=== PATIENT | male | born 1945 | race Caucasian/White ===

== ENCOUNTER → 2018-10-25 12:39 | Outpatient (CLI) | payer MEDICARE, BC, SELFPAY ==
[2018-10-12 11:21] VITALS: BMI 30.1
--- NOTE | 2018-10-25 12:41 | CDU_ITS ---
Reason For Study: TIA Rt. Velocities/BP Lt. Velocities/BP Prox CCA 69.5/9.5 cm/sec. Prox CCA 83.8/10.2 cm/sec. Mid CCA 63/12.1 cm/sec. Mid CCA 93.7/11.3 cm/sec. Dist CCA 51.3/13.4 cm/sec. Dist CCA 50.4/8.8 cm/sec. Prox ICA 104.7/22.5 cm/sec. Prox ICA 46.5/12.4 cm/sec. Mid ICA 78.5/21.2 cm/sec. Mid ICA 75/23.4 cm/sec. Dist ICA 74/21.2 cm/sec. Dist ICA 68.5/16.8 cm/sec. Rt. ICA/CCA = 1.7. Lt. ICA/CCA = 0.9. Prox ECA 116.5/17.3 cm/sec. Prox ECA 112.1/16.3 cm/sec. Rt. Vert. 47.6/15.7 cm/sec. Lt. Vert. 40.4/12.5 cm/sec. Right Extracranial There is homogeneous, smooth atherosclerotic plaque noted in the right common carotid artery. There is heterogeneous, irregular atherosclerotic plaque noted in the right internal carotid artery. There is heterogeneous, irregular atherosclerotic plaque noted in the right external carotid artery. Antegrade flow is noted in the right vertebral artery. Left Extracranial There is homogeneous, smooth atherosclerotic plaque noted in the left common carotid artery. There is heterogeneous, irregular atherosclerotic plaque noted in the left internal carotid artery. There is intimal thickening but no significant atherosclerotic plaque noted in the left external carotid artery. Antegrade flow is noted in the left vertebral artery. Procedure Carotid Duplex 61157. Exam performed in department. Interpretation Summary Mild (<50%) stenosis right extracranial internal carotid. Mild (<50%) stenosis left extracranial internal carotid. Flow within the vertebral arteries is antegrade bilaterally. Ordering Physician: Reza Velez Referring Physician: Srinivas Hopson Performed By: Carissa Staley RVT
== END ==
PROVIDERS: Family Provider Family Medicine; PCP Family Medicine; Referring Provider Internal Medicine Cardiovascular Disease; Visit Provider Internal Medicine Cardiovascular Disease
DX: I65.21 Occlusion and stenosis of right carotid artery (principal); Z95.1 Presence of aortocoronary bypass graft
CPT/HCPCS: 93880

== ENCOUNTER → 2018-11-22 06:06 | Outpatient (CLI) | payer MEDICARE, BC, SELFPAY ==
[2018-10-12 11:21] VITALS: BMI 30.1
--- NOTE | 2018-11-22 17:39 | STRESSREP ---
Stress Test Report Pharmacologic myocardial perfusion stress test. 72-year-old man with a history of chest pain coronary artery bypass surgery. Medications: Aspirin, levothyroxine, rosuvastatin, losartan, amlodipine. Stress protocol: Resting EKG demonstrates sinus bradycardia with a rate of 47 bpm normal intervals are noted resting blood pressures 160/80 mmHg. 0.4 mg of regadenoson was infused per usual protocol followed by rapid intravenous and flush injection continuous EKG monitoring was performed. The maximum heart rate attained was 75 bpm which was 50% of maximum predicted heart rate the maximum workload was 1 metabolic equivalent. At rest there were no ST or T wave changes noted suggest abnormal flow reserve at peak infusion nonspecific ST-T wave changes were noted with no meet the criteria for ischemia. Myocardial perfusion protocol. 11.0 mCi of technetium 99m sestamibi was injected at rest. 0.4 mg of adenosine was infused per usual protocol peak infusion 33.7 mCi of technetium 99m sestamibi was injected stress images were obtained stress and rest images were reconstructed in comparing the short axis vertical long horizontal long axis. Gated images were also obtained Perfusion SPECT analysis: Review of the images demonstrate normal uptake of tracer noted in all areas of the myocardium the resting images similarly demonstrate normal uptake of tracer noted in all areas of myocardium. Gated SPECT analysis: The gated ejection fraction was noted to be 70%. Conclusion: Normal pharmacologic myocardial perfusion stress test. Preserved ejection fraction.
== END ==
PROVIDERS: Family Provider Family Medicine; PCP Family Medicine; Referring Provider Internal Medicine Cardiovascular Disease; Visit Provider Internal Medicine Cardiovascular Disease
DX: I25.10 Atherosclerotic heart disease of native coronary artery without angina pectoris (principal); Z95.1 Presence of aortocoronary bypass graft
CPT/HCPCS: 78452; 93017; A9500; A4216; J2785

== ENCOUNTER → 2019-11-14 09:44 | Outpatient (CLI) | payer MEDICARE, BC, SELFPAY ==
[2019-10-27 11:05] VITALS: BMI 29.6
--- NOTE | 2019-11-14 09:45 | ECHOD_ITS ---
Reason For Study: S/P CABG Procedure This was a 2D Doppler, Color Flow transthoracic echocardiogram. Exam performed in department. Left Ventricle Normal LV size. Apical false tendon noted. Left ventricular systolic function is normal. The estimated ejection fraction is 60 %. No regional wall motion abnormalities noted. Right Ventricle Normal RV size. Normal systolic function. Atria Normal left atrium. Normal right atrium. Mitral Valve Normal mitral valve. Tricuspid Valve Normal tricuspid valve. Mild tricuspid valve insufficiency. Pulmonary artery systolic pressure is 30 mmHg. Aortic Valve Trisinus/trileaflet aortic valve. Mild diffuse aortic valve thickening. Pulmonic Valve Normal pulmonic valve. Great Vessels Normal aortic root. Pericardium/Pleural No pericardial effusion. MMode/2D Measurements & Calculations LVIDd: 4.7 cm IVSd: 0.98 cm Ao root diam: 3.7 cm LVIDs: 3.1 cm LVPWd: 0.98 cm RVDd: 4.3 cm FS: 34.4 % LAV(MOD-sp4): 72.0 ml LVAd ap4: 40.8 cm2 SV(MOD-sp4): 93.6 ml EDV(MOD-sp4): 149.2 ml EDV(sp4-el): 152.7 ml LVAs ap4: 23.4 cm2 ESV(MOD-sp4): 55.6 ml ESV(sp4-el): 54.9 ml EF(MOD-sp4): 62.8 % EF(sp4-el): 64.0 % SV(sp4-el): 97.8 ml LA A4 area: 23.0 cm2 LA dimension(2D): 4.9 cm RA A4 area: 18.8 cm2 Time Measurements MV dec time: 0.18 sec Doppler Measurements & Calculations MV E max robi: 83.5 cm/sec Lat Peak E' Robi: 8.2 cm/sec Med Peak E' Robi: 5.9 cm/sec MV A max robi: 94.1 cm/sec E/E' lat: 10.2 E/E' med: 14.1 MV E/A: 0.89 MV V2 max: 104.5 cm/sec Ao V2 max: 136.5 cm/sec LV V1 max: 122.7 cm/sec MV max P.4 mmHg Ao max P.5 mmHg LV V1 max P.0 mmHg MV V2 mean: 53.1 cm/sec MV mean P.4 mmHg MV V2 VTI: 42.4 cm PA V2 max: 137.8 cm/sec PI end-d robi: 91.2 cm/sec TR max robi: 254.7 cm/sec TR max P.0 mmHg MV P1/2t-pr_phl: 119.7 msec Interpretation Summary Normal LV size. Left ventricular systolic function is normal. Pulmonary artery systolic pressure is 30 mmHg. The estimated ejection fraction is 60 %. Mild tricuspid valve insufficiency. Ordering Physician: Reza Velez Referring Physician: SHIRLEY SANDRA Performed By: Za Crump, ALLISONCS, RVT
== END ==
PROVIDERS: PCP Family Medicine; Referring Provider Internal Medicine Cardiovascular Disease; Visit Provider Internal Medicine Cardiovascular Disease
DX: I25.10 Atherosclerotic heart disease of native coronary artery without angina pectoris (principal); Z95.1 Presence of aortocoronary bypass graft
CPT/HCPCS: 93306

== ENCOUNTER → 2020-06-29 08:51 | Outpatient (CLI) | payer MEDICARE, BC, SELFPAY ==
[2019-10-27 11:05] VITALS: BMI 29.6
== END ==
PROVIDERS: PCP Family Medicine; Referring Provider Nurse Practitioner Family; Visit Provider Nurse Practitioner Family
DX: I25.10 Atherosclerotic heart disease of native coronary artery without angina pectoris (principal); E78.5 Hyperlipidemia, unspecified; R00.2 Palpitations; Z95.1 Presence of aortocoronary bypass graft; I10 Essential (primary) hypertension
CPT/HCPCS: 93225; 93226

== ENCOUNTER → 2021-09-18 | Outpatient (CLI) | payer MEDICARE, BC, SELFPAY | END | disposition home or self-care (01) | LOC: PSN 08:49 | PROVIDERS: PCP Family Medicine; Referring Provider Physician Assistant Medical; Visit Provider Physician Assistant Medical | DX: R00.1 Bradycardia, unspecified (principal); R00.2 Palpitations; I25.10 Atherosclerotic heart disease of native coronary artery without angina pectoris | CPT/HCPCS: 93225; 93226 ==

== ENCOUNTER → 2021-11-28 | Outpatient (CLI) | payer MEDICARE, BC, SELFPAY ==
--- NOTE | 2021-11-28 16:40 | STRESSREP ---
Stress Test Report Exercise myocardial perfusion stress test. 75-year-old male with a history of chest pain and coronary disease. Stress protocol: Resting EKG demonstrates sinus bradycardia with a rate of 46 bpm normal intervals are noted. The patient exercised according to the regular Abel protocol for total duration of 7 minutes. Patient completed 1 minute into stage III of the Abel protocol the maximum heart rate attained was 141 bpm which was 97% of max impacted heart rate the maximum workload was 10.1 metabolic equivalents. At rest there were no ST or T wave changes noted suggest ischemia and at peak exercise upsloping ST changes were noted. That did not meet the criteria for ischemia. T wave inversions were noted in the inferior leads. The peak blood pressure was 200/90 mmHg. The test was terminated because the target heart rate was achieved. Myocardial perfusion protocol. 11.4 mCi of technetium 99m sestamibi was injected at rest. The patient exercised according to regular Abel protocol and at peak exercise 34.7 mCi of technetium 99m sestamibi was injected stress images were obtained stress and rest images were reconstructed and compared in the short axis vertical long and horizontal long axis. Gated images were also obtained. Perfusion SPECT analysis: Review of the stress images demonstrate normal uptake of tracer noted in all areas of the myocardium. The resting images similarly demonstrate normal uptake of tracer noted in all areas of the myocardium. No areas of reversibility are noted to suggest ischemia and no previous infarct is noted. Gated SPECT analysis: The gated ejection fraction is noted to be 64%. Conclusion: Normal exercise myocardial perfusion stress test at a moderate workload. Preserved ejection fraction.
== END | disposition home or self-care (01) ==
LOC: CVS 07:15
PROVIDERS: PCP Family Medicine; Referring Provider Internal Medicine Cardiovascular Disease; Visit Provider Internal Medicine Cardiovascular Disease
DX: I25.10 Atherosclerotic heart disease of native coronary artery without angina pectoris (principal); Z95.1 Presence of aortocoronary bypass graft
CPT/HCPCS: 78452; 93017; A9500; A4216

== ENCOUNTER → 2022-05-14 | Outpatient (CLI) | payer MEDICARE, BC, SELFPAY ==
[2022-05-14 11:25] LABS: Anion Gap 9 (5-15); BUN 21 mg/dL (7-18); BUN/Creat Ratio 18.1 RATIO (10-20); Calcium,Total 9.5 mg/dL (8.5-10.1); Chloride 105 mmol/L (98-107); Creatinine, Serum 1.16 mg/dL (0.70-1.30); EST Glomerular Filtration Rate 65 mL/min (>60); Est Glom Filt Rate - Afr Amer 79 mL/min (>60); Glucose 108 mg/dL (74-106); Potassium 3.5 mmol/L (3.5-5.1); Sodium Level 140 mmol/L (136-145)
== END | disposition home or self-care (01) ==
LOC: LAB 10:09
PROVIDERS: PCP Family Medicine; Visit Provider Nurse Practitioner Gerontology
DX: I10 Essential (primary) hypertension (principal)
CPT/HCPCS: 36415; 80048

== ENCOUNTER → 2022-05-28 | Outpatient (CLI) | payer MEDICARE, BC, SELFPAY ==
--- NOTE | 2022-05-28 10:09 | ECHOD_ITS ---
Reason For Study: Murmur Procedure This was a 2D Doppler, Color Flow transthoracic echocardiogram. Exam performed in department. Left Ventricle Normal LV size. Apical false tendon noted. Mild concentric left ventricular hypertrophy. Left ventricular systolic function is normal. The estimated ejection fraction is 55 %. No regional wall motion abnormalities noted. Right Ventricle Normal RV size. Normal systolic function. Atria The left atrium is mildly enlarged. The right atrium is mildly enlarged. Mitral Valve Bileaflet diffuse mitral valve thickening. Mild (1+) eccentric mitral valve insufficiency. Tricuspid Valve Normal tricuspid valve. Mild (1+) tricuspid valve insufficiency. Pulmonary artery systolic pressure is 32 mmHg. Aortic Valve Trisinus/trileaflet aortic valve. Moderate focal aortic valve calcification. Pulmonic Valve Normal pulmonic valve. Great Vessels Normal aortic root. The pulmonary artery is normal size. Normal inferior vena cava. Pericardium/Pleural No pericardial effusion. MMode/2D Measurements & Calculations LVIDd: 4.6 cm IVSd: 1.4 cm LVOT diam: 2.4 cm LVIDs: 2.7 cm LVPWd: 1.3 cm LVOT area: 4.5 cm2 RVDd: 4.5 cm FS: 41.9 % Ao root diam: 3.3 cm LAV(MOD-bp): 73.4 ml LVAd ap4: 35.1 cm2 LAV(MOD-bp) Indexed: 36.2 ml/m2 LVLd ap4: 9.3 cm LAV(MOD-sp2): 63.5 ml EDV(MOD-sp4): 107.8 ml LAV(MOD-sp4): 76.9 ml EDV(sp4-el): 112.3 ml LVAs ap4: 19.1 cm2 LVLs ap4: 8.0 cm ESV(MOD-sp4): 39.4 ml ESV(sp4-el): 38.7 ml EF(MOD-sp4): 63.4 % EF(sp4-el): 65.5 % LVAd ap2: 34.0 cm2 SV(MOD-sp4): 68.3 ml SV(MOD-sp2): 67.6 ml LVLd ap2: 9.2 cm EDV(MOD-sp2): 104.7 ml EDV(sp2-el): 106.3 ml LVAs ap2: 18.3 cm2 LVLs ap2: 7.9 cm ESV(MOD-sp2): 37.1 ml ESV(sp2-el): 36.0 ml EF(MOD-sp2): 64.5 % SV(sp4-el): 73.6 ml LA dimension(2D): 5.1 cm LA A4 area: 23.7 cm2 RA A4 area: 22.0 cm2 Time Measurements MV dec time: 0.20 sec Doppler Measurements & Calculations MV E max robi: 102.8 cm/sec Lat Peak E' Robi: 9.4 cm/sec Med Peak E' Robi: 7.6 cm/sec MV A max robi: 91.8 cm/sec E/E' lat: 10.9 E/E' med: 13.5 MV E/A: 1.1 Ao V2 max: 182.1 cm/sec LV V1 max: 126.8 cm/sec MV dec slope: 514.7 cm/sec2 Ao max P.3 mmHg LV V1 max P.4 mmHg Ao V2 mean: 117.0 cm/sec LV V1 mean P.3 mmHg Ao mean P.4 mmHg LV V1 mean: 86.1 cm/sec Ao V2 VTI: 41.1 cm LV V1 VTI: 32.3 cm AV (velocity ratio): 0.78 SORAYA(I,D): 3.5 cm2 SORAYA(V,D): 3.1 cm2 SV(LVOT): 143.8 ml PA V2 max: 148.2 cm/sec TR max robi: 269.6 cm/sec TR max P.1 mmHg ECHO/Echo Complete Interpretation Summary Normal LV size. Left ventricular systolic function is normal. The estimated ejection fraction is 55 %. Mild (1+) eccentric mitral valve insufficiency. Mild concentric left ventricular hypertrophy. Pulmonary artery systolic pressure is 32 mmHg. Ordering Physician: Soraya Leger Referring Physician: Srinivas Hopson Performed By: Soha Carrillo RDCS
== END | disposition home or self-care (01) ==
PROVIDERS: PCP Family Medicine; Visit Provider Nurse Practitioner Gerontology
DX: R01.1 Cardiac murmur, unspecified (principal)
CPT/HCPCS: 93306

== ENCOUNTER 2023-02-08 23:49 | Inpatient (IN) | payer MEDICARE, BC, SELFPAY ==
--- NOTE | 2023-02-08 00:15 | RAD_ITS ---
STUDY: X-RAY CHEST REASON FOR EXAM: Male, 77 years old. chest pain TECHNIQUE: Single AP portable view of the chest. COMPARISON: None. FINDINGS: The lungs are clear and expanded. There is no demonstrated pleural abnormality. Borderline cardiomegaly with midline sternotomy wires. Normal mediastinum and jian. Normal visualized pulmonary arteries. There is atherosclerotic calcification of the aortic arch with tortuosity. There are diffuse degenerative changes of the visualized thoracic spine. Normal visualized ribs, clavicles, and shoulders. There is no demonstrated abnormality of the visualized soft tissue structures of the upper abdomen. RAD/Chest 1 View (Portable) IMPRESSION: No acute cardiopulmonary disease. Electronically Signed: Danielle Gonsales MD at 0:26 EST ,
[2023-02-08 23:50] VITALS: BP 177/86; PULSE 86; RESP 15; TEMP 36.7; O2SAT 95; BMI 33.6
--- NOTE | 2023-02-08 23:50 | EKG12_ITS ---
Test Reason : CP Blood Pressure : / mmHG Vent. Rate : 088 BPM Atrial Rate : 088 BPM P-R Int : 248 ms QRS Dur : 112 ms QT Int : 388 ms P-R-T Axes : 075 015 085 degrees QTc Int : 469 ms Sinus rhythm with 1st degree A-V block with occasional Premature ventricular complexes Incomplete left bundle branch block ST & T wave abnormality, consider lateral ischemia Abnormal ECG Confirmed by ALISHA TITUS, CARLEE ([id number]), editor & co founder SIMBA ESTRELLA ([id number]) on 02/10/2023 10:42:23 AM Referred By: BB Confirmed By:CARLEE BRITO MD
--- NOTE | 2023-02-08 23:51 | ED.VIS.CHEST ---
HPI History of Present Illness Chief Complaint: Chest Pain Informant: patient and EMS Onset/Context/Timing Onset: Hours (3-4) Activity at onset: sudden, onset, activity on onset and rest Timing: Intermittent Quality: Positive for Pressure and Sharp Location: Right Parasternal Current Severity: 5/10 Maximum Severity: Severe Worsened By: Nothing; Not Worsened By Breathing Relieved By: Nothing; Not Relieved By NTG Narrative Narrative: 77-year-old male started having chest discomfort tonight while at rest, radiates up to his jaw and neck, states it feels different than prior cardiac pain but called EMS telling dispatch he thought he was having a heart attack. EMS gave him aspirin and nitroglycerin the patient states the nitroglycerin did not seem to help. He still has discomfort. Seems to have been coming and going since it started. [facility] Medical History (Updated 02/09/23 @ 00:[address] 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 Sinoatrial node dysfunction Stenosis of right carotid artery Home Medications aspirin 81 mg tablet,delayed release 81 mg PO QDAY 04/15/17 [History Last Taken Unknown] epinephrine 0.15 mg/0.3 mL injection,auto-injector (EpiPen Jr) See Rx Instructions IM .COMPLEX 04/15/17 [History Last Taken Unknown] levocetirizine 5 mg tablet 5 mg PO QDAY 04/15/17 [History Last Taken Unknown] montelukast 10 mg tablet 10 mg PO QDAY 90 days #90 tabs 04/15/17 [History Last Taken Unknown] tamsulosin 0.4 mg capsule 0.4 mg PO QHS 90 days #90 caps 04/15/17 [History Last Taken Unknown] nitroglycerin 0.4 mg sublingual tablet 0.4 mg sublingual Q5-15M PRN chest pain #25 tabs 03/24/19 [Rx Last Taken Unknown] apremilast 30 mg tablet (Otezla) 30 mg PO BID 06/20/20 [History Last Taken Unknown] ascorbic acid (vitamin C) 1,000 mg tablet 1 gm PO DAILY 06/20/20 [History Last Taken Unknown] bempedoic acid 180 mg-ezetimibe 10 mg tablet (Nexlizet) 1 tablet PO DAILY 06/20/20 [History Last Taken Unknown] cholecalciferol (vitamin D3) 50 mcg (2,000 unit) tablet 2,000 unit PO BID 06/20/20 [History Last Taken Unknown] fluticasone propionate 110 mcg/actuation HFA aerosol inhaler (Flovent HFA) 1 puff inhalation BID 06/20/20 [History Last Taken Unknown] multivitamin 1 tablet PO DAILY 06/20/20 [History Last Taken Unknown] omega 4-lfh-edm-fish oil 1,600 mg-500 mg-800 mg/5 mL oral liquid 5 ml PO DAILY 06/20/20 [History Last Taken Unknown] levothyroxine 112 mcg tablet 112 mcg PO DAILY 10/30/20 [History Last Taken Unknown] escitalopram oxalate 10 mg tablet 10 mg PO DAILY 05/01/22 [History Last Taken Unknown] amlodipine 10 mg tablet 5 mg PO DAILY 02/09/23 [History Last Taken Unknown] losartan 100 mg-hydrochlorothiazide 12.5 mg tablet 1 tab PO DAILY 02/09/23 [History Last Taken Unknown] Allergy/AdvReac Type Severity Reaction Status Date / Time insect venom [yellow jacket] Allergy Severe Anaphylaxis Verified 02/09/23 00:26 atorvastatin [From Lipitor] Allergy intolerance, Verified 02/09/23 00:26 weakness colesevelam [From WelChol] Allergy myalgias Verified 02/09/23 00:26 Penicillins Allergy Unknown Verified 02/09/23 00:26 pravastatin [From Pravachol] Allergy myalgias Verified 02/09/23 00:26 rosuvastatin [From Crestor] Allergy intolerance, Verified 02/09/23 00:26 weakness ibuprofen AdvReac Mild Asthma Verified 02/09/23 00:26 Attack Family History Father , age 87 CAD (coronary artery disease) Mother , age 90 CAD (coronary artery disease) Brother FH: brain aneurysm Sister emphysema Surgical History (Updated 02/08/23 @ 23:53 by Shira Sultana) H/O coronary artery bypass surgery (07/29/05) History of back surgery History of left heart catheterization (LHC) (09/23/10) Social History Smoking Status: Former smoker how long ago did patient quit smokin alcohol intake: never substance use type: does not use what type of physical activity do you participate in: none ROS ROS ED Constitutional Constitutional ED: Denies chills or fever(s) Eyes Eyes: Denies change in vision or diplopia ENT ENT ED: Denies rhinorrhea or sore throat Cardiovascular Cardiovascular: Reports chest pain, leg edema and radiating jaw, neck or arm pain; Denies palpitations Respiratory/Chest Respiratory/Chest: Reports dyspnea; Denies cough Gastrointestinal Gastrointestinal: Reports nausea; Denies abdominal pain, diarrhea or vomiting Genitourinary Genitourinary ED: Denies dysuria or hematuria Musculoskeletal Musculoskeletal: Denies back pain or neck pain Integumentary Denies abscess or rash Neurologic Neurologic: Denies headache(s), paresthesias or weakness Psychiatric Psychiatric: Denies anxiety or suicidal thoughts EXAM Physical Exam Const Vital Signs: 02/08/23 23:50 02/08/23 23:54 02/08/23 23:50 Temperature 98.1 F Temperature Source Temporal Pulse Rate 86 Respiratory Rate 15 Respiratory Effort Non-Labored Blood Pressure 177/86 H Blood Pressure Mean 116 Pulse Ox 95 95 Oxygen Delivery Method Room Air Room Air 02/09/23 00:40 Temperature Temperature Source Pulse Rate 64 Respiratory Rate 15 Respiratory Effort Blood Pressure 124/69 H Blood Pressure Mean 87 Pulse Ox 96 Oxygen Delivery Method Room Air Positive well nourished and well developed General Appearance ED: well developed and NAD HEENT Reports moist mucous membranes normocephalic and atraumatic Eyes PERRL and EOMs intact bilaterally Neck full ROM, supple and no JVD Chest Wall Chest Narrative: Well-healed CABG scar Resp normal respiratory effort and clear to auscultation bilaterally Cardio regular rate, regular rhythm and no murmurs GI non-tender and non-distended Auscultation: normoactive bowel sounds Palpation: soft Back/Spine no CVA tenderness General Back: other FROM Extremity normal to inspection General Extremety ED: Yes edema; Negative for pulses abnormal or tenderness General Extremity: edema bilateral lower extremity Details: mild; Negative for pulses abnormal Neuro oriented x3, CN's II-XII intact bilaterally and no sensory deficits noted Sensorium / Orientation: awake and alert Motor Exam: strength 5/5 throughout Skin no rashes or lesions noted and no wounds Heart Score History: Highly Suspicious ECG: Significant ST-Depression Age: >/= 65 years Risk Factors: >/= 3 Risk Factors or History of CAD Score: 8 MDM MDM MDM Narrative Medical decision making narrative: Patient's initial troponin is elevated at 704, and in context of his EKGs showing ST depressions septal laterally, this is consistent with acute coronary syndrome. Cardiology in agreement with me that this is not consistent with STEMI based on EKGs, both current and EMS compared with old EKG. After morphine patient still having mild chest discomfort but better, clinically hemodynamically stable. Will start him on heparin and nitroglycerin drips, and admit to the ICU Chest x-ray 1 view shows narrow mediastinum no other acute abnormality on my interpretation. History & Record Review Additional record(s) reviewed:: Prior outpatient record (Echo with EF 55% 2021) Lab Data Attestation: I reviewed the patient's lab results. Labs: Laboratory Results - last 24 hr 02/08/23 23:56 WBC 7.8 RBC 4.41 L Hgb 13.7 Hct 41.1 MCV 93.2 MCH 31.1 MCHC 33.3 RDW Std Deviation 44.7 H RDW Coeff of Kadeem 13.2 Plt Count 513 H MPV 9.9 Immature Gran % (Auto) 1.300 H Neut % (Auto) 61.5 Lymph % (Auto) 20.3 [place] % (Auto) 12.3 H Eos % (Auto) 3.7 Baso % (Auto) 0.9 Absolute Neuts (auto) 4.8 Absolute Lymphs (auto) 1.58 Nucleated RBC % 0 Sodium 138 Potassium 3.8 Chloride 105 Carbon Dioxide 24.0 Anion Gap 9 BUN 30 H Creatinine 1.27 Estim Creat Clear Calc 47.13 Est GFR (MDRD) Af Amer 71 Est GFR (MDRD) Non-Af 58 L BUN/Creatinine Ratio 23.6 H Glucose 152 H Calcium 10.0 Troponin I High Sens 704 H* Radiography Diagnostic Testing: Clinical Impression(s) from Imaging Studies Chest X-Ray 02/08/23 00:15 IMPRESSION: No acute cardiopulmonary disease. Electronically Signed: Danielle Gonsales MD at 0:26 EST , Rhythm Strip Rhythm Strip: Sinus Rhythm Rate: 85 Ectopy: None EKG Initial EKG: Attestation: I personally reviewed and interpreted this EKG as follows: Interpretation: Sinus Rhythm, No Acute Injury Pattern and S-T Depression (0.5mm V2-4) Management Discussion w/another healthcare provider: Hospitalist and Rn Occupational (cardiology Mike - agrees no STEMI) Critical Care Time Critical Care Time: Yes Critical care time (excluding procedures): 30-74 minutes (36 min), Including time spent:, Discussing w/Patient &/or Family/Supervisor Evaporator, Discussing w/Consultants, Arranging Admission or Transfer and Performing Direct Patient Care at Bedside Discharge Plan Triage Chief Complaint: Chest Pain ED Provider: Mayank Moore Dx/Rx/DC Orders Clinical Impression: ACS (acute coronary syndrome) Prescriptions: No Action tamsulosin 0.4 mg capsule,extended release 24hr 0.4 mg PO QHS 90 Days Qty: 90 Patient Comments: levocetirizine 5 mg tablet 5 mg PO QDAY montelukast 10 mg tablet 10 mg PO QDAY 90 Days Qty: 90 Patient Comments: epinephrine [EpiPen Jr] 0.15 mg/0.3 mL auto-injector See Rx Instructions IM .COMPLEX Patient Comments: Take as directed, IM Rx Instructions: Take as directed, IM aspirin 81 mg tablet,delayed release (DR/EC) 81 mg PO QDAY nitroglycerin 0.4 mg tablet, sublingual 0.4 mg SUBLINGUAL Q5-15M PRN (Reason: chest pain) Qty: 25 3RF Rx Instructions: until response; do not exceed 3 doses per episode levothyroxine 112 mcg tablet 112 mcg PO DAILY escitalopram oxalate 10 mg tablet 10 mg PO DAILY amlodipine 10 mg tablet 5 mg PO DAILY Rx Instructions: 5 mg po daily losartan-hydrochlorothiazide 100-12.5 mg tablet 1 tab PO DAILY Otezla 30 mg tablet 30 mg PO BID Nexlizet 180-10 mg tablet 1 tablet PO DAILY Flovent HFA 110 mcg/actuation HFA aerosol inhaler 1 puff INHALATION BID Patient Comments: Take as directed; INHALATION multivitamin Tablet 1 tablet PO DAILY cholecalciferol (vitamin D3) 50 mcg (2,000 unit) tablet 2,000 unit PO BID ascorbic acid (vitamin C) 1,000 mg tablet 1 gm PO DAILY omega 4-rsj-ejy-fish oil 1,600-500-800 mg/5 mL liquid 5 ml PO DAILY Primary Care Provider: Srinivas Hopson Referrals: Srinivas Hospon MD [Primary Care Provider] - Disposition Disposition: Acute Care Hospital [facility]
[2023-02-09] VITALS (45 sets, daily range): BP systolic 106–157; BP diastolic 51–102; PULSE 46–77; RESP 12–21; TEMP 36.2–37.1; O2SAT 93–98; BMI 29.7
[2023-02-09] MEDS: Morphine 4 MG/ML Syringe 2 MG IV (00:09)
[2023-02-09] MEDS: Ondansetron 4 MG/2 ML Vial IV (00:10)
[2023-02-09 00:28] LABS: Absolute Lymphocyte Count 1.58 X10^3/uL (0.83-4.51); Absolute Neutrophil Count 4.8 X10^3/uL (2.0-7.7); Basophil# 0.07 X10^3/uL; Basophil% 0.9 % (0-1); Eosinophil# 0.29 X10^3/uL; Eosinophils% 3.7 % (0-5); Hematocrit 41.1 % (40-54); Hemoglobin 13.7 g/dL (13.0-16.5); Lymphocyte # 1.58 X10^3/ul (0.83-4.51); Lymphocyte % 20.3 % (19-41); Mean Corp Hgb Conc 33.3 g/dL (32-36); Mean Corpuscular Hgb 31.1 pg (27.0-32.0); Mean Corpuscular Volume 93.2 fL (80-94); Mean Platelet Vol. 9.9 fl (6.2-12.0); Monocyte# 0.96 X10^3/uL; Monocyte% 12.3 % (0-10); NRBC Flagged by Analyzer 0 % (0-5); Neutrophil # 4.79 X10^3/uL (2.7-7.7); Neutrophil % 61.5 % (47-70); POSITIVE COUNT YES; RBC Distribution Width CV 13.2 % (11.6-14.6); RBC Distribution Width SD 44.7 fl (35.1-43.9); Red Blood Count 4.41 M/mm3 (4.6-6.2); White Blood Count 7.8 K/mm3 (4.4-11.0)
[2023-02-09 00:29] LABS: Differential Indicated SCAN CRITERIA MET
[2023-02-09 00:35] LABS: Anion Gap 9 (5-15); BUN 30 mg/dL (7-18); BUN/Creat Ratio 23.6 RATIO (10-20); Chloride 105 mmol/L (98-107); Creatinine, Serum 1.27 mg/dL (0.70-1.30); EST Glomerular Filtration Rate 58 mL/min (>60); Est Glom Filt Rate - Afr Amer 71 mL/min (>60); Estimated Creatinine Clearance 47.13 ml/min; Glucose 152 mg/dL (74-106); Potassium 3.8 mmol/L (3.5-5.1); Sodium Level 138 mmol/L (136-145); Troponin-I HS (w/2H Reflex) 704 pg/mL (3.0-78.0)
--- NOTE | 2023-02-09 00:42 | HP.PCM.HOS_ITS ---
[facility] - General General Date of Admission: 02/09/23 Date of Service: 02/09/23 Chief Complaint: Chest pain HPI Narrative DAVID MIXON, is a 77 M with a past medical history of essential hypertension, hyperlipidemia, hypothyroidism, obesity; with BMI of 33.6 this admission, former history of tobacco abuse (quit 1989), history of vocal cord cancer; status post polyp removal approximately 6 years ago with subsequent radiation followed by Dr. Ardon of ENT, history of right carotid artery stenosis, history of sinoatrial node dysfunction, history of diverticulitis; with 12 inches of colon resected with subsequent ostomy and reanastomosis, BPH, depression, GERD, osteoarthritis; with recent history of back surgery; with L4-L5 fusion with surgery taking 4 hours with 4 incisions (normal time for the stable surgeries 2 hours) done by Dr. Dickey at [facility] on 01/22/2023 with good wound healing and no known postoperative complications and a known history of coronary artery disease; status post DC with coronary artery bypass graft x 3 (2005) and [facility] (2010) followed by Dr. Velez who presents to [facility] ER complaining of chest pain. Mr. Fernandez reports his symptoms began approximately 3 to 4 hours prior to arrival with the abrupt onset of chest pain that began at rest and was right parasternal, radiating up into his jaw and neck, approximately 5 out of 10, pressure-like and sharp, intermittent and was not made better by sublingual nitroglycerin and was not made worse with activity. He also admits to associated nausea and lower extremity edema but denies vomiting or palpitations. He states this is different than his previous angina and he claims his chest pain has improved after being started on IV nitroglycerin. In the ER his initial troponin was 704 pg/mL followed by a second troponin of 621 pg/mL consistent with a suspected non-ST elevation DC with his EKG revealing sinus bradycardia at 58 bpm with a first-degree AV block and evidence of a previous septal infarct and he was then to the ICU for ongoing care for stated that expected to be greater than 48 hours. [facility] Medical History Atherosclerotic heart disease of [place] coronary artery without angina pectoris Dizziness and giddiness Esophageal disorder Essential (primary) hypertension Fatigue GERD (gastroesophageal reflux disease) HLD (hyperlipidemia) Hypothyroidism, iatrogenic Old myocardial infarction Sinoatrial node dysfunction Stenosis of right carotid artery Home Medications aspirin 81 mg tablet,delayed release 81 mg PO QDAY 04/15/17 [History Last Taken Unknown] epinephrine 0.15 mg/0.3 mL injection,auto-injector (EpiPen Jr) See Rx Instructions IM .COMPLEX 04/15/17 [History Last Taken Unknown] levocetirizine 5 mg tablet 5 mg PO QDAY 04/15/17 [History Last Taken Unknown] montelukast 10 mg tablet 10 mg PO QDAY 90 days #90 tabs 04/15/17 [History Last Taken Unknown] tamsulosin 0.4 mg capsule 0.4 mg PO QHS 90 days #90 caps 04/15/17 [History Last Taken Unknown] nitroglycerin 0.4 mg sublingual tablet 0.4 mg sublingual Q5-15M PRN chest pain #25 tabs 03/24/19 [Rx Last Taken Unknown] apremilast 30 mg tablet (Otezla) 30 mg PO BID 06/20/20 [History Last Taken Un known] ascorbic acid (vitamin C) 1,000 mg tablet 1 gm PO DAILY 06/20/20 [History Last Taken Unknown] bempedoic acid 180 mg-ezetimibe 10 mg tablet (Nexlizet) 1 tablet PO DAILY 06/20/20 [History Last Taken Unknown] cholecalciferol (vitamin D3) 50 mcg (2,000 unit) tablet 2,000 unit PO BID 06/20/20 [History Last Taken Unknown] fluticasone propionate 110 mcg/actuation HFA aerosol inhaler (Flovent HFA) 1 puff inhalation BID 06/20/20 [History Last Taken Unknown] multivitamin 1 tablet PO DAILY 06/20/20 [History Last Taken Unknown] omega 6-vgd-ppi-fish oil 1,600 mg-500 mg-800 mg/5 mL oral liquid 5 ml PO DAILY 06/20/20 [History Last Taken Unknown] levothyroxine 112 mcg tablet 112 mcg PO DAILY 10/30/20 [History Last Taken Unknown] escitalopram oxalate 10 mg tablet 10 mg PO DAILY 05/01/22 [History Last Taken Unknown] amlodipine 10 mg tablet 5 mg PO DAILY 02/09/23 [History Last Taken Unknown] losartan 100 mg-hydrochlorothiazide 12.5 mg tablet 1 tab PO DAILY 02/09/23 [History Last Taken Unknown] Allergy/AdvReac Type Severity Reaction Status Date / Time insect venom [yellow jacket] Allergy Severe Anaphylaxis Verified 02/09/23 00:26 atorvastatin [From Lipitor] Allergy intolerance, Verified 02/09/23 00:26 weakness colesevelam [From WelChol] Allergy myalgias Verified 02/09/23 00:26 Penicillins Allergy Unknown Verified 02/09/23 00:26 pravastatin [From Pravachol] Allergy myalgias Verified 02/09/23 00:26 rosuvastatin [From Crestor] Allergy intolerance, Verified 02/09/23 00:26 weakness ibuprofen AdvReac Mild Asthma Verified 02/09/23 00:26 Attack Family History Father , age 87 CAD (coronary artery disease) Mother , age 90 CAD (coronary artery disease) Brother FH: brain aneurysm Sister emphysema Surgical History H/O coronary artery bypass surgery (07/29/05) History of back surgery History of left heart catheterization (LHC) (09/23/10) Social History Smoking Status: Former smoker how long ago did patient quit smokin alcohol intake: never substance use type: does not use what type of physical activity do you participate in: none ROS ROS Narrative Review of systems: Constitutional: Patient denies fevers or chills. Eyes: Patient denies visual changes. ENT: Patient denies runny nose or sore throat. Cardiovascular: Patient admits to chest pain radiating into his jaw, neck and arm with lower extremity edema. But he denies palpitations. Respiratory: Patient admits to dyspnea but denies cough. Gastrointestinal: Patient admits to nausea but denies vomiting, abdominal pain or diarrhea. Genitourinary: Patient denies dysuria, hematuria or urinary frequency. Musculoskeletal: Patient denies neck pain or back pain. Integumentary: Patient denies abscess or rash at this time. Neurologic: Patient denies headache, paresthesias or focal neurologic deficits. Psychiatric: Patient denies depression, anxiety or suicidal thoughts. Hematologic: Patient denies easy bleeding or easy bruisability. Allergic: Patient denies lip swelling, tongue swelling or urticaria. 14 point review systems otherwise negative except for positives noted above in HPI. Vital Signs Vital Signs Vital Signs: 02/08/23 23:50 02/08/23 23:54 02/08/23 23:50 Temperature 98.1 F Temperature Source Temporal Pulse Rate 86 Respiratory Rate 15 Respiratory Effort Non-Labored Blood Pressure 177/86 H Blood Pressure Mean 116 Pulse Ox 95 95 Oxygen Delivery Method Room Air Room Air 02/09/23 00:40 Temperature Temperature Source Pulse Rate 64 Respiratory Rate 15 Respiratory Effort Blood Pressure 124/69 H Blood Pressure Mean 87 Pulse Ox 96 Oxygen Delivery Method Room Air Weight Weight: 221 lb 1.978 oz Body Mass Index (BMI) 33.6 Physical Exam Const alert, oriented x3 and average body habitus Constitutional Narrative: Mild distress and shortness of breath noted. General Appearance: cooperative HEENT normocephalic, head/scalp atraumatic, hearing grossly normal bilaterally, moist oral mucous membranes and oropharynx normal Eyes PERRL, EOMs intact bilaterally and conjunctivae normal Neck no lymphadenopathy and supple Resp Resp Narrative: Mildly increased work of breathing noted. Cardio regular rate and regular rhythm GI normal to inspection, nondistended, normoactive bowel sounds, soft to palpation, non-tender and non-distended GI Narrative: Obese. Extremity Extremity Narrative: 1-2+ bilateral lower extremity edema. Skin Skin Narrative: Patient has no evidence of rash at this time. His sternum reveals a well-healed previous scar from CABG. Neuro oriented x3, CN's II-XII intact bilaterally, moves all extremities and no focal motor deficits Sensorium / Orientation: awake, alert, oriented to person, oriented to place and oriented to time Speech: speech normal Motor Exam: strength 5/5 throughout Psych affect normal Results Medical Records Data Attestation: I reviewed the patient's medical records Lab / Micro Data Attestation: I reviewed the patient's lab results. 02/08/23 23:56 02/08/23 23:56 Labs: Laboratory Results - last 24 hr 02/08/23 23:56: WBC 7.8, RBC 4.41 L, Hgb 13.7, Hct 41.1, MCV 93.2, MCH 31.1, MCHC 33.3, RDW Std Deviation 44.7 H, RDW Coeff of Kadeem 13.2, Plt Count 513 H, MPV 9.9, Immature Gran % (Auto) 1.300 H, Neut % (Auto) 61.5, Lymph % (Auto) 20.3, [place] % (Auto) 12.3 H, Eos % (Auto) 3.7, Baso % (Auto) 0.9, Absolute Neuts (auto) 4.8, Absolute Lymphs (auto) 1.58, Nucleated RBC % 0, Sodium 138, Potassium 3.8, Chloride 105, Carbon Dioxide 24.0, Anion Gap 9, BUN 30 H, Creatinine 1.27, Estim Creat Clear Calc 47.13, Est GFR (MDRD) Af Amer 71, Est GFR (MDRD) Non-Af 58 L, BUN/Creatinine Ratio 23.6 H, Glucose 152 H, Calcium 10.0, Troponin I High Sens 704 H* Rhythm Strip Rhythm Strip: Sinus Rhythm Rate: 85 Ectopy: None Imagaing Radiology Impression Chest X-Ray 02/08/23 00:15 IMPRESSION: No acute cardiopulmonary disease. Electronically Signed: Danielle Gonsales MD at 0:26 EST Reading Location ID and State: [id number] [facility] , Service support , Assessment & Plan Assessment/Plan (1) ACS (acute coronary syndrome): (2) H/O coronary artery bypass surgery: (3) Bilateral lower extremity edema: (4) Essential (primary) hypertension: (5) HLD (hyperlipidemia): QUALIFIERS: Hyperlipidemia type: pure hypercholesterolemia Qualified Code(s): E78.00 - Pure hypercholesterolemia, unspecified PLAN: Plan 1. Non-ST elevation DC; evidenced by initial troponin of 704 ng/mL with EKG showing ST depressions septally and laterally system with acute coronary syndrome - Admit to ICU. Continue aspirin, statin and as needed IV morphine plus continue IV heparin and IV nitroglycerin. Serialize troponin. Check echocardiogram to evaluate left ventricular ejection fraction. Both the camera repairman and the ER physician agree that this is not a STEMI. Finally, we will consult Dr. Velez of the cardiology service to see this patient on rounds in the a.m. for further recommendations regarding left heart cath in the a.m. with help appreciated in advance. 2. Known history of coronary artery disease; status post CABG x 3 (2005) with [facility] (2010) and previous echocardiogram showing left ventricular ejection fraction of 55% (2021) complicating #1 - Resume supportive care as previous. 3. Recent history of back surgery; with L4-L5 fusion with surgery taking 4 hours with 4 incisions (normal time for this type of surgery is ~2 hours) done by Dr. Dickey at [facility] on 01/22/2023 with good wound healing and no known postoperative complications compounding #1 & #2 - Patient denies back pain or lower extremity paresthesias at this time. He was thoroughly warned to inform us if he has any change in the amount of back pain, any new numbness in his lower extremities or any difficulties urinating or defecating as these may b e signs of potential bleeding affecting his spinal cord. His also helped to reinforce this message as this patient is very stoic, does not like to complain and has a high pain tolerance. Finally, I spoke with EVAPORATOR HELPER and informed her that we need to inform Dr. Dickey that his patient has been admitted here for treatment of acute coronary syndrome and is on full antiplatelet and anticoagulation therapy so he can be aware and also be ready to help us in case complications arise. 4. Essential hypertension - Continue home regimen plus give as needed IV hydralazine for systolic blood pressure greater than 160 mmHg. 4. Hyperlipidemia - Resume statin and check lipid profile this admission. 5. Obesity; with BMI of 33.6 this admission - Weight loss will be recommended. Check TSH. 6. BPH - Continue tamsulosin as previous. 7. Depression - Resume escitalopram as previous plus give as needed Xanax for breakthrough symptoms. 8. History of diverticulitis; with 12 inches of colon resected with subsequent ostomy and reanastomosis - Stable with no active issues at this time. 9. History of vocal cord cancer; status post polyp removal approximately 6 years ago with subsequent radiation followed by Dr. Ardon of ENT - Apparently stable. 10. DVT prophylaxis - Patient already on IV heparin for #1 which be continued. Total time: Approximately 55 minutes. Charges/Coding Visit Charges Inpatient E&M: 61290 Init Hosp L2
[2023-02-09 00:46] LABS: Platelet Estimate ADEQUATE (ADEQ)
[2023-02-09 01:05] LABS: International Normalized Ratio 1.3; Prothrombin Time (Protime)PT. 16.1 SECONDS (11.7-14.9)
[2023-02-09 01:06] LABS: Partial Thromboplast Time 38.1 Seconds (24.1-36.2)
[2023-02-09] MEDS: Heparin Injection (Vial) 5,000 UNIT/ML VIAL 4000 UNIT IV (01:06)
[2023-02-09] MEDS: HEPARIN/D5w 25,000 UNITS 25,000 UNITS/250 ML IV.SOLN. 10 UNITS CONT INF (01:06)
--- NOTE | 2023-02-09 01:11 | EKG12_ITS ---
Test Reason : CP ADMIT Blood Pressure : / mmHG Vent. Rate : 058 BPM Atrial Rate : 058 BPM P-R Int : 272 ms QRS Dur : 118 ms QT Int : 446 ms P-R-T Axes : 055 000 021 degrees QTc Int : 437 ms Sinus bradycardia with 1st degree A-V block Septal infarct , age undetermined Abnormal ECG When compared with ECG of 09-FEB-2023 01:19, MANUAL COMPARISON REQUIRED, DATA IS UNCONFIRMED Confirmed by ALISHA TITUS, CARLEE ([id number]), online editor SIMBA ESTRELLA ([id number]) on 02/10/2023 7:54:55 AM Referred By: LAWTON Confirmed By:CARLEE BRITO MD
--- NOTE | 2023-02-09 01:11 | ECHOD_ITS ---
Reason For Study: CHEST PAIN Procedure This was a 2D Doppler, Color Flow transthoracic echocardiogram. Exam performed portable in ICU/CCU. Left Ventricle Normal LV size. Left ventricular systolic function is normal. The estimated ejection fraction is 65 %. Stage 1 diastolic dysfunction. Mild segmental systolic dysfunction (see wall motion). No regional wall motion abnormalities noted. Right Ventricle Normal RV size. Normal systolic function. Atria Normal left atrium. The right atrium is mildly enlarged. Mitral Valve Normal mitral valve. Tricuspid Valve Normal tricuspid valve. Aortic Valve Trisinus/trileaflet aortic valve. Pulmonic Valve Normal pulmonic valve. Great Vessels Normal aortic root. The pulmonary artery is normal size. Normal inferior vena cava. Pericardium/Pleural No pericardial effusion. MMode/2D Measurements & Calculations LVIDd: 4.7 cm IVSd: 1.3 cm Ao root diam: 3.3 cm LVIDs: 3.4 cm LVPWd: 1.0 cm FS: 27.5 % LAV(MOD-bp): 57.1 ml LVAd ap4: 32.3 cm2 SV(MOD-sp4): 62.0 ml LAV(MOD-bp) Indexed: 28.2 ml/m2 LVLd ap4: 9.0 cm LAV(MOD-sp2): 56.1 ml EDV(MOD-sp4): 95.9 ml LAV(MOD-sp4): 58.4 ml EDV(sp4-el): 98.4 ml LVAs ap4: 16.6 cm2 LVLs ap4: 7.9 cm ESV(MOD-sp4): 33.9 ml ESV(sp4-el): 29.7 ml EF(MOD-sp4): 64.6 % EF(sp4-el): 69.8 % SV(sp4-el): 68.7 ml LA A4 area: 19.2 cm2 LA dimension(2D): 5.0 cm RA A4 area: 22.5 cm2 TAPSE: 1.6 cm Time Measurements MV dec time: 0.26 sec Doppler Measurements & Calculations MV E max robi: 83.3 cm/sec Lat Peak E' Robi: 11.6 cm/sec Med Peak E' Robi: 9.4 cm/sec MV A max robi: 96.4 cm/sec E/E' lat: 7.2 E/E' med: 8.9 MV E/A: 0.86 MV V2 max: 100.9 cm/sec Ao V2 max: 214.7 cm/sec MV max P.1 mmHg MV dec slope: 325.1 cm/sec2 Ao max P.4 mmHg MV V2 mean: 49.5 cm/sec Ao V2 mean: 139.7 cm/sec MV mean P.3 mmHg Ao mean P.2 mmHg MV V2 VTI: 39.9 cm Ao V2 VTI: 50.2 cm AV (velocity ratio): 0.56 LV V1 max: 116.7 cm/sec PA V2 max: 129.3 cm/sec LV V1 max P.5 mmHg PA V2 mean: 89.6 cm/sec LV V1 mean P.1 mmHg LV V1 mean: 83.1 cm/sec LV V1 VTI: 28.1 cm ECHO/Echo Complete Interpretation Summary Normal LV size. Left ventricular systolic function is normal. The estimated ejection fraction is 65 %. Stage 1 diastolic dysfunction. Mild segmental systolic dysfunction (see wall motion). Ordering Physician: Demetrio Newton Referring Physician: SHIRLEY SANDRA Performed By: Rosalinda De Oliveira RCS
[2023-02-09] MEDS: Nitroglycerin Infusion 250 ML 3 MG CONT INF (01:15)
[2023-02-09 02:00] LABS: Troponin-I HS 621 pg/mL (3.0-78.0)
[2023-02-09 02:02] LABS: Reflex Troponin-HS? (from REC) Y
--- NOTE | 2023-02-09 02:05 | EKG12_ITS ---
Test Reason : CP ADMIT Blood Pressure : / mmHG Vent. Rate : 057 BPM Atrial Rate : 000 BPM P-R Int : 000 ms QRS Dur : 114 ms QT Int : 326 ms P-R-T Axes : 000 -01 048 degrees QTc Int : 317 ms Poor data quality, interpretation may be adversely affected Normal sinus rhythm Septal infarct , age undetermined Abnormal ECG When compared with ECG of 09-FEB-2023 01:19, MANUAL COMPARISON REQUIRED, DATA IS UNCONFIRMED Confirmed by ALISHA TITUS, CARLEE ([id number]), editorial director CHRIS BRIDGES ([id number]) on 02/10/2023 1:43:03 PM Referred By: LAWTON Confirmed By:CARLEE BRITO MD
[2023-02-09] MEDS: 0.9% Saline Lock 10 ML Syringe IV ×3 (03:10→20:42)
[2023-02-09] MEDS: Clopidogrel Bisulfate 75 MG Tablet PO (03:11)
[2023-02-09] MEDS: Levothyroxine 112 MCG Tablet PO (05:30)
[2023-02-09 05:42] LABS: Hematocrit 33.5 % (40-54); Hemoglobin 11.4 g/dL (13.0-16.5); Mean Corpuscular Hgb 31.3 pg (27.0-32.0); Mean Platelet Vol. 8.1 fl (6.2-12.0); Platelet Count 533 K/mm3 (150-450); RBC Distribution Width CV 13.2 % (11.6-14.6); RBC Distribution Width SD 44.1 fl (35.1-43.9); Red Blood Count 3.64 M/mm3 (4.6-6.2); White Blood Count 7.5 K/mm3 (4.4-11.0)
[2023-02-09 06:12] LABS: ALB/GLOB Ratio 0.8 RATIO (0.9-2.4); AST(SGOT) 19 U/L (15-37); Alanine Aminotransfer ALT/SGPT 24 U/L (16-61); Albumin, Serum 3.1 g/dL (3.2-5.0); Alkaline Phosphatase 69 U/L (45-117); Anion Gap 9 (5-15); BUN 26 mg/dL (7-18); BUN/Creat Ratio 23.4 RATIO (10-20); Calcium,Total 8.6 mg/dL (8.5-10.1); Chloride 106 mmol/L (98-107); Cholesterol 103 mg/dL (200); Creatinine, Serum 1.11 mg/dL (0.70-1.30); EST Glomerular Filtration Rate 68 mL/min (>60); Est Glom Filt Rate - Afr Amer 83 mL/min (>60); Estimated Creatinine Clearance 53.92 ml/min; Globulin 3.9 g/dL (2.2-4.2); Glucose 111 mg/dL (74-106); High Density Lipoprotein 34 mg/dL; Potassium 2.8 mmol/L (3.5-5.1); Sodium Level 142 mmol/L (136-145); Thyroid Stim Hormone (TSH) 4.18 uIU/mL (0.358-3.74); Triglycerides 124 mg/dL; Very Low Density Lipoprotein 25 mg/dL (5-40)
[2023-02-09] MEDS: Potassium Chloride Oral Tablet 20 MEQ 60 MEQ PO (06:30)
[2023-02-09 06:42] LABS: Magnesium 2.2 mg/dL (1.6-2.6); Phosphorus 3.3 mg/dL (2.5-4.9)
[2023-02-09] MEDS: Losartan Potassium 100 MG Tablet PO (07:14)
[2023-02-09] MEDS: amLODIPine 5 MG Tablet PO (07:14)
[2023-02-09] MEDS: Aspirin E.C. 81 MG Tablet PO (07:15)
--- NOTE | 2023-02-09 07:17 | PCM.CONS.C ---
Assessment & Plan Assessment/Plan (1) ACS (acute coronary syndrome): PLAN: He does present with an acute coronary syndrome. Cardiac enzymes are elevated. My recommendation at this time will be to proceed with a left heart catheterization and depending on the findings further recommendations will be made. Cardiac catheterization today demonstrated a patent VARGAS to the LAD, patent right coronary arteries with a saphenous vein graft, and a saphenous vein graft obtuse marginal branch with a tight 99% stenotic lesion noted. Patient would undergo PCI of the above vessel. In addition patient appeared to have significant peripheral vascular disease and as an outpatient should be referred to see the vascular surgeon. (2) H/O coronary artery bypass surgery: PLAN: He is status post coronary artery bypass surgery. His coronary anatomy is as noted above. The plan will be to continue with aggressive risk factor modification. His coronary arteries will be evaluated and further recommendations made. (3) Essential (primary) hypertension: PLAN: His blood pressure appears to be under good control at this particular time I would not recommend that we make any other major changes. (4) HLD (hyperlipidemia): QUALIFIERS: Hyperlipidemia type: pure hypercholesterolemia Qualified Code(s): E78.00 - Pure hypercholesterolemia, unspecified PLAN: He will continue with aggressive risk factor modification. As you remember he has not been able to tolerate many of the statins. He may be a candidate for bempedoic acid. Thank you for allowing me to participate in the care of your patient. Please don't hesitate to call if any issues arise. HPI Consult Data Date of Consult: 02/09/23 HPI Narrative HPI Narrative: DAVID MIXON, is a 77 M who presents to the hospital for complaints of chest discomfort. He has a history of coronary artery disease with bypass surgery in 2005. He had an VARGAS to the LAD, SVG to the circumflex and RCA. A heart catheterization in 2010 which demonstrated mild disease of the left main, moderate of the LAD and a totally occluded midsegment LAD, circumflex with mild disease, RCA totally occluded. SVG to the RCA patent. SVG to obtuse marginal patent, VARGAS to the LAD patent. He also has a history of MARLIN with CPAP, hypertension, and hyperlipidemia. He did undergo stress testing in November or 2018 with no evidence of ischemia. Carotid ultrasound also performed in October 2018 demonstrated no carotid stenosis greater than 50%. He had an echocardiogram also performed in May of 2022 which demonstrated an ejection fraction of 55% with no wall motion abnormalities noted and mild (1+) eccentric mitral valve insufficiency. 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 He is currently undergoing radiation for this. From a cardiac standpoint, the patient is doing well. He denies any palpitations, He denies SOB, Orthopnea, and PND. He does not have bleeding issues; no blood in urine, stool or nosebleeds. He denies any decrease in energy level, myalgias, or claudication. He does not have edema, or sudden weight gain. He denies dizziness, lightheadedness, syncopal or near syncopal episodes, and headaches. His blood pressures from home are normal. In the emergency room he was evaluated his EKG did not demonstrate any significant abnormalities but his cardiac enzymes were noted to be abnormal he was admitted to the intensive care unit. Cardiology was called for further evaluation and management. [facility] Medical History Atherosclerotic heart disease of 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 Sinoatrial node dysfunction Stenosis of right carotid artery Home Medications aspirin 81 mg tablet,delayed release 81 mg PO QDAY 04/15/17 [History Last Taken Unknown] epinephrine 0.15 mg/0.3 mL injection,auto-injector (EpiPen Jr) See Rx Instructions IM .COMPLEX 04/15/17 [History Last Taken Unknown] levocetirizine 5 mg tablet 5 mg PO QDAY 04/15/17 [History Last Taken Unknown] montelukast 10 mg tablet 10 mg PO QDAY 90 days #90 tabs 04/15/17 [History Last Taken Unknown] tamsulosin 0.4 mg capsule 0.4 mg PO QHS 90 days #90 caps 04/15/17 [History Last Taken Unknown] nitroglycerin 0.4 mg sublingual tablet 0.4 mg sublingual Q5-15M PRN chest pain #25 tabs 03/24/19 [Rx Last Taken Unknown] apremilast 30 mg tablet (Otezla) 30 mg PO BID 06/20/20 [History Last Taken Unknown] ascorbic acid (vitamin C) 1,000 mg tablet 1 gm PO DAILY 06/20/20 [History Last Taken Unknown] bempedoic acid 180 mg-ezetimibe 10 mg tablet (Nexlizet) 1 tablet PO DAILY 06/20/20 [History Last Taken Unknown] cholecalciferol (vitamin D3) 50 mcg (2,000 unit) tablet 2,000 unit PO BID 06/20/20 [History Last Taken Unknown] fluticasone propionate 110 mcg/actuation HFA aerosol inhaler (Flovent HFA) 1 puff inhalation BID 06/20/20 [History Last Taken Unknown] multivitamin 1 tablet PO DAILY 06/20/20 [History Last Taken Unknown] omega 7-dyz-xuv-fish oil 1,600 mg-500 mg-800 mg/5 mL oral liquid 5 ml PO DAILY 06/20/20 [History Last Taken Unknown] levothyroxine 112 mcg tablet 112 mcg PO DAILY 10/30/20 [History Last Taken Unknown] escitalopram oxalate 10 mg tablet 10 mg PO DAILY 05/01/22 [History Last Taken Unknown] amlodipine 10 mg tablet 5 mg PO DAILY 02/09/23 [History Last Taken Unknown] losartan 100 mg-hydrochlorothiazide 12.5 mg tablet 1 tab PO DAILY 02/09/23 [History Last Taken Unknown] Allergy/AdvReac Type Severity Reaction Status Date / Time insect venom [yellow jacket] Allergy Severe Anaphylaxis Verified 02/09/23 00:26 atorvastatin [From Lipitor] Allergy intolerance, Verified 02/09/23 00:26 weakness colesevelam [From WelChol] Allergy myalgias Verified 02/09/23 00:26 Penicillins Allergy Unknown Verified 02/09/23 00:26 pravastatin [From Pravachol] Allergy myalgias Verified 02/09/23 00:26 rosuvastatin [From Crestor] Allergy intolerance, Verified 02/09/23 00:26 weakness ibuprofen AdvReac Mild Asthma Verified 02/09/23 00:26 Attack Family History Father , age 87 CAD (coronary artery disease) Mother , age 90 CAD (coronary artery disease) Brother FH: brain aneurysm Sister emphysema Surgical History H/O coronary artery bypass surgery (07/29/05) History of back surgery History of left heart catheterization (LHC) (09/23/10) Social History Smoking Status: Former smoker how long ago did patient quit smokin alcohol intake: never substance use type: does not use what type of physical activity do you participate in: none ROS Constitutional Constitutional: Denies fever(s) or weight loss Eyes Eyes: Reports systems reviewed and no addt'l complaints, except as documented ENT HEENT: Reports systems reviewed and no addt'l complaints, except as documented Cardiovascular Cardiovascular: Denies chest pain at rest, chest pain with activity, dyspnea at rest, dyspnea on exertion, edema, palpitations or paroxysmal nocturnal dyspnea Respiratory/Chest Respiratory/Chest: Denies dyspnea on exertion, productive cough, shortness of breath at rest or shortness of breath with exertion Gastrointestinal Gastrointestinal: Denies change in bowel habits, nausea, vomiting or weight changes Genitourinary Genitourinary: Denies difficulty urinating Musculoskeletal Musculoskeletal: Denies joint stiffness or muscle weakness Integumentary Integumentary: Denies lesions Neurologic Neurologic: Denies dizziness or syncope Psychiatric Psychiatric: Denies anxiety Endocrine Endocrinology: Denies excessive sweating or fatigue Hematologic/Lymphatic Hematologic/Lymphatic: Denies anemia Allergic/Immunologic Allergic/Immunologic: Denies seasonal rhinorrhea Physical Exam Const alert, oriented x3 and no apparent distress General Appearance: cooperative HEENT hearing grossly normal bilaterally Head and Scalp: atraumatic Eyes EOMs intact bilaterally Neck General: normal visual inspection Chest inspection of chest normal and palpation of chest normal Resp normal respiratory effort Auscultation: clear to auscultation bilaterally Cardio regular rate, regular rhythm, S1 normal heart sound and S2 normal heart sound Jugular Venous Distention: JVD GI normal to inspection, nondistended, normoactive bowel sounds Extremity normal capillary refill and no pedal edema Peripheral Pulses: Yes pulses 2+ throughout and femoral pulses present Skin no rashes or lesions noted Neuro oriented x3 and CN's II-XII intact bilaterally Psych Appearance: grossly normal and appropriate Risk Stratification Risk Stratification Applicable: Yes Age >/= 65: Yes >/= 3 CAD Risk Factors (HTN, HLD, DM, family hx of CAD, or current smoker): Yes Aspirin Use in the Past 7 Days: Yes Severe Angina (>/= episodes in 24 hours): Yes EKG ST Changes >/= 0.5mm: No Positive Cardiac Marker: Yes SANDRA Risk Stratification Score: 5 SANDRA % Risk: 25% Risk Objective Data Vital Signs: Vital Signs Temp Pulse Resp BP Pulse Ox O2 Del Method 97.1 F L 55 L 16 123/62 H 95 Room Air 02/09/23 06:15 02/09/23 07:00 02/09/23 07:00 02/09/23 07:15 02/09/23 07:00 02/09/23 07:00 Oxygen Delivery Method Room Air Weight: 195 lb 8.8 oz Body Mass Index (BMI) 29.7 Intake & Output: Intake and Output for Last 24 Hours 02/07/23 02/08/23 02/09/23 23:59 23:59 23:59 Intake Total 152.25 / 152.25 Output Total 200 / 200 Balance -47.75 / -47.75 Lab / Micro Data 02/09/23 05:30 02/09/23 05:30 Labs: Laboratory Results - last 24 hr 02/08/23 23:56: WBC 7.8, RBC 4.41 L, Hgb 13.7, Hct 41.1, MCV 93.2, MCH 31.1, MCHC 33.3, RDW Std Deviation 44.7 H, RDW Coeff of Kadeem 13.2, Plt Count TNP, MPV 9.9, Immature Gran % (Auto) 1.300 H, Neut % (Auto) 61.5, Lymph % (Auto) 20.3, [place] % (Auto) 12.3 H, Eos % (Auto) 3.7, Baso % (Auto) 0.9, Absolute Neuts (auto) 4.8, Absolute Lymphs (auto) 1.58, Nucleated RBC % 0, Platelet Estimate ADEQUATE, Sodium 138, Potassium 3.8, Chloride 105, Carbon Dioxide 24.0, Anion Gap 9, BUN 30 H, Creatinine 1.27, Estim Creat Clear Calc 47.13, Est GFR (MDRD) Af Amer 71, Est GFR (MDRD) Non-Af 58 L, BUN/Creatinine Ratio 23.6 H, Glucose 152 H, Calcium 10.0, Troponin I High Sens 704 H*, B-Natriuretic Peptide 20.0 02/09/23 00:52: PT 16.1 H, INR 1.3, APTT 38.1 H 02/09/23 01:25: Troponin I High Sens 621 H* 02/09/23 05:30: WBC 7.5, RBC 3.64 L, Hgb 11.4 L, Hct 33.5 L, MCV 92.0, MCH 31.3, MCHC 34.0, RDW Std Deviation 44.1 H, RDW Coeff of Kadeem 13.2, Plt Count 533 H, MPV 8.1, Sodium 142, Potassium 2.8 L, Chloride 106, Carbon Dioxide 27.0, Anion Gap 9, BUN 26 H, Creatinine 1.11, Estim Creat Clear Calc 53.92, Est GFR (MDRD) Af Amer 83, Est GFR (MDRD) Non-Af 68, BUN/Creatinine Ratio 23.4 H, Glucose 111 H, Calcium 8.6, Phosphorus 3.3, Magnesium 2.2, Total Bilirubin 0.30, AST 19, ALT 24, Alkaline Phosphatase 69, Total Protein 7.0, Albumin 3.1 L, Globulin 3.9, Albumin/Globulin Ratio 0.8 L, Triglycerides 124, Cholesterol 103, LDL Cholesterol 44, VLDL Cholesterol 25, HDL Cholesterol 34 L, TSH 4.18 H Rhythm Strip Rhythm Strip: Sinus Rhythm Rate: 85 Ectopy: None Cardiology Labs/Tests 02/08/23 23:56: WBC 7.8, RBC 4.41 L, Hgb 13.7, Hct 41.1, MCV 93.2, MCH 31.1, MCHC 33.3, Plt Count TNP, MPV 9.9, Immature Gran % (Auto) 1.300 H, Neut % (Auto) 61.5, Lymph % (Auto) 20.3, [place] % (Auto) 12.3 H, Eos % (Auto) 3.7, Baso % (Auto) 0.9, Absolute Neuts (auto) 4.8, Nucleated RBC % 0, Sodium 138, Potassium 3.8, Chloride 105, Carbon Dioxide 24.0, Anion Gap 9, BUN 30 H, Creatinine 1.27, Est GFR (MDRD) Af Amer 71, Est GFR (MDRD) Non-Af 58 L, BUN/Creatinine Ratio 23.6 H, Glucose 152 H, Calcium 10.0, B-Natriuretic Peptide 20.0 02/09/23 00:52: PT 16.1 H, INR 1.3, APTT 38.1 H 02/09/23 05:30: WBC 7.5, RBC 3.64 L, Hgb 11.4 L, Hct 33.5 L, MCV 92.0, MCH 31.3, MCHC 34.0, Plt Count 533 H, MPV 8.1, Sodium 142, Potassium 2.8 L, Chloride 106, Carbon Dioxide 27.0, Anion Gap 9, BUN 26 H, Creatinine 1.11, Est GFR (MDRD) Af Amer 83, Est GFR (MDRD) Non-Af 68, BUN/Creatinine Ratio 23.4 H, Glucose 111 H, Calcium 8.6, Phosphorus 3.3, Magnesium 2.2, Total Bilirubin 0.30, Triglycerides 124, Cholesterol 103, LDL Cholesterol 44, VLDL Cholesterol 25, HDL Cholesterol 34 L Rhythm: EKG: ECHO: Stress Test: Cardiac Cath: PCI: CT Surgery: Holter monitor: EPS: PPM: CXR: Chest CT Scan: Radiography Diagnostic Testing: Radiology Impression Chest X-Ray 02/08/23 00:15 IMPRESSION: No acute cardiopulmonary disease. Electronically Signed: Danielle Gonsales MD at 0:26 EST ,
[2023-02-09 07:18] LABS: Troponin-I HS 874 pg/mL (3.0-78.0)
--- NOTE | 2023-02-09 08:00 | NURSING ---
Patient left unit to nursery laborer, report given.
[2023-02-09 08:09] LABS: Partial Thromboplast Time 93.9 Seconds (24.1-36.2)
--- NOTE | 2023-02-09 09:53 | CL.D_ITS ---
Patient Name: DAVID MIXON Study Date: 02/09/2023 Performing: Reza Velez MD Ht: 68 inches 172.72 cm : 1945 Wt: 195.55 lbs 88.7 kg Age: 77 Gender: male BSA: 2.02 PROCEDURE(S) PERFORMED [id number]-([id number])[facility] CLINICAL PROFILE AND INDICATIONS Indications: Worsening Angina Heart Failure: None Stress/Imaging Stress/Image Study Performed: No CAD Presentations: Unstable angina. 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 Patent VARGAS to the LAD and a patent saphenous vein graft to the right coronary artery. RECOMMENDATIONS Referred for immediate PCI DESCRIPTION OF PROCEDURE The patient arrived to the procedure lab. The risks and benefits of the procedure as well as a full description of our services here and current unavailability of surgical backup were fully explained to the patient and/or their significant other prior to the catheterization. The Timeout was completed, verifying the correct patient and procedure. The patient's procedural site was prepped and draped in the usual fashion. Local anesthetic was given subcutaneously to right groin region with Lidocaine 2%. Local anesthetic was given subcutaneously to left radial region with Lidocaine 2%. Using a modified Seldinger technique, arterial access was obtained via the right femoral artery, a 5Fr sheath was inserted., arterial access was obtained via the left radial artery, a 6Fr sheath was inserted. Left internal mammary artery graft to the LAD selective angiography was performed in multiple views using a 5 Fr. IM catheter. Left Coronary Artery selective angiography was performed in multiple views using a 5 Fr. JL4 catheter. Right Coronary Artery selective angiography was then performed in multiple views using a 5 Fr. 3DRC (Remi) catheter. Left Coronary Artery selective angiography was performed in multiple views using a 5 Fr. JL3.5 catheter. Saphenous Vein graft to the OM 1 selective angiography was performed in multiple views using a 5 Fr. AR MOD catheter. Saphenous Vein graft to the RCA selective angiography was performed in multiple views using a 5 Fr. JR 5 catheter. Saphenous Vein graft to the OM 1 selective angiography was performed in multiple views using a 5 Fr. MPA 2 catheter.The arterial sheath was pulled and manual compression applied until hemostasis is achieved. CORONARY ANGIOGRAPHY DOMINANCE: Right Dominant LEFT HEART ASSESSMENT Left Ventricular Ejection Fraction: by Echo 50 % Normal Left Ventricular systolic function LEFT MAIN: Angiographically normal LEFT ANTERIOR DESCENDING ARTERY: MID LAD: is occluded CIRCUMFLEX ARTERY: Moderate luminal irregularities up to 50% RIGHT CORONARY ARTERY: Dominant vessel with a mid segment subtotal occlusion DISTAL RCA: Mild luminal irregularities less than 30% GRAFTS: VARGAS graft to the Mid LAD is patent Saphenous Vein graft to the RCA is patent Saphenous Vein graft to the 1st OM has a proximal lesion of 95 % COMPLICATIONS PROCEDURE MEDICATIONS Versed 1 mg IV Fentanyl 50 mcg IV Oxygen: 2 L/min via nasal cannula Heparin 5000 unit(s) IV 02/09/2023 09:41:46 Nitro glycerin 25mg / 250ml D5W @ 30 mcg/min IV from ICU 02/09/2023 08:16:15 SUMMARY OF HEMODYNAMIC DATA Time AIR REST ECG 08:12:47 AO 128/60 (86) SA 09:09:28 Signed By Reza Velez MD On 02/09/2023 09:53:03 Reza Velez MD
--- NOTE | 2023-02-09 10:06 | NURSING ---
Dr. Dickey office notified of patients admission.
--- NOTE | 2023-02-09 10:37 | CL.I_ITS ---
Patient Name: DAVID MIXON Study Date: 02/09/2023 Performing: Eliecer Wilkins MD Ht: 68 inches 172.72 cm : 1945 Wt: 195.8 lbs 88.7 kg Age: 77 Gender: male BSA: 2.02 PROCEDURE(S) PERFORMED IC14-([id number])GRAFT-JAZMIN AND/OR PTCA, SINGLE GRAFT CLINICAL PROFILE AND CO-MORBIDITIES Indications: Worsening Angina Heart Failure: None Stress/Imaging Stress/Image Study Performed: No CAD Presentations: Unstable angina. CONCLUSIONS Successful JAZMIN to SVG to OM1 RECOMMENDATIONS DESCRIPTION OF PROCEDURE The patient arrived to the procedure lab. The risks and benefits of the procedure as well as a full description of our services here and current unavailability of surgical backup were fully explained to the patient and/or their significant other prior to the catheterization. The Timeout was completed, verifying the correct patient and procedure. The patient's procedural site was prepped and draped in the usual fashion. Local anesthetic was given subcutaneously to right groin region with Lidocaine 2%. Local anesthetic was given subcutaneously to left radial region with Lidocaine 2% Using a modified Seldinger technique,arterial access was obtained via the right femoral artery, a 5Fr sheath was inserted., arterial access was obtained via the left radial artery, a 6Fr sheath was inserted. Left internal mammary artery graft to the LAD selective angiography was performed in multiple views using a 5 Fr. IM catheter. Left Coronary Artery selective angiography was performed in multiple views using a 5 Fr. JL4 catheter. Right Coronary Artery selective angiography was then performed in multiple views using a 5 Fr. 3DRC (Remi) catheter. Left Coronary Artery selective angiography was performed in multiple views using a 5 Fr. JL3.5 catheter. Saphenous Vein graft to the OM 1 selective angiography was performed in multiple views using a 5 Fr. AR MOD catheter. Saphenous Vein graft to the RCA selective angiography was performed in multiple views using a 5 Fr. JR 5 catheter. Saphenous Vein graft to the OM 1 selective angiography was performed in multiple views using a 5 Fr. MPA 2 catheter.The images were reviewed and options discussed. A decision was then made to proceed with an Intervention, IVUS or other adjunct procedure. AL1 Guide catheter was inserted and engaged into the SVG to the OM 1. BMW Guide wire was advanced to the 1st OM graft. SC Euphora 3x12 Balloon catheter was inserted. Balloon catheter was advanced across lesion in the graft to the OM 1. PTCA balloon inflated at 10 atms for 12 secs. Angiogram performed post balloon dilatation. 3.5x12 [place] Drug Eluting stent was inserted. Drug Eluting stent was advanced across the lesion in the graft to the OM 1. Angiogram performed post stent deployment. The arterial sheath was pulled and manual compression applied until hemostasis is achieved.. The arterial sheath was pulled and a TR Band was applied for hemostasis. 10cc of air INTERVENTION INFORMATION LESION SITE: Vein > to 1st OM Segment Number: 20-First obtuse marginal branch segment - 1st OM , Lesion Location: Body Lesion Complexity: High/C, chronic total occlusion: No, lesion at bifurcation: No, thrombus present: No, lesion length: 11 mm, culprit lesion: Yes, Previously treated lesion: No Pre Stenosis: 95 % Pre intervention SANDRA flow: 3 PROCEDURE: Drug Eluting Stent with pre dilatation. Post Stenosis: 0 % Post intervention SANDRA flow: 3 Lesion Devices: [place]ickman .014 190cm BMW [place] Straight Cordis 6 Fr AL1.0 100cm Guide Catheter Medtronic SC EUPHORA RX 3.0x12 BALLOON Medtronic 3.5 x 12 CEZAR FRONTIER JAZMIN COMPLICATIONS No Complications PROCEDURE MEDICATIONS Versed 1 mg IV Fentanyl 50 mcg IV Oxygen: 2 L/min via nasal cannula Heparin 5000 unit(s) IV 02/09/2023 09:41:46 Nitro glycerin 25mg / 250ml D5W @ 30 mcg/min IV from ICU 02/09/2023 08:16:15 Nitro glycerin 25mg / 250ml D5W @ 0 mcg/min discontinued 02/09/2023 10:04:55 SUMMARY OF HEMODYNAMIC DATA Time AIR REST ECG 08:12:47 AO 128/60 (86) SA 09:09:28 AIR REST 09:53:07 AIR REST AO 135/67 (94) 09:59:25 Signed By Eliecer Wilkins MD On 02/09/2023 10:36:28 Eliecer Wilkins MD
[2023-02-09] MEDS: Escitalopram Oxalate 10 MG Tablet PO (11:20)
[2023-02-09] MEDS: Montelukast 10 MG Tablet PO (11:21)
[2023-02-09] MEDS: Cholecalciferol (VIT D3) 25 MCG TABLET (1,000 UNITS) 50 MCG PO ×2 (11:21→20:40)
[2023-02-09] MEDS: Ascorbic Acid 500 MG Tablet 1000 MG PO (11:21)
[2023-02-09] MEDS: Loratadine 10 MG Tablet PO (11:21)
[2023-02-09] MEDS: Multivitamins,Therapeutic Tablet 1 TABLET PO (11:21)
[2023-02-09] MEDS: hydroCHLOROthiazide 12.5mg 12.5 MG PO (11:21)
--- NOTE | 2023-02-09 12:00 | CASEMGMT ---
RN LEON Face to Face with patient for initial transition planning/care coordination assessment. RN CM introduced self and role at [facility]. Patient lying in bed, alert and oriented, and daughter at bedside. Patient willing to participate in assessment and is able to answer all questions appropriately. Care providers, pharmacy, and demographics verified. Patient wishes to discharge home with resumption of HHC with [facility] for PT/OT. Patient states he has no further needs or concerns at this time. CM to follow for discharge planning needs that may arise. PCP: Emiliana Specialists: García, Back Surgeon; Pain management at [facility] Preferred Pharmacy: [facility] Insurance: Chloe CID Prescription Benefit: yes Living Will/HPOA: yes, Shira Bartholomew LNOK: , daughter Living Arrangements: Patient lives with in a 2 story home with bed and bath on first floor, 2 steps and railing to enter the home. Patient states he is independent at home. Transportation: DME/HHC: Patient has shower chair, raised toilet, cane, walker, rollator, lift chair, grab bars, cpap, and pulse ox at home. Patient is currently active for HHC with [facility] for PT/OT. CM will updated and send resumption order to [facility] Disposition Plan: Patient to discharge home with resumption of HHC, family support, and follow-up plans in place. Carissa VALENTE, RN, CM
[2023-02-09] MEDS: 0.9% Normal Saline (1000mL) 1,000 ML 75 ML IV (12:17)
[2023-02-09] MEDS: Acetaminophen 500 MG Tablet 1000 MG PO ×2 (12:18→20:40)
--- NOTE | 2023-02-09 14:43 | CRPHASE1 ---
Patient Communication Patient Information Former Patient:: Phase II PHII Cardiac Rehab Discussed with Patient:: Yes Guide to Cardiac Rehab Given to Patient:: Yes Cardiac Rehab Facility Choice List Given to Patient:: Yes Communication to Cardiac Rehab Choice Program [facility] PHII:: Communication Given to CR Active Directory Systems Administrator:: Tres Wilkins Refer Phase II Cardiac Rehab:: Yes Sessions:: 36 sessions - 3 days/wk, 12 weeks Cardiac Rehabilitation Info Program Information Cardiac Rehabilitation Program Information: Cardiac Rehab The cardiac rehab team at [facility] consists of highly skilled exercise physiologists, nurses, respiratory therapists and physicians working together with you. Our purpose is to help you have a full recovery and achieve the goals you set for yourself. Over the years many of our patients have returned to activities they assumed they would never do again! We can help restore your confidence and motivation to make lifestyle changes that can have a significant impact on your health and quality of life! We can help answer questions and concerns you may have about exercise, lifestyle, medications, diet, stress and anxiety which are common following a hospitalization. WE monitor ECG and vital signs during exercise and discuss your progress with you and report to your physician(s). Cardiac Rehab is proven to help reduce readmissions, improve functional capacity and lower recurrence of problems with your heart. Our Cardiac Rehab program is Certified by the [place] [employer]-Vascular and Pulmonary [employer] (AACVPR) and Accredited by the [place] [employer] through our [facility]. You can contact us at . We invite you to call us with your questions or to get started in our program. If you have other questions or concerns be sure to ask your physician/provider during your follow-up visit. WE look forward to seeing you!
--- NOTE | 2023-02-09 14:44 | CRPH1.INSTRU ---
General Education Discussed with Patient CAD and cardiac anatomy and function:: Patient communicates acknowledgment Explanation of diagnoses and procedures:: Patient communicates acknowledgment Sign/Symptoms of [place]:: Patient communicates acknowledgment Antiplatelet therapy: Patient communicates acknowledgment Proper use of NTG-SL: Patient communicates acknowledgment Emergency procedures and activation of EMS: Patient communicates acknowledgment Compliance of all prescribed medications: Patient communicates acknowledgment Dyslipidemia Risk Factors Patient Dyslipidemia Risk Factors Are:: Total Cholesterol, Triglycerides, HDL and LDL Recommendations Recommendations Include:: Lipid profile not available Response Code Dyslipidemia Response Code:: Patient communicates acknowledgment Overweight/Obesity Risk Factors Patient Overweight/Obesity Risk Factors Are:: BMI Normal [24-29 & > 65 years old] Recommendations Recommendations Include:: Weight loss of 5-10% Response Code Overweight/Obesity:: Patient communicates acknowledgment and Family communicates acknowledgment Hypertension Recommendations Recommendations Include:: BP <130/80 if diabetic and Decrease/maintain normal body weight Response Code Hypertension:: Patient communicates acknowledgment Heart Disease Risk Factors Patient Heart Disease Risk Factors Are:: Previous cardiac event Recommendations Recommendations Include:: Educated family members of their risk Response Code Heart Disease Response Code:: Patient communicates acknowledgment Diabetes Recommendations Recommendations Include:: Maintain fasting blood sugars 70-110 md/dL Response Code Diabetes:: Patient communicates acknowledgment Sedentary Risk Factors Patient Sedentary Risk Factors Are:: Lack of regular exercise Recommendations Recommendations Include:: Aerobic exercise 5-7 times/week for 20-30 minutes continuously Response Code Sedentary Response Code:: Patient communicates acknowledgment
--- NOTE | 2023-02-09 15:23 | PCM.PN.HOSP ---
Reason for Visit Reason for Visit: Diagnoses Pure hypercholesterolemia, unspecified (02/09/23) Hyperlipidemia, unspecified (02/09/23) Essential (primary) hypertension (02/09/23) Acute ischemic heart disease, unspecified (02/09/23) Localized edema (02/09/23) Presence of aortocoronary bypass graft (02/09/23) Subjective Subjective Patient was seen in exam today, I talked with his family were in the room at the time of my visit, patient had a JAZMIN to saphenous venous graft to OM1 placed today by interventional cardiology. Patient has no complaints of any chest pain or shortness of breath at the time of my visit, he mentioned something about cardiology having difficult access to his femoral artery, the cath appears to been done through the radial artery approach. Objective Data Objective Data Vital Signs: Vital Signs Temp Pulse Resp BP Pulse Ox O2 Del Method O2 Flow Rate 97.7 F L 48 L 15 139/65 H 96 Room Air 2 02/09/23 12:00 02/09/23 13:00 02/09/23 13:00 02/09/23 13:00 02/09/23 13:00 02/09/23 13:00 02/09/23 11:30 Oxygen Flow Rate (L/min) 2 Oxygen Delivery Method Room Air Weight: 88.7 kg Body Mass Index (BMI) 29.7 Intake & Output: Intake and Output for Last 24 Hours 02/07/23 02/08/23 02/09/23 23:59 23:59 23:59 Intake Total 216.45 / 216.45 Output Total 500 / 500 Balance -283.55 / -283.55 Lab / Micro Data 02/09/23 05:30 02/09/23 05:30 Labs: Laboratory Results - last 24 hr 02/08/23 23:56: WBC 7.8, RBC 4.41 L, Hgb 13.7, Hct 41.1, MCV 93.2, MCH 31.1, MCHC 33.3, RDW Std Deviation 44.7 H, RDW Coeff of Kadeem 13.2, Plt Count TNP, MPV 9.9, Immature Gran % (Auto) 1.300 H, Neut % (Auto) 61.5, Lymph % (Auto) 20.3, [place] % (Auto) 12.3 H, Eos % (Auto) 3.7, Baso % (Auto) 0.9, Absolute Neuts (auto) 4.8, Absolute Lymphs (auto) 1.58, Nucleated RBC % 0, Platelet Estimate ADEQUATE, Sodium 138, Potassium 3.8, Chloride 105, Carbon Dioxide 24.0, Anion Gap 9, BUN 30 H, Creatinine 1.27, Estim Creat Clear Calc 47.13, Est GFR (MDRD) Af Amer 71, Est GFR (MDRD) Non-Af 58 L, BUN/Creatinine Ratio 23.6 H, Glucose 152 H, Calcium 10.0, Troponin I High Sens 704 H*, B-Natriuretic Peptide 20.0 02/09/23 00:52: PT 16.1 H, INR 1.3, APTT 38.1 H 02/09/23 01:25: Troponin I High Sens 621 H* 02/09/23 05:30: WBC 7.5, RBC 3.64 L, Hgb 11.4 L, Hct 33.5 L, MCV 92.0, MCH 31.3, MCHC 34.0, RDW Std Deviation 44.1 H, RDW Coeff of Kadeem 13.2, Plt Count 533 H, MPV 8.1, Sodium 142, Potassium 2.8 L, Chloride 106, Carbon Dioxide 27.0, Anion Gap 9, BUN 26 H, Creatinine 1.11, Estim Creat Clear Calc 53.92, Est GFR (MDRD) Af Amer 83, Est GFR (MDRD) Non-Af 68, BUN/Creatinine Ratio 23.4 H, Glucose 111 H, Calcium 8.6, Phosphorus 3.3, Magnesium 2.2, Total Bilirubin 0.30, AST 19, ALT 24, Alkaline Phosphatase 69, Troponin I High Sens 874 H*, Total Protein 7.0, Albumin 3.1 L, Globulin 3.9, Albumin/Globulin Ratio 0.8 L, Triglycerides 124, Cholesterol 103, LDL Cholesterol 44, VLDL Cholesterol 25, HDL Cholesterol 34 L, TSH 4.18 H 02/09/23 07:00: APTT 93.9 H* Radiography Diagnostic Testing: Radiology Impression Chest X-Ray 02/08/23 00:15 IMPRESSION: No acute cardiopulmonary disease. Electronically Signed: Danielle Gonsales MD at 0:26 EST , Rhythm Strip Rhythm Strip: Sinus Rhythm Rate: 85 Ectopy: None Physical Exam Const alert, oriented x3, no apparent distress, average body habitus and healthy appearing General Appearance: cooperative, well kempt and well developed Orientation / Consciousness: awake, oriented to person, oriented to place and oriented to time HEENT normocephalic, head/scalp atraumatic and moist oral mucous membranes Eyes PERRL, EOMs intact bilaterally and conjunctivae normal Neck supple, no JVD, thyroid normal and no carotid bruits General: trachea midline Resp normal respiratory effort, no retractions, no use of accessory muscles and clear to auscultation bilaterally Auscultation: Negative for rales, rhonchi or wheezes Cardio regular rate, regular rhythm, S1 normal heart sound, S2 normal heart sound, no murmurs, no rub and no gallops GI normal to inspection, nondistended, normoactive bowel sounds, soft to palpation, non-tender and non-distended Extremity no clubbing, cyanosis or edema Skin no rashes or lesions noted General Skin Exam: no breakdown Neuro oriented x3, CN's II-XII intact bilaterally, moves all extremities, no focal motor deficits and no sensory deficits noted Sensorium / Orientation: awake, alert, oriented to person, oriented to place and oriented to time Speech: speech normal Psych affect normal Assessment & Plan Assessment/Plan (1) ACS (acute coronary syndrome): PLAN: Plan 1. Acute coronary syndrome-status post JAZMIN to OM1, patient remained stable at this time, cardiology is participating in his care #2 [id number] patient had a JAZMIN placed today, continue with present medications #3 essential hypertension-patient will remain on his present medications, medicines will be adjusted as needed #4 hypothyroidism-patient is on levothyroxine #5 hyperlipidemia-patient will remain on Nexlizet Total clinical time spent by myself addressing the patient's medical issues, reviewing all of his data, and collaborating with patient's care team: 35 minutes Charges/Coding Visit Charges Inpatient E&M: 93340 Subs Hosp L2
--- NOTE | 2023-02-09 15:50 | CASEMGMT ---
Discharge Planning ERIKA referral sent to [facility] via [facility]. Belem Lunsford, Discharge Planning Asst.
[2023-02-09] MEDS: Budesonide Respules 0.5 MG/2 ML AMPUL.NEB. INHALATION (18:59)
[2023-02-09] MEDS: Tamsulosin HCl 0.4 MG Capsule PO (20:40)
[2023-02-09] MEDS: Heparin Injection (Vial) 5,000 UNIT/ML VIAL 5000 UNIT SC (20:41)
--- NOTE | 2023-02-09 22:33 | EKG12_ITS ---
Test Reason : POST CATH Blood Pressure : / mmHG Vent. Rate : 048 BPM Atrial Rate : 048 BPM P-R Int : 290 ms QRS Dur : 114 ms QT Int : 496 ms P-R-T Axes : 046 -08 002 degrees QTc Int : 443 ms Sinus bradycardia with 1st degree A-V block Nonspecific T wave abnormality Abnormal ECG When compared with ECG of 09-FEB-2023 02:06, MANUAL COMPARISON REQUIRED, DATA IS UNCONFIRMED Confirmed by ALISHA TITUS, CARLEE ([id number]), assistant film editor CHRIS BRIDGES ([id number]) on 02/10/2023 1:42:42 PM Referred By: LI Confirmed By:CARLEE BRITO MD
[2023-02-10] VITALS (12 sets, daily range): BP systolic 117–161; BP diastolic 52–91; PULSE 49–84; RESP 12–20; TEMP 36.5–36.8; O2SAT 12–97; BMI 29.6
[2023-02-10 03:52] LABS: Hematocrit 35.4 % (40-54); Hemoglobin 12.2 g/dL (13.0-16.5); Mean Corp Hgb Conc 34.5 g/dL (32-36); Mean Corpuscular Hgb 32.1 pg (27.0-32.0); Mean Corpuscular Volume 93.2 fL (80-94); Platelet Count 530 K/mm3 (150-450); RBC Distribution Width CV 13.5 % (11.6-14.6); White Blood Count 7.5 K/mm3 (4.4-11.0)
[2023-02-10 04:08] LABS: ALB/GLOB Ratio 0.8 RATIO (0.9-2.4); AST(SGOT) 25 U/L (15-37); Alanine Aminotransfer ALT/SGPT 25 U/L (16-61); Albumin, Serum 3.3 g/dL (3.2-5.0); Alkaline Phosphatase 78 U/L (45-117); Anion Gap 7 (5-15); BUN 21 mg/dL (7-18); BUN/Creat Ratio 18.6 RATIO (10-20); Calcium,Total 8.8 mg/dL (8.5-10.1); Chloride 106 mmol/L (98-107); Creatinine, Serum 1.13 mg/dL (0.70-1.30); EST Glomerular Filtration Rate 67 mL/min (>60); Est Glom Filt Rate - Afr Amer 81 mL/min (>60); Estimated Creatinine Clearance 52.96 ml/min; Globulin 4.1 g/dL (2.2-4.2); Glucose 106 mg/dL (74-106); Potassium 3.1 mmol/L (3.5-5.1); Protein, Total 7.4 g/dL (6.4-8.2); Sodium Level 142 mmol/L (136-145)
[2023-02-10] MEDS: 0.9% Saline Lock 10 ML Syringe IV (04:33)
[2023-02-10] MEDS: Acetaminophen 500 MG Tablet 1000 MG PO (04:33)
[2023-02-10] MEDS: Potassium Chloride Oral Tablet 20 MEQ 60 MEQ PO (06:28)
[2023-02-10] MEDS: Levothyroxine 112 MCG Tablet PO (06:29)
--- NOTE | 2023-02-10 07:33 | PN.CARD_ITS ---
Subjective Subjective Patient seen and evaluated. Appears to be doing well. No complaints. Had uneventful night. Objective Data Vital Signs: Vital Signs Temp Pulse Resp BP Pulse Ox O2 Del Method O2 Flow Rate 98.2 F 67 16 148/89 H 97 Room Air 2 02/10/23 05:00 02/10/23 07:00 02/10/23 07:00 02/10/23 07:00 02/10/23 07:00 02/10/23 07:00 02/09/23 11:30 Oxygen Flow Rate (L/min) 2 Oxygen Delivery Method Room Air Weight: 194 lb 14.218 oz Body Mass Index (BMI) 29.6 Intake & Output: Intake and Output for Last 24 Hours 02/08/23 02/09/23 02/10/23 23:59 23:59 23:59 Intake Total 720.20 / 720.20 Output Total 1150 / 1400 450 / 450 Balance -429.80 / -679.80 -450 / -450 Lab / Micro Data 02/10/23 03:42 02/10/23 03:42 Labs: Laboratory Results - last 24 hr 02/09/23 07:00: APTT 93.9 H* 02/10/23 03:42: WBC 7.5, RBC 3.80 L, Hgb 12.2 L, Hct 35.4 L, MCV 93.2, MCH 32.1 H, MCHC 34.5, RDW Std Deviation 46.0 H, RDW Coeff of Kadeem 13.5, Plt Count 530 H, MPV 8.0, Sodium 142, Potassium 3.1 L, Chloride 106, Carbon Dioxide 29.0, Anion Gap 7, BUN 21 H, Creatinine 1.13, Estim Creat Clear Calc 52.96, Est GFR (MDRD) Af Amer 81, Est GFR (MDRD) Non-Af 67, BUN/Creatinine Ratio 18.6, Glucose 106, Calcium 8.8, Total Bilirubin 0.30, AST 25, ALT 25, Alkaline Phosphatase 78, Total Protein 7.4, Albumin 3.3, Globulin 4.1, Albumin/Globulin Ratio 0.8 L Rhythm Strip Rhythm Strip: Sinus Rhythm Rate: 85 Ectopy: None Cardiology Labs/Tests 02/09/23 07:00: APTT 93.9 H* 02/10/23 03:42: WBC 7.5, RBC 3.80 L, Hgb 12.2 L, Hct 35.4 L, MCV 93.2, MCH 32.1 H, MCHC 34.5, Plt Count 530 H, MPV 8.0, Sodium 142, Potassium 3.1 L, Chloride 106, Carbon Dioxide 29.0, Anion Gap 7, BUN 21 H, Creatinine 1.13, Est GFR (MDRD) Af Amer 81, Est GFR (MDRD) Non-Af 67, BUN/Creatinine Ratio 18.6, Glucose 106, Calcium 8.8, Total Bilirubin 0.30 Rhythm: EKG: ECHO: Stress Test: Cardiac Cath: PCI: CT Surgery: Holter monitor: EPS: PPM: CXR: Chest CT Scan: Radiography Diagnostic Testing: Radiology Impression Echocardiogram 02/09/23 01:11 Interpretation Summary Normal LV size. Left ventricular systolic function is normal. The estimated ejection fraction is 65 %. Stage 1 diastolic dysfunction. Mild segmental systolic dysfunction (see wall motion). Ordering Physician: Demetrio Newton Referring Physician: SHIRLEY SANDRA Performed By: Rosalinda De Oliveira RCS Physical Exam Const alert, oriented x3 and no apparent distress General Appearance: cooperative HEENT hearing grossly normal bilaterally Head and Scalp: atraumatic Eyes EOMs intact bilaterally Neck General: normal visual inspection Chest inspection of chest normal and palpation of chest normal Resp normal respiratory effort Auscultation: clear to auscultation bilaterally Cardio regular rate, regular rhythm, S1 normal heart sound and S2 normal heart sound Jugular Venous Distention: JVD GI normal to inspection, nondistended, normoactive bowel sounds Extremity normal capillary refill and no pedal edema Peripheral Pulses: Yes pulses 2+ throughout and femoral pulses present Skin no rashes or lesions noted Neuro oriented x3 and CN's II-XII intact bilaterally Psych Appearance: grossly normal and appropriate Assessment & Plan Assessment/Plan (1) ACS (acute coronary syndrome): PLAN: He does present with an acute coronary syndrome. Cardiac enzymes are elevated. My recommendation at this time will be to proceed with a left heart catheterization and depending on the findings further recommendations will be made. Cardiac catheterization today demonstrated a patent VARGAS to the LAD, patent right coronary arteries with a saphenous vein graft, and a saphenous vein graft obtuse marginal branch with a tight 99% stenotic lesion noted. He did undergo PCI of the above vessel and appears to be doing quite well. In addition patient appeared to have significant peripheral vascular disease and as an outpatient should be referred to see the vascular surgeon. (2) H/O coronary artery bypass surgery: PLAN: He is status post coronary artery bypass surgery. His coronary anatomy is as noted above. The plan will be to continue with aggressive risk factor mod ification. His coronary arteries will be evaluated and further recommendations made. (3) Essential (primary) hypertension: PLAN: His blood pressure appears to be under good control at this particular time I would not recommend that we make any other major changes. (4) HLD (hyperlipidemia): QUALIFIERS: Hyperlipidemia type: pure hypercholesterolemia Qualified Code(s): E78.00 - Pure hypercholesterolemia, unspecified PLAN: He will continue with aggressive risk factor modification. As you remember he has not been able to tolerate many of the statins. He may be a candidate for bempedoic acid. Thank you for allowing me to participate in the care of your patient. Please don't hesitate to call if any issues arise.
--- NOTE | 2023-02-10 07:39 | DCINST_ITS ---
Discharge Instructions Diet Discharge Diet: No restrictions Activity Discharge Activity: Return to Normal Activity Weight Bearing Status: Full weight bearing Follow Up Care Test Results: Test results from this visit will be discussed in further detail at your follow- up appointment, if applicable. Discharge Plan Admission Admit Date/Time: 02/09/23 01:07 Primary Reason for Your Visit: Acute coronary syndrome Attending Provider: Gino Gleason Primary Care Provider: Srinivas Hopson Consulting Providers: Reza Velez; Demetrio Newton Discharge Orders/Prescriptions Prescriptions: New clopidogrel 75 mg Tablet 75 mg PO DAILY Qty: 30 0RF metoprolol succinate 25 mg Tablet Extended Release 24 Hr 25 mg PO DAILY Qty: 30 0RF Continued tamsulosin 0.4 mg capsule,extended release 24hr 0.4 mg PO QHS 90 Days Qty: 90 Patient Comments: levocetirizine 5 mg tablet 5 mg PO QDAY montelukast 10 mg tablet 10 mg PO QDAY 90 Days Qty: 90 Patient Comments: epinephrine [EpiPen Jr] 0.15 mg/0.3 mL auto-injector See Rx Instructions IM .COMPLEX Patient Comments: Take as directed, IM Rx Instructions: Take as directed, IM aspirin 81 mg tablet,delayed release (DR/EC) 81 mg PO QDAY levothyroxine 112 mcg tablet 112 mcg PO DAILY escitalopram oxalate 10 mg tablet 10 mg PO DAILY amlodipine 10 mg tablet 5 mg PO DAILY Rx Instructions: 5 mg po daily losartan-hydrochlorothiazide 100-12.5 mg tablet 1 tab PO DAILY Otezla 30 mg tablet 30 mg PO BID Nexlizet 180-10 mg tablet 1 tablet PO DAILY Flovent HFA 110 mcg/actuation HFA aerosol inhaler 1 puff INHALATION BID Patient Comments: Take as directed; INHALATION multivitamin Tablet 1 tablet PO DAILY cholecalciferol (vitamin D3) 50 mcg (2,000 unit) tablet 2,000 unit PO BID ascorbic acid (vitamin C) 1,000 mg tablet 1 gm PO DAILY No Action nitroglycerin 0.4 mg tablet, sublingual 0.4 mg SUBLINGUAL Q5-15M PRN (Reason: chest pain) Qty: 25 3RF Rx Instructions: until response; do not exceed 3 doses per episode omega 5-imd-fii-fish oil 1,600-500-800 mg/5 mL liquid 5 ml PO DAILY Referrals / Follow Up: Reza Velez MD [Med Staff - Active Staff] - See Referral Note (Call later this week to confirm follow-up appointment if you are not contacted by the office) Srinivas Hopson MD [Primary Care Provider] - See Referral Note (Within 1 month) Disposition Disposition (needs filled in before D/C Order can be placed): Home, Self Care
--- NOTE | 2023-02-10 07:53 | DS.PCM_ITS ---
Providers Date of Admission: 02/09/23 Date of Discharge: 02/10/23 Primary Care Physician: Dr. Shirley Sandra MD Consultations 02/09/23 01:11 Consult: Cardiology Routine Consulting Provider: Reza Velez Reason for Consult: Acute coronary syndrome EMERGENT Consult: No MD Notified: Yes Date Notified: 02/09/23 Time Notified: 07:05 Method of Notification: Verbal Method of Consult:: In-Person Reason For Visit: ACUTE CORONARY SYNDROME Diagnosis Discharge Diagnosis (1) ACS (acute coronary syndrome): Status: Acute Code(s): I24.9 - Acute ischemic heart disease, unspecified (2) H/O coronary artery bypass surgery: Status: Resolved Code(s): Z95.1 - Presence of aortocoronary bypass graft (3) Essential (primary) hypertension: Status: Chronic Code(s): I10 - Essential (primary) hypertension (4) HLD (hyperlipidemia): Status: Chronic Code(s): E78.5 - Hyperlipidemia, unspecified Qualifiers: Hyperlipidemia type: pure hypercholesterolemia Qualified Code(s): E78.00 - Pure hypercholesterolemia, unspecified Plan 1. Acute coronary syndrome-status post JAZMIN to OM1, patient remained stable at t his time, cardiology is participating in his care #2 [id number] patient had a JAZMIN placed today, continue with present medications #3 essential hypertension-patient will remain on his present medications, medicines will be adjusted as needed #4 hypothyroidism-patient is on levothyroxine #5 hyperlipidemia-patient will remain on Nexlizet #6 hypokalemia Total clinical time spent by myself addressing the patient's medical issues, reviewing all of his data, and collaborating with patient's care team: 35 minutes Medications at Discharge Home Medications aspirin 81 mg tablet,delayed release 81 mg PO QDAY 04/15/17 epinephrine 0.15 mg/0.3 mL injection,auto-injector (EpiPen Jr) See Rx Instructions IM .COMPLEX 04/15/17 levocetirizine 5 mg tablet 5 mg PO QDAY 04/15/17 montelukast 10 mg tablet 10 mg PO QDAY 90 days #90 tabs 04/15/17 tamsulosin 0.4 mg capsule 0.4 mg PO QHS 90 days #90 caps 04/15/17 nitroglycerin 0.4 mg sublingual tablet 0.4 mg sublingual Q5-15M PRN chest pain #25 tabs 03/24/19 apremilast 30 mg tablet (Otezla) 30 mg PO BID 06/20/20 ascorbic acid (vitamin C) 1,000 mg tablet 1 gm PO DAILY 06/20/20 bempedoic acid 180 mg-ezetimibe 10 mg tablet (Nexlizet) 1 tablet PO DAILY 06/20/20 cholecalciferol (vitamin D3) 50 mcg (2,000 unit) tablet 2,000 unit PO BID 06/20/20 fluticasone propionate 110 mcg/actuation HFA aerosol inhaler (Flovent HFA) 1 puff inhalation BID 06/20/20 multivitamin 1 tablet PO DAILY 06/20/20 omega 9-mqg-mbc-fish oil 1,600 mg-500 mg-800 mg/5 mL oral liquid 5 ml PO DAILY 06/20/20 levothyroxine 112 mcg tablet 112 mcg PO DAILY 10/30/20 escitalopram oxalate 10 mg tablet 10 mg PO DAILY 05/01/22 amlodipine 10 mg tablet 5 mg PO DAILY 02/09/23 losartan 100 mg-hydrochlorothiazide 12.5 mg tablet 1 tab PO DAILY 02/09/23 clopidogrel 75 mg tablet 75 mg PO DAILY #30 tabs 02/10/23 metoprolol succinate 25 mg tablet,extended release 24 hr 25 mg PO DAILY #30 tabs 02/10/23 Hospital Course Operations None Procedures 2-D Echocardiogram and Cardiac catheterization (JAZMIN placement in OM1) Summary of Care Provided Minutes Spent on Discharge: 32 Hospital Course: This 77-year-old white male was seen in the emergency room at [facility] with complaints of chest discomfort that radiated up into his jaw and neck, the discomfort started when the patient was at rest, squad gave the patient aspirin and nitroglycerin but the nitroglycerin did not seem to help. Work-up in the emergency room included labs which showed an elevated troponin, EKG showed ST depression laterally, he was felt to have acute coronary syndrome, patient was given morphine with some improvement of his chest pain. Patient was started on heparin and nitroglycerin and was admitted to the ICU, he was seen in consultation by cardiology, patient underwent a cardiac catheterization with a JAZMIN placement into his saphenous vein graft to the obtuse marginal branch. There were no complications, patient underwent an echocardiogram which showed a normal EF. Patient's cardiac medications were adjusted. There was some difficulty during the catheterization cannulating the right femoral artery, a radial artery approach was then carried out. It was recommended that the patient follow-up with vascular surgery concerning peripheral vascular disease. Arranges were made for the patient to follow-up with Dr. Wyatt as an outpatient. On 02/10/2023, patient was seen and examined: On examination he appeared in good health and spirits. Vital signs as documented. Skin warm and dry and without overt rashes. Neck without JVD, neck was supple, trachea midline, thyroid was normal. Lungs clear bilaterally, normal air movement was noted. Heart exam notable for regular rhythm, normal sounds and absence of murmurs, rubs or gallops. Abdomen unremarkable and without evidence of organomegaly, masses, or abdominal aortic enlargement. Bowel sounds are present, abdomen is not distended. Extremities nonedematous, no cyanosis was noted, no clubbing was noted. Neuro: Cranial nerves II through XII are grossly intact, no focal motor deficits were noted, sensation to light touch and pinprick intact, motor exam 5/5 throughout. Psych: Patient is alert and oriented x3, he does not appear anxious or depressed, he does not appear agitated. Patient appears stable for discharge home on 02/10/2023. Weight / BMI Weight Weight: 88.4 kg Body Mass Index (BMI) 29.6 ABG / Lab / Microbiology Data 02/10/23 03:42 02/10/23 03:42 Laboratory: Laboratory Results - last 24 hr 02/09/23 07:00: APTT 93.9 H* 02/10/23 03:42: WBC 7.5, RBC 3.80 L, Hgb 12.2 L, Hct 35.4 L, MCV 93.2, MCH 32.1 H, MCHC 34.5, RDW Std Deviation 46.0 H, RDW Coeff of Kadeem 13.5, Plt Count 530 H, MPV 8.0, Sodium 142, Potassium 3.1 L, Chloride 106, Carbon Dioxide 29.0, Anion Gap 7, BUN 21 H, Creatinine 1.13, Estim Creat Clear Calc 52.96, Est GFR (MDRD) Af Amer 81, Est GFR (MDRD) Non-Af 67, BUN/Creatinine Ratio 18.6, Glucose 106, Calcium 8.8, Total Bilirubin 0.30, AST 25, ALT 25, Alkaline Phosphatase 78, Total Protein 7.4, Albumin 3.3, Globulin 4.1, Albumin/Globulin Ratio 0.8 L Radiography Diagnostic Testing: Radiology Impression Echocardiogram 02/09/23 01:11 Interpretation Summary Normal LV size. Left ventricular systolic function is normal. The estimated ejection fraction is 65 %. Stage 1 diastolic dysfunction. Mild segmental systolic dysfunction (see wall motion). Ordering Physician: Demetrio Newton Referring Physician: SHIRLEY SANDRA Performed By: Rosalinda De Oliveira RCS D/C Instructions Discharge Diet: No restrictions Weight Bearing Status: Full weight bearing Meaningful Use Info Meaningful Use Diagnoses (Choose all that apply): AMI AMI/Post PCI/Angioplasty Aspirin given w/in 24hrs of arrival?: Yes ASA at discharge?: Yes Antiplatelet Therapy at Discharge:: Yes Statins at discharge?: No Reason statins not ordered:: Allergy Steven/ARB at discharge?: Yes Beta [place] at discharge?: Yes Done w/ Acute NV measure.: Yes Documented LVEF (%): 65 Discharge Plan Admission Admit Date/Time: 02/09/23 01:07 Primary Reason for Your Visit: Acute coronary syndrome Attending Provider: Gino Gleason Primary Care Provider: Shirley Sandra Consulting Providers: Reza Velez; Demetrio Newton Instructions Patient Instructions: Cardiac Catheterization Dc Discharge Orders/Prescriptions Prescriptions: New clopidogrel 75 mg Tablet 75 mg PO DAILY Qty: 30 0RF metoprolol succinate 25 mg Tablet Extended Release 24 Hr 25 mg PO DAILY Qty: 30 0RF Continued tamsulosin 0.4 mg capsule,extended release 24hr 0.4 mg PO QHS 90 Days Qty: 90 Patient Comments: levocetirizine 5 mg tablet 5 mg PO QDAY montelukast 10 mg tablet 10 mg PO QDAY 90 Days Qty: 90 Patient Comments: epinephrine [EpiPen Jr] 0.15 mg/0.3 mL auto-injector See Rx Instructions IM .COMPLEX Patient Comments: Take as directed, IM Rx Instructions: Take as directed, IM aspirin 81 mg tablet,delayed release (DR/EC) 81 mg PO QDAY levothyroxine 112 mcg tablet 112 mcg PO DAILY escitalopram oxalate 10 mg tablet 10 mg PO DAILY amlodipine 10 mg tablet 5 mg PO DAILY Rx Instructions: 5 mg po daily losartan-hydrochlorothiazide 100-12.5 mg tablet 1 tab PO DAILY Otezla 30 mg tablet 30 mg PO BID Nexlizet 180-10 mg tablet 1 tablet PO DAILY Flovent HFA 110 mcg/actuation HFA aerosol inhaler 1 puff INHALATION BID Patient Comments: Take as directed; INHALATION multivitamin Tablet 1 tablet PO DAILY cholecalciferol (vitamin D3) 50 mcg (2,000 unit) tablet 2,000 unit PO BID ascorbic acid (vitamin C) 1,000 mg tablet 1 gm PO DAILY No Action nitroglycerin 0.4 mg tablet, sublingual 0.4 mg SUBLINGUAL Q5-15M PRN (Reason: chest pain) Qty: 25 3RF Rx Instructions: until response; do not exceed 3 doses per episode omega 8-jln-zgy-fish oil 1,600-500-800 mg/5 mL liquid 5 ml PO DAILY Referrals / Follow Up: Reza Velez MD [Med Staff - Active Staff] - See Referral Note (Call later this week to confirm follow-up appointment if you are not contacted by the office) Shirley Sandra MD [Primary Care Provider] - See Referral Note (Within 1 month) Disposition Disposition (needs filled in before D/C Order can be placed): Home Health Service Charges/Coding Visit Charges Inpatient E&M: 48300 Disch Hosp >30min
[2023-02-10] MEDS: Aspirin E.C. 81 MG Tablet PO (08:26)
[2023-02-10] MEDS: Losartan Potassium 100 MG Tablet PO (08:27)
[2023-02-10] MEDS: Multivitamins,Therapeutic Tablet 1 TABLET PO (08:27)
[2023-02-10] MEDS: Loratadine 10 MG Tablet PO (08:27)
[2023-02-10] MEDS: hydroCHLOROthiazide 12.5mg 12.5 MG PO (08:27)
[2023-02-10] MEDS: Ascorbic Acid 500 MG Tablet 1000 MG PO (08:28)
[2023-02-10] MEDS: Montelukast 10 MG Tablet PO (08:28)
[2023-02-10] MEDS: amLODIPine 5 MG Tablet PO (08:28)
[2023-02-10] MEDS: Escitalopram Oxalate 10 MG Tablet PO (08:28)
[2023-02-10] MEDS: Clopidogrel Bisulfate 75 MG Tablet PO (08:28)
[2023-02-10] MEDS: Cholecalciferol (VIT D3) 25 MCG TABLET (1,000 UNITS) 50 MCG PO (08:29)
[2023-02-10] MEDS: Metoprolol(XL)Succ 25 MG Tablet PO (08:35)
--- NOTE | 2023-02-10 08:40 | CASEMGMT ---
Discharge Planning Discharge date and instructions [facility] to [facility] Belem Lunsford, Discharge Planning Asst.
--- NOTE | 2023-02-10 10:00 | EKG12_ITS ---
Test Reason : AM EKG Blood Pressure : / mmHG Vent. Rate : 059 BPM Atrial Rate : 059 BPM P-R Int : 246 ms QRS Dur : 114 ms QT Int : 434 ms P-R-T Axes : 003 003 -13 degrees QTc Int : 429 ms Sinus bradycardia with 1st degree A-V block Nonspecific ST and T wave abnormality Abnormal ECG When compared with ECG of 09-FEB-2023 10:33, MANUAL COMPARISON REQUIRED, DATA IS UNCONFIRMED Confirmed by ALISHA TITUS, CARLEE ([id number]), editor in chief newspaper CHRIS BRIDGES ([id number]) on 02/10/2023 1:22:36 PM Referred By: LAWTON Confirmed By:CARLEE BRITO MD
== END 2023-02-10 11:06 | disposition home health service (06) | DRG 322 ==
LOC: ED 02-09 00:45 → ICU 02-09 01:27
PROVIDERS: Specialist; Admitting Provider Internal Medicine; Emergency Provider Emergency Medicine; PCP Family Medicine; Visit Provider Internal Medicine
DX: I21.4 Non-ST elevation (NSTEMI) myocardial infarction (principal); E03.9 Hypothyroidism, unspecified; I73.9 Peripheral vascular disease, unspecified; I24.9 Acute ischemic heart disease, unspecified; I10 Essential (primary) hypertension; F32.A Depression, unspecified; I25.10 Atherosclerotic heart disease of native coronary artery without angina pectoris; E78.5 Hyperlipidemia, unspecified; I25.2 Old myocardial infarction; E87.6 Hypokalemia; E66.9 Obesity, unspecified; Z79.82 Long term (current) use of aspirin; R60.0 Localized edema; Z87.891 Personal history of nicotine dependence; Z95.1 Presence of aortocoronary bypass graft; Z68.33 Body mass index [BMI] 33.0-33.9, adult; N40.0 Benign prostatic hyperplasia without lower urinary tract symptoms; Z85.89 Personal history of malignant neoplasm of other organs and systems; Z86.19 Personal history of other infectious and parasitic diseases
CPT/HCPCS: 71045; 80048; 80053; 80061; 83735; 83880; 84100; 84443; 84484; 85025; 85027; 85610; 85730; 92937; 93005; 93306; 93455; 94640; 99152; 99153; 99285; C1894; J7030; Q9967; A4216; C1725; C1769; C1874; C1887; C9604; J2405

== ENCOUNTER → 2023-03-05 | Outpatient (CLI) | payer MEDICARE, BC, SELFPAY ==
--- NOTE | 2023-03-05 13:46 | VDLE_ITS ---
Reason For Study: PVD RIGHT LEFT CFV is compressible, spontaneous, phasic, CFV is compressible, spontaneous, phasic, competent and demonstrates normal competent, and demonstrates normal augmentation. augmentation. FV is compressible, spontaneous, phasic, FV is compressible, spontaneous, phasic, competent and demonstrates normal competent and demonstrates normal augmentation. augmentation. POP V is compressible, spontaneous, phasic, POP V is compressible, spontaneous, phasic, competent and demonstrates normal competent and demonstrates normal augmentation. augmentation. T/P Trunk is compressible. T/P Trunk is compressible. PTV is compressible. PTV is compressible. RT PerV is compressible. LT PerV is compressible. SFJ is competent and measures 0.58 cm. SFJ is competent and measures 0.42 cm. GSV proximal thigh measures 0.25 x 0.27 cm. GSV proximal thigh measures 0.35 x 0.33 cm. GSV at knee measures 0.21 x 0.27 cm. GSV at knee measures 0.17 x 0.17 cm. GSV is competent throughout. GSV above knee is competent. SSV [place] for CABG. GSV below knee is INCOMPETENT for greater Procedure than 0.5 seconds. This is a venous duplex using B-mode, color SSV [place] for CABG. flow and spectral Doppler. Exam performed in department. The exam was diagnostic. VL/Venous Duplex US - Huseyin Extrem Interpretation Summary Deep veins of the bilateral lower extremities are patent and compressible segme ntally. There is no evidence of bilateral lower extremity deep vein thrombosis. The bilateral great saphenous veins appear patent and compressible segmentally. Positive for reflux in the left great saphenous vein below the knee Ordering Physician: Srinivas Hopson Referring Physician: Desmond Wyatt Performed By: Sonu Fuentes, RVLayla
--- NOTE | 2023-03-05 13:46 | ART_ITS ---
Reason For Study: PVD Procedure A bilateral lower extremity continuous wave Doppler with analog waveform analysis,segmental pressures,and ankle brachial indexes without exercise. Left Segmental Pressures Left brachial= 154mmHg. Left posterior tibial artery = 175mmHg. Left dorsalis pedis artery = 176mmHg. The left posterior tibial artery waveforms are triphasic. The left dorsalis pedis waveforms are triphasic. Right Segmental Pressures Right brachial= 161mmHg. Right posterior tibial artery = 203mmHg. Right dorsalis pedis artery = 177mmHg. The right posterior tibial artery waveforms are triphasic. The right dorsalis pedis waveforms are triphasic. Indices The right ankle brachial index by the posterior tibial artery is 1.26. The right ankle brachial index by the dorsalis pedis is 1.10. The left ankle brachial index by the posterior tibial artery is 1.09. The left ankle brachial index by the dorsalis pedis is 1.09. VL/Lower Ext Art Exam w/o Exercis Interpretation Summary Right LEONA 1.26, normal. Doppler/PVR waveforms of the right leg normal at rest. Left LEONA 1.09, normal. Doppler/PVR waveforms of the left leg normal at rest. Ordering Physician: Desmond Wyatt Referring Physician: Srinivas Hopson Performed By: Sonu Fuentes, RVT
== END | disposition home or self-care (01) ==
LOC: CVS 13:46
PROVIDERS: PCP Family Medicine; Referring Provider Surgery Trauma Surgery; Visit Provider Surgery Trauma Surgery
DX: I73.9 Peripheral vascular disease, unspecified (principal); R07.9 Chest pain, unspecified
CPT/HCPCS: 93923; 93970

== ENCOUNTER → 2024-01-15 | Outpatient (CLI) | payer MEDICARE, BC, SELFPAY | END | disposition home or self-care (01) | LOC: PSN 08:46 | PROVIDERS: PCP Family Medicine; Referring Provider Nurse Practitioner Gerontology; Visit Provider Nurse Practitioner Gerontology | DX: R00.1 Bradycardia, unspecified (principal) | CPT/HCPCS: 93225; 93226 ==

== ENCOUNTER → 2024-01-28 | Outpatient (CLI) | payer MEDICARE, BC, SELFPAY ==
--- NOTE | 2024-01-28 14:42 | CDU_ITS ---
Reason For Study: Rt Carotid Bruit Rt. Velocities/BP Lt. Velocities/BP Prox CCA 67.4/12.2 cm/sec. Prox CCA 96.4/8.6 cm/sec. Mid CCA 57.8/9.5 cm/sec. Mid CCA 65.5/11.7 cm/sec. Dist CCA 52.3/11.7 cm/sec. Dist CCA 58.9/10.6 cm/sec. Prox ICA 300.5/80.8 cm/sec. Prox ICA 52.3/14.9 cm/sec. Mid ICA 241.1/60.1 cm/sec. Mid ICA 60.4/21.0 cm/sec. Dist ICA 110.4/30.1 cm/sec. Dist ICA 45.9/11.9 cm/sec. Rt. ICA/CCA = 5.2. Lt. ICA/CCA = 0.9. Prox ECA 134.8/18.3 cm/sec. Prox ECA 100.2/10.6 cm/sec. Rt. Vert. 58.8/18.3 cm/sec. Lt. Vert. 33.9/10.3 cm/sec. Right Extracranial There is intimal thickening but no significant atherosclerotic plaque noted in the right common carotid artery. There is heterogeneous, irregular atherosclerotic plaque noted in the right internal carotid artery. There is heterogeneous, irregular atherosclerotic plaque noted in the right external carotid artery. Antegrade flow is noted in the right vertebral artery. Left Extracranial There is homogeneous, smooth atherosclerotic plaque noted in the left common carotid artery. There is heterogeneous, irregular atherosclerotic plaque noted in the left internal carotid artery. There is heterogeneous, irregular atherosclerotic plaque noted in the left external carotid artery. Antegrade flow is noted in the left vertebral artery. Procedure Carotid Duplex 29999. This is a Carotid Duplex examination using B-mode, color flow and specral Doppler. The exam was diagnostic. Exam performed in department. VL/Carotid Duplex Ultrasound Interpretation Summary Severe (>70%) stenosis right extracranial internal carotid. Mild (<50%) stenosis left extracranial internal carotid. Patent and antegrade vertebrals bilaterally. Ordering Physician: Carmencita Sarabia Referring Physician: Srinivas Hopson Performed By: Sonu Fuentes RVT
== END | disposition home or self-care (01) ==
LOC: CVS 14:42
PROVIDERS: PCP Family Medicine; Referring Provider Physician Assistant Medical; Visit Provider Physician Assistant Medical
DX: R09.89 Other specified symptoms and signs involving the circulatory and respiratory systems (principal)
CPT/HCPCS: 93880

== ENCOUNTER → 2024-02-23 | Outpatient (CLI) | payer MEDICARE, BC, SELFPAY ==
--- NOTE | 2024-02-23 13:26 | CT_ITS ---
STUDY: CTA HEAD AND NECK WITH CONTRAST REASON FOR EXAM: Male, 78 years old. R ICA stenosis RADIATION DOSAGE (If Supplied By Facility): CTDIvol = ( 31.06 ) mGy, DLP = ( 1584.50 ) mGycm TECHNIQUE: CT angiography was performed with a multi-detector CT scanner. Data acquisition was obtained from the skull base through the vertex following intravenous administration of IV 100mL Isovue-370. MIP images were reconstructed from the axial data set. Post-processing of the angiographic images was performed, with multiplanar reformation and 3D reconstruction. Individualized dose optimization techniques were used for this CT. COMPARISON: No relevant priors. FINDINGS: Normal bilateral petrous carotid arteries. There is calcified plaque formation of the right cavernous carotid artery, without a cross-sectional luminal stenosis. There is calcified plaque formation of the left cavernous carotid artery, without a cross-sectional luminal stenosis. Normal right A1 segments of the anterior cerebral artery. Normal left A1 segments of the anterior cerebral artery. Normal intact anterior communicating artery (ACOM). Normal bilateral A2 segments of the anterior cerebral arteries. Normal right M1 and M2 segments of the middle cerebral arteries, with a normal M1 bifurcation. Normal left M1 and M2 segments of the middle cerebral arteries, with a normal M1 bifurcation. Normal right posterior communicating artery (PCOM). Normal left posterior communicating artery (PCOM). Normal bilateral vertebral arteries. Normal basilar artery with a normal basilar bifurcation. The visualized bilateral superior cerebellar (SCA) arteries are normal. Normal bilateral P1, P2 and visualized P3 segments of the posterior cerebral arteries. There is no demonstrated aneurysm of the [place] of [place]. Mild degree of cerebral atrophy and decreased attenuation in the periventricular white matter distribution in keeping with chronic changes. Prominence of the CSF spaces bilaterally. This may be secondary to either atrophy or possible small chronic subdural hematomas. Prominence of the cisterna magna. This is a normal variant. Single frontal thickening at the origin of the esophagus. Clinical correlation recommended. AORTIC ARCH: There is atherosclerotic calcific plaque formation of the aortic arch and great vessels arising from the aortic arch, without a hemodynamically significant stenosis. There is a normal origin of the brachiocephalic, left common carotid, and left subclavian arteries. RIGHT CAROTID ARTERIES: Normal right common carotid artery (CCA). Normal right common carotid bulb. There is severe atherosclerotic plaque formation of the origin of the right internal carotid artery with a near complete occlusion. Normal visualized cervical portion of the right internal carotid artery. Normal origin of the right external carotid artery (ECA). LEFT CAROTID ARTERIES: Normal left common carotid artery (CCA). Normal left common carotid bulb. There is mild atherosclerotic plaque formation of the origin of the left internal carotid artery with less than 50% cross sectional diameter stenosis. Normal visualized cervical portion of the left internal carotid artery. Normal origin of the left external carotid artery (ECA). VERTEBRAL ARTERIES: Atherosclerotic calcific plaques throughout the course of the left vertebral artery. CT/CTA Head AND Neck W/ Contrast IMPRESSION: High-grade stenosis at the origin of the right internal carotid artery. Mild degree of stenosis at the origin of the left internal carotid artery. Electronically Signed: Tyler Bright MD at 14:29 EST ,
== END | disposition home or self-care (01) ==
LOC: CT 13:24
PROVIDERS: PCP Family Medicine; Referring Provider Physician Assistant; Visit Provider Physician Assistant
DX: I65.21 Occlusion and stenosis of right carotid artery (principal)
CPT/HCPCS: 70496; 70498; Q9967

== ENCOUNTER → 2024-04-01 | Outpatient (CLI) | payer MEDICARE, BC, SELFPAY ==
--- NOTE | 2024-04-01 13:22 | STRESSREP ---
Stress Test Report Pharmacologic myocardial perfusion stress test. 78-year-old man for preoperative cardiac evaluation Resting EKG demonstrates sinus bradycardia with a rate of 45 bpm. Resting blood pressure is 148/66 mmHg. 0.4 mg of regadenoson was infused per usual protocol followed by rapid intravenous saline flush injection. Continuous EKG monitoring was performed. The maximum heart rate was 77 bpm which was 54% of max impacted heart rate the maximum workload was 1 metabolic equivalent. At rest there were no ST or T wave changes noted to suggest ischemia and at peak infusion nonspecific ST changes were noted which did not meet the criteria for ischemia. No clinical angina is noted. The final blood pressure was 128/62 mmHg. Myocardial perfusion protocol. 11.8 mCi of technetium 99m sestamibi was injected at rest. 0.4 mg of regadenoson was infused per usual protocol. At peak infusion 34.1 mCi of technetium 99m sestamibi was injected stress images were obtained stress and rest images were reconstructed and compared in the short axis vertical long and horizontal long axis. Gated images were also obtained. Perfusion SPECT analysis: Review of the stress images demonstrate normal uptake of tracer noted in all areas of the myocardium. The resting images similar demonstrated normal uptake of tracer noted in all areas of the myocardium. No areas of reversibility are noted to suggest ischemia and no previous infarct is noted. Gated SPECT analysis: The gated ejection fraction is 73%. Conclusion: Normal pharmacologic myocardial perfusion stress test. Preserved ejection fraction.
== END | disposition home or self-care (01) ==
LOC: CVS 05:57
PROVIDERS: PCP Family Medicine; Referring Provider Internal Medicine Cardiovascular Disease; Visit Provider Internal Medicine Cardiovascular Disease
DX: I25.10 Atherosclerotic heart disease of native coronary artery without angina pectoris (principal); R01.1 Cardiac murmur, unspecified; I65.21 Occlusion and stenosis of right carotid artery; I10 Essential (primary) hypertension; E78.00 Pure hypercholesterolemia, unspecified; I73.9 Peripheral vascular disease, unspecified; Z95.5 Presence of coronary angioplasty implant and graft
CPT/HCPCS: 78452; 93017; A9500; A4216; J2785

== ENCOUNTER 2024-05-17 11:38 | Inpatient (IN) | payer MEDICARE, BC, SELFPAY ==
--- NOTE | 2024-05-05 09:34 | EKG12_ITS ---
Test Reason : PREOP Blood Pressure : */* mmHG Vent. Rate : 50 BPM Atrial Rate : 50 BPM P-R Int : 284 ms QRS Dur : 106 ms QT Int : 450 ms P-R-T Axes : -12 -4 18 degrees QTcB Int : 410 ms Sinus bradycardia with 1st degree A-V block Otherwise normal ECG Confirmed by JODI LALA ([id number]), publishing editor CHRIS BRIDGES ([id number]) on 05/06/2024 10:10:51 AM Referred By: Desmond Wyatt Confirmed By: JODI LALA
[2024-05-05 10:52] LABS: Hematocrit 37.3 % (40-54); Hemoglobin 12.5 g/dL (13.0-16.5); Mean Corp Hgb Conc 33.5 g/dL (32-36); Mean Corpuscular Hgb 30.5 pg (27.0-32.0); Mean Platelet Vol. 8.6 fl (6.2-12.0); Platelet Count 460 K/mm3 (150-450); RBC Distribution Width CV 14.1 % (11.6-14.6); RBC Distribution Width SD 47.4 fl (35.1-43.9); White Blood Count 7.1 K/mm3 (4.4-11.0)
[2024-05-05 11:22] LABS: Anion Gap 7 (5-15); BUN 24 mg/dL (7-18); Calcium,Total 9.8 mg/dL (8.5-10.1); Chloride 108 mmol/L (98-107); EST Glomerular Filtration Rate 62 mL/min (>60); Est Glom Filt Rate - Afr Amer 75 mL/min (>60); Glucose 95 mg/dL (74-106); Potassium 3.6 mmol/L (3.5-5.1); Sodium Level 140 mmol/L (136-145)
--- NOTE | 2024-05-06 10:05 | PAT.ANESEVAL ---
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 When Was Last Pacemaker Check QUESTION #4 FULL TEXT: You/Your Family Experience fever (hyperthermia) with Anesthesia Last Oral Intake Last Oral intake: Last Oral Intake NPO since Meds taken in AM with sips of water? Meds patient instructed to take am of surgery PONV PONV - retail service specialist: PONV - retail service specialist Female No 05/03/24 13:12 HX of Motion Sickness No 05/03/24 13:12 HX of N/V After Surgery No 05/03/24 13:12 Non-Smoker Yes 05/03/24 13:12 Duration of Surgery greater Yes 05/03/24 13:12 than 60 minutes Number of Risk Factors 2 05/03/24 13:12 PONV Score Moderate Risk 05/03/24 13:12 Height & Weight Height & Weight: Anesthesia: Height & Weight Height 5 ft 8 in 03/22/24 08:52 Respiratory Assessment Respiratory Assessment - retail service specialist: Respiratory Tract Infection Hx - retail service specialist Hx Respiratory Tract Infection No 05/03/24 13:12 STOP Sleep Apnea STOP Sleep Apnea - retail service specialist: STOP Sleep Apnea - retail service specialist Hx Hypertension Yes: CONTROLLED WITH MED 05/03/24 13:12 Hx Sleep Apnea Yes: 2L O2 @ NIGHT 05/03/24 13:12 CPAP No 05/03/24 13:12 BIPAP No 05/03/24 13:12 Do you snore loudly (louder than talking or can be heard Do you often feel tired/ fatigued/ sleepy during daytime? Has anyone observed you stop breathing during sleep? STOP Results Positive 05/03/24 13:12 QUESTION #5 FULL TEXT : Do you snore loudly (louder than talking or can be heard through closed doors)? Tobacco Use History Tobacco Use History - retail service specialist: Tobacco Use History - retail service specialist Tobacco Use Smoking Status Former smoker 05/03/24 13:12 Hx Tobacco Use No 05/03/24 13:12 Years Smoking Packs Smoked per Day Smoking Cessation Date was No - quit smoking greater 05/03/24 13:12 within the last 15 years than 15 years ago Hx Smoking Cessation Date 03/16/93 05/03/24 13:12 Hx Smoking Cessation Counseling Hematologic Medial History Hematologic Hx - retail service specialist: Hematologic Medical Hx - property management intern Hx of Blood Transfusion No 05/03/24 13:12 Hx of Transfusion in last 3 No 05/03/24 13:12 Months Date of Last Transfusion (if within last 3 months) Ever experience any problems No 05/03/24 13:12 with transfusion(s)? Specify any problems Hx of Preganancy in last 3 N/A 05/03/24 13:12 Months Nurse Filling Out Transfusion [facility] 05/03/24 13:12 & Questions: Date: 05/03/24 05/03/24 13:12 Time: 13:14 05/03/24 13:12 Patient unable to answer at this time (ie. confused, unrespo /Reproduction History /Reproductive History - retail service specialist: /Reproductive Hx- retail service specialist Hx Now No 05/03/24 13:12 Gestational Age (in weeks): EDC: Hx Hx Para Hx Section SAB No 05/03/24 13:12 [facility] Medical History (Updated 05/03/24 @ 13:38 by Cecelia Sethi) Cardiology follow-up encounter History of Holter monitoring History of echocardiogram History of stress test Wears hearing aid Loss of hearing Wears glasses Cancer Hypothyroidism History of pulmonary embolus (PE) History of hiatal hernia History of diverticulitis Stenosis of right carotid artery Essential (primary) hypertension Fatigue Dizziness and giddiness Sinoatrial node dysfunction Esophageal disorder GERD (gastroesophageal reflux disease) 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 HLD (hyperlipidemia) Hypothyroidism, iatrogenic Home Medications ?Medication ?Instructions ?Recorded ?Last Taken ?Type aspirin 81 mg tablet,delayed 81 mg PO QDAY HEART HEALTH 04/15/17 Unknown History release epinephrine 0.15 mg/0.3 mL See Rx Instructions IM .COMPLEX 04/15/17 Unknown History injection,auto-injector (EpiPen Jr) ANAPHALAXIS levocetirizine 5 mg tablet 5 mg PO QDAY ALLERGIES 04/15/17 Unknown History montelukast 10 mg tablet 10 mg PO QDAY ASTHMA 90 days #90 04/15/17 Unknown History tabs tamsulosin 0.4 mg capsule 0.4 mg PO QHS BPH 90 days #90 caps 04/15/17 Unknown History apremilast 30 mg tablet (Otezla) 30 mg PO BID PSORIASIS 06/20/20 Unknown History ascorbic acid (vitamin C) 1,000 mg 1 gm PO DAILY SUPPLEMENT 06/20/20 Unknown History tablet bempedoic acid 180 mg-ezetimibe 10 1 tablet PO DAILY HLD 06/20/20 Unknown History mg tablet (Nexlizet) cholecalciferol (vitamin D3) 50 2,000 unit PO BID SUPPLEMENT 06/20/20 Unknown History mcg (2,000 unit) tablet fluticasone propionate 110 1 puff inhalation BID ASTHMA 06/20/20 Unknown History mcg/actuation HFA aerosol inhaler (Flovent HFA) multivitamin 1 tablet PO DAILY SUPPLEMENT 06/20/20 Unknown History omega 4-raj-inl-fish oil 1,600 5 ml PO DAILY SUPPLEMENT 06/20/20 Unknown History mg-500 mg-800 mg/5 mL oral liquid levothyroxine 112 mcg tablet 112 mcg PO DAILY HYPOTHROID 10/30/20 Unknown History escitalopram oxalate 10 mg tablet 10 mg PO DAILY ANXIETY 05/01/22 Unknown History nitroglycerin 0.4 mg sublingual 0.4 mg sublingual Q5-15M PRN chest 02/19/23 Unknown Rx tablet pain #25 tabs losartan 100 1 tab PO DAILY HTN #90 tabs 04/13/23 Unknown Rx mg-hydrochlorothiazide 12.5 mg tablet albuterol sulfate 90 mcg/actuation 2 puff inhalation Q6H PRN 07/02/23 Unknown History aerosol inhaler shortness of breath or wheezing hydralazine 25 mg tablet 25 mg PO BID HTN #60 tabs 01/20/24 Unknown Rx amlodipine 10 mg tablet 10 mg PO DAILY HTN #90 tabs 02/01/24 Unknown Rx clopidogrel 75 mg tablet 75 mg PO DAILY BLOOD THINNER #90 02/15/24 Unknown Rx tabs metoprolol succinate 25 mg 12.5 mg (1/2 x 25 mg) PO DAILY 03/22/24 Unknown Rx tablet,extended release 24 hr HEART #45 tabs Allergy/AdvReac Type Severity Reaction Status Date / Time insect venom (yellow jacket) Allergy Severe Anaphylaxis Verified 05/03/24 13:03 atorvastatin (From Lipitor) Allergy intolerance, Verified 05/03/24 13:03 weakness colesevelam (From WelChol) Allergy myalgias Verified 05/03/24 13:03 Penicillins Allergy Fever and Verified 05/03/24 13:03 skin rash pravastatin (From Pravachol) Allergy myalgias Verified 05/03/24 13:03 rosuvastatin (From Crestor) Allergy intolerance, Verified 05/03/24 13:03 weakness ibuprofen AdvReac Mild Asthma Verified 05/03/24 13:03 Attack Family History Father , age 87 CAD (coronary artery disease) Mother , age 90 CAD (coronary artery disease) Brother FH: brain aneurysm Sister emphysema Surgical History (Updated 05/03/24 @ 13:38 by Cecelia Sethi) History of cardiac catheterization History of coronary artery stent placement Hx of lithotripsy (~01/2024) History of cholecystectomy (~2017) History of hernia surgery (~2005) Stented coronary artery (02/09/23) History of back surgery H/O coronary artery bypass surgery (07/29/05) History of left heart catheterization (LHC) (09/23/10) Social History Smoking Status: Former smoker how long ago did patient quit smokin alcohol intake: never substance use type: does not use what type of physical activity do you participate in: none Audit: Pertinent Findings Pertinent Findings EKG Perinent findings: Resting EKG demonstrates sinus bradycardia with a rate of 45 bpm. Continuous ECG with maximum heart rate was 77 bpm which was 54% of max impacted heart rate the maximum workload was 1 metabolic equivalent Stress test pertinent findings: Normal pharmacologic myocardial perfusion stress test. Preserved ejection fraction. Stress test triumphs any other previous cardiac test/study Echo (EF%) pertinent findings: Predates Stress test of Mar 2024 Additional pertinent findings: Holter monitor predates Stress test of Mar 2024 Environmental Intern note predates Stress test of Mar 2024 Recommendation Anesthesia Recommendation Anesthesia recommendation: OPTIMIZED for anesthesia
[2024-05-17] VITALS (27 sets, daily range): BP systolic 103–145; BP diastolic 49–78; PULSE 49–104; RESP 13–18; TEMP 36.1–36.6; O2SAT 93–100; BMI 28.8; BMI 38.5
[2024-05-17] MEDS: 0.9% Normal Saline (1000mL) 1,000 ML 15 ML IV (07:30)
--- NOTE | 2024-05-17 08:07 | PCM.PRE.AN2 ---
ASA Classification* ASA Classification ASA Classification: 3 Assessment & Plan Anesthesia* Anesthesia Assessment Anesthesia Assessment: Discussed sedation and/or anesthesia options, risks, benefits, and alternatives with patient/parents/legal guardian/POA. Questions invited. The patient/parents/legal guardian/POA seems to understand and agrees to proceed with anesthesia plan. Reviewed the physical assessment, medical history, allergy history and patient home medications list prior to surgery/procedure/anesthetic and documented any changes. Performed airway and anesthesia risk assessments. Anesthesia Type Anesthesia Type: General (Will give patient his a.m. dose of metoprolol now p.o.) History Source History Obtained from:: Patient and Chart Anesthesia Focused Assessment* Temperature: 97.8 F Pulse Rate: 52 Blood Pressure: 145/78 Respiratory Rate: 16 Pulse Ox: 98 Oxygen Delivery Method: Room Air Airway Assessment Mouth opens: >3 cm Mallampati Score: III Teeth Condition: Intact Neck Range of motion (ROM): Full ROM Focused Labs Anesthesia Preop lab: CBC WBC 7.1 K/mm3 (4.4-11.0) 05/05/24 09:43 05/05/24 RBC 4.10 M/mm3 (4.6-6.2) L 05/05/24 09:43 05/05/24 Hgb 12.5 g/dL (13.0-16.5) L 05/05/24 09:43 05/05/24 Hct 37.3 % (40-54) L 05/05/24 09:43 05/05/24 Plt Count 460 K/mm3 (150-450) H 05/05/24 09:43 05/05/24 CHEMISTRY Potassium 3.6 mmol/L (3.5-5.1) 05/05/24 09:43 05/05/24 Sodium 140 mmol/L (136-145) 05/05/24 09:43 05/05/24 Magnesium 2.2 mg/dL (1.6-2.6) 02/09/23 05:30 02/09/23 Phosphorus 3.3 mg/dL (2.5-4.9) 02/09/23 05:30 02/09/23 BUN 24 mg/dL (7-18) H 05/05/24 09:43 05/05/24 Creatinine 1.20 mg/dL (0.70-1.30) 05/05/24 09:43 05/05/24 Glucose 95 mg/dL (74-106) 05/05/24 09:43 05/05/24 TSH 2.000 uIU/mL (0.358-3.740) 05/05/24 09:42 05/05/24 COAG PT 16.1 SECONDS (11.7-14.9) H 02/09/23 00:52 02/09/23 Pre-Assessment Diagnosis/Proposed Procedure Planned Operative Procedure(s): RIGHT CAROTID ARTERY STENT Anesthesia History 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 When Was Last Pacemaker Check QUESTION #4 FULL TEXT: You/Your Family Experience fever (hyperthermia) with Anesthesia Last Oral Intake Last Oral intake: Last Oral Intake NPO since 20:00 05/17/24 07:07 Meds taken in AM with sips of water? Meds patient instructed to take am of surgery PONV PONV - medical biller/coder: PONV - medical biller/coder Female No 05/03/24 13:12 HX of Motion Sickness No 05/03/24 13:12 HX of N/V After Surgery No 05/03/24 13:12 Non-Smoker Yes 05/03/24 13:12 Duration of Surgery greater Yes 05/03/24 13:12 than 60 minutes Number of Risk Factors 2 05/03/24 13:12 PONV Score Moderate Risk 05/03/24 13:12 Height & Weight Height & Weight: Anesthesia: Height & Weight Height 5 ft 8 in 05/17/24 07:07 Weight: 86.183 kg 05/17/24 07:07 Body Mass Index (BMI) 28.8 05/17/24 07:07 Respiratory Assessment Respiratory Assessment - medical biller/coder: Respiratory Tract Infection Hx - medical biller/coder Hx Respiratory Tract Infection No 05/03/24 13:12 STOP Sleep Apnea STOP Sleep Apnea - medical biller/coder: STOP Sleep Apnea - medical biller/coder Hx Hypertension Yes: CONTROLLED WITH MED 05/03/24 13:12 Hx Sleep Apnea Yes: 2L O2 @ NIGHT 05/03/24 13:12 CPAP No 05/03/24 13:12 BIPAP No 05/03/24 13:12 Do you snore loudly (louder than talking or can be heard Do you often feel tired/ fatigued/ sleepy during daytime? Has anyone observed you stop breathing during sleep? STOP Results Positive 05/03/24 13:12 QUESTION #5 FULL TEXT : Do you snore loudly (louder than talking or can be heard through closed doors)? Tobacco Use History Tobacco Use History - medical biller/coder: Tobacco Use History - medical biller/coder Tobacco Use Smoking Status Former smoker 05/03/24 13:12 Hx Tobacco Use No 05/03/24 13:12 Years Smoking Packs Smoked per Day Smoking Cessation Date was No - quit smoking greater 05/03/24 13:12 within the last 15 years than 15 years ago Hx Smoking Cessation Date 03/16/93 05/03/24 13:12 Hx Smoking Cessation Counseling Hematologic Medial History Hematologic Hx - medical biller/coder: Hematologic Medical Hx - documentation analyst Hx of Blood Transfusion No 05/03/24 13:12 Hx of Transfusion in last 3 No 05/03/24 13:12 Months Date of Last Transfusion (if within last 3 months) Ever experience any problems No 05/03/24 13:12 with transfusion(s)? Specify any problems Hx of Preganancy in last 3 N/A 05/03/24 13:12 Months Nurse Filling Out Transfusion [facility] 05/03/24 13:12 & Questions: Date: 05/03/24 05/03/24 13:12 Time: 13:14 05/03/24 13:12 Patient unable to answer at this time (ie. confused, unrespo /Reproduction History /Reproductive History - medical biller/coder: /Reproductive Hx- medical biller/coder Hx Now No 05/03/24 13:12 Gestational Age (in weeks): EDC: Hx Hx Para Hx Section SAB No 05/03/24 13:12 Active Medications Active Medications: Current Medications Generic Name Dose Route Start Last Admin Trade Name Freq PRN Reason Stop Dose Admin Clindamycin Phosphate 900 mg in 50 mls @ 75 mls/hr 05/17/24 08:00 Cleocin IV 05/17/24 08:39 PREOP ONE Sodium Chloride 1,000 mls @ 15 mls/hr 05/17/24 06:45 05/17/24 07:30 IV 05/22/24 20:04 15 mls/hr .Q48H KILO Administration Protocol Sodium Chloride 1,000 mls @ 1 mls/hr 05/17/24 06:43 IV .Q48H PRN Saline Flush PFSH Medical History Cardiology follow-up encounter History of Holter monitoring History of echocardiogram History of stress test Wears hearing aid Loss of hearing Wears glasses Cancer Hypothyroidism History of pulmonary embolus (PE) History of hiatal hernia History of diverticulitis Stenosis of right carotid artery Essential (primary) hypertension Fatigue Dizziness and giddiness Sinoatrial node dysfunction Esophageal disorder GERD (gastroesophageal reflux disease) 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 HLD (hyperlipidemia) Hypothyroidism, iatrogenic Home Medications ?Medication ?Instructions ?Recorded ?Last Taken ?Type aspirin 81 mg tablet,delayed 81 mg PO QDAY HEART HEALTH 04/15/17 05/16/24 History release epinephrine 0.15 mg/0.3 mL See Rx Instructions IM .COMPLEX 04/15/17 Unknown History injection,auto-injector (EpiPen Jr) ANAPHALAXIS levocetirizine 5 mg tablet 5 mg PO QDAY ALLERGIES 04/15/17 05/16/24 History montelukast 10 mg tablet 10 mg PO QDAY ASTHMA 90 days #90 04/15/17 05/16/24 History tabs tamsulosin 0.4 mg capsule 0.4 mg PO QHS BPH 90 days #90 caps 04/15/17 05/16/24 History apremilast 30 mg tablet (Otezla) 30 mg PO BID PSORIASIS 06/20/20 05/16/24 History ascorbic acid (vitamin C) 1,000 mg 1 gm PO DAILY SUPPLEMENT 06/20/20 05/16/24 History tablet bempedoic acid 180 mg-ezetimibe 10 1 tablet PO DAILY HLD 04/07/21 03/03/25 History mg tablet (Nexlizet) cholecalciferol (vitamin D3) 50 2,000 unit PO BID SUPPLEMENT 06/20/20 05/16/24 History mcg (2,000 unit) tablet fluticasone propionate 110 1 puff inhalation BID ASTHMA 06/20/20 05/16/24 History mcg/actuation HFA aerosol inhaler (Flovent HFA) multivitamin 1 tablet PO DAILY SUPPLEMENT 06/20/20 05/16/24 History omega 3-daw-hlf-fish oil 1,600 5 ml PO DAILY SUPPLEMENT 06/20/20 05/16/24 History mg-500 mg-800 mg/5 mL oral liquid levothyroxine 112 mcg tablet 112 mcg PO DAILY HYPOTHROID 10/30/20 05/16/24 History escitalopram oxalate 10 mg tablet 10 mg PO DAILY ANXIETY 05/01/22 05/16/24 History nitroglycerin 0.4 mg sublingual 0.4 mg sublingual Q5-15M PRN chest 02/19/23 Unknown Rx tablet pain #25 tabs albuterol sulfate 90 mcg/actuation 2 puff inhalation Q6H PRN 07/02/23 Unknown History aerosol inhaler shortness of breath or wheezing hydralazine 25 mg tablet 25 mg PO BID HTN #60 tabs 01/20/24 05/16/24 Rx amlodipine 10 mg tablet 10 mg PO DAILY HTN #90 tabs 02/01/24 05/16/24 Rx clopidogrel 75 mg tablet 75 mg PO DAILY BLOOD THINNER #90 02/15/24 05/16/24 19:05 Rx tabs metoprolol succinate 25 mg 12.5 mg (1/2 x 25 mg) PO DAILY 03/22/24 05/16/24 07:00 Rx tablet,extended release 24 hr HEART #45 tabs losartan 100 1 tab PO DAILY HTN #90 tabs 05/12/24 Unknown Rx mg-hydrochlorothiazide 12.5 mg tablet Allergy/AdvReac Type Severity Reaction Status Date / Time insect venom (yellow jacket) Allergy Severe Anaphylaxis Verified 05/17/24 07:03 atorvastatin (From Lipitor) Allergy intolerance, Verified 05/17/24 07:03 weakness colesevelam (From WelChol) Allergy myalgias Verified 05/17/24 07:03 Penicillins Allergy Fever and Verified 05/17/24 07:03 skin rash pravastatin (From Pravachol) Allergy myalgias Verified 05/17/24 07:03 rosuvastatin (From Crestor) Allergy intolerance, Verified 05/17/24 07:03 weakness ibuprofen AdvReac Mild Asthma Verified 05/17/24 07:03 Attack Family History Father , age 87 CAD (coronary artery disease) Mother , age 90 CAD (coronary artery disease) Brother FH: brain aneurysm Sister emphysema Surgical History History of cardiac catheterization History of coronary artery stent placement Hx of lithotripsy (~01/2024) History of cholecystectomy (~2017) History of hernia surgery (~2005) Stented coronary artery (02/09/23) History of back surgery H/O coronary artery bypass surgery (07/29/05) History of left heart catheterization (LHC) (09/23/10) Social History Smoking Status: Former smoker how long ago did patient quit smokin alcohol intake: never substance use type: does not use what type of physical activity do you participate in: none Review of Systems (Anesthesia) ROS Narrative System reviewed and no additional complaints, except as documented.
--- NOTE | 2024-05-17 09:28 | HP.PCM_ITS ---
HPI - General General Date of Admission: 05/17/24 HPI Narrative DAVID MIXON, is a 78 M who presents with asymptomatic right carotid stenosis. History of prior neck XRT. Lesion amenable to stenting, presents for TCAR. 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 HLD (hyperlipidemia) Hypothyroidism, iatrogenic Home Medications ?Medication ?Instructions ?Recorded ?Last Taken ?Type aspirin 81 mg tablet,delayed 81 mg PO QDAY HEART HEALT H 04/15/17 05/16/24 History release epinephrine 0.15 mg/0.3 mL See Rx Instructions IM .COM PLEX 04/15/17 Unknown History injection,auto-injector (EpiPen Jr) ANAPHALAXIS levocetirizine 5 mg tablet 5 mg PO QDAY ALLERGIES 03/1805/16/24 History montelukast 10 mg tablet 10 mg PO QDAY ASTHMA 90 days #90 04/15/17 05/16/24 History tabs tamsulosin 0.4 mg capsule 0.4 mg PO QHS BPH 90 days #9 0 caps 04/15/17 05/16/24 History apremilast 30 mg tablet (Otezla) 30 mg PO BID PSORIASI S 06/20/20 05/16/24 History ascorbic acid (vitamin C) 1,000 mg 1 gm PO DAILY SUPPL EMENT 06/20/20 05/16/24 History tablet bempedoic acid 180 mg-ezetimibe 10 1 tablet PO DAILY H LD 06/20/20 05/16/24 History mg tablet (Nexlizet) cholecalciferol (vitamin D3) 50 2,000 unit PO BID SUPP LEMENT 06/20/20 05/16/24 History mcg (2,000 unit) tablet fluticasone propionate 110 1 puff inhalation BID ASTHM A 06/20/20 05/16/24 History mcg/actuation HFA aerosol inhaler (Flovent HFA) multivitamin 1 tablet PO DAILY SUPPLEMENT 06/20/20 05/16/24 History omega 1-odr-dty-fish oil 1,600 5 ml PO DAILY SUPPLEMEN T 06/20/20 05/16/24 History mg-500 mg-800 mg/5 mL oral liquid levothyroxine 112 mcg tablet 112 mcg PO DAILY HYPOTHRO ID 10/30/20 05/16/24 History escitalopram oxalate 10 mg tablet 10 mg PO DAILY ANXIE TY 05/01/22 05/16/24 History nitroglycerin 0.4 mg sublingual 0.4 mg sublingual Q5-1 5M PRN chest 02/19/23 Unknown Rx tablet pain #25 tabs albuterol sulfate 90 mcg/actuation 2 puff inhalation Q 6H PRN 07/02/23 Unknown History aerosol inhaler shortness of breath or wheez ing hydralazine 25 mg tablet 25 mg PO BID HTN #60 tabs 05/16/24 Rx amlodipine 10 mg tablet 10 mg PO DAILY HTN #90 tabs 02/01/24 05/16/24 Rx clopidogrel 75 mg tablet 75 mg PO DAILY BLOOD THINNER #90 02/15/24 05/16/24 19:05 Rx tabs metoprolol succinate 25 mg 12.5 mg (1/2 x 25 mg) PO DA DANIELLA 03/22/24 05/16/24 07:00 Rx tablet,extended release 24 hr HEART #45 tabs losartan 100 1 tab PO DAILY HTN #90 tabs 05/12/24 Unknown Rx mg-hydrochlorothiazide 12.5 mg tablet Allergy/AdvReac Type Severity Reaction Status Date / Time insect venom (yellow jacket) Allergy Severe Anaphylaxis Verified 05/17/24 07:03 atorvastatin (From Lipitor) Allergy intolerance, Verified 05/17/24 07:03 weakness colesevelam (From WelChol) Allergy myalgias Verified 05/17/24 07:03 Penicillins Allergy Fever and Verified 05/17/24 07:03 skin rash pravastatin (From Pravachol) Allergy myalgias Verified 05/17/24 07:03 rosuvastatin (From Crestor) Allergy intolerance, Verified 05/17/24 07:03 weakness ibuprofen AdvReac Mild Asthma Verified 05/17/24 07:03 Attack Family History Father , age 87 CAD (coronary artery disease) Mother , age 90 CAD (coronary artery disease) Brother FH: brain aneurysm Sister emphysema Surgical History History of cardiac catheterization History of coronary artery stent placement Hx of lithotripsy (~01/2024) History of cholecystectomy (~2017) History of hernia surgery (~2005) Stented coronary artery (02/09/23) History of back surgery H/O coronary artery bypass surgery (07/29/05) History of left heart catheterization (LHC) (09/23/10) Social History Smoking Status: Former smoker how long ago did patient quit smokin alcohol intake: never substance use type: does not use what type of physical activity do you participate in: none ROS Constitutional Constitutional: Denies chills, fever(s), frequent falls, lethargy or weakness Eyes Eyes: Denies blind spots, change in vision or loss of vision ENT HEENT: Denies bleeding gums, hoarseness or sore throat Cardiovascular Cardiovascular: Denies abdominal pain, bluish discoloration of hand/feet, chest pain with activity, claudication, cold extremities, cyanosis, dyspnea on exertion, erythema on extremities, irregular heart rhythm, leg edema, leg ulcers, numbness in extremities or weakness in extremities Respiratory/Chest Respiratory/Chest: Denies cough, excessive phlegm production, shortness of breath at rest, shortness of breath with exertion or wheezing Gastrointestinal Gastrointestinal: Denies anorexia, change in stool character, constipation, diarrhea, melena or rectal bleeding Genitourinary Genitourinary: Denies dysuria or hematuria Musculoskeletal Musculoskeletal: Denies abnormal gait Integumentary Integumentary: Reports other Details: ; Denies erythema, non-healing lesions or wounds Neurologic Neurologic: Denies abnormal speech, focal weakness, headache(s), loss of vision, numbness, paresthesias or sensory deficit Hematologic/Lymphatic Hematologic/Lymphatic: Denies easy bleeding, easy bruising or lymphadenopathy Vital Signs Vital Signs Vital Signs: 05/17/24 07:07 05/17/24 07:07 05/17/24 08:20 Temperature 97.8 F 97.8 F Temperature Source Temporal Pulse Rate 52 L 52 L Respiratory Rate 16 16 Respiratory Pattern Normal Blood Pressure 145/78 H 145/78 H Blood Pressure Mean 100 Blood Pressure Source Monitor Blood Pressure Position Semi-Fowlers Blood Pressure Location Left Arm Pulse Ox 98 98 Oxygen Delivery Method Room Air Room Air Weight Weight: 190 lb Body Mass Index (BMI) 28.8 Physical Exam Const alert, oriented x3, no apparent distress and healthy appearing General Appearance: cooperative; Negative for combative or lethargic Orientation / Consciousness: awake Exam Limitations: no limitations HEENT Head and Scalp: normocephalic and atraumatic Eyes EOMs intact bilaterally General Eye: normal appearance of both eyes Neck full ROM and no lymphadenopathy General: trachea midline; Negative for tenderness Thyroid: thyroid normal Resp normal respiratory effort and no use of accessory muscles Effort and Inspection: Negative for labored, stridor or audible wheezes Cardio regular rate and regular rhythm Peripheral Pulses: brachial pulses present and radial pulses present Back/Spine Cervical Spine: cervical ROM normal Extremity full ROM, normal capillary refill and no clubbing, cyanosis or edema Skin no rashes or lesions noted and no wounds Neuro oriented x3, CN's II-XII intact bilaterally, no focal motor deficits and no sensory deficits noted Psych thought process normal, cooperative, affect normal, speech normal and activity/motor behavior normal Results Lab / Micro Data 05/05/24 09:43 05/05/24 09:43 Assessment & Plan Assessment/Plan (1) Carotid artery stenosis: QUALIFIERS: Laterality: right Qualified Code(s): I65.21 - Occlusion and stenosis of right carotid artery PLAN: -right TCAR
[2024-05-17] MEDS: Metoprolol(XL)Succ 25 MG Tablet 12.5 MG PO (10:30)
[2024-05-17 11:44] LABS: ACT Activated Clotting Time 135 sec (74-137)
[2024-05-17 11:44] LABS: ACT Activated Clotting Time 135 sec (74-137)
[2024-05-17 11:44] LABS: ACT Activated Clotting Time 233 sec (74-137)
[2024-05-17 11:44] LABS: ACT Activated Clotting Time 239 sec (74-137)
[2024-05-17 11:44] LABS: ACT Activated Clotting Time 239 sec (74-137)
--- NOTE | 2024-05-17 12:08 | PCM.POST.ANE ---
Anesthesia: Postop Eval I Current Vital Signs Temperature: 97 F Pulse Rate: 74 Blood Pressure: 120/64 (cuff pressure, a-line 140/62 (88)) Respiratory Rate: 18 Pulse Ox: 100 Oxygen Delivery Method: Simple Mask Oxygen Flow Rate (L/min): 6 Assessment Airway patent: Yes Spontaneous unlabored respirations: Yes Mental status: Awake and Calm nausea: No Vomiting: No Anesthesia Complication: No Fluid Hydration Crystalloid volume administer (ml): 1,800 Total IV fluid infused: 1,800 Progress Note Anesthesia document: Postop Eval 1 completed: Yes
--- NOTE | 2024-05-17 12:23 | OP.PCM_ITS ---
Operative Report (Standard) Operative Information Date of Procedure: 05/17/24 Pre-Operative Diagnosis: right carotid stenosis Post-Operative Diagnosis: same Surgery/Procedure Performed: right trans carotid stent depalletizer operator: Yes Emissions Testing And Repair Technician: Shandra Fried Tasks completed by welder first class: Opening, Closing, Opening & closing, Implanting device and Retracting Type of Anesthesia: General RN Documented Start/Stop Times: Operation Date: 05/17/24 09:00 Case Time Into Pre-Op 05/17/24 06:41 Into Recovery 05/17/24 12:06 Out of Recovery 05/17/24 14:15 Procedure Start Time: 10:00 Procedure Stop Time: 11:30 Select all DRAINS/GRAFTS/IMPLANTS that apply: Implanted device Implanted device details: [address] En Route 10x40 Estimated Blood Loss: 8 Specimen collected: No Description of surgery: HPI: Patient is a 70-year-old male with an asymptomatic high-grade stenosis of the right carotid artery of greater than 70%. 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 He is taken now for transcarotid artery stenting. Description of procedure: Upon obtaining informed consent and verification correct patient procedure site the patient was taken to the Chef Assistant was placed under general anesthesia. He was then positioned prepped and draped in usual sterile fashion a time was performed. Transverse incision was made 1 fingerbreadth superior to the right clavicle and Bovie left cautery was dissect down through subcutaneous tissue to the level the platysma. The platysma was divided retractor put in position then further dissection carried down to the sternocleidomastoid. The cleft between the sternal and clavicular head was then identified and dissected with Bovie along self-retaining retractors moved deeper into the wound. The carotid sheath was then visualized and sharp dissection was dissect free the anterior border of the jugular vein which were then retracted posterior laterally exposing the common carotid artery. Sharp dissection used to dissect free proximal and distal with care chip en to identify and protect the vagus nerve. Once a satisfactory length of artery was dissected free a right angle was used to place a vessel loop proximally. A 5-0 Prolene pursestring was then placed at the intended access site and the patient heparinized and allowed to circulate for 3 minutes with subsequent heparin dosing based on ACT results. Next under ultrasound guidance the right common femoral vein was accessed with a micropuncture needle and wire. This then exchanged for micropuncture sheath through which a J-wire was advanced and the micropuncture sheath exchanged for the 8 [place] venous return flow reversal system sheath. Next the common carotid artery was accessed with a micropuncture needle and wire in antegrade fashion. This was then exchanged for micropuncture sheath through which hand-injection carotid angiogram was performed revealing satisfactory positioning with no extravasation or dissection. This also confirmed the location of the carotid bifurcation and confirmed that there was no significant plaque in the distal common carotid artery. The micropuncture wire and dilator then readvanced through the micropuncture sheath and this was then advanced into the external carotid artery. The wire and dilator then withdrawn and a J-wire advanced through the micropuncture sheath and positioned in the distal external carotid artery. The micropuncture sheath was exchanged for the silk [address] flow reversal arterial sheath which was advanced without resistance. The sheath was then secured in position with silk suture anchored to the skin and flow reversal tubing connected per cad engineer's instructions. Once satisfactory flow reversal was confirmed the common carotid artery was then occluded proximally with Vesseloops and flow reversal reconfirmed. Oblique subtraction angiography imaging was then obtained and the silk [address] 014 wire was utilized to navigate the stenosis into the distal internal carotid artery beyond the area of plaque. A 5 mm x 35 a ngioplasty balloon was then advanced under on the lesion inflated to nominal and then deflated and withdrawn. A silk [address] en route 10 x 40 stent was then advanced in position centered on the lesion and then deployed. There was some mild residual stenosis in the mid stent so the angioplasty balloon was then readvanced and inflated to burst pressure and then deflated withdrawn with significant improvement in stent expansion. After 2 minutes of flow reversal repeat subtraction angiography imaging was obtained which revealed satisfactory stent position with no extravasation or dissection and no plaque prolapse. There was brisk contrast transit and no residual stenosis. The vessel loop was then released and additional 1 minute of flow reversal performed after which the flow reversal tubing was detached and blood return via the femoral vein sheath. The femoral sheath was then withdrawn manner pressure held for 10 minutes of hemostasis was obtained. The arterial sheath was then withdrawn and the Prolene pursestring suture secured with satisfactory stasis. Heparin was then reversed with protamine and incision inspected for hemostasis. A 19 [place] [address] MOISE was then placed via separate stab incision and incision closed with 2-0 Vicryl, 3-0 Vicryl, 4 Monocryl and Dermabond for the skin. At the inclusion the case the patient was weak anesthesia moving extremities to command. He was then taken to the recovery room anticipated mission intensive care and for hemodynamic neurologic monitoring. Surgical Findings: Moving all extremities to command, cranial nerves intact Complications Complications: No
[2024-05-17] MEDS: Acetaminophen 500 MG Tablet 1000 MG PO ×2 (14:54→20:52)
--- NOTE | 2024-05-17 15:01 | POSTOPAN2_ITS ---
Anesthesia Postop Eval I Sum Postop Eval Completion status Anesthesia document: Postop Eval 1 completed: Yes Anesthesia Postop Eval I Summary Anesthesia Postop Eval I Summary: Anesthesia Postop Eval I: Assessment Summary Airway patent Yes 05/17/24 12:09 ROD BUSTER HELPER.LUIS MANUELOBLandon Spontaneous unlabored Yes 05/17/24 12:09 ROD BUSTER HELPER.[email or web address] respirations Mental status Awake,Calm 05/17/24 12:09 ROD BUSTER HELPER.LUIS MANUELOBLandon nausea No 05/17/24 12:09 ROD BUSTER HELPER.FRANDY Vomiting No 05/17/24 12:09 ROD BUSTER HELPER.FRANDY Anesthesia Postop Eval I: Fluid Summary Crystalloid volume administer 1,800 05/17/24 12:09 ROD BUSTER HELPER.LUIS MANUELOBY (ml) Colloids volume administered ( ml) Blood Product volume administered (ml) Total IV fluid infused 1,800 05/17/24 12:09 ROD BUSTER HELPER.FRANDY Anesthesia Postop Eval I: Summary Notes Anesthesia Complication No 05/17/24 12:09 ROD BUSTER HELPERDONTE Anesthesia Complication Comment: Post-operative progress note Anesthesia: Postop Eval II Evaluation Mental status: Awake Pain Level: 1 nausea: No Vomiting: No
--- NOTE | 2024-05-17 15:01 | PCM.POSTANE2 ---
Anesthesia Postop Eval I Sum Postop Eval Completion status Anesthesia document: Postop Eval 1 completed: Yes Anesthesia Postop Eval I Summary Anesthesia Postop Eval I Summary: Anesthesia Postop Eval I: Assessment Summary Airway patent Yes 05/17/24 12:09 TRAFFIC OPERATIONS MANAGER.LUIS MANUELOBLandon Spontaneous unlabored Yes 05/17/24 12:09 TRAFFIC OPERATIONS MANAGER.FRANDY respirations Mental status Awake,Calm 05/17/24 12:09 TRAFFIC OPERATIONS MANAGER.LUIS MANUELOBLandon nausea No 05/17/24 12:09 TRAFFIC OPERATIONS MANAGER.FRANDY Vomiting No 05/17/24 12:09 TRAFFIC OPERATIONS MANAGER.FRANDY Anesthesia Postop Eval I: Fluid Summary Crystalloid volume administer 1,800 05/17/24 12:09 TRAFFIC OPERATIONS MANAGER.LUIS MANUELOBY (ml) Colloids volume administered ( ml) Blood Product volume administered (ml) Total IV fluid infused 1,800 05/17/24 12:09 TRAFFIC OPERATIONS MANAGER.FRANDY Anesthesia Postop Eval I: Summary Notes Anesthesia Complication No 05/17/24 12:09 TRAFFIC OPERATIONS MANAGERDONTE Anesthesia Complication Comment: Post-operative progress note Anesthesia: Postop Eval II Evaluation Mental status: Awake Pain Level: 1 nausea: No Vomiting: No
[2024-05-17] MEDS: Budesonide Respules 0.5 MG/2 ML AMPUL.NEB. INHALATION (19:39)
[2024-05-17] MEDS: hydrALAZINE 25 MG Tablet PO (20:52)
[2024-05-17] MEDS: Tamsulosin HCl 0.4 MG Capsule PO (20:52)
[2024-05-17] MEDS: Cholecalciferol (VIT D3) 25 MCG TABLET (1,000 UNITS) 50 MCG PO (20:52)
[2024-05-17] MEDS: Aspirin E.C. 81 MG Tablet PO (20:52)
[2024-05-17] MEDS: Clopidogrel Bisulfate 75 MG Tablet PO (20:52)
[2024-05-18] VITALS (17 sets, daily range): BP systolic 119–147; BP diastolic 58–82; PULSE 43–117; RESP 13–22; O2SAT 94–99; BMI 38.3
[2024-05-18] MEDS: Levothyroxine 112 MCG Tablet PO (06:14)
[2024-05-18] MEDS: Acetaminophen 500 MG Tablet 1000 MG PO (06:14)
[2024-05-18 06:53] LABS: Absolute Lymphocyte Count 0.81 X10^3/uL (0.83-4.51); Basophil# 0.02 X10^3/uL; Basophil% 0.2 % (0-1); Eosinophil# 0.01 X10^3/uL; Eosinophils% 0.1 % (0-5); Hematocrit 33.6 % (40-54); Hemoglobin 11.5 g/dL (13.0-16.5); Lymphocyte # 0.81 X10^3/ul (0.83-4.51); Lymphocyte % 6.8 % (19-41); Mean Corp Hgb Conc 34.2 g/dL (32-36); Mean Corpuscular Hgb 31.3 pg (27.0-32.0); Mean Corpuscular Volume 91.6 fL (80-94); Mean Platelet Vol. 8.8 fl (6.2-12.0); Monocyte# 1.01 X10^3/uL; Monocyte% 8.5 % (0-10); NRBC Flagged by Analyzer 0 % (0-5); Neutrophil # 9.99 X10^3/uL (2.7-7.7); Neutrophil % 84.1 % (47-70); Platelet Count 367 K/mm3 (150-450); RBC Distribution Width CV 14.5 % (11.6-14.6); RBC Distribution Width SD 48.9 fl (35.1-43.9); Red Blood Count 3.67 M/mm3 (4.6-6.2); White Blood Count 11.9 K/mm3 (4.4-11.0)
[2024-05-18] MEDS: Budesonide Respules 0.5 MG/2 ML AMPUL.NEB. INHALATION (06:55)
--- NOTE | 2024-05-18 08:21 | PCM.PN.SRG ---
Subjective Subjective Mr. Mederos was resting comfortably up in bed this morning. He reports the dressing over his neck is uncomfortable but otherwise no complaints. He denies any right sided headaches, hoarseness, difficulty swallowing or speaking, new numbness/paresthesias, or weakness. He denies any discomfort in the R groin puncture site. He has been hemodynamically stable, required PRN hydralazine overnight, normotensive this morning prior to any home meds. Objective Data Objective Data Vital Signs: Vital Signs Temp Pulse Resp BP Pulse Ox O2 Del Method O2 Flow Rate 97.4 F L 46 L 16 141/66 H 96 Room Air 2 05/17/24 14:15 05/18/24 08:00 05/18/24 08:00 05/18/24 08:00 05/18/24 08:00 05/18/24 08:00 05/18/24 06:53 Oxygen Flow Rate (L/min) 2 Oxygen Delivery Method Room Air Weight: 196 lb 6.91 oz Body Mass Index (BMI) 38.3 Intake & Output: Intake and Output for Last 24 Hours 05/16/24 05/17/24 05/18/24 23:59 23:59 23:59 Intake Total 1587.5 / 1587.5 Output Total 660 / 660 400 / 400 Balance 927.5 / 927.5 -400 / -400 Lab / Micro Data 05/18/24 06:17 05/05/24 09:43 Labs: Laboratory Results - last 24 hr 05/17/24 09:49: Activated Clotting Time 135 05/17/24 10:22: Activated Clotting Time 233 H 05/17/24 10:33: Activated Clotting Time 239 H 05/17/24 10:44: Activated Clotting Time 239 H 05/17/24 11:32: Activated Clotting Time 135 05/18/24 06:17: WBC 11.9 H, RBC 3.67 L, Hgb 11.5 L, Hct 33.6 L, MCV 91.6, MCH 31.3, MCHC 34.2, RDW Std Deviation 48.9 H, RDW Coeff of Kadeem 14.5, Plt Count 367, MPV 8.8, Immature Gran % (Auto) 0.300, Neut % (Auto) 84.1 H, Lymph % (Auto) 6.8 L, [place] % (Auto) 8.5, Eos % (Auto) 0.1, Baso % (Auto) 0.2, Absolute Neuts (auto) 10.0 H, Absolute Lymphs (auto) 0.81 L, Nucleated RBC % 0 Physical Exam Const oriented x3 and no apparent distress Eyes General Eye: normal appearance of both eyes Neck Neck Narrative: R neck incision site with skin glue intact, no dehiscence. Mild edema, soft to palpation. Minimal ecchymosis. Small amount of sanguineous drainage in MOISE drain. Resp normal respiratory effort Cardio regular rate and regular rhythm Extremity Extremity Narrative: R groin puncture site with dry postop dressing overlying, no bleed through. No swelling, hematoma, ecchymosis. Neuro CN's II-XII intact bilaterally, moves all extremities and no focal motor deficits Speech: speech normal Psych mental status grossly normal Appearance: grossly normal Attitude: calm and engaged Activity / Motor Behavior: appropriate eye contact Speech: normal speech Assessment & Plan Assessment/Plan (1) Carotid artery stenosis: QUALIFIERS: Laterality: right Qualified Code(s): I65.21 - Occlusion and stenosis of right carotid artery PLAN: He is POD#1 from R TCAR. MOISE drain removed without issue, incision site satisfactory in appearance without hematoma. He is neurologically intact and stable. Will hold metoprolol this morning. Continue losartan. D/c art line. Swanson has been removed, he has not yet voided. Will ambulate with nursing or PT, but will need walker which he uses at home at baseline due to his hip arthritis. Anticipate discharge later today as long as he is able to void and able to ambulate to his baseline.
[2024-05-18] MEDS: Loratadine 10 MG Tablet PO (09:46)
[2024-05-18] MEDS: Escitalopram Oxalate 10 MG Tablet PO (09:46)
[2024-05-18] MEDS: Cholecalciferol (VIT D3) 25 MCG TABLET (1,000 UNITS) 50 MCG PO (09:46)
[2024-05-18] MEDS: Aspirin E.C. 81 MG Tablet PO (09:46)
[2024-05-18] MEDS: hydrALAZINE 25 MG Tablet PO (09:47)
[2024-05-18] MEDS: hydroCHLOROthiazide 12.5mg 12.5 MG PO (09:47)
[2024-05-18] MEDS: Ascorbic Acid 500 MG Tablet 1000 MG PO (09:47)
[2024-05-18] MEDS: Clopidogrel Bisulfate 75 MG Tablet PO (09:47)
[2024-05-18] MEDS: Multivitamins,Therapeutic Tablet 1 TABLET PO (09:48)
[2024-05-18] MEDS: Montelukast 10 MG Tablet PO (09:48)
[2024-05-18] MEDS: Enoxaparin 40 MG/0.4 ML Syringe SC (09:58)
--- NOTE | 2024-05-18 10:52 | CASEMGMT ---
PATRIA QUINTERO Assessment: Face to Face with pt for initial transition planning/care coordination assessment. PATRIA QUINTERO introduced self and role at [facility], pt voices understanding and consents to assessment. Pt is A&O x4 and answers all questions appropriately at this time. Pt sitting up in bed on RA in no distress. Care providers, pharmacy, and demographics verified/updated. Admitting Dx: carotid stent in laborer adjustable steel joist Strata Score: 2 PCP:Emiliana Specialists:Yoselin, karrie; Rosie, cardio; Navid, pulm; Miguel, eyes; Reynoso, ortho Preferred Pharmacy: [facility] Insurance: [employer] Prescription Benefit: yes LNOK: Shira Mederos, ; Uyen Burnsfee, dtr Living Arrangements: Pt lives with in a two story home with FFSU and 3 steps to enter with a rail. Pt reports he is I in ADLs except lower body dressing which his helps with. Pt does the meal prep, laundry and they share in the groceries. Pt denies concerns at home. Transportation: Pt drives self and denies concerns with transportation. Pt is also able to drive. DME:HHS, shower chair, grab bars in the bathroom, motorized scooter, 2 walkers and cane HHC/SNF: Pt has had HHC in the past but is unsure of the name of the agency. Pt denies SNF stays. Pt states no concerns with going home at time of dc. Therapy to [facility]. Pt denies any need for any homegoing services. Pt states no further concerns/needs. CM to follow. Advised pt to ask CM if any further questions/concerns/needs arise, voices understanding. Pt Goal: Home Plan: Home pending therapy wayne Hinojosa RN, CM
--- NOTE | 2024-05-18 15:34 | PCM.DC.SUM ---
Providers Date of Admission: 05/17/24 Primary Care Physician: Dr. Srinivas Hopson MD Reason For Visit: Carotid Stent in [employer], [place] Staff, ARLIN Lino Diagnosis Discharge Diagnosis (1) Carotid artery stenosis: Status: Chronic Code(s): I65.29 - Occlusion and stenosis of unspecified carotid artery Qualifiers: Laterality: right Qualified Code(s): I65.21 - Occlusion and stenosis of right carotid artery Plan: He is POD#1 from R TCAR. MOISE drain removed without issue, incision site satisfactory in appearance without hematoma. He is neurologically intact and stable. Will hold metoprolol this morning. Continue losartan. D/c art line. Swanson has been removed, he has not yet voided. Will ambulate with nursing or PT, but will need walker which he uses at home at baseline due to his hip arthritis. Anticipate discharge later today as long as he is able to void and able to ambulate to his baseline. Medications at Discharge Home Medications aspirin 81 mg tablet,delayed release 81 mg PO QDAY HEART HEALTH 04/15/17 epinephrine 0.15 mg/0.3 mL injection,auto-injector (EpiPen Jr) See Rx Instructions IM .COMPLEX ANAPHALAXIS 04/15/17 levocetirizine 5 mg tablet 5 mg PO QDAY ALLERGIES 04/15/17 montelukast 10 mg tablet 10 mg PO QDAY ASTHMA 90 days #90 tabs 04/15/17 tamsulosin 0.4 mg capsule 0.4 mg PO QHS BPH 90 days #90 caps 04/15/17 apremilast 30 mg tablet (Otezla) 30 mg PO BID PSORIASIS 06/20/20 ascorbic acid (vitamin C) 1,000 mg tablet 1 gm PO DAILY SUPPLEMENT 06/20/20 bempedoic acid 180 mg-ezetimibe 10 mg tablet (Nexlizet) 1 tablet PO DAILY HLD 06/20/20 cholecalciferol (vitamin D3) 50 mcg (2,000 unit) tablet 2,000 unit PO BID SUPPLEMENT 06/20/20 fluticasone propionate 110 mcg/actuation HFA aerosol inhaler (Flovent HFA) 1 puff inhalation BID ASTHMA 06/20/20 multivitamin 1 tablet PO DAILY SUPPLEMENT 06/20/20 omega 3-bod-vde-fish oil 1,600 mg-500 mg-800 mg/5 mL oral liquid 5 ml PO DAILY SUPPLEMENT 06/20/20 levothyroxine 112 mcg tablet 112 mcg PO DAILY HYPOTHROID 10/30/20 escitalopram oxalate 10 mg tablet 10 mg PO DAILY ANXIETY 05/01/22 nitroglycerin 0.4 mg sublingual tablet 0.4 mg sublingual Q5-15M PRN chest pain #25 tabs 02/19/23 albuterol sulfate 90 mcg/actuation aerosol inhaler 2 puff inhalation Q6H PRN shortness of breath or wheezing 07/02/23 hydralazine 25 mg tablet 25 mg PO BID HTN #60 tabs 01/20/24 Held on 05/18/24. Instructions: Resume on 05/20/24. amlodipine 10 mg tablet 10 mg PO DAILY HTN #90 tabs 02/01/24 clopidogrel 75 mg tablet 75 mg PO DAILY BLOOD THINNER #90 tabs 02/15/24 metoprolol succinate 25 mg tablet,extended release 24 hr 12.5 mg (1/2 x 25 mg) PO DAILY HEART #45 tabs 03/22/24 Held on 05/18/24. Instructions: Resume on 05/20/24. losartan 100 mg-hydrochlorothiazide 12.5 mg tablet 1 tab PO DAILY HTN #90 tabs 05/12/24 Hospital Course Summary of Care Provided Hospital Course: Mr. Eddie Mederos is a 78 y/o male who presented for planned R TCAR on 05/17/24. The procedure was without complication and he tolerated it well. Postoperatively, he was routinely admitted to the ICU for ongoing hemodynamic and neurologic monitoring. He has remained both hemodynamically and neurologically stable throughout his admission. MOISE drain was removed this morning without issue. The incision site is satisfactory in appearance without hematoma. He has been able to tolerate a normal diet, void without issue, and ambulate to his baseline. He is having minimal pain at the operative site or the R groin puncture site. His blood pressures have been a bit lower so his metoprolol and hydralazine will be held at discharge and he will monitor his pressures at home and restart when his systolic pressures are consistently >140. He will return to the office for follow-up in 2-4 weeks or sooner as needed. He is discharged home with his . Physical Exam Const oriented x3 and no apparent distress Eyes General Eye: normal appearance of both eyes Neck Neck Narrative: R neck incision site with skin glue intact, no dehiscence. Mild edema, soft to palpation. Minimal ecchymosis. Small amount of sanguineous drainage in MOISE drain. Resp normal respiratory effort Cardio regular rate and regular rhythm Extremity Extremity Narrative: R groin puncture site with dry postop dressing overlying, no bleed through. No swelling, hematoma, ecchymosis. Neuro CN's II-XII intact bilaterally, moves all extremities and no focal motor deficits Speech: speech normal Psych mental status grossly normal Appearance: grossly normal Attitude: calm and engaged Activity / Motor Behavior: appropriate eye contact Speech: normal speech Weight / BMI Weight Weight: 196 lb 6.91 oz Body Mass Index (BMI) 38.3 ABG / Lab / Microbiology Data 05/18/24 06:17 05/05/24 09:43 Laboratory: Laboratory Results - last 24 hr 05/18/24 06:17: WBC 11.9 H, RBC 3.67 L, Hgb 11.5 L, Hct 33.6 L, MCV 91.6, MCH 31.3, MCHC 34.2, RDW Std Deviation 48.9 H, RDW Coeff of Kadeem 14.5, Plt Count 367, MPV 8.8, Immature Gran % (Auto) 0.300, Neut % (Auto) 84.1 H, Lymph % (Auto) 6.8 L, Finney % (Auto) 8.5, Eos % (Auto) 0.1, Baso % (Auto) 0.2, Absolute Neuts (auto) 10.0 H, Absolute Lymphs (auto) 0.81 L, Nucleated RBC % 0 D/C Instructions Discharge Diet: No restrictions May shower in (days): 1 Weight Bearing Status: Weight bearing as tolerated Lifting Restricted to (Lbs): 20 Lifting Restrictions: Do not lift greater than 20 pounds for 3 weeks Call your doctor if your incision/area has: Continuous Slow Oozing, Increased Pain/ Swelling and Foul Smelling Discharge Call your doctor if you observe: Fever of 101 or Higher and Uncontrolled pain Remove Dressing in: 1 day DC O2, CPAP, BIPAP Needs PSN CPAP & BiPAP: BiPAP & CPAP Settings per PSN Fraction of Inspired Oxygen ( 30 05/18/24 09:00 FIO2) Home O2 Discharge instructions: No Additional Instructions: You have a small bandage over the site from which the surgical drain was removed. You may remove this bandage tomorrow. As long as there is no residual drainage, you may leave this open to air. If you do notice some continued drainage, you may re-cover with a Band-Aid. You have a dry dressing over the R groin puncture site which may be removed tomorrow. Your incision site is covered with skin glue which will continue to protect it. The skin glue will peel/flake off on its own over the next few weeks. Please do not pick at it. You may shower tomorrow. It is okay for soap and water to rinse over the incision site, pat to dry. Do not submerge the incision site in water such as to take a bath or go swimming etc. for 3 weeks. Do not lift greater than 20 pounds for 3 weeks. Otherwise, please continue with activity as tolerated. Please check your blood pressure daily. Continue to hold your metoprolol and hydralazine until your systolic blood pressure is >140. If you have any questions please contact the office. Do not drive until you can turn your head well enough to safely check your blind spots. Follow-up in the office in 2 to 4 weeks. If an appointment has not already been scheduled then please contact the office at [phone] to make your appointment. Please call or return to the office sooner as needed. Please Follow Up With: Brittany Aldana PA When: 2-4 weeks Meaningful Use Info Meaningful Use Meaningful Use Diagnoses (Choose all that apply): None applicable Ischemic Stroke Statin Dosing Therapy Reference: STATIN DOSE THERAPY REFERENCE: * Patients > 75 years receive moderate or high dose statin therapy. * Patients 75 years or YOUNGER should receive HIGH intensity statin dose unless contraindicated. You will be required to document reason for non-treatment if statin daily dose does not meet guidelines. HIGH DOSE STATIN THERAPY DAILY Atorvastatin > than or = to 40 mg Rosuvastatin > than or = to 20 mg Amlodipine + Atorvastatin > than or = to 2.5/40 mg Ezetimibe + Simvastatin 10/80 mg Simvastatin 80mg Discharge Plan Admission Admit Date/Time: 05/17/24 11:38 Attending Provider: Desmond Wyatt Primary Care Provider: Srinivas Hopson Discharge Orders/Prescriptions Prescriptions: Continued tamsulosin 0.4 mg capsule,extended release 24hr 0.4 mg PO QHS 90 Days Qty: 90 Patient Comments: levocetirizine 5 mg tablet 5 mg PO QDAY montelukast 10 mg tablet 10 mg PO QDAY 90 Days Qty: 90 Patient Comments: epinephrine [EpiPen Jr] 0.15 mg/0.3 mL auto-injector See Rx Instructions IM .COMPLEX Patient Comments: Take as directed, IM Rx Instructions: Take as directed, IM aspirin 81 mg tablet,delayed release (DR/EC) 81 mg PO QDAY levothyroxine 112 mcg tablet 112 mcg PO DAILY escitalopram oxalate 10 mg tablet 10 mg PO DAILY albuterol sulfate 90 mcg/actuation HFA aerosol inhaler 2 puff inhalation Q6H PRN (Reason: shortness of breath or wheezing) nitroglycerin 0.4 mg tablet, sublingual 0.4 mg SUBLINGUAL Q5-15M PRN (Reason: chest pain) Qty: 25 3RF Rx Instructions: until response; do not exceed 3 doses per episode Otezla 30 mg tablet 30 mg PO BID Nexlizet 180-10 mg tablet 1 tablet PO DAILY fluticasone propionate [Flovent HFA] 110 mcg/actuation HFA aerosol inhaler 1 puff INHALATION BID Patient Comments: Take as directed; INHALATION multivitamin Tablet 1 tablet PO DAILY cholecalciferol (vitamin D3) 50 mcg (2,000 unit) tablet 2,000 unit PO BID ascorbic acid (vitamin C) 1,000 mg tablet 1 gm PO DAILY omega 4-xyf-aii-fish oil 1,600-500-800 mg/5 mL liquid 5 ml PO DAILY amlodipine 10 mg tablet 10 mg PO DAILY Qty: 90 3RF clopidogrel 75 mg tablet 75 mg PO DAILY Qty: 90 3RF losartan-hydrochlorothiazide 100-12.5 mg tablet 1 tab PO DAILY Qty: 90 3RF Held hydralazine 25 mg tablet 25 mg PO BID Qty: 60 11RF Hold Instructions: Resume on 05/20/24. metoprolol succinate 25 mg tablet extended release 24 hr 12.5 mg PO DAILY Qty: 45 3RF Hold Instructions: Resume on 05/20/24. Other Ambulatory Orders: 12 Lead EKG (Routine) Location: None Selected Ordered By: Dr. Joseluis Ac Referrals / Follow Up: Srinivas Hopson MD [Primary Care Provider] - Disposition Disposition (needs filled in before D/C Order can be placed): Home, Self Care
== END 2024-05-18 16:00 | disposition home or self-care (01) | DRG 36 ==
PROVIDERS: Anesthesiology; Admitting Provider Surgery Trauma Surgery; PCP Family Medicine; Referring Provider Surgery Trauma Surgery; Visit Provider Surgery Trauma Surgery
PROC: 037H3DZ Dilation of Right Common Carotid Artery with Intraluminal Device, Percutaneous Approach (ICD-10-PCS; CPT 37236; principal; 2024-05-17 08:30)
DX: I65.21 Occlusion and stenosis of right carotid artery (principal); E03.9 Hypothyroidism, unspecified; I10 Essential (primary) hypertension; E78.5 Hyperlipidemia, unspecified; I25.10 Atherosclerotic heart disease of native coronary artery without angina pectoris; I25.2 Old myocardial infarction; Z87.891 Personal history of nicotine dependence; Z95.5 Presence of coronary angioplasty implant and graft; Z79.02 Long term (current) use of antithrombotics/antiplatelets; Z95.1 Presence of aortocoronary bypass graft; Z86.711 Personal history of pulmonary embolism
CPT/HCPCS: 36415; 37215; 76937; 80048; 84443; 85025; 85027; 85347; 86850; 86900; 86901; 93005; 94640; 94668; 94762; 97162; 99153; 99252; A4648; C1725; C1769; C1876; C1884; C1894; G0463; J2405

== ENCOUNTER → 2024-06-21 | Outpatient (CLI) | payer MEDICARE, BC, SELFPAY ==
--- NOTE | 2024-06-21 07:42 | CDU_ITS ---
Reason For Study Reason For Study: S/P Rt TCAR Rt. Velocities/BP Lt. Velocities/BP Prox CCA 107.0/19.4 cm/sec. Prox CCA 103.1/22.0 cm/sec. Mid CCA 79.6/21.2 cm/sec. Mid CCA 112.1/31.1 cm/sec. Dist CCA 83.0/24.1 cm/sec. Dist CCA 83.4/14.6 cm/sec. Prox ICA 65.8/25.3 cm/sec. Prox ICA 86.4/35.8 cm/sec. Mid ICA 68.0/23.3 cm/sec. Mid ICA 74.6/26.4 cm/sec. Dist ICA 72.4/28.0 cm/sec. Dist ICA 94.2/34.0 cm/sec. Rt. ICA/CCA = 0.9. Lt. ICA/CCA = 0.8. Prox ECA 181.3/16.7 cm/sec. Prox ECA 132.6/23.0 cm/sec. Rt. Vert. 52.3/21.5 cm/sec. Lt. Vert. 41.2/12.8 cm/sec. Right Extracranial There is intimal thickening but no significant atherosclerotic plaque noted in the right common carotid artery. Stent noted. There is intimal thickening but no significant atherosclerotic plaque noted in the right external carotid artery. Antegrade flow is noted in the right vertebral artery. Left Extracranial There is heterogeneous, irregular atherosclerotic plaque noted in the left common carotid artery. There is heterogeneous, irregular atherosclerotic plaque noted in the left internal carotid artery. There is intimal thickening but no significant atherosclerotic plaque noted in the left external carotid artery. Antegrade flow is noted in the left vertebral artery. Procedure Carotid Duplex 98021. This is a Carotid Duplex examination using B-mode, color flow and specral Doppler. The exam was diagnostic. Exam performed in department. VL/Carotid Duplex Ultrasound Interpretation Summary Normal right extracranial internal carotid. Mild (<50%) stenosis left extracranial internal carotid. Patent and antegrade vertebrals bilaterally. Ordering Physician: Brittany Aldana Referring Physician: Srinivas Hopson Performed By: Sonu Fuentes RVT
== END | disposition home or self-care (01) ==
LOC: CVS 07:42
PROVIDERS: PCP Family Medicine; Referring Provider Physician Assistant; Visit Provider Physician Assistant
DX: Z48.812 Encounter for surgical aftercare following surgery on the circulatory system (principal); I65.21 Occlusion and stenosis of right carotid artery
CPT/HCPCS: 93880

== ENCOUNTER 2024-07-27 07:58 | Emergency (ER) | payer MEDICARE, BC, SELFPAY ==
[2024-07-27 08:00] VITALS: BP 134/75; PULSE 104; RESP 18; TEMP 36.8; O2SAT 98
[2024-07-27 08:18] VITALS: BMI 38.2
--- NOTE | 2024-07-27 08:41 | EKG12_ITS ---
Test Reason : SOB/PALPATATIONS Blood Pressure : */* mmHG Vent. Rate : 87 BPM Atrial Rate : 87 BPM P-R Int : 248 ms QRS Dur : 100 ms QT Int : 352 ms P-R-T Axes : 29 -7 64 degrees QTcB Int : 423 ms Sinus rhythm with 1st degree A-V block Minimal voltage criteria for LVH, may be normal variant ( Ponce product ) Septal infarct , age undetermined Abnormal ECG Confirmed by ALISHA TITUS, CARLEE ([id number]), commercial production editor CHRIS BRIDGES ([id number]) on 08/01/2024 9:02:24 AM Referred By: Confirmed By: CARLEE BRITO MD
[2024-07-27 08:54] LABS: Absolute Lymphocyte Count 1.17 X10^3/uL (0.83-4.51); Absolute Neutrophil Count 11.5 X10^3/uL (2.0-7.7); Basophil# 0.08 X10^3/uL; Basophil% 0.6 % (0-1); Eosinophils% 1.4 % (0-5); Hematocrit 34.3 % (40-54); Hemoglobin 11.4 g/dL (13.0-16.5); Lymphocyte # 1.17 X10^3/ul (0.83-4.51); Lymphocyte % 8.1 % (19-41); Mean Corp Hgb Conc 33.2 g/dL (32-36); Mean Corpuscular Hgb 31.1 pg (27.0-32.0); Mean Corpuscular Volume 93.7 fL (80-94); Mean Platelet Vol. 8.2 fl (6.2-12.0); Monocyte# 1.24 X10^3/uL; Monocyte% 8.5 % (0-10); NRBC Flagged by Analyzer 0.1 % (0-5); Neutrophil % 79.1 % (47-70); POSITIVE COUNT YES; Platelet Count 772 K/mm3 (150-450); RBC Distribution Width CV 14.1 % (11.6-14.6); RBC Distribution Width SD 47.7 fl (35.1-43.9); Red Blood Count 3.66 M/mm3 (4.6-6.2); White Blood Count 14.5 K/mm3 (4.4-11.0)
[2024-07-27 09:27] LABS: Differential Indicated SCAN CRITERIA MET
--- NOTE | 2024-07-27 09:27 | CT_ITS ---
PROCEDURE: CTA CHEST W/WO CONTRAST 07/27/2024 REASON FOR EXAM: TACHYCARDIA, DYSPNEA, S/P HIP SURGERY 07/14/2024 TECHNIQUE: CTA axial imaging of the chest with intravenous contrast. Multiplanar and multisequence images were obtained. PATIENT PREPARATION: Per protocol CONTRAST: 102 cc Isovue 300 One or more dose reduction techniques were used (e.g., Automated exposure control, adjustment of the mA and/or kV according to patient size, use of iterative reconstruction technique). RADIATION DOSE SUMMARY: DLP: 42.12 mGycm . COMPARISON: None FINDINGS: Hardware: Sternotomy wires are present. Lymph nodes: There is no pathologic adenopathy by size criteria. Heart: Coronary artery calcifications are noted. RV/LV Diameter Ratio: 0.8 Thoracic Aorta: The ascending aorta is dilated to 4.0 cm in AP diameter. Atherosclerotic calcifications are noted. Pulmonary Vessels: There is no visible pulmonary embolus. Lungs and Airways: There is a 0.4 cm solid nodule in the right mid lung, image 195/265. there is a 0.35 cm solid nodular density in the left lung apex, image 240/265. Pleura: There is no pneumothorax or effusion. Upper Abdomen: Surgical clips are noted at the kenneth hepatis. There is a 1 cm right adrenal nodule, Hounsfield units = 5, benign adrenal adenoma. There is a 2.2 cm cyst at the upper pole of the left kidney, Hounsfield units = 9. Bones: There is no acute bony abnormality. CT/CTA Chest W/WO Contrast IMPRESSION: There is a 0.4 cm solid nodule in the right mid lung, image 195/265. there is a 0.35 cm solid nodular density in the left lung apex, image 240/265. There is a 1 cm right adrenal nodule, Hounsfield units = 5, benign adrenal sourav elizabeth. There is a 2.2 cm cyst at the upper pole of the left kidney, Hounsfield units = 9. The ascending aorta is dilated to 4.0 cm in AP diameter. There is no visible pulmonary embolus. [facility]
[2024-07-27 09:28] LABS: Platelet Estimate MKD DEC (ADEQ); Platelet Morphology LARGE
--- NOTE | 2024-07-27 09:30 | EX.ED.DYSGE1 ---
HPI History of Present Illness Chief Complaint: Palpitations Detail of Chief Complaint: Tachycardia, dyspnea status post hip surgery July 14, 2024 Informant: patient and spouse/S.O. Onset/Context/Timing Onset: Yesterday Context: Sudden Onset Timing: Continuous Quality: Dyspnea, dyspnea with activity and rapid heart rate Location: Cardiorespiratory Current Severity: Mild Maximum Severity: Moderate Worsened by: Activity Relieved by: Nothing Associated Symptoms Associated Symptoms: Patient states his left lower extremity was much greater in size until yest Narrative Narrative: Patient is a 78-year-old male. He has history of coronary disease status post multivessel bypass and stent placement post CABG, hypercholesterolemia, peripheral vascular disease, essential hypertension. He had left hip surgery by Dr. Reynoso at [facility] July 14, 2024. patient's Plavix was held for studies of carotid by Dr. Wyatt. He is also been seen for bradycardia. informing that his informatics physician Dr. José. He presents because last evening at rest he became tachycardic and was alerted by his Apple Watch and also complained of dyspnea with increased shortness of breath with activity. He states his left lower extremity was greater in size. It is now about the same size as his right lower extremity. He does have history of prior blood clot. This occurred 2 years ago. He presently is on no anticoagulant. He is on a baby aspirin and Plavix. He denies fever, chills night sweats. [place] rhinorrhea, congestion, postnasal drainage sore throat. He has an occasional cough. Cough is nonproductive. He denies chest pressure, tightness or heaviness. He denies pain with breathing. He denies abdominal pain, nausea, vomit or diarrhea. Has black maroon-colored stool. Prior similar symptoms: No Recent Illness/Hospitalization: Yes [facility] Medical History Cardiology follow-up encounter History of Holter monitoring History of echocardiogram History of stress test Wears hearing aid Loss of hearing Wears glasses Cancer Hypothyroidism History of pulmonary embolus (PE) History of hiatal hernia History of diverticulitis Stenosis of right carotid artery Essential (primary) hypertension Fatigue Dizziness and giddiness Sinoatrial node dysfunction Esophageal disorder GERD (gastroesophageal reflux disease) Atherosclerotic heart disease of [place] coronary artery without angina pectoris Old myocardial infarction HLD (hyperlipidemia) Hypothyroidism, iatrogenic Home Medications ?Medication ?Instructions ?Recorded ?Last Taken ?Type aspirin 81 mg tablet,delayed 81 mg PO BID HEART HEALTH 04/15/17 07/27/24 History release epinephrine 0.15 mg/0.3 mL See Rx Instructions IM .COMPLEX 04/15/17 Unknown History injection,auto-injector (EpiPen Jr) ANAPHALAXIS levocetirizine 5 mg tablet 5 mg PO QHS ALLERGIES 04/15/17 07/26/24 History montelukast 10 mg tablet 10 mg PO DAILY ASTHMA 90 days #90 04/15/17 07/27/24 History tabs tamsulosin 0.4 mg capsule 0.4 mg PO QHS BPH 90 days #90 caps 04/15/17 07/26/24 History apremilast 30 mg tablet (Otezla) 30 mg PO BID PSORIASIS 06/20/20 07/27/24 History ascorbic acid (vitamin C) 1,000 mg 1 gm PO DAILY SUPPLEMENT 06/20/20 07/27/24 History tablet bempedoic acid 180 mg-ezetimibe 10 1 tablet PO DAILY HLD 06/20/20 07/27/24 History mg tablet (Nexlizet) cholecalciferol (vitamin D3) 50 2,000 unit PO DAILY SUPPLEMENT 06/20/20 07/27/24 History mcg (2,000 unit) tablet fluticasone propionate 110 1 puff inhalation BID ASTHMA 06/20/20 07/27/24 History mcg/actuation HFA aerosol inhaler (Flovent HFA) multivitamin 1 tablet PO DAILY SUPPLEMENT 06/20/20 07/27/24 History omega 7-owp-dcg-fish oil 1,600 5 ml PO DAILY SUPPLEMENT 06/20/20 07/27/24 History mg-500 mg-800 mg/5 mL oral liquid levothyroxine 112 mcg tablet 112 mcg PO DAILY HYPOTHROID 10/30/20 07/27/24 History escitalopram oxalate 10 mg tablet 10 mg PO DAILY ANXIETY 05/01/22 05/16/24 History nitroglycerin 0.4 mg sublingual 0.4 mg sublingual Q5-15M PRN chest 02/19/23 Unknown Rx tablet pain #25 tabs albuterol sulfate 90 mcg/actuation 2 puff inhalation Q6H PRN 07/02/23 Unknown History aerosol inhaler shortness of breath or wheezing hydralazine 25 mg tablet 25 mg PO BID HTN #60 tabs 01/20/24 05/16/24 Rx amlodipine 10 mg tablet 10 mg PO DAILY HTN #90 tabs 02/01/24 07/27/24 Rx clopidogrel 75 mg tablet 75 mg PO DAILY BLOOD THINNER #90 02/15/24 07/27/24 Rx tabs losartan 100 1 tab PO DAILY HTN #90 tabs 05/12/24 07/27/24 Rx mg-hydrochlorothiazide 12.5 mg tablet Oxygen at night 06/22/24 Unknown History finasteride 5 mg tablet 5 mg PO QHS 06/22/24 07/26/24 History primidone 50 mg tablet 50 mg PO ONCE 06/22/24 Unknown History acetaminophen 650 mg 650 mg PO Q8H PRN fever or pain 07/27/24 07/27/24 History tablet,extended release (Arthritis Pain Relief (acetaminophen) ER) fluticasone propionate 115 2 inh inhalation BID 07/27/24 Unknown History mcg-salmeterol 21 mcg/actuation HFA inhaler (Advair HFA) pantoprazole 20 mg tablet,delayed 20 mg PO DAILY 07/27/24 07/27/24 History release tramadol 50 mg tablet 50 mg PO Q6H PRN pain 07/27/24 07/27/24 History Allergy/AdvReac Type Severity Reaction Status Date / Time insect venom (yellow jacket) Allergy Severe Anaphylaxis Verified 07/27/24 08:17 atorvastatin (From Lipitor) Allergy intolerance, Verified 07/27/24 08:17 weakness colesevelam (From WelChol) Allergy myalgias Verified 07/27/24 08:17 Penicillins Allergy Fever and Verified 07/27/24 08:17 skin rash pravastatin (From Pravachol) Allergy myalgias Verified 07/27/24 08:17 rosuvastatin (From Crestor) Allergy intolerance, Verified 07/27/24 08:17 weakness ibuprofen AdvReac Mild Asthma Verified 07/27/24 08:17 Attack Family History Father , age 87 CAD (coronary artery disease) Mother , age 90 CAD (coronary artery disease) Brother FH: brain aneurysm Sister emphysema Surgical History History of cardiac catheterization History of coronary artery stent placement Hx of lithotripsy (~01/2024) History of cholecystectomy (~2017) History of hernia surgery (~2005) Stented coronary artery (02/09/23) History of back surgery H/O coronary artery bypass surgery (07/29/05) History of left heart catheterization (LHC) (09/23/10) Social History Smoking Status: Former smoker how long ago did patient quit smokin alcohol intake: never substance use type: does not use what type of physical activity do you participate in: none ROS ROS ED Constitutional Constitutional ED: Denies chills, fever(s), subjective or sweats Eyes Eyes: Denies blurry vision or change in vision ENT ENT ED: Denies rhinorrhea or sore throat Cardiovascular Cardiovascular: Reports palpitations and racing heartbeat; Denies chest pain, orthopnea or paroxysmal nocturnal dyspnea Respiratory/Chest Respiratory/Chest: Reports dyspnea and dyspnea on exertion; Denies cough, orthopnea or paroxysmal nocturnal dyspnea Gastrointestinal Gastrointestinal: Denies abdominal pain, diarrhea, melena, nausea or vomiting Genitourinary Genitourinary ED: Denies dysuria, hematuria or urinary frequency Musculoskeletal Musculoskeletal: Denies back pain Integumentary Denies rash Neurologic Neurologic: Denies paresthesias Hematologic/Lymphatic Hematologic/Lymphatic: Reports systems reviewed and no addt'l complaints, except as documented EXAM Physical Exam Const Vital Signs: 07/27/24 08:00 07/27/24 08:18 07/27/24 10:00 Temperature 98.2 F Temperature Source Oral Pulse Rate 104 H 69 Respiratory Rate 18 18 Respiratory Effort Short of Breath Blood Pressure 134/75 H 120/72 Blood Pressure Mean 94 88 Pulse Ox 98 96 Oxygen Delivery Method Room Air Room Air 07/27/24 12:00 Temperature Temperature Source Pulse Rate 64 Respiratory Rate 16 Respiratory Effort Blood Pressure 135/76 H Blood Pressure Mean 94 Pulse Ox 94 Oxygen Delivery Method Positive well nourished and well developed Constitutional Narrative: Vital signs are marked for tachycardia. He has a narrow complex sinus tachycardia noted on the monitor. General Appearance ED: well developed and NAD; Negative for cyanotic, diaphoretic or pallor HEENT Reports moist mucous membranes HEENT Narrative: Head is atraumatic normocephalic. Ears normal. Nares patent Eyes PERRL and EOMs intact bilaterally General Eye ED: Negative for pale conjunctiva or scleral icterus Neck no lymphadenopathy, supple and no JVD Chest Wall inspection of chest normal and palpation of chest normal Resp normal respiratory effort and clear to auscultation bilaterally Cardio regular rhythm, S1 normal heart sound and S2 normal heart sound; Negative for no murmurs Rate: tachycardic GI normal to inspection, nondistended, normoactive bowel sounds, non-tender, non-distended and no masses; Negative for hepatosplenomegaly Auscultation: normoactive bowel sounds Palpation: soft Back/Spine no CVA tenderness Extremity normal to inspection General Extremety ED: Yes edema; Negative for tenderness General Extremity: edema Neuro oriented x3, CN's II-XII intact bilaterally and no sensory deficits noted Sensorium / Orientation: alert Motor Exam: strength 5/5 throughout Psych mental status grossly normal Mood & Affect: Negative for depressed or anxious Skin no rashes or lesions noted, no wounds and skin turgor normal General Skin Exam: elasticity normal; Negative for jaundice or pallor MDM MDM MDM Narrative Medical decision making narrative: Differential diagnoses include cardiac versus noncardiac. Noncardiac would be pulmonary embolus since he is moderate to high pretest probability CTA was ordered. Electrolyte panel was obtained to assess renal function prior to injection. CBC to assess white count, H&H and differential. Troponin was obtained to evaluate for cardiac ischemia and determine if there is a possibility of right heart strain. History & Record Review Additional record(s) reviewed:: Prior outpatient record (Documented HPI narrative), Prior ED visit (Last ER visit was January 2023 for chest pain. The hospitalist note was reviewed and authored by Dr. Demetrio Deshpande.) and Prior labs Lab Data Attestation: I reviewed the patient's lab results. Lab results narrative: White count is elevated with slight shift. Platelet count is elevated 772,000. H&H reveals mild anemia with normal indices. Labs: Laboratory Results - last 24 hr 07/27/24 07/27/24 07/27/24 08:20 11:15 12:40 WBC 14.5 H RBC 3.66 L Hgb 11.4 L Hct 34.3 L MCV 93.7 MCH 31.1 MCHC 33.2 RDW Std Deviation 47.7 H RDW Coeff of Kadeem 14.1 Plt Count 772 H* MPV 8.2 Immature Gran % (Auto) 2.300 H Neut % (Auto) 79.1 H Lymph % (Auto) 8.1 L [place] % (Auto) 8.5 Eos % (Auto) 1.4 Baso % (Auto) 0.6 Absolute Neuts (auto) 11.5 H Absolute Lymphs (auto) 1.17 Nucleated RBC % 0.1 Platelet Estimate MKD DEC Plt Morphology Comment LARGE Sodium 142 Potassium 3.6 Chloride 102 Carbon Dioxide 23.9 Anion Gap 15 BUN 30 H Creatinine 1.21 H Estim Creat Clear Calc 46.63 L Est GFR (MDRD) Non-Af 61 BUN/Creatinine Ratio 24.9 H Glucose 147 H Calcium 9.6 Troponin T High Sens 34 H Troponin T Hi Sens 2 Hr 31 H Troponin T Hi Sens 4Hr 30 H Repeat troponin is 31 with a delta of -3. 4-hour troponins 30 with a delta of -1. In my opinion this is not cardiac. Will discharge to home. Radiography Diagnostic Testing: Clinical Impression(s) from Imaging Studies Chest CTA 07/27/24 09:27 IMPRESSION: There is a 0.4 cm solid nodule in the right mid lung, image 195/265. there is a 0.35 cm solid nodular density in the left lung apex, image 240/265. There is a 1 cm right adrenal nodule, Hounsfield units = 5, benign adrenal adenoma. There is a 2.2 cm cyst at the upper pole of the left kidney, Hounsfield units = 9. The ascending aorta is dilated to 4.0 cm in AP diameter. There is no visible pulmonary embolus. Reading Location: [facility] CTA of the chest was reviewed by me at 0944. There is no evidence of pulmonary embolus. There is no evidence of dissection. There is no acute pulmonary process noted either. Awaiting formal read by radiologist. EKG Initial EKG: Attestation: I personally reviewed and interpreted this EKG as follows: Interpretation: Sinus Rhythm (Rate is 87. There is a first-degree AV block. There is decreased anterior forces. IN interval is 248 ms. Cures duration of 100 ms. QT duration 152 ms. Sears is normal. This EKG shows slight change in V3 only compared to May 05, 2024.) Treatment and Re-Evaluation :: Patient is a follow-up with cardiology. His informatics physician is Dr. José. He normally sees the nurse practitioner based on review of office notes. Discharge Plan Triage Chief Complaint: Palpitations ED Provider: Celestine Ratliff Dx/Rx/DC Orders Clinical Impression: Tachycardia, Essential (primary) hypertension, HLD (hyperlipidemia), Stented coronary artery, Peripheral vascular disease, Carotid artery stenosis, Acute dyspnea Instructions: ED About Arrhythmias Prescriptions: No Action tamsulosin 0.4 mg capsule,extended release 24hr 0.4 mg PO QHS 90 Days Qty: 90 Patient Comments: levocetirizine 5 mg tablet 5 mg PO QHS montelukast 10 mg tablet 10 mg PO DAILY 90 Days Qty: 90 Patient Comments: epinephrine [EpiPen Jr] 0.15 mg/0.3 mL auto-injector See Rx Instructions IM .COMPLEX Patient Comments: Take as directed, IM Rx Instructions: Take as directed, IM aspirin 81 mg tablet,delayed release (DR/EC) 81 mg PO BID levothyroxine 112 mcg tablet 112 mcg PO DAILY escitalopram oxalate 10 mg tablet 10 mg PO DAILY Patient Comments: UNSURE IF TAKING albuterol sulfate 90 mcg/actuation HFA aerosol inhaler 2 puff inhalation Q6H PRN (Reason: shortness of breath or wheezing) nitroglycerin 0.4 mg tablet, sublingual 0.4 mg SUBLINGUAL Q5-15M PRN (Reason: chest pain) Qty: 25 3RF Rx Instructions: until response; do not exceed 3 doses per episode primidone 50 mg tablet 50 mg PO ONCE Patient Comments: UNSURE IF TAKING finasteride 5 mg tablet 5 mg PO QHS (DME) Oxygen at night See Rx Instructions .ROUTE .MEDSUPPLY Rx Instructions: 2L at night fluticasone propion-salmeterol [Advair HFA] 115-21 mcg/actuation HFA aerosol inhaler 2 inh INHALATION BID Patient Comments: USES NEEDED tramadol 50 mg tablet 50 mg PO Q6H PRN (Reason: pain) pantoprazole 20 mg tablet,delayed release (DR/EC) 20 mg PO DAILY acetaminophen [Arthritis Pain Relief (acetam)] 650 mg tablet extended release 650 mg PO Q8H PRN (Reason: fever or pain) Otezla 30 mg tablet 30 mg PO BID Nexlizet 180-10 mg tablet 1 tablet PO DAILY fluticasone propionate [Flovent HFA] 110 mcg/actuation HFA aerosol inhaler 1 puff INHALATION BID Patient Comments: Take as directed; INHALATION multivitamin Tablet 1 tablet PO DAILY cholecalciferol (vitamin D3) 50 mcg (2,000 unit) tablet 2,000 unit PO DAILY ascorbic acid (vitamin C) 1,000 mg tablet 1 gm PO DAILY omega 9-kik-nav-fish oil 1,600-500-800 mg/5 mL liquid 5 ml PO DAILY hydralazine 25 mg tablet 25 mg PO BID Qty: 60 11RF Patient Comments: UNSURE IF TAKING amlodipine 10 mg tablet 10 mg PO DAILY Qty: 90 3RF clopidogrel 75 mg tablet 75 mg PO DAILY Qty: 90 3RF losartan-hydrochlorothiazide 100-12.5 mg tablet 1 tab PO DAILY Qty: 90 3RF Primary Care Provider: Srinivas Hopson Referrals: Reza Velez MD [Med Staff - Active Staff] - 1 Week Srinivas Hopson MD [Primary Care Provider] - Print Language: Syriac Disposition Disposition: Home, Self Care
[2024-07-27 10:00] VITALS: BP 120/72; PULSE 69; RESP 18; O2SAT 96
[2024-07-27 10:09] LABS: Anion Gap 15 (5-15); BUN 30 mg/dL (4-19); BUN/Creat Ratio 24.9 RATIO (10-20); Calcium,Total 9.6 mg/dL (7.6-11.0); Carbon Dioxide 23.9 mmol/L (21.0-32.0); Chloride 102 mmol/L (98-108); Creatinine, Serum 1.21 mg/dL (0.70-1.20); EST Glomerular Filtration Rate 61 (>60); Estimated Creatinine Clearance 46.63 ml/min (50-250); Glucose 147 mg/dL (70-99); Potassium 3.6 mmol/L (3.3-5.1); Sodium Level 142 mmol/L (133-145); Troponin T High Sensitivity 34 ng/L (<=22)
[2024-07-27 12:00] VITALS: BP 135/76; PULSE 64; RESP 16; O2SAT 94
[2024-07-27 12:28] LABS: Troponin T High Sens 2 HR 31 ng/L (<=22)
[2024-07-27 13:13] LABS: Troponin T High Sens 4 HR 30 ng/L (<=22)
[2024-07-27 13:48] VITALS: BP 125/77; PULSE 78; RESP 18; TEMP 36.4; O2SAT 98
== END 2024-07-27 13:51 | disposition home or self-care (01) ==
PROVIDERS: Emergency Provider Emergency Medicine; PCP Family Medicine; Visit Provider Emergency Medicine
DX: R00.0 Tachycardia, unspecified (principal); R00.2 Palpitations; I10 Essential (primary) hypertension; I65.29 Occlusion and stenosis of unspecified carotid artery; I25.10 Atherosclerotic heart disease of native coronary artery without angina pectoris; Z95.5 Presence of coronary angioplasty implant and graft; E78.5 Hyperlipidemia, unspecified; Z79.02 Long term (current) use of antithrombotics/antiplatelets; I73.9 Peripheral vascular disease, unspecified; Z87.891 Personal history of nicotine dependence; Z79.82 Long term (current) use of aspirin; Z95.1 Presence of aortocoronary bypass graft; R06.00 Dyspnea, unspecified; R91.1 Solitary pulmonary nodule; Z90.49 Acquired absence of other specified parts of digestive tract; I25.2 Old myocardial infarction; Z86.711 Personal history of pulmonary embolism; E03.9 Hypothyroidism, unspecified
CPT/HCPCS: 71275; 80048; 84484; 85025; 93005; 99284; Q9967; A4216

== ENCOUNTER 2024-09-05 10:24 | Observation (INO) | payer OTHER, SELFPAY ==
[2024-09-05] VITALS (11 sets, daily range): BP systolic 120–166; BP diastolic 68–106; PULSE 51–73; RESP 12–18; TEMP 35.8–37; O2SAT 97–100; BMI 66.6
--- NOTE | 2024-09-05 10:28 | EKG12_ITS ---
Test Reason : weakness Blood Pressure : */* mmHG Vent. Rate : 59 BPM Atrial Rate : 59 BPM P-R Int : 278 ms QRS Dur : 102 ms QT Int : 432 ms P-R-T Axes : 59 0 73 degrees QTcB Int : 427 ms Sinus bradycardia with 1st degree A-V block Nonspecific ST abnormality Abnormal ECG Confirmed by ALISHA TITUS, CARLEE ([id number]), school photograph editor CHRIS BRIDGES ([id number]) on 09/06/2024 11:13:46 AM Referred By: Confirmed By: CARLEE BRITO MD
[2024-09-05 10:55] LABS: Absolute Lymphocyte Count 1.11 X10^3/uL (0.83-4.51); Absolute Neutrophil Count 9.9 X10^3/uL (2.0-7.7); Basophil# 0.04 X10^3/uL; Basophil% 0.3 % (0-1); Eosinophils% 1.5 % (0-5); Hematocrit 36.4 % (40-54); Hemoglobin 11.9 g/dL (13.0-16.5); Lymphocyte # 1.11 X10^3/ul (0.83-4.51); Lymphocyte % 8.3 % (19-41); Mean Corp Hgb Conc 32.7 g/dL (32-36); Mean Corpuscular Hgb 30.8 pg (27.0-32.0); Mean Corpuscular Volume 94.3 fL (80-94); Mean Platelet Vol. 8.8 fl (6.2-12.0); Monocyte# 1.76 X10^3/uL; Monocyte% 13.1 % (0-10); NRBC Flagged by Analyzer 0 % (0-5); Neutrophil # 9.92 X10^3/uL (2.7-7.7); POSITIVE DIFFERENTIAL YES; Platelet Count 374 K/mm3 (150-450); RBC Distribution Width CV 15.3 % (11.6-14.6); RBC Distribution Width SD 52.5 fl (35.1-43.9); Red Blood Count 3.86 M/mm3 (4.6-6.2); White Blood Count 13.4 K/mm3 (4.4-11.0)
[2024-09-05 10:59] LABS: Differential Indicated SCAN CRITERIA MET
--- NOTE | 2024-09-05 11:20 | RAD_ITS ---
PROCEDURE: CHEST PA AND LATERAL 09/05/2024 REASON FOR EXAM: CHEST PAIN TECHNIQUE: CHEST PA AND LATERAL COMPARISON: Prior study dated February 09, 2023. FINDINGS: Hardware: Prior midline sternotomy. Heart: Heart size is upper limits of normal. Mediastinum: Unremarkable Lungs: Scattered calcific granulomas. No acute abnormality is seen. Bones: Degenerative changes are identified within the thoracic spine. RAD/Chest PA and Lateral IMPRESSION: Stable examination. No acute abnormality is seen. Reading Location: [id number]
[2024-09-05 11:23] LABS: Anion Gap 12 (5-15); BUN 33 mg/dL (4-19); BUN/Creat Ratio 30.7 RATIO (10-20); Calcium,Total 8.7 mg/dL (7.6-11.0); Carbon Dioxide 22.7 mmol/L (21.0-32.0); Chloride 105 mmol/L (98-108); Creatinine, Serum 1.07 mg/dL (0.70-1.20); EST Glomerular Filtration Rate 71 (>60); Estimated Creatinine Clearance 96.99 ml/min (50-250); Glucose 124 mg/dL (70-99); Potassium 3.6 mmol/L (3.3-5.1); Sodium Level 139 mmol/L (133-145)
[2024-09-05 11:24] LABS: Differential Comment SCANNED
[2024-09-05 11:45] LABS: Troponin T High Sensitivity 98 ng/L (<=22)
[2024-09-05 12:59] LABS: Pro- Brain NATRIURETIC PEPTIDE 667 pg/mL (<=1800)
--- NOTE | 2024-09-05 13:12 | EDS_ITS ---
HPI History of Present Illness Chief Complaint: Chest Pain Narrative Narrative: Patient is a 78-year-old male with past medical history of PE, hypertension, GERD, hyperlipidemia, peripheral vascular disease, carotid artery stenosis, CAD with stents and bypass who presented to the emergency department chief complaint chest pain. Patient states that last few days he has had chest pain with exertion. He states that he noted the end of last week his weight was up significantly called his ob gyn physician assistant they placed him on a water pill over the weekend and noted that his swelling in his legs improved however he still having chest pain with exertion that gets better with rest and notes that he is having some shortness of breath as well. Denies any recent travel history. [facility] Medical History Cardiology follow-up encounter History of Holter monitoring History of echocardiogram History of stress test Wears hearing aid Loss of hearing Wears glasses Cancer Hypothyroidism History of pulmonary embolus (PE) History of hiatal hernia History of diverticulitis Stenosis of right carotid artery Essential (primary) hypertension Fatigue Dizziness and giddiness Sinoatrial node dysfunction Esophageal disorder GERD (gastroesophageal reflux disease) Atherosclerotic heart disease of [place] coronary artery without angina pectoris Old myocardial infarction HLD (hyperlipidemia) Hypothyroidism, iatrogenic Home Medications ?Medication ?Instructions ?Recorded ?Last Taken ?Type aspirin 81 mg tablet,delayed 81 mg PO BID Senseg 04/15/17 09/04/24 History release epinephrine 0.15 mg/0.3 mL See Rx Instructions IM .COM PLEX 04/15/17 Unknown History injection,auto-injector (EpiPen Jr) ANAPHALAXIS levocetirizine 5 mg tablet 5 mg PO QHS ALLERGIES 04/1509/04/24 History montelukast 10 mg tablet 10 mg PO DAILY ASTHMA 90 day s #90 04/15/17 09/05/24 History tabs tamsulosin 0.4 mg capsule 0.4 mg PO QHS BPH 90 days #9 0 caps 04/15/17 09/04/24 History apremilast 30 mg tablet (Otezla) 30 mg PO BID PSORIASI S 06/20/20 09/05/24 History ascorbic acid (vitamin C) 1,000 mg 1 gm PO DAILY SUPPL EMENT 06/20/20 09/05/24 History tablet bempedoic acid 180 mg-ezetimibe 10 1 tablet PO DAILY H LD 06/20/20 09/05/24 History mg tablet (Nexlizet) cholecalciferol (vitamin D3) 50 2,000 unit PO DAILY MCKENZIE PPLEMENT 06/20/20 09/05/24 History mcg (2,000 unit) tablet multivitamin 1 tablet PO DAILY SUPPLEMENT 06/20/20 09/05/24 History omega 4-nqp-kph-fish oil 1,600 5 ml PO DAILY SUPPLEMEN T 06/20/20 09/05/24 History mg-500 mg-800 mg/5 mL oral liquid levothyroxine 112 mcg tablet 112 mcg PO DAILY HYPOTHRO ID 10/30/20 09/05/24 History escitalopram oxalate 10 mg tablet 10 mg PO DAILY ANXIE TY 05/01/22 09/05/24 History nitroglycerin 0.4 mg sublingual 0.4 mg sublingual Q5-1 5M PRN chest 02/19/23 Unknown Rx tablet pain #25 tabs albuterol sulfate 90 mcg/actuation 2 puff inhalation Q 6H PRN 07/02/23 Unknown History aerosol inhaler shortness of breath or wheez ing hydralazine 25 mg tablet 25 mg PO BID HTN #60 tabs 09/05/24 Rx amlodipine 10 mg tablet 10 mg PO DAILY HTN #90 tabs 02/01/24 09/04/24 Rx clopidogrel 75 mg tablet 75 mg PO DAILY BLOOD THINNER #90 02/15/24 09/05/24 Rx tabs losartan 100 1 tab PO DAILY HTN #90 tabs 05/12/24 09/05/24 Rx mg-hydrochlorothiazide 12.5 mg tablet Oxygen at night 06/22/24 Unknown History finasteride 5 mg tablet 5 mg PO QHS 06/22/24 5 History primidone 50 mg tablet 50 mg PO ONCE 06/22/2409/05 History acetaminophen 650 mg 650 mg PO Q8H PRN fever or p ain 07/27/24 09/05/24 History tablet,extended release (Arthritis Pain Relief (acetaminophen) ER) fluticasone propionate 115 2 inh inhalation BID 09/05/24 History mcg-salmeterol 21 mcg/actuation HFA inhaler (Advair HFA) pantoprazole 20 mg tablet,delayed 20 mg PO DAILY 07/2707/27/24 History release metoprolol succinate 25 mg 12.5 mg (1/2 x 25 mg) PO QD AY #45 08/02/24 09/05/24 Rx tablet,extended release 24 hr tabs furosemide 40 mg tablet (Lasix) 40 mg PO QDAY #3 tabs 09/01/24 09/04/24 Rx Allergy/AdvReac Type Severity Reaction Status Date / Time insect venom (yellow jacket) Allergy Severe Anaphylaxis Verified 09/05/24 10:27 [id number] Reductase Allergy Mild Swelling Verified 09/05/24 10:27 Inhibitor atorvastatin (From Lipitor) Allergy intolerance, Verified 09/05/24 10:27 weakness colesevelam (From WelChol) Allergy myalgias Verified 09/05/24 10:27 Penicillins Allergy Fever and Verified 09/05/24 10:27 skin rash pravastatin (From Pravachol) Allergy myalgias Verified 09/05/24 10:27 rosuvastatin (From Crestor) Allergy intolerance, Verified 09/05/24 10:27 weakness ibuprofen AdvReac Mild Asthma Verified 09/05/24 10:27 Attack Family History Father , age 87 CAD (coronary artery disease) Mother , age 90 CAD (coronary artery disease) Brother FH: brain aneurysm Sister emphysema Surgical History History of cardiac catheterization History of coronary artery stent placement Hx of lithotripsy (~01/2024) History of cholecystectomy (~2017) History of hernia surgery (~2005) Stented coronary artery (02/09/23) History of back surgery H/O coronary artery bypass surgery (07/29/05) History of left heart catheterization (LHC) (09/23/10) Social History Smoking Status: Former smoker how long ago did patient quit smokin alcohol intake: never substance use type: does not use what type of physical activity do you participate in: none ROS ROS ED ROS Narrative Constitutional: Denies fevers, chills, headaches, lightness, dizziness Eyes: Denies change in vision double vision blurry vision Cardiovascular: Complains of chest pain as noted above denies palpitations Respiratory: Denies coughing wheezing shortness of breath Abdomen: Denies abdominal pain nausea vomit diarrhea : Denies urinary symptoms Neurological: Denies numbness, weakness, tingling Musculoskeletal: Denies back pain Skin: Denies rashes or lesions EXAM Physical Exam Narrative Exam Narrative: General: Patient was lying in bed rest comfortably did not appear to be in acute distress Head: Atraumatic, normocephalic Eyes: PERRL bilaterally, EOMI bilateral, no conjunctival injection noted Neck: Soft, supple, trachea midline Cardiovascular: Regular rate and rhythm no murmurs gallops rubs noted Respiratory: Clear to auscultation bilaterally Abdomen: Soft, nondistended, tender to palpation Extremities: +5/5 strength noted in the bilateral upper and lower extremities, radial pulses +2/4 in the bilateral extremities Neurological: Patient following commands knew he was at [facility] years is 2024
--- NOTE | 2024-09-05 13:12 | ED.VIS.CHEST ---
HPI History of Present Illness Chief Complaint: Chest Pain Narrative Narrative: Patient is a 78-year-old male with past medical history of PE, hypertension, GERD, hyperlipidemia, peripheral vascular disease, carotid artery stenosis, CAD with stents and bypass who presented to the emergency department chief complaint chest pain. Patient states that last few days he has had chest pain with exertion. He states that he noted the end of last week his weight was up significantly called his touch up worker they placed him on a water pill over the weekend and noted that his swelling in his legs improved however he still having chest pain with exertion that gets better with rest and notes that he is having some shortness of breath as well. Denies any recent travel history. [facility] Medical History Cardiology follow-up encounter History of Holter monitoring History of echocardiogram History of stress test Wears hearing aid Loss of hearing Wears glasses Cancer Hypothyroidism History of pulmonary embolus (PE) History of hiatal hernia History of diverticulitis Stenosis of right carotid artery Essential (primary) hypertension Fatigue Dizziness and giddiness Sinoatrial node dysfunction Esophageal disorder GERD (gastroesophageal reflux disease) Atherosclerotic heart disease of [place] coronary artery without angina pectoris Old myocardial infarction HLD (hyperlipidemia) Hypothyroidism, iatrogenic Home Medications ?Medication ?Instructions ?Recorded ?Last Taken ?Type aspirin 81 mg tablet,delayed 81 mg PO BID Primocare 04/15/17 09/04/24 History release epinephrine 0.15 mg/0.3 mL See Rx Instructions IM .COMPLEX 04/15/17 Unknown History injection,auto-injector (EpiPen Jr) ANAPHALAXIS levocetirizine 5 mg tablet 5 mg PO QHS ALLERGIES 04/15/17 09/04/24 History montelukast 10 mg tablet 10 mg PO DAILY ASTHMA 90 days #90 04/15/17 09/05/24 History tabs tamsulosin 0.4 mg capsule 0.4 mg PO QHS BPH 90 days #90 caps 04/15/17 09/04/24 History apremilast 30 mg tablet (Otezla) 30 mg PO BID PSORIASIS 06/20/20 09/05/24 History ascorbic acid (vitamin C) 1,000 mg 1 gm PO DAILY SUPPLEMENT 06/20/20 09/05/24 History tablet bempedoic acid 180 mg-ezetimibe 10 1 tablet PO DAILY HLD 06/20/20 09/05/24 History mg tablet (Nexlizet) cholecalciferol (vitamin D3) 50 2,000 unit PO DAILY SUPPLEMENT 06/20/20 09/05/24 History mcg (2,000 unit) tablet multivitamin 1 tablet PO DAILY SUPPLEMENT 06/20/20 09/05/24 History omega 5-tqk-fim-fish oil 1,600 5 ml PO DAILY SUPPLEMENT 06/20/20 09/05/24 History mg-500 mg-800 mg/5 mL oral liquid levothyroxine 112 mcg tablet 112 mcg PO DAILY HYPOTHROID 10/30/20 09/05/24 History escitalopram oxalate 10 mg tablet 10 mg PO DAILY ANXIETY 05/01/22 09/05/24 History nitroglycerin 0.4 mg sublingual 0.4 mg sublingual Q5-15M PRN chest 02/19/23 Unknown Rx tablet pain #25 tabs albuterol sulfate 90 mcg/actuation 2 puff inhalation Q6H PRN 07/02/23 Unknown History aerosol inhaler shortness of breath or wheezing hydralazine 25 mg tablet 25 mg PO BID HTN #60 tabs 01/20/24 09/05/24 Rx amlodipine 10 mg tablet 10 mg PO DAILY HTN #90 tabs 02/01/24 09/04/24 Rx clopidogrel 75 mg tablet 75 mg PO DAILY BLOOD THINNER #90 02/15/24 09/05/24 Rx tabs losartan 100 1 tab PO DAILY HTN #90 tabs 05/12/24 09/05/24 Rx mg-hydrochlorothiazide 12.5 mg tablet Oxygen at night 06/22/24 Unknown History finasteride 5 mg tablet 5 mg PO QHS 06/22/24 09/04/24 History primidone 50 mg tablet 50 mg PO ONCE 06/22/24 09/05/24 History acetaminophen 650 mg 650 mg PO Q8H PRN fever or pain 07/27/24 09/05/24 History tablet,extended release (Arthritis Pain Relief (acetaminophen) ER) fluticasone propionate 115 2 inh inhalation BID 07/27/24 09/05/24 History mcg-salmeterol 21 mcg/actuation HFA inhaler (Advair HFA) pantoprazole 20 mg tablet,delayed 20 mg PO DAILY 07/27/24 07/27/24 History release metoprolol succinate 25 mg 12.5 mg (1/2 x 25 mg) PO QDAY #45 08/02/24 09/05/24 Rx tablet,extended release 24 hr tabs furosemide 40 mg tablet (Lasix) 40 mg PO QDAY #3 tabs 09/01/24 09/04/24 Rx Allergy/AdvReac Type Severity Reaction Status Date / Time insect venom (yellow jacket) Allergy Severe Anaphylaxis Verified 09/05/24 10:27 Nrfiafh-[id number] Reductase Allergy Mild Swelling Verified 09/05/24 10:27 Inhibitor atorvastatin (From Lipitor) Allergy intolerance, Verified 09/05/24 10:27 weakness colesevelam (From WelChol) Allergy myalgias Verified 09/05/24 10:27 Penicillins Allergy Fever and Verified 09/05/24 10:27 skin rash pravastatin (From Pravachol) Allergy myalgias Verified 09/05/24 10:27 rosuvastatin (From Crestor) Allergy intolerance, Verified 09/05/24 10:27 weakness ibuprofen AdvReac Mild Asthma Verified 09/05/24 10:27 Attack Family History Father , age 87 CAD (coronary artery disease) Mother , age 90 CAD (coronary artery disease) Brother FH: brain aneurysm Sister emphysema Surgical History History of cardiac catheterization History of coronary artery stent placement Hx of lithotripsy (~01/2024) History of cholecystectomy (~2017) History of hernia surgery (~2005) Stented coronary artery (02/09/23) History of back surgery H/O coronary artery bypass surgery (07/29/05) History of left heart catheterization (LHC) (09/23/10) Social History Smoking Status: Former smoker how long ago did patient quit smokin alcohol intake: never substance use type: does not use what type of physical activity do you participate in: none ROS ROS ED ROS Narrative Constitutional: Denies fevers, chills, headaches, lightness, dizziness Eyes: Denies change in vision double vision blurry vision Cardiovascular: Complains of chest pain as noted above denies palpitations Respiratory: Denies coughing wheezing shortness of breath Abdomen: Denies abdominal pain nausea vomit diarrhea : Denies urinary symptoms Neurological: Denies numbness, weakness, tingling Musculoskeletal: Denies back pain Skin: Denies rashes or lesions EXAM Physical Exam Narrative Exam Narrative: General: Patient was lying in bed rest comfortably did not appear to be in acute distress Head: Atraumatic, normocephalic Eyes: PERRL bilaterally, EOMI bilateral, no conjunctival injection noted Neck: Soft, supple, trachea midline Cardiovascular: Regular rate and rhythm no murmurs gallops rubs noted Respiratory: Clear to auscultation bilaterally Abdomen: Soft, nondistended, tender to palpation Extremities: +5/5 strength noted in the bilateral upper and lower extremities, radial pulses +2/4 in the bilateral extremities Neurological: Patient following commands knew he was at [facility] years is 2024 Skin: Warm, dry, tact no rashes or lesions noted Const Vital Signs: 09/05/24 10:24 09/05/24 10:28 09/05/24 11:24 Temperature 96.5 F L Temperature Source Oral Pulse Rate 69 57 L Respiratory Rate 18 15 Respiratory Effort Blood Pressure 141/78 H 120/68 Blood Pressure Mean 99 85 Pulse Ox 97 97 Oxygen Delivery Method Room Air Room Air Room Air 09/05/24 11:24 09/05/24 12:00 09/05/24 13:00 Temperature Temperature Source Pulse Rate 55 L 53 L Respiratory Rate 13 16 Respiratory Effort Normal Non-Labored Blood Pressure 139/77 H 157/106 H Blood Pressure Mean 97 123 Pulse Ox 98 97 Oxygen Delivery Method Room Air Room Air 09/05/24 14:00 Temperature 98 F Temperature Source Pulse Rate 51 L Respiratory Rate 12 Respiratory Effort Blood Pressure 166/88 H Blood Pressure Mean 114 Pulse Ox 99 Oxygen Delivery Method MDM MDM MDM Narrative Medical decision making narrative: Patient is a 78-year-old male who presented to the emergency department chief complaint chest pain. On the differential diagnose includes but not limited to ACS, pneumonia, pneumothorax, stable angina. Once workup is obtained and reviewed he will be reevaluated Patient's CBC reviewed showed a leukocytosis of 13,000, hemoglobin 11.9, platelet count was noted to be normal at 374. Patient sodium was 139, testing 3.6, creatinine was 1.07. Patient's troponin was noted be 98 with a delta troponin of 101. Patient proBNP elevated to 667. Patient chest x-ray reviewed and showed no acute cardiopulmonary processes as reviewed by myself by radiology. I reached out to on-call touch up worker Dr. Velez who states he would recommend admitting the patient for further cardiac testing. Reached out to the hospitalist Dr. Troncoso to accept patient for admission. Notified the patient is agreeable spinal course concerns answered. He was given 325 mg of aspirin. Lab Data Labs: Laboratory Results - last 24 hr 09/05/24 09/05/24 10:45 13:04 WBC 13.4 H RBC 3.86 L Hgb 11.9 L Hct 36.4 L MCV 94.3 H MCH 30.8 MCHC 32.7 RDW Std Deviation 52.5 H RDW Coeff of Kadeem 15.3 H Plt Count 374 MPV 8.8 Immature Gran % (Auto) 2.800 H Neut % (Auto) 74.0 H Lymph % (Auto) 8.3 L Kay % (Auto) 13.1 H Eos % (Auto) 1.5 Baso % (Auto) 0.3 Absolute Neuts (auto) 9.9 H Absolute Lymphs (auto) 1.11 Nucleated RBC % 0 Differential Comment SCANNED Sodium 139 Potassium 3.6 Chloride 105 Carbon Dioxide 22.7 Anion Gap 12 BUN 33 H Creatinine 1.07 Estim Creat Clear Calc 96.99 Est GFR (MDRD) Non-Af 71 BUN/Creatinine Ratio 30.7 H Glucose 124 H Calcium 8.7 Troponin T High Sens 98 H* D Troponin T Hi Sens 2 Hr 101 H* NT pro BNP II 667 Radiography Diagnostic Testing: Clinical Impression(s) from Imaging Studies Chest X-Ray 09/05/24 11:20 IMPRESSION: Stable examination. No acute abnormality is seen. Reading Location: [id number] Discharge Plan Triage Chief Complaint: Chest Pain ED Provider: Isiah Galvan Dx/Rx/DC Orders Clinical Impression: Chest pain, Dyspnea on exertion Prescriptions: No Action tamsulosin 0.4 mg capsule,extended release 24hr 0.4 mg PO QHS 90 Days Qty: 90 Patient Comments: levocetirizine 5 mg tablet 5 mg PO QHS montelukast 10 mg tablet 10 mg PO DAILY 90 Days Qty: 90 Patient Comments: epinephrine [EpiPen Jr] 0.15 mg/0.3 mL auto-injector See Rx Instructions IM .COMPLEX Patient Comments: Take as directed, IM Rx Instructions: Take as directed, IM aspirin 81 mg tablet,delayed release (DR/EC) 81 mg PO BID levothyroxine 112 mcg tablet 112 mcg PO DAILY escitalopram oxalate 10 mg tablet 10 mg PO DAILY Patient Comments: UNSURE IF TAKING albuterol sulfate 90 mcg/actuation HFA aerosol inhaler 2 puff inhalation Q6H PRN (Reason: shortness of breath or wheezing) nitroglycerin 0.4 mg tablet, sublingual 0.4 mg SUBLINGUAL Q5-15M PRN (Reason: chest pain) Qty: 25 3RF Rx Instructions: until response; do not exceed 3 doses per episode primidone 50 mg tablet 50 mg PO ONCE Patient Comments: UNSURE IF TAKING finasteride 5 mg tablet 5 mg PO QHS (DME) Oxygen at night See Rx Instructions .ROUTE .MEDSUPPLY Rx Instructions: 2L at night fluticasone propion-salmeterol [Advair HFA] 115-21 mcg/actuation HFA aerosol inhaler 2 inh INHALATION BID Patient Comments: USES NEEDED pantoprazole 20 mg tablet,delayed release (DR/EC) 20 mg PO DAILY acetaminophen [Arthritis Pain Relief (acetam)] 650 mg tablet extended release 650 mg PO Q8H PRN (Reason: fever or pain) Otezla 30 mg tablet 30 mg PO BID Nexlizet 180-10 mg tablet 1 tablet PO DAILY multivitamin Tablet 1 tablet PO DAILY cholecalciferol (vitamin D3) 50 mcg (2,000 unit) tablet 2,000 unit PO DAILY ascorbic acid (vitamin C) 1,000 mg tablet 1 gm PO DAILY omega 7-yei-ieo-fish oil 1,600-500-800 mg/5 mL liquid 5 ml PO DAILY hydralazine 25 mg tablet 25 mg PO BID Qty: 60 11RF Patient Comments: UNSURE IF TAKING amlodipine 10 mg tablet 10 mg PO DAILY Qty: 90 3RF clopidogrel 75 mg tablet 75 mg PO DAILY Qty: 90 3RF losartan-hydrochlorothiazide 100-12.5 mg tablet 1 tab PO DAILY Qty: 90 3RF metoprolol succinate 25 mg tablet extended release 24 hr 12.5 mg PO QDAY Qty: 45 3RF Rx Instructions: Patient is to take a half a pill once daily furosemide [Lasix] 40 mg tablet 40 mg PO QDAY Qty: 3 0RF Rx Instructions: Take 1 tablet by mouth daily for 3 days Primary Care Provider: Srinivas Hopson Referrals: Srinivas Hopson MD [Primary Care Provider] - Print Language: [place] Disposition Disposition: Acute Care [facility]
[2024-09-05 14:01] LABS: Troponin T High Sens 2 HR 101 ng/L (<=22)
[2024-09-05] MEDS: Aspirin 325 MG Tablet PO (14:05)
--- NOTE | 2024-09-05 15:59 | HP.PCM.HOS_ITS ---
HPI - General General Date of Admission: 09/05/24 Date of Service: 09/05/24 HPI Narrative DAVID MIXON, is a 78 M who presents [facility] Medical History Cardiology follow-up encounter History of Holter monitoring History of echocardiogram History of stress test Wears hearing aid Loss of hearing Wears glasses Cancer Hypothyroidism History of pulmonary embolus (PE) History of hiatal hernia History of diverticulitis Stenosis of right carotid artery Essential (primary) hypertension Fatigue Dizziness and giddiness Sinoatrial node dysfunction Esophageal disorder GERD (gastroesophageal reflux disease) Atherosclerotic heart disease of [place] coronary artery without angina pectoris Old myocardial infarction HLD (hyperlipidemia) Hypothyroidism, iatrogenic Home Medications ?Medication ?Instructions ?Recorded ?Last Taken ?Type aspirin 81 mg tablet,delayed 81 mg PO BID HEART HEALTH 04/15/17 09/04/24 History release epinephrine 0.15 mg/0.3 mL See Rx Instructions IM .COM PLEX 04/15/17 Unknown History injection,auto-injector (EpiPen Jr) ANAPHALAXIS levocetirizine 5 mg tablet 5 mg PO QHS ALLERGIES 04/1509/04/24 History montelukast 10 mg tablet 10 mg PO DAILY ASTHMA 90 day s #90 04/15/17 09/05/24 History tabs tamsulosin 0.4 mg capsule 0.4 mg PO QHS BPH 90 days #9 0 caps 04/15/17 09/04/24 History apremilast 30 mg tablet (Otezla) 30 mg PO BID PSORIASI S 06/20/20 09/05/24 History ascorbic acid (vitamin C) 1,000 mg 1 gm PO DAILY SUPPL EMENT 06/20/20 09/05/24 History tablet bempedoic acid 180 mg-ezetimibe 10 1 tablet PO DAILY H LD 06/20/20 09/05/24 History mg tablet (Nexlizet) cholecalciferol (vitamin D3) 50 2,000 unit PO DAILY MCKENZIE PPLEMENT 06/20/20 09/05/24 History mcg (2,000 unit) tablet multivitamin 1 tablet PO DAILY SUPPLEMENT 06/20/20 09/05/24 History omega 0-ymj-aha-fish oil 1,600 5 ml PO DAILY SUPPLEMEN T 06/20/20 09/05/24 History mg-500 mg-800 mg/5 mL oral liquid levothyroxine 112 mcg tablet 112 mcg PO DAILY HYPOTHRO ID 10/30/20 09/05/24 History escitalopram oxalate 10 mg tablet 10 mg PO DAILY ANXIE TY 05/01/22 09/05/24 History nitroglycerin 0.4 mg sublingual 0.4 mg sublingual Q5-1 5M PRN chest 02/19/23 Unknown Rx tablet pain #25 tabs albuterol sulfate 90 mcg/actuation 2 puff inhalation Q 6H PRN 07/02/23 Unknown History aerosol inhaler shortness of breath or wheez ing hydralazine 25 mg tablet 25 mg PO BID HTN #60 tabs 09/05/24 Rx amlodipine 10 mg tablet 10 mg PO DAILY HTN #90 tabs 02/01/24 09/04/24 Rx clopidogrel 75 mg tablet 75 mg PO DAILY BLOOD THINNER #90 02/15/24 09/05/24 Rx tabs losartan 100 1 tab PO DAILY HTN #90 tabs 05/12/24 09/05/24 Rx mg-hydrochlorothiazide 12.5 mg tablet Oxygen at night 06/22/24 Unknown History finasteride 5 mg tablet 5 mg PO QHS 06/22/24 5 History primidone 50 mg tablet 50 mg PO ONCE 06/22/2409/05 History acetaminophen 650 mg 650 mg PO Q8H PRN fever or p ain 07/27/24 09/05/24 History tablet,extended release (Arthritis Pain Relief (acetaminophen) ER) fluticasone propionate 115 2 inh inhalation BID 09/05/24 History mcg-salmeterol 21 mcg/actuation HFA inhaler (Advair HFA) pantoprazole 20 mg tablet,delayed 20 mg PO DAILY 07/2707/27/24 History release metoprolol succinate 25 mg 12.5 mg (1/2 x 25 mg) PO QD AY #45 08/02/24 09/05/24 Rx tablet,extended release 24 hr tabs furosemide 40 mg tablet (Lasix) 40 mg PO QDAY #3 tabs 09/01/24 09/04/24 Rx Allergy/AdvReac Type Severity Reaction Status Date / Time insect venom (yellow jacket) Allergy Severe Anaphylaxis Verified 09/05/24 10:27 [id number]-[id number] Reductase Allergy Mild Swelling Verified 09/05/24 10:27 Inhibitor atorvastatin (From Lipitor) Allergy intolerance, Verified 09/05/24 10:27 weakness colesevelam (From WelChol) Allergy myalgias Verified 09/05/24 10:27 Penicillins Allergy Fever and Verified 09/05/24 10:27 skin rash pravastatin (From Pravachol) Allergy myalgias Verified 09/05/24 10:27 rosuvastatin (From Crestor) Allergy intolerance, Verified 09/05/24 10:27 weakness ibuprofen AdvReac Mild Asthma Verified 09/05/24 10:27 Attack Family History Father , age 87 CAD (coronary artery disease) Mother , age 90 CAD (coronary artery disease) Brother FH: brain aneurysm Sister emphysema Surgical History History of cardiac catheterization History of coronary artery stent placement Hx of lithotripsy (~01/2024) History of cholecystectomy (~2017) History of hernia surgery (~2005) Stented coronary artery (02/09/23) History of back surgery H/O coronary artery bypass surgery (07/29/05) History of left heart catheterization (LHC) (09/23/10) Social History Smoking Status: Former smoker how long ago did patient quit smokin alcohol intake: never substance use type: does not use what type of physical activity do you participate in: none Vital Signs Vital Signs Vital Signs: 09/05/24 10:24 09/05/24 10:28 09/05/24 11:24 Temperature 96.5 F L Temperature Source Oral Pulse Rate 69 57 L Respiratory Rate 18 15 Respiratory Effort Blood Pressure 141/78 H 120/68 Blood Pressure Mean 99 85 Pulse Ox 97 97 Oxygen Delivery Method Room Air Room Air Room Air 09/05/24 11:24 09/05/24 12:00 09/05/24 13:00 Temperature Temperature Source Pulse Rate 55 L 53 L Respiratory Rate 13 16 Respiratory Effort Normal Non-Labored Blood Pressure 139/77 H 157/106 H Blood Pressure Mean 97 123 Pulse Ox 98 97 Oxygen Delivery Method Room Air Room Air 09/05/24 14:00 09/05/24 15:00 09/05/24 15:53 Temperature 98 F Temperature Source Pulse Rate 51 L 51 L 55 L Respiratory Rate 12 12 Respiratory Effort Blood Pressure 166/88 H 128/75 H 157/76 H Blood Pressure Mean 114 92 103 Pulse Ox 99 99 98 Oxygen Delivery Method Room Air Room Air Weight Weight: 198.7 kg Body Mass Index (BMI) 66.6 Results Lab / Micro Data 09/05/24 10:45 09/05/24 10:45 Labs: Laboratory Results - last 24 hr 09/05/24 10:45: WBC 13.4 H, RBC 3.86 L, Hgb 11.9 L, Hct 36.4 L, MCV 94.3 H, MCH 30.8, MCHC 32.7, RDW Std Deviation 52.5 H, RDW Coeff of Kadeem 15.3 H, Plt Count 374, MPV 8.8, Immature Gran % (Auto) 2.800 H, Neut % (Auto) 74.0 H, Lymph % (Auto) 8.3 L, Gates % (Auto) 13.1 H, Eos % (Auto) 1.5, Baso % (Auto) 0.3, A bsolute Neuts (auto) 9.9 H, Absolute Lymphs (auto) 1.11, Nucleated RBC % 0, Differential Comment SCANNED, Sodium 139, Potassium 3.6, Chloride 105, Carbon Dioxide 22.7, Anion Gap 12, BUN 33 H, Creatinine 1.07, Estim Creat Clear Calc 96.99, Est GFR (MDRD) Non-Af 71, BUN/Creatinine Ratio 30.7 H, Glucose 124 H, Calcium 8.7, Troponin T High Sens 98 H* D, NT pro BNP II 667 09/05/24 13:04: Troponin T Hi Sens 2 Hr 101 H* Imaging Radiology Impression Chest X-Ray 09/05/24 11:20 IMPRESSION: Stable examination. No acute abnormality is seen. Reading Location: [id number]
--- NOTE | 2024-09-05 15:59 | PCM.HP.STD ---
HPI - General General Date of Admission: 09/05/24 Date of Service: 09/05/24 Chief Complaint: Chest pain HPI Narrative DAVID MIXON, is a 78-year-old male history of BPH, coronary artery disease with stents and bypass, anxiety, COPD, hypertension, GERD who presented [facility] ED 09/05/2024 with chest pain worsened with exertion and leg swelling. 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 In the ED temperature 96.5, heart rate of 69 with a blood pressure 141/78, respiratory rate 18 and pulse ox 97% on room air. BMP without any alarming findings, CBC with a white blood cell count of 13.4, hemoglobin of 11.9, x-ray no acute abnormalities, BNP 667 and initial troponin of 98 with a repeat of 101. Hospitalist contacted for admission for chest pain. Patient reports chest pain for several days and last week did note he had increased swelling in his legs with 12 pound weight gain, was placed on Lasix with almost entirely resolution of the swelling and he is already lost all the weight that he had gained. His chest pain however has not improved, its somewhat in the center right of his chest and radiates to his jaw and his arm, worse on exertion and better on rest. He is now getting to the point however that even at rest takes 2 to 3 hours to improve and does have shortness of breath but he described it more as difficulty taking in a deep breath. Has a little bit of a headache right now. Of note he had a PE at some point in the not too distant past and had a left hip surgery in July and is presently on 81 mg of aspirin twice daily and clopidogrel. [facility] Medical History Cardiology follow-up encounter History of Holter monitoring History of echocardiogram History of stress test Wears hearing aid Loss of hearing Wears glasses Cancer Hypothyroidism History of pulmonary embolus (PE) History of hiatal hernia History of diverticulitis Stenosis of right carotid artery Essential (primary) hypertension Fatigue Dizziness and giddiness Sinoatrial node dysfunction Esophageal disorder GERD (gastroesophageal reflux disease) Atherosclerotic heart disease of [place] coronary artery without angina pectoris Old myocardial infarction HLD (hyperlipidemia) Hypothyroidism, iatrogenic Home Medications ?Medication ?Instructions ?Recorded ?Last Taken ?Type aspirin 81 mg tablet,delayed 81 mg PO BID HEART HEALTH 04/15/17 09/04/24 History release epinephrine 0.15 mg/0.3 mL See Rx Instructions IM .COMPLEX 04/15/17 Unknown History injection,auto-injector (EpiPen Jr) ANAPHALAXIS levocetirizine 5 mg tablet 5 mg PO QHS ALLERGIES 04/15/17 09/04/24 History montelukast 10 mg tablet 10 mg PO DAILY ASTHMA 90 days #90 04/15/17 09/05/24 History tabs tamsulosin 0.4 mg capsule 0.4 mg PO QHS BPH 90 days #90 caps 04/15/17 09/04/24 History apremilast 30 mg tablet (Otezla) 30 mg PO BID PSORIASIS 06/20/20 09/05/24 History ascorbic acid (vitamin C) 1,000 mg 1 gm PO DAILY SUPPLEMENT 06/20/20 09/05/24 History tablet bempedoic acid 180 mg-ezetimibe 10 1 tablet PO DAILY HLD 06/20/20 09/05/24 History mg tablet (Nexlizet) cholecalciferol (vitamin D3) 50 2,000 unit PO DAILY SUPPLEMENT 06/20/20 09/05/24 History mcg (2,000 unit) tablet multivitamin 1 tablet PO DAILY SUPPLEMENT 06/20/20 09/05/24 History omega 4-xpx-qnv-fish oil 1,600 5 ml PO DAILY SUPPLEMENT 06/20/20 09/05/24 History mg-500 mg-800 mg/5 mL oral liquid levothyroxine 112 mcg tablet 112 mcg PO DAILY HYPOTHROID 10/30/20 09/05/24 History escitalopram oxalate 10 mg tablet 10 mg PO DAILY ANXIETY 05/01/22 09/05/24 History nitroglycerin 0.4 mg sublingual 0.4 mg sublingual Q5-15M PRN chest 02/19/23 Unknown Rx tablet pain #25 tabs albuterol sulfate 90 mcg/actuation 2 puff inhalation Q6H PRN 07/02/23 Unknown History aerosol inhaler shortness of breath or wheezing hydralazine 25 mg tablet 25 mg PO BID HTN #60 tabs 01/20/24 09/05/24 Rx amlodipine 10 mg tablet 10 mg PO DAILY HTN #90 tabs 02/01/24 09/04/24 Rx clopidogrel 75 mg tablet 75 mg PO DAILY BLOOD THINNER #90 02/15/24 09/05/24 Rx tabs losartan 100 1 tab PO DAILY HTN #90 tabs 05/12/24 09/05/24 Rx mg-hydrochlorothiazide 12.5 mg tablet Oxygen at night 06/22/24 Unknown History finasteride 5 mg tablet 5 mg PO QHS 06/22/24 09/04/24 History primidone 50 mg tablet 50 mg PO ONCE 06/22/24 09/05/24 History acetaminophen 650 mg 650 mg PO Q8H PRN fever or pain 07/27/24 09/05/24 History tablet,extended release (Arthritis Pain Relief (acetaminophen) ER) fluticasone propionate 115 2 inh inhalation BID 07/27/24 09/05/24 History mcg-salmeterol 21 mcg/actuation HFA inhaler (Advair HFA) pantoprazole 20 mg tablet,delayed 20 mg PO DAILY 07/27/24 07/27/24 History release metoprolol succinate 25 mg 12.5 mg (1/2 x 25 mg) PO QDAY #45 08/02/24 09/05/24 Rx tablet,extended release 24 hr tabs furosemide 40 mg tablet (Lasix) 40 mg PO QDAY #3 tabs 09/01/24 09/04/24 Rx Allergy/AdvReac Type Severity Reaction Status Date / Time insect venom (yellow jacket) Allergy Severe Anaphylaxis Verified 09/05/24 10:27 [id number]-RAA-[id number] Reductase Allergy Mild Swelling Verified 09/05/24 10:27 Inhibitor atorvastatin (From Lipitor) Allergy intolerance, Verified 09/05/24 10:27 weakness colesevelam (From WelChol) Allergy myalgias Verified 09/05/24 10:27 Penicillins Allergy Fever and Verified 09/05/24 10:27 skin rash pravastatin (From Pravachol) Allergy myalgias Verified 09/05/24 10:27 rosuvastatin (From Crestor) Allergy intolerance, Verified 09/05/24 10:27 weakness ibuprofen AdvReac Mild Asthma Verified 09/05/24 10:27 Attack Family History Father , age 87 CAD (coronary artery disease) Mother , age 90 CAD (coronary artery disease) Brother FH: brain aneurysm Sister emphysema Surgical History History of cardiac catheterization History of coronary artery stent placement Hx of lithotripsy (~01/2024) History of cholecystectomy (~2017) History of hernia surgery (~2005) Stented coronary artery (02/09/23) History of back surgery H/O coronary artery bypass surgery (07/29/05) History of left heart catheterization (LHC) (09/23/10) Social History Smoking Status: Former smoker how long ago did patient quit smokin alcohol intake: never substance use type: does not use what type of physical activity do you participate in: none ROS ROS Narrative General: Denies fever/chills HENT: Slight headache, denies stuffy nose, denies sore throat EYES: Denies changes in vision Resp: Denies cough, difficulty feeling like he is breathing through cloth especially in ambulation Cardiac: Chest pain radiating to jaw and arm GI: Denies abdominal pain, denies changes in bowel, denies nausea/vomiting : Denies changes in urination Extremity: Had swelling lower extremities that is resolved MSK: Denies weakness Neuro: Denies any numbness/tingling Heme: Easy bruising Skin: Denies rashes Psychiatric: No complaints voiced Vital Signs Vital Signs Vital Signs: 09/05/24 10:24 09/05/24 10:28 09/05/24 11:24 Temperature 96.5 F L Temperature Source Oral Pulse Rate 69 57 L Respiratory Rate 18 15 Respiratory Effort Blood Pressure 141/78 H 120/68 Blood Pressure Mean 99 85 Pulse Ox 97 97 Oxygen Delivery Method Room Air Room Air Room Air 09/05/24 11:24 09/05/24 12:00 09/05/24 13:00 Temperature Temperature Source Pulse Rate 55 L 53 L Respiratory Rate 13 16 Respiratory Effort Normal Non-Labored Blood Pressure 139/77 H 157/106 H Blood Pressure Mean 97 123 Pulse Ox 98 97 Oxygen Delivery Method Room Air Room Air 09/05/24 14:00 09/05/24 15:00 09/05/24 15:53 Temperature 98 F Temperature Source Pulse Rate 51 L 51 L 55 L Respiratory Rate 12 12 Respiratory Effort Blood Pressure 166/88 H 128/75 H 157/76 H Blood Pressure Mean 114 92 103 Pulse Ox 99 99 98 Oxygen Delivery Method Room Air Room Air Weight Weight: 198.7 kg Body Mass Index (BMI) 66.6 Physical Exam Narrative General: Alert, oriented, no apparent distress HEENT: Atraumatic, normocephalic Eyes: Anicteric, normal conjunctiva, extraocular movements grossly intact Neck: Supple Respiratory: Clear to auscultation bilaterally, normal respiratory effort Cardiovascular: Regular rate and rhythm GI: Soft, nontender, nondistended Extremities: No edema Musculoskeletal: Moving all extremities Neuro: No overt focal neurological deficits Skin: No rashes appreciated Psych: Cooperative Results Lab / Micro Data 09/05/24 10:45 09/05/24 10:45 Labs: Laboratory Results - last 24 hr 09/05/24 10:45: WBC 13.4 H, RBC 3.86 L, Hgb 11.9 L, Hct 36.4 L, MCV 94.3 H, MCH 30.8, MCHC 32.7, RDW Std Deviation 52.5 H, RDW Coeff of Kadeem 15.3 H, Plt Count 374, MPV 8.8, Immature Gran % (Auto) 2.800 H, Neut % (Auto) 74.0 H, Lymph % (Auto) 8.3 L, [place] % (Auto) 13.1 H, Eos % (Auto) 1.5, Baso % (Auto) 0.3, Absolute Neuts (auto) 9.9 H, Absolute Lymphs (auto) 1.11, Nucleated RBC % 0, Differential Comment SCANNED, Sodium 139, Potassium 3.6, Chloride 105, Carbon Dioxide 22.7, Anion Gap 12, BUN 33 H, Creatinine 1.07, Estim Creat Clear Calc 96.99, Est GFR (MDRD) Non-Af 71, BUN/Creatinine Ratio 30.7 H, Glucose 124 H, Calcium 8.7, Troponin T High Sens 98 H* D, NT pro BNP II 667 09/05/24 13:04: Troponin T Hi Sens 2 Hr 101 H* Imaging Radiology Impression Chest X-Ray 09/05/24 11:20 IMPRESSION: Stable examination. No acute abnormality is seen. Reading Location: [id number] Assessment & Plan Assessment/Plan (1) Chest pain: PLAN: Plan # Elevated troponin, concern for NSTEMI -Patient with chest pain worse with exertion better with rest, initial troponin 98 with repeat of 101 - Echo ordered -Cardiology consulted, given concerning history of an elevated heart score patient will be made n.p.o. at midnight for likely heart cath tomorrow -Not starting patient on heparin given lack of present chest pain and third troponin downtrended - Continues aspirin, statin, Plavix, beta-junior - Holding Lasix pending workup # History of coronary artery disease -With both stenting and bypass -Continue medications as above, management as above # Recent left hip surgery - In July, patient 81 mg aspirin twice daily # History of PE - Patient cannot tell me what this was and at one point had been on blood thinners, reports he has been off of that and on the aspirin 81 mg twice daily since his hip surgery for DVT prophylaxis #Hx asthma on 2 L O2 nightly -Continue home inhalers -Incentive spirometer #GERD -Continue PPI #Chronic BPH with obstruction -Continue home medications #Hypertension - Continue home medications #Depression/anxiety -Continue home medications #Hypothyroidism -Continue Synthroid #DVT ppx: SCDs Nicole Troncoso MD Charges/Coding Visit Charges Inpatient E&M: 34701 Init Hosp L2
[2024-09-05 16:10] LABS: Troponin T High Sens 4 HR 97 ng/L (<=22)
--- NOTE | 2024-09-05 16:43 | ECHOD_ITS ---
Reason For Study Reason For Study: Chest pain Procedure This was a 2D Doppler, Color Flow transthoracic echocardiogram. Exam performed portable in patient room. Left Ventricle Normal LV size. Mild concentric left ventricular hypertrophy. Left ventricular systolic function is normal. The left ventricular ejection fraction is 65 %. Stage 1 diastolic dysfunction. No regional wall motion abnormalities noted. Right Ventricle Normal RV size. Normal systolic function. Atria The left atrium is mildly enlarged. Normal right atrium. Mitral Valve Normal mitral valve. Mild (1+) eccentric mitral valve insufficiency. Tricuspid Valve Normal tricuspid valve. Mild to moderate (1-2+) tricuspid valve insufficiency. Pulmonary artery systolic pressure is 42 mmHg. Aortic Valve Trisinus/trileaflet aortic valve. Moderate focal aortic valve thickening. Peak aortic valve gradient 26 mmHg. Mean aortic valve gradient 12 mmHg. Pulmonic Valve Normal pulmonic valve. Mild (1+) pulmonic valve insufficiency. Great Vessels Normal aortic root. The pulmonary artery is normal size. Inferior vena cava collapse with respiration. Pericardium/Pleural No pericardial effusion. MMode/2D Measurements & Calculations LVIDd: 4.4 cm IVSd: 1.3 cm LVOT diam: 2.0 cm LVIDs: 2.6 cm LVPWd: 1.4 cm LVOT area: 3.2 cm2 RVDd: 4.0 cm FS: 41.7 % Ao root diam: 3.5 cm LAV(MOD-bp): 68.8 ml LVAd ap4: 40.5 cm2 LAV(MOD-bp) Indexed: 33.9 ml/m2 LVLd ap4: 9.8 cm LAV(MOD-sp2): 54.5 ml EDV(MOD-sp4): 136.0 ml LAV(MOD-sp4): 86.2 ml EDV(sp4-el): 142.0 ml LVAs ap4: 17.9 cm2 LVLs ap4: 8.3 cm ESV(MOD-sp4): 35.3 ml ESV(sp4-el): 32.9 ml EF(MOD-sp4): 74.0 % EF(sp4-el): 76.9 % LVAd ap2: 37.1 cm2 SV(MOD-sp4): 100.6 ml SV(MOD-sp2): 82.0 ml LVLd ap2: 9.2 cm SI(MOD-sp4): 49.5 ml/m2 SI(MOD-sp2): 40.4 ml/m2 EDV(MOD-sp2): 123.4 ml EDV(sp2-el): 126.8 ml LVAs ap2: 19.0 cm2 LVLs ap2: 7.8 cm ESV(MOD-sp2): 41.4 ml ESV(sp2-el): 39.4 ml EF(MOD-sp2): 66.4 % SV(sp4-el): 109.1 ml LA dimension(2D): 4.8 cm LA A4 area: 24.7 cm2 RA A4 area: 20.4 cm2 TAPSE: 2.4 cm Time Measurements MV dec time: 0.28 sec Doppler Measurements & Calculations MV E max robi: 89.0 cm/sec Lat Peak E' Robi: 8.2 cm/sec Med Peak E' Robi: 6.6 cm/sec MV A max robi: 102.5 cm/sec E/E' lat: 10.8 E/E' med: 13.4 MV E/A: 0.87 Ao V2 max: 253.6 cm/sec LV V1 max: 132.5 cm/sec MV dec slope: 321.3 cm/sec2 Ao max P.8 mmHg LV V1 max P.1 mmHg Ao V2 mean: 164.1 cm/sec LV V1 mean P.4 mmHg Ao mean P.3 mmHg LV V1 mean: 85.1 cm/sec Ao V2 VTI: 56.3 cm LV V1 VTI: 31.1 cm AV (velocity ratio): 0.55 SORAYA(I,D): 1.8 cm2 SORAYA(V,D): 1.7 cm2 SV(LVOT): 100.8 ml PA V2 max: 183.4 cm/sec TR max robi: 311.2 cm/sec PA V2 mean: 124.2 cm/sec TR max P.7 mmHg ECHO/Echo Complete Interpretation Summary Normal LV size. Left ventricular systolic function is normal. The left ventricular ejection fraction is 65 %. Moderate focal aortic valve thickening. Mild concentric left ventricular hypertrophy. Stage 1 diastolic dysfunction. Pulmonary artery systolic pressure is 42 mmHg. The left atrium is mildly enlarged. Ordering Physician: Nicole Troncoso Referring Physician: Srinivas Hopson Performed By: Soha Carrillo RDCS
--- NOTE | 2024-09-05 16:43 | EKG12_ITS ---
Test Reason : admit Blood Pressure : */* mmHG Vent. Rate : 49 BPM Atrial Rate : 49 BPM P-R Int : 316 ms QRS Dur : 104 ms QT Int : 460 ms P-R-T Axes : 16 -10 41 degrees QTcB Int : 415 ms Sinus bradycardia with 1st degree A-V block Left ventricular hypertrophy with repolarization abnormality ( R in aVL ) Abnormal ECG When compared with ECG of 05-Sep-2024 11:30, MANUAL COMPARISON REQUIRED DATA IS UNCONFIRMED Confirmed by ALISHA TITUS, CARLEE ([id number]), restaurant expeditor CHRIS BRIDGES ([id number]) on 09/06/2024 11:01:12 AM Referred By: Aba Confirmed By: CARLEE BRITO MD
--- NOTE | 2024-09-05 16:49 | CASEMGMT ---
Social Work Phone call received from [facility]. Pt is active with PT. RNLEON cochran. ALMAS Arreola
--- NOTE | 2024-09-05 17:30 | CON.PCM.CA_ITS ---
Assessment & Plan Assessment/Plan (1) Chest pain: PLAN: He presents with chest discomfort with fairly classic symptoms of angina. The plan at this time will be for him to undergo a left heart catheterization and depending on the findings further recommendations will be made. Risk benefits alternatives have and explained to him and his they understand and agree to proceed. (2) Stented coronary artery: PLAN: He does have a history of stenting of the saphenous vein graft to the circumflex artery. This will need to be reevaluated. (3) Essential (primary) hypertension: PLAN: His blood pressure is under good control at this particular time and I would not recommend that we make any major changes. (4) HLD (hyperlipidemia): QUALIFIERS: Hyperlipidemia type: pure hypercholesterolemia Q ualified Code(s): E78.00 - Pure hypercholesterolemia, unspecified PLAN: Will continue with aggressive risk factor modification. As you know he is not been able to tolerate the statins or WelChol and so he has been on bempedoic acid together with ezetimibe. (5) Carotid artery stenosis: QUALIFIERS: Laterality: right Qualified Code(s): I65.21 - Occlusion and stenosis of right carotid artery PLAN: He does have evidence of carotid artery disease status post TCAR procedure. No neurological deficit is present. HPI Consult Data Date of Consult: 09/05/24 HPI Narrative HPI Narrative: DAVID MIXON, is a 78 M who presents to the emergency room with a 2-week history of pedal edema and then more recently chest discomfort. He describes this as a heaviness radiating to his jaw and both arms. He had called the office previously and was given diuretics a few weeks ago which improved his pedal edema. On presentation to the emergency room his initial EKG demonstrated no acute changes cardiac troponin enzymes were also noted to be mildly abnormal. He denied any dizziness or diaphoresis near syncope or syncope. He has a history of coronary disease status post coronary bypass surgery in 2005, with a VARGAS to the LAD saphenous vein graft to the circumflex artery and saphenous vein graft to the right coronary artery. His last cardiac catheterization was in January 2023 which at that time demonstrated a patent VARGAS to the LAD, patent saphenous vein graft to the right coronary artery and a saphenous vein graft obtuse marginal branch with a tight 99% stenotic lesion for which she underwent successful drug-eluting stent placement. His ejection fraction at that time was preserved. He has also subsequently undergone a right carotid endarterectomy by the vascular surgeon in May 2024 as well as a left hip replacement after that. He said he did well but did have some edema in his left leg. [facility] Medical History Cardiology follow-up encounter History of Holter monitoring History of echocardiogram History of stress test Wears hearing aid Loss of hearing Wears glasses Cancer Hypothyroidism History of pulmonary embolus (PE) History of hiatal hernia History of diverticulitis Stenosis of right carotid artery Essential (primary) hypertension Fatigue Dizziness and giddiness Sinoatrial node dysfunction Esophageal disorder GERD (gastroesophageal reflux disease) Atherosclerotic heart disease of [place] coronary artery without angina pectoris Old myocardial infarction HLD (hyperlipidemia) Hypothyroidism, iatrogenic Home Medications ?Medication ?Instructions ?Recorded ?Last Taken ?Type aspirin 81 mg tablet,delayed 81 mg PO BID HEART HEALTH 04/15/17 09/04/24 History release epinephrine 0.15 mg/0.3 mL See Rx Instructions IM .COM PLEX 04/15/17 Unknown History injection,auto-injector (EpiPen Jr) ANAPHALAXIS levocetirizine 5 mg tablet 5 mg PO QHS ALLERGIES 04/1509/04/24 History montelukast 10 mg tablet 10 mg PO DAILY ASTHMA 90 day s #90 04/15/17 09/05/24 History tabs tamsulosin 0.4 mg capsule 0.4 mg PO QHS BPH 90 days #9 0 caps 04/15/17 09/04/24 History apremilast 30 mg tablet (Otezla) 30 mg PO BID PSORIASI S 06/20/20 09/05/24 History ascorbic acid (vitamin C) 1,000 mg 1 gm PO DAILY SUPPL EMENT 06/20/20 09/05/24 History tablet bempedoic acid 180 mg-ezetimibe 10 1 tablet PO DAILY H LD 06/20/20 09/05/24 History mg tablet (Nexlizet) cholecalciferol (vitamin D3) 50 2,000 unit PO DAILY MCKENZIE PPLEMENT 06/20/20 09/05/24 History mcg (2,000 unit) tablet multivitamin 1 tablet PO DAILY SUPPLEMENT 06/20/20 09/05/24 History omega 4-mkj-wsz-fish oil 1,600 5 ml PO DAILY SUPPLEMEN T 06/20/20 09/05/24 History mg-500 mg-800 mg/5 mL oral liquid levothyroxine 112 mcg tablet 112 mcg PO DAILY HYPOTHRO ID 10/30/20 09/05/24 History escitalopram oxalate 10 mg tablet 10 mg PO DAILY ANXIE TY 05/01/22 09/05/24 History nitroglycerin 0.4 mg sublingual 0.4 mg sublingual Q5-1 5M PRN chest 02/19/23 Unknown Rx tablet pain #25 tabs albuterol sulfate 90 mcg/actuation 2 puff inhalation Q 6H PRN 07/02/23 Unknown History aerosol inhaler shortness of breath or wheez ing hydralazine 25 mg tablet 25 mg PO BID HTN #60 tabs 09/05/24 Rx amlodipine 10 mg tablet 10 mg PO DAILY HTN #90 tabs 02/01/24 09/04/24 Rx clopidogrel 75 mg tablet 75 mg PO DAILY BLOOD THINNER #90 02/15/24 09/05/24 Rx tabs losartan 100 1 tab PO DAILY HTN #90 tabs 05/12/24 09/05/24 Rx mg-hydrochlorothiazide 12.5 mg tablet Oxygen at night 06/22/24 Unknown History finasteride 5 mg tablet 5 mg PO QHS 06/22/24 5 History primidone 50 mg tablet 50 mg PO ONCE 06/22/2409/05 History acetaminophen 650 mg 650 mg PO Q8H PRN fever or p ain 07/27/24 09/05/24 History tablet,extended release (Arthritis Pain Relief (acetaminophen) ER) fluticasone propionate 115 2 inh inhalation BID 09/05/24 History mcg-salmeterol 21 mcg/actuation HFA inhaler (Advair HFA) pantoprazole 20 mg tablet,delayed 20 mg PO DAILY 07/2707/27/24 History release metoprolol succinate 25 mg 12.5 mg (1/2 x 25 mg) PO QD AY #45 08/02/24 09/05/24 Rx tablet,extended release 24 hr tabs furosemide 40 mg tablet (Lasix) 40 mg PO QDAY #3 tabs 09/01/24 09/04/24 Rx Allergy/AdvReac Type Severity Reaction Status Date / Time insect venom (yellow jacket) Allergy Severe Anaphylaxis Verified 09/05/24 10:27 Hrmmpax-WYC-CkR Reductase Allergy Mild Swelling Verified 09/05/24 10:27 Inhibitor atorvastatin (From Lipitor) Allergy intolerance, Verified 09/05/24 10:27 weakness colesevelam (From WelChol) Allergy myalgias Verified 09/05/24 10:27 Penicillins Allergy Fever and Verified 09/05/24 10:27 skin rash pravastatin (From Pravachol) Allergy myalgias Verified 09/05/24 10:27 rosuvastatin (From Crestor) Allergy intolerance, Verified 09/05/24 10:27 weakness ibuprofen AdvReac Mild Asthma Verified 09/05/24 10:27 Attack Family History Father , age 87 CAD (coronary artery disease) Mother , age 90 CAD (coronary artery disease) Brother FH: brain aneurysm Sister emphysema Surgical History History of cardiac catheterization History of coronary artery stent placement Hx of lithotripsy (~01/2024) History of cholecystectomy (~2017) History of hernia surgery (~2005) Stented coronary artery (02/09/23) History of back surgery H/O coronary artery bypass surgery (07/29/05) History of left heart catheterization (LHC) (09/23/10) Social History Smoking Status: Former smoker how long ago did patient quit smokin alcohol intake: never substance use type: does not use what type of physical activity do you participate in: none ROS Constitutional Constitutional: Denies fever(s) or weight loss Eyes Eyes: Reports systems reviewed and no addt'l complaints, except as documented ENT HEENT: Reports systems reviewed and no addt'l complaints, except as documented Cardiovascular Cardiovascular: Reports chest pain at rest, chest pain with activity, dyspnea at rest and dyspnea on exertion; Denies edema, palpitations or paroxysmal nocturnal dyspnea Respiratory/Chest Respiratory/Chest: Denies dyspnea on exertion, productive cough, shortness of breath at rest or shortness of breath with exertion Gastrointestinal Gastrointestinal: Denies change in bowel habits, nausea, vomiting or weight changes Genitourinary Genitourinary: Denies difficulty urinating Musculoskeletal Musculoskeletal: Denies joint stiffness or muscle weakness Integumentary Integumentary: Denies lesions Neurologic Neurologic: Denies dizziness or syncope Psychiatric Psychiatric: Denies anxiety Endocrine Endocrinology: Denies excessive sweating or fatigue Hematologic/Lymphatic Hematologic/Lymphatic: Denies anemia Allergic/Immunologic Allergic/Immunologic: Denies seasonal rhinorrhea Physical Exam Const alert, oriented x3 and no apparent distress General Appearance: cooperative HEENT hearing grossly normal bilaterally Head and Scalp: atraumatic Eyes EOMs intact bilaterally Neck General: normal visual inspection Chest inspection of chest normal and palpation of chest normal Resp normal respiratory effort Auscultation: clear to auscultation bilaterally Cardio regular rate, regular rhythm, S1 normal heart sound and S2 normal heart sound Jugular Venous Distention: JVD GI normal to inspection, nondistended, normoactive bowel sounds Extremity normal capillary refill and no pedal edema Peripheral Pulses: Yes pulses 2+ throughout and femoral pulses present Skin no rashes or lesions noted Neuro oriented x3 and CN's II-XII intact bilaterally Psych Appearance: grossly normal and appropriate Risk Stratification Risk Stratification Applicable: Yes Age >/= 65: Yes >/= 3 CAD Risk Factors (HTN, HLD, DM, family hx of CAD, or current smoker): Yes Aspirin Use in the Past 7 Days: Yes Severe Angina (>/= episodes in 24 hours): Yes EKG ST Changes >/= 0.5mm: No Positive Cardiac Marker: Yes SANDRA Risk Stratification Score: 5 SANDRA % Risk: 25% Risk Objective Data Vital Signs: Vital Signs Temp Pulse Resp BP Pulse Ox O2 Del Method 98.6 F 51 L 12 139/76 H 100 Room Air 09/05/24 16:50 09/05/24 16:50 09/05/24 16:50 09/05/24 16:50 09/05/24 16:50 09/05/24 16:50 Oxygen Delivery Method Room Air Weight: 438 lb 0.936 oz Body Mass Index (BMI) 66.6 Lab / Micro Data 09/05/24 10:45 09/05/24 10:45 Labs: Laboratory Results - last 24 hr 09/05/24 10:45: WBC 13.4 H, RBC 3.86 L, Hgb 11.9 L, Hct 36.4 L, MCV 94.3 H, MCH 30.8, MCHC 32.7, RDW Std Deviation 52.5 H, RDW Coeff of Kadeem 15.3 H, Plt Count 374, MPV 8.8, Immature Gran % (Auto) 2.800 H, Neut % (Auto) 74.0 H, Lymph % (Auto) 8.3 L, [place] % (Auto) 13.1 H, Eos % (Auto) 1.5, Baso % (Auto) 0.3, A bsolute Neuts (auto) 9.9 H, Absolute Lymphs (auto) 1.11, Nucleated RBC % 0, Differential Comment SCANNED, Sodium 139, Potassium 3.6, Chloride 105, Carbon Dioxide 22.7, Anion Gap 12, BUN 33 H, Creatinine 1.07, Estim Creat Clear Calc 96.99, Est GFR (MDRD) Non-Af 71, BUN/Creatinine Ratio 30.7 H, Glucose 124 H, Calcium 8.7, Troponin T High Sens 98 H* D, NT pro BNP II 667 09/05/24 13:04: Troponin T Hi Sens 2 Hr 101 H* 09/05/24 15:20: Troponin T Hi Sens 4Hr 97 H* Cardiology Labs/Tests 09/05/24 10:45: WBC 13.4 H, RBC 3.86 L, Hgb 11.9 L, Hct 36.4 L, MCV 94.3 H, MCH 30.8, MCHC 32.7, Plt Count 374, MPV 8.8, Immature Gran % (Auto) 2.800 H, Neut % (Auto) 74.0 H, Lymph % (Auto) 8.3 L, [place] % (Auto) 13.1 H, Eos % (Auto) 1.5, Baso % (Auto) 0.3, Absolute Neuts (auto) 9.9 H, Nucleated RBC % 0, Sodium 139, Potassium 3.6, Chloride 105, Carbon Dioxide 22.7, Anion Gap 12, BUN 33 H, Creatinine 1.07, Est GFR (MDRD) Non-Af 71, BUN/Creatinine Ratio 30.7 H, Glucose 124 H, Calcium 8.7 Rhythm: EKG: ECHO: Stress Test: Cardiac Cath: PCI: CT Surgery: Holter monitor: EPS: PPM: CXR: Chest CT Scan: Radiography Diagnostic Testing: Radiology Impression Chest X-Ray 09/05/24 11:20 IMPRESSION: Stable examination. No acute abnormality is seen. Reading Location: [id number]
[2024-09-05] MEDS: Primidone 50 MG Tablet PO (18:13)
[2024-09-05] MEDS: Budesonide Respules 0.5 MG/2 ML AMPUL.NEB. INHALATION (19:18)
[2024-09-05] MEDS: Albuterol 2.5 MG/3 ML VIAL.NEB. INHALATION (19:18)
[2024-09-05] MEDS: Tamsulosin HCl 0.4 MG Capsule PO (20:15)
[2024-09-05] MEDS: Finasteride 5 MG Tablet PO (20:16)
[2024-09-06] VITALS (21 sets, daily range): BP systolic 127–169; BP diastolic 59–76; PULSE 53–76; RESP 14–18; TEMP 36.1–36.7; O2SAT 95–100
--- NOTE | 2024-09-06 05:55 | EKG12_ITS ---
Test Reason : pre CI Blood Pressure : */* mmHG Vent. Rate : 50 BPM Atrial Rate : 50 BPM P-R Int : 318 ms QRS Dur : 106 ms QT Int : 454 ms P-R-T Axes : 19 -7 59 degrees QTcB Int : 413 ms Sinus bradycardia with 1st degree A-V block Nonspecific ST and T wave abnormality Abnormal ECG When compared with ECG of 05-Sep-2024 17:24, MANUAL COMPARISON REQUIRED DATA IS UNCONFIRMED Confirmed by ALISHA TITUS, CARLEE ([id number]), technical writer and editor CHRIS BRIDGES ([id number]) on 09/06/2024 10:56:38 AM Referred By: Confirmed By: CARLEE BIRTO MD
[2024-09-06] MEDS: amLODIPine 10 MG Tablet PO (06:07)
[2024-09-06] MEDS: Levothyroxine 112 MCG Tablet PO (06:07)
[2024-09-06] MEDS: 0.9% Saline Lock 10 ML Syringe IV (06:07)
[2024-09-06] MEDS: Metoprolol(XL)Succ 25 MG Tablet 12.5 MG PO (06:07)
[2024-09-06] MEDS: Losartan Potassium 100 MG Tablet PO (06:08)
[2024-09-06] MEDS: Aspirin E.C. 81 MG Tablet PO (06:08)
[2024-09-06] MEDS: Clopidogrel Bisulfate 75 MG Tablet PO (06:08)
[2024-09-06 06:28] LABS: Absolute Lymphocyte Count 1.05 X10^3/uL (0.83-4.51); Absolute Neutrophil Count 8.5 X10^3/uL (2.0-7.7); Basophil# 0.02 X10^3/uL; Basophil% 0.2 % (0-1); Eosinophil# 0.19 X10^3/uL; Eosinophils% 1.7 % (0-5); Hematocrit 34.5 % (40-54); Hemoglobin 11.3 g/dL (13.0-16.5); Lymphocyte # 1.05 X10^3/ul (0.83-4.51); Lymphocyte % 9.3 % (19-41); Mean Corp Hgb Conc 32.8 g/dL (32-36); Mean Corpuscular Hgb 30.7 pg (27.0-32.0); Mean Corpuscular Volume 93.8 fL (80-94); Mean Platelet Vol. 9.2 fl (6.2-12.0); Monocyte% 11.6 % (0-10); NRBC Flagged by Analyzer 0 % (0-5); Neutrophil # 8.51 X10^3/uL (2.7-7.7); Neutrophil % 75.7 % (47-70); Platelet Count 349 K/mm3 (150-450); RBC Distribution Width CV 15.5 % (11.6-14.6); RBC Distribution Width SD 53.4 fl (35.1-43.9); Red Blood Count 3.68 M/mm3 (4.6-6.2); White Blood Count 11.2 K/mm3 (4.4-11.0)
[2024-09-06 06:41] LABS: International Normalized Ratio 1.4; Prothrombin Time (Protime)PT. 17.1 SECONDS (11.7-14.9)
[2024-09-06 07:12] LABS: Anion Gap 12 (5-15); BUN 31 mg/dL (4-19); BUN/Creat Ratio 33.1 RATIO (10-20); Calcium,Total 8.8 mg/dL (7.6-11.0); Carbon Dioxide 24.6 mmol/L (21.0-32.0); Chloride 105 mmol/L (98-108); Creatinine, Serum 0.95 mg/dL (0.70-1.20); EST Glomerular Filtration Rate 82 (>60); Estimated Creatinine Clearance 69.69 ml/min (50-250); Glucose 112 mg/dL (70-99); Magnesium 2.2 mg/dL (1.5-2.2); Potassium 3.6 mmol/L (3.3-5.1); Sodium Level 142 mmol/L (133-145)
[2024-09-06] MEDS: Albuterol 2.5 MG/3 ML VIAL.NEB. INHALATION ×3 (07:31→20:25)
[2024-09-06] MEDS: Budesonide Respules 0.5 MG/2 ML AMPUL.NEB. INHALATION ×2 (07:32→20:25)
--- NOTE | 2024-09-06 10:03 | CASEMGMT ---
Discharge Planning Updates sent to Nery . Belem Lunsford DC Planning Asst.
--- NOTE | 2024-09-06 12:32 | PCM.PN.CARD ---
Subjective Subjective Patient seen and evaluated. No further chest pain Objective Data Vital Signs: Vital Signs Temp Pulse Resp BP Pulse Ox O2 Del Method O2 Flow Rate 97.7 F L 53 L 15 131/67 H 97 Room Air 2 09/06/24 10:43 09/06/24 10:43 09/06/24 10:43 09/06/24 10:43 09/06/24 10:43 09/06/24 10:43 09/06/24 07:33 Oxygen Flow Rate (L/min) 2 Oxygen Delivery Method Room Air Weight: 197 lb 8.547 oz Body Mass Index (BMI) 30.0 Lab / Micro Data 09/06/24 05:41 09/06/24 05:41 Labs: Laboratory Results - last 24 hr 09/05/24 10:45: NT pro BNP II 667 09/05/24 13:04: Troponin T Hi Sens 2 Hr 101 H* 09/05/24 15:20: Troponin T Hi Sens 4Hr 97 H* 09/06/24 05:41: WBC 11.2 H, RBC 3.68 L, Hgb 11.3 L, Hct 34.5 L, MCV 93.8, MCH 30.7, MCHC 32.8, RDW Std Deviation 53.4 H, RDW Coeff of Kadeem 15.5 H, Plt Count 349, MPV 9.2, Immature Gran % (Auto) 1.500 H, Neut % (Auto) 75.7 H, Lymph % (Auto) 9.3 L, [place] % (Auto) 11.6 H, Eos % (Auto) 1.7, Baso % (Auto) 0.2, Absolute Neuts (auto) 8.5 H, Absolute Lymphs (auto) 1.05, Nucleated RBC % 0, PT 17.1 H, INR 1.4, Sodium 142, Potassium 3.6, Chloride 105, Carbon Dioxide 24.6, Anion Gap 12, BUN 31 H, Creatinine 0.95, Estim Creat Clear Calc 69.69, Est GFR (MDRD) Non-Af 82, BUN/Creatinine Ratio 33.1 H, Glucose 112 H, Calcium 8.8, Magnesium 2.2, TSH 4.610 H Cardiology Labs/Tests 09/06/24 05:41: WBC 11.2 H, RBC 3.68 L, Hgb 11.3 L, Hct 34.5 L, MCV 93.8, MCH 30.7, MCHC 32.8, Plt Count 349, MPV 9.2, Immature Gran % (Auto) 1.500 H, Neut % (Auto) 75.7 H, Lymph % (Auto) 9.3 L, [place] % (Auto) 11.6 H, Eos % (Auto) 1.7, Baso % (Auto) 0.2, Absolute Neuts (auto) 8.5 H, Nucleated RBC % 0, PT 17.1 H, INR 1.4, Sodium 142, Potassium 3.6, Chloride 105, Carbon Dioxide 24.6, Anion Gap 12, BUN 31 H, Creatinine 0.95, Est GFR (MDRD) Non-Af 82, BUN/Creatinine Ratio 33.1 H, Glucose 112 H, Calcium 8.8, Magnesium 2.2 Rhythm: EKG: ECHO: Stress Test: Cardiac Cath: PCI: CT Surgery: Holter monitor: EPS: PPM: CXR: Chest CT Scan: Radiography Diagnostic Testing: Radiology Impression Echocardiogram 09/05/24 16:43 Interpretation Summary Normal LV size. Left ventricular systolic function is normal. The left ventricular ejection fraction is 65 %. Moderate focal aortic valve thickening. Mild concentric left ventricular hypertrophy. Stage 1 diastolic dysfunction. Pulmonary artery systolic pressure is 42 mmHg. The left atrium is mildly enlarged. Ordering Physician: Nicole Troncoso Referring Physician: Srinivas Hopson Performed By: Soha Carrillo RDCS Physical Exam Const alert, oriented x3 and no apparent distress General Appearance: cooperative HEENT hearing grossly normal bilaterally Head and Scalp: atraumatic Eyes EOMs intact bilaterally Neck General: normal visual inspection Chest inspection of chest normal and palpation of chest normal Resp normal respiratory effort Auscultation: clear to auscultation bilaterally Cardio regular rate, regular rhythm, S1 normal heart sound and S2 normal heart sound Jugular Venous Distention: JVD GI normal to inspection, nondistended, normoactive bowel sounds Extremity normal capillary refill and no pedal edema Peripheral Pulses: Yes pulses 2+ throughout and femoral pulses present Skin no rashes or lesions noted Neuro oriented x3 and CN's II-XII intact bilaterally Psych Appearance: grossly normal and appropriate Assessment & Plan Assessment/Plan (1) Chest pain: PLAN: He presents with chest discomfort with fairly classic symptoms of angina. Cardiac catheterization performed today demonstrated a patent saphenous vein graft to the right coronary artery, a high-grade stenosis noted in the saphenous vein graft to the obtuse marginal branch. The previously placed stent was patent. The high-grade stenosis is just prior to the stent placement. The plan to be for the patient to undergo PCI of the saphenous vein graft to the obtuse marginal vessel. Echocardiogram had demonstrated preserved ejection fraction. (2) Stented coronary artery: PLAN: He does have a history of stenting of the saphenous vein graft to the circumflex artery. This will need to be reevaluated. (3) Essential (primary) hypertension: PLAN: His blood pressure is under good control at this particular time and I would not recommend that we make any major changes. (4) HLD (hyperlipidemia): QUALIFIERS: Hyperlipidemia type: pure hypercholesterolemia Qualified Code(s): E78.00 - Pure hypercholesterolemia, unspecified PLAN: Will continue with aggressive risk factor modification. As you know he is not been able to tolerate the statins or WelChol and so he has been on bempedoic acid together with ezetimibe. (5) Carotid artery stenosis: QUALIFIERS: Laterality: right Qualified Code(s): I65.21 - Occlusion and stenosis of right carotid artery PLAN: He does have evidence of carotid artery disease status post TCAR procedure. No neurological deficit is present.
[2024-09-06 13:01] LABS: ACT Activated Clotting Time 233 sec (74-137)
[2024-09-06] MEDS: Pantoprazole Sodium 20 MG Tablet PO (13:52)
[2024-09-06] MEDS: hydroCHLOROthiazide 25 MG Tablet 12.5 MG PO (13:52)
[2024-09-06] MEDS: Montelukast 10 MG Tablet PO (13:52)
[2024-09-06] MEDS: Escitalopram Oxalate 10 MG Tablet PO (13:53)
--- NOTE | 2024-09-06 13:55 | EKG12_ITS ---
Test Reason : post pci Blood Pressure : */* mmHG Vent. Rate : 57 BPM Atrial Rate : 57 BPM P-R Int : 272 ms QRS Dur : 108 ms QT Int : 466 ms P-R-T Axes : 47 -17 89 degrees QTcB Int : 453 ms Sinus bradycardia with 1st degree A-V block Incomplete left bundle branch block ST & T wave abnormality, consider lateral ischemia Abnormal ECG When compared with ECG of 06-Sep-2024 05:20, T wave inversion less evident in Lateral leads Confirmed by ALISHA TITUS, CARLEE ([id number]), managing editor SIMBA ESTRELLA ([id number]) on 09/07/2024 1:21:34 PM Referred By: Confirmed By: CARLEE BRITO MD
[2024-09-06] MEDS: 0.9% Normal Saline (1000mL) 1,000 ML 150 ML IV (13:59)
--- NOTE | 2024-09-06 14:06 | CRPHASE1_ITS ---
Patient Communication Patient Information Former Patient:: Phase I PHII Cardiac Rehab Discussed with Patient:: Yes Guide to Cardiac Rehab Given to Patient:: Yes Cardiac Rehab Facility Choice List Given to Patient:: Yes Communication to Cardiac Rehab [facility]:: [facility] Sessions:: 36 sessions - 3 days/wk, 12 weeks Cardiac Rehabilitation Info Program Information Cardiac Rehabilitation Program Information: Cardiac Rehab The cardiac rehab team at [facility] consists of highly skilled exercise physiologists, nurses, respiratory therapists and physicians working together with you. Our purpose is to help you have a full recovery and achieve the goals you set for yourself. Over the years many of our patients have returned to activities they assumed they would never do again! We can help restore your confidence and motivation to make lifestyle changes that can have a significant impact on your health and quality of life! We can help answer questions and concerns you may have about exercise, lifestyle, medications, diet, stress and anxiety which are common following a hospitalization. WE monitor ECG and vital signs during exercise and discuss your progress with you and report to your physician(s). Cardiac Rehab is proven to help reduce readmissions, improve functional capacity and lower recurrence of problems with your heart. Our Cardiac Rehab program is Certified by the [place] [employer]-Vascular and Pulmonary [employer] (AACVPR) and Accredited by the [place] [employer] through our [facility]. You can contact us at . We invite you to call us with your questions or to get started in our program. If you have other questions or concerns be sure to ask your physician/provider during your follow-up visit. WE look forward to seeing you!
--- NOTE | 2024-09-06 14:07 | CRPH1.INSTRU ---
General Education Discussed with Patient CAD and cardiac anatomy and function:: Patient communicates acknowledgment Explanation of diagnoses and procedures:: Patient communicates acknowledgment Sign/Symptoms of VT:: Patient communicates acknowledgment Antiplatelet therapy: Patient communicates acknowledgment Proper use of NTG-SL: Patient communicates acknowledgment Emergency procedures and activation of EMS: Patient communicates acknowledgment Compliance of all prescribed medications: Patient communicates acknowledgment Smoking Risk Factors Patient Nicotine/Smoking Risk Factors Are:: Never smoked Response Code Nicotine/Smoking Response Code:: Not instructed Dyslipidemia Risk Factors Patient Dyslipidemia Risk Factors Are:: Total Cholesterol, Triglycerides, HDL and LDL Recommendations Recommendations Include:: Lipid profile not available, Reviewed NCEP/ATP guidelines and Therapeutic Lifestyle Change dietary guidelines Response Code Dyslipidemia Response Code:: Patient communicates acknowledgment Overweight/Obesity Risk Factors Patient Overweight/Obesity Risk Factors Are:: BMI Normal [18-25 & < 65 years old], Overweight = 26-29 and Obesity - > or = 30 Recommendations Recommendations Include:: Weight loss of 5-10%, Reduced calorie diet and Exercise 5-7 times/week Response Code Overweight/Obesity:: Patient communicates acknowledgment Hypertension Recommendations Recommendations Include:: Maintain BP <130/85, DASH dietary guidelines, Decrease/maintain normal body weight and Moderation of ETOH Response Code Hypertension:: Patient communicates acknowledgment Heart Disease Risk Factors Patient Heart Disease Risk Factors Are:: Family history of heart disease < 65 years old and Previous cardiac event Recommendations Recommendations Include:: Educated family members of their risk and Educated family members of importance of prevention of heart disease Response Code Heart Disease Response Code:: Patient communicates acknowledgment Metabolic Syndrome Risk Factors Patient Metabolic Syndrome Risk Factors Are [3 of 5]:: Waist circumference > 35 [female] or 40 [male], High triglyceride >150, Hypertension and Low HDL <40 [male] or < 50 [female] Recommendations Recommendations Include:: Encouraged follow-up with Primary Care Physician Response Code Metabolic Syndrome Response Code:: Patient communicates acknowledgment Sedentary Risk Factors Patient Sedentary Risk Factors Are:: Lack of regular exercise Recommendations Recommendations Include:: Aerobic exercise 5-7 times/week for 20-30 minutes continuously, Benefits of regular exercise, Discussed home walking program and Monitored Outpatient Cardiac Rehab Response Code Sedentary Response Code:: Patient communicates acknowledgment Stress Risk Factors Patient Stress Risk Factors Are:: Patient denies stress as a risk factor Recommendations Recommendations Include:: Identification of stressors, and assessment of coping skills and Stress management techniques Response Code Stress Response Code:: Patient communicates acknowledgment
--- NOTE | 2024-09-06 15:47 | CASEMGMT ---
STREET Met with patient to complete STREET form. STREET form and its content were verbally explained and patient's questions were answered to the best of my ability.? Patient voiced understanding and signed STREET form.? Patient provided a copy of signed STREET form and original placed in patient's chart.? Patient had no further questions. Belem Lunsford, Discharge Planning Asst
--- NOTE | 2024-09-06 16:34 | CHAPLAIN ---
Type of Pastoral Visit _x__ Initial Visit ___ Follow-up Visit ___ On-call Visit ___ General Patient Visit ___ Spiritual Assessment ___ Family Conference ___ Bereavement ___ Rapid Response ___ Code Blue ___ Other (describe below) Pastoral Care Referral From _x__ Patient ___ Family ___ Nurse ___ Physician ___ Data Processing Equipment Repairer ___ Sustainability Manager ___ Other (describe below) Sacrament/Intervention _x__ Active listening ___ Anointing ___ Voodoo ___ Bereavement ___ Communion ___ Gilma exploration ___ ___ Life review _x__ Prayer ___ Reconciliation ___ Sacrament of Sick _x__ Supportive presence ___ Wedding ___ Other (describe below) Pastoral Comments patient and spouse are in the room; patient is resting after having a heart catheterization earlier today; pt is able to explain situation and that his goal is to rest now and be calm; spouse adds insights and both welcome a prayer for support; no other needs identified
--- NOTE | 2024-09-06 18:15 | PN.HOSP_ITS ---
Reason for Visit Reason for Visit: Diagnoses Pure hypercholesterolemia, unspecified (09/05/24) Essential (primary) hypertension (09/05/24) Atherosclerotic heart disease of [place] coronary artery without angina pectoris (09/05/24) Occlusion and stenosis of right carotid artery (09/05/24) Chest pain, unspecified (09/05/24) Presence of coronary angioplasty implant and graft (09/05/24) Subjective Subjective Patient was seen and examined today, he underwent a cardiac catheterization which revealed occlusive coronary disease in a proximal SVG to OM, a JAZMIN was inserted into the area. Patient has no complaints of chest pain at this time or shortness of breath. Objective Data Objective Data Vital Signs: Vital Signs Temp Pulse Resp BP Pulse Ox O2 Del Method O2 Flow Rate 97.5 F L 61 15 129/64 H 97 Room Air 2 09/06/24 13:31 09/06/24 14:01 09/06/24 14:01 09/06/24 14:01 09/06/24 14:01 09/06/24 14:01 09/06/24 07:33 Oxygen Flow Rate (L/min) 2 Oxygen Delivery Method Room Air Weight: 89.6 kg Body Mass Index (BMI) 30.0 Lab / Micro Data 09/06/24 05:41 09/06/24 05:41 Labs: Laboratory Results - last 24 hr 09/06/24 05:41: WBC 11.2 H, RBC 3.68 L, Hgb 11.3 L, Hct 34.5 L, MCV 93.8, MCH 30.7, MCHC 32.8, RDW Std Deviation 53.4 H, RDW Coeff of Kadeem 15.5 H, Plt Count 349, MPV 9.2, Immature Gran % (Auto) 1.500 H, Neut % (Auto) 75.7 H, Lymph % (Auto) 9.3 L, Wilkes % (Auto) 11.6 H, Eos % (Auto) 1.7, Baso % (Auto) 0.2, A bsolute Neuts (auto) 8.5 H, Absolute Lymphs (auto) 1.05, Nucleated RBC % 0, PT 17.1 H, INR 1.4, Sodium 142, Potassium 3.6, Chloride 105, Carbon Dioxide 24.6, Anion Gap 12, BUN 31 H, Creatinine 0.95, Estim Creat Clear Calc 69.69, Est GFR (MDRD) Non-Af 82, BUN/Creatinine Ratio 33.1 H, Glucose 112 H, Calcium 8.8, Magnesium 2.2, TSH 4.610 H 09/06/24 11:45: Activated Clotting Time 233 H Radiography Diagnostic Testing: Radiology Impression Echocardiogram 09/05/24 16:43 Interpretation Summary Normal LV size. Left ventricular systolic function is normal. The left ventricular ejection fraction is 65 %. Moderate focal aortic valve thickening. Mild concentric left ventricular hypertrophy. Stage 1 diastolic dysfunction. Pulmonary artery systolic pressure is 42 mmHg. The left atrium is mildly enlarged. Ordering Physician: Nicole Troncoso Referring Physician: Srinivas Hopson Performed By: Soha Carrillo RDCS Physical Exam Const alert, oriented x3, no apparent distress and healthy appearing General Appearance: cooperative, well kempt and well developed Orientation / Consciousness: awake, oriented to person, oriented to place and oriented to time HEENT normocephalic, head/scalp atraumatic and moist oral mucous membranes Eyes PERRL, EOMs intact bilaterally and conjunctivae normal Neck supple, no JVD, thyroid normal and no carotid bruits General: trachea midline Resp normal respiratory effort, no retractions, no use of accessory muscles and clear to auscultation bilaterally Auscultation: Negative for rales, rhonchi or wheezes Cardio regular rate, regular rhythm, S1 normal heart sound, S2 normal heart sound, no murmurs, no rub and no gallops GI normal to inspection, nondistended, normoactive bowel sounds, soft to palpation, non-tender and non-distended Extremity no clubbing, cyanosis or edema Skin no rashes or lesions noted General Skin Exam: no breakdown Neuro oriented x3, CN's II-XII intact bilaterally, moves all extremities, no focal motor deficits and no sensory deficits noted Sensorium / Orientation: awake and alert Speech: speech normal Psych affect normal Assessment & Plan Assessment/Plan (1) NSTEMI, initial episode of care: PLAN: Plan 1. [id number]-uceia patient is status post JAZMIN insertion, echocardiogram shows a normal ejection fraction and mild pulmonary hypertension #2 hyperlipidemia-patient is on Nexlizet, patient's last lipid profile was drawn 2 years ago, I will repeat the lipid profile tomorrow morning #3 essential hypertension-patient will remain on his current medications #4 hypothyroidism-patient is on Synthroid Total clinical time spent by myself addressing the patient's medical issues, reviewing all of his data, and collaborating with patient's care team: 35 minutes Charges/Coding Visit Charges Inpatient E&M: 21209 Subs Hosp L2
[2024-09-06] MEDS: Tamsulosin HCl 0.4 MG Capsule PO (20:51)
[2024-09-06] MEDS: Finasteride 5 MG Tablet PO (20:52)
[2024-09-07 03:13] VITALS: BMI 29.5
[2024-09-07 03:20] VITALS: BP 136/66; PULSE 65; RESP 16; TEMP 36.6; O2SAT 99
[2024-09-07 05:02] LABS: Hematocrit 31.4 % (40-54); Hemoglobin 10.2 g/dL (13.0-16.5); Mean Corp Hgb Conc 32.5 g/dL (32-36); Mean Corpuscular Hgb 30.8 pg (27.0-32.0); Mean Corpuscular Volume 94.9 fL (80-94); Mean Platelet Vol. 9.1 fl (6.2-12.0); Platelet Count 305 K/mm3 (150-450); RBC Distribution Width CV 15.5 % (11.6-14.6); Red Blood Count 3.31 M/mm3 (4.6-6.2); White Blood Count 12.2 K/mm3 (4.4-11.0)
[2024-09-07] MEDS: Levothyroxine 112 MCG Tablet PO (05:23)
[2024-09-07 05:46] LABS: ALB/GLOB Ratio 1.5 RATIO (0.9-2.4); AST(SGOT) 17 U/L (<=37); Alanine Aminotransfer ALT/SGPT 14 U/L (<=46); Albumin, Serum 3.5 g/dL (3.4-4.8); Alkaline Phosphatase 51 U/L (40-129); Anion Gap 12 (5-15); BUN 23 mg/dL (4-19); BUN/Creat Ratio 25.9 RATIO (10-20); Calcium,Total 8.4 mg/dL (7.6-11.0); Carbon Dioxide 22.5 mmol/L (21.0-32.0); Chloride 104 mmol/L (98-108); EST Glomerular Filtration Rate 87 (>60); Estimated Creatinine Clearance 72.91 ml/min (50-250); Globulin 2.3 g/dL (2.2-4.2); Glucose 127 mg/dL (70-99); Potassium 3.4 mmol/L (3.3-5.1); Protein, Total 5.8 g/dL (5.9-8.4); Sodium Level 139 mmol/L (133-145); Total Bilirubin 0.24 mg/dL (0.00-1.30)
[2024-09-07 06:20] LABS: Cholesterol 124 mg/dL (<=200); High Density Lipoprotein 36 mg/dL; Low Density Lipoprotein Calc. 58 mg/dL; Triglycerides 152 mg/dL; Very Low Density Lipoprotein 30 mg/dL (5-40); cholesterol:hdl ratio screen 3.48
[2024-09-07 07:42] VITALS: PULSE 54; RESP 16; O2SAT 98
[2024-09-07] MEDS: Albuterol 2.5 MG/3 ML VIAL.NEB. INHALATION (07:42)
[2024-09-07] MEDS: Budesonide Respules 0.5 MG/2 ML AMPUL.NEB. INHALATION (07:43)
[2024-09-07 08:45] VITALS: BP 139/66; PULSE 58; RESP 17; TEMP 36.7; O2SAT 98
[2024-09-07] MEDS: hydroCHLOROthiazide 25 MG Tablet 12.5 MG PO (09:32)
[2024-09-07] MEDS: Escitalopram Oxalate 10 MG Tablet PO (09:33)
[2024-09-07] MEDS: Losartan Potassium 100 MG Tablet PO (09:33)
[2024-09-07] MEDS: amLODIPine 10 MG Tablet PO (09:33)
[2024-09-07 09:35] VITALS: PULSE 58
[2024-09-07] MEDS: Metoprolol(XL)Succ 25 MG Tablet 12.5 MG PO (09:35)
[2024-09-07] MEDS: Montelukast 10 MG Tablet PO (09:35)
[2024-09-07] MEDS: Pantoprazole Sodium 20 MG Tablet PO (09:35)
[2024-09-07] MEDS: Clopidogrel Bisulfate 75 MG Tablet PO (09:35)
[2024-09-07] MEDS: Aspirin E.C. 81 MG Tablet PO (10:20)
--- NOTE | 2024-09-07 10:37 | PN.CARD_ITS ---
Subjective Subjective Patient seen and evaluated. Appears to be doing well. No complaints. Objective Data Vital Signs: Vital Signs Temp Pulse Resp BP Pulse Ox O2 Del Method O2 Flow Rate 98.0 F 58 L 17 139/66 H 98 Room Air 2 09/07/24 08:45 09/07/24 09:35 09/07/24 08:45 09/07/24 08:45 09/07/24 08:45 09/07/24 08:45 09/07/24 03:20 Oxygen Flow Rate (L/min) 2 Oxygen Delivery Method Room Air Weight: 193 lb 12.581 oz Body Mass Index (BMI) 29.5 Intake & Output: Intake and Output for Last 24 Hours 09/05/24 09/06/24 09/07/24 23:59 23:59 23:59 Intake Total 1475 / 1475 Output Total 600 / 600 Balance 875 / 875 Lab / Micro Data 09/07/24 04:35 09/07/24 04:35 Labs: Laboratory Results - last 24 hr 09/06/24 11:45: Activated Clotting Time 233 H 09/07/24 04:35: WBC 12.2 H, RBC 3.31 L, Hgb 10.2 L, Hct 31.4 L, MCV 94.9 H, MCH 30.8, MCHC 32.5, RDW Std Deviation 54.0 H, RDW Coeff of Kadeem 15.5 H, Plt Count 305, MPV 9.1, Sodium 139, Potassium 3.4, Chloride 104, Carbon Dioxide 22.5, Anion Gap 12, BUN 23 H, Creatinine 0.90, Estim Creat Clear Calc 72.91, Est GFR (MDRD) Non-Af 87, BUN/Creatinine Ratio 25.9 H, Glucose 127 H, Calcium 8.4, Total Bilirubin 0.24, AST 17, ALT 14, Alkaline Phosphatase 51, Total Protein 5.8 L, Albumin 3.5, Globulin 2.3, Albumin/Globulin Ratio 1.5, Triglycerides 152, Cholesterol 124, LDL Cholesterol, Calc 58, VLDL Cholesterol 30, HDL Cholesterol 36 L, Cholesterol/HDL Ratio 3.48 Cardiology Labs/Tests 09/07/24 04:35: WBC 12.2 H, RBC 3.31 L, Hgb 10.2 L, Hct 31.4 L, MCV 94.9 H, MCH 30.8, MCHC 32.5, Plt Count 305, MPV 9.1, Sodium 139, Potassium 3.4, Chloride 104, Carbon Dioxide 22.5, Anion Gap 12, BUN 23 H, Creatinine 0.90, Est GFR (MDRD) Non-Af 87, BUN/Creatinine Ratio 25.9 H, Glucose 127 H, Calcium 8.4, Total Bilirubin 0.24, Triglycerides 152, Cholesterol 124, VLDL Cholesterol 30, HDL Cholesterol 36 L, Cholesterol/HDL Ratio 3.48 Rhythm: EKG: ECHO: Stress Test: Cardiac Cath: PCI: CT Surgery: Holter monitor: EPS: PPM: CXR: Chest CT Scan: Radiography Diagnostic Testing: Radiology Impression Echocardiogram 09/05/24 16:43 Interpretation Summary Normal LV size. Left ventricular systolic function is normal. The left ventricular ejection fraction is 65 %. Moderate focal aortic valve thickening. Mild concentric left ventricular hypertrophy. Stage 1 diastolic dysfunction. Pulmonary artery systolic pressure is 42 mmHg. The left atrium is mildly enlarged. Ordering Physician: Nicole Troncoso Referring Physician: Srinivas Hopson Performed By: Soha Carrillo RDCS Physical Exam Const alert, oriented x3 and no apparent distress General Appearance: cooperative HEENT hearing grossly normal bilaterally Head and Scalp: atraumatic Eyes EOMs intact bilaterally Neck General: normal visual inspection Chest inspection of chest normal and palpation of chest normal Resp normal respiratory effort Auscultation: clear to auscultation bilaterally Cardio regular rate, regular rhythm, S1 normal heart sound and S2 normal heart sound Jugular Venous Distention: JVD GI normal to inspection, nondistended, normoactive bowel sounds Extremity normal capillary refill and no pedal edema Peripheral Pulses: Yes pulses 2+ throughout and femoral pulses present Skin no rashes or lesions noted Neuro oriented x3 and CN's II-XII intact bilaterally Psych Appearance: grossly normal and appropriate Assessment & Plan Assessment/Plan (1) Chest pain: PLAN: He presents with chest discomfort with fairly classic symptoms of angina. Cardiac catheterization performed today demonstrated a patent saphenous vein graft to the right coronary artery, a high-grade stenosis noted in the saphenous vein graft to the obtuse marginal branch. The previously placed stent was patent. The high-grade stenosis is just prior to the stent placement. He did undergo PCI to the saphenous vein graft obtuse marginal branch successfully and is doing well. He will be discharged for outpatient follow-up. Echocardiogram had demonstrated preserved ejection fraction. (2) Stented coronary artery: PLAN: He does have a history of stenting of the saphenous vein graft to the circumflex artery. (3) Essential (primary) hypertension: PLAN: His blood pressure is under good control at this particular time and I would not recommend that we make any major changes. (4) HLD (hyperlipidemia): QUALIFIERS: Hyperlipidemia type: pure hypercholesterolemia Q ualified Code(s): E78.00 - Pure hypercholesterolemia, unspecified PLAN: Will continue with aggressive risk factor modification. As you know he is not been able to tolerate the statins or WelChol and so he has been on bempedoic acid together with ezetimibe. (5) Carotid artery stenosis: QUALIFIERS: Laterality: right Qualified Code(s): I65.21 - Occlusion and stenosis of right carotid artery PLAN: He does have evidence of carotid artery disease status post TCAR procedure. No neurological deficit is present.
--- NOTE | 2024-09-07 11:58 | DCINST_ITS ---
Discharge Instructions Diet Discharge Diet: No restrictions DC O2, CPAP, BIPAP needs Home O2 Discharge instructions: No Dressing / Incision Discharge Activity: Return to Normal Activity Weight Bearing Status: Full weight bearing Follow Up Care Test Results: Test results from this visit will be discussed in further detail at your follow- up appointment, if applicable. Discharge Plan Admission Admit Date/Time: 09/05/24 15:59 Primary Reason for Your Visit: Type II VT Attending Provider: Gino Gleason Primary Care Provider: Srinivas Hopson Consulting Providers: Reza Velez; Nicole Troncoso Discharge Orders/Prescriptions Prescriptions: Continued tamsulosin 0.4 mg capsule,extended release 24hr 0.4 mg PO QHS 90 Days Qty: 90 Patient Comments: levocetirizine 5 mg tablet 5 mg PO QHS montelukast 10 mg tablet 10 mg PO DAILY 90 Days Qty: 90 Patient Comments: epinephrine [EpiPen Jr] 0.15 mg/0.3 mL auto-injector See Rx Instructions IM .COMPLEX Patient Comments: Take as directed, IM Rx Instructions: Take as directed, IM aspirin 81 mg tablet,delayed release (DR/EC) 81 mg PO BID levothyroxine 112 mcg tablet 112 mcg PO DAILY escitalopram oxalate 10 mg tablet 10 mg PO DAILY Patient Comments: UNSURE IF TAKING albuterol sulfate 90 mcg/actuation HFA aerosol inhaler 2 puff inhalation Q6H PRN (Reason: shortness of breath or wheezing) nitroglycerin 0.4 mg tablet, sublingual 0.4 mg SUBLINGUAL Q5-15M PRN (Reason: chest pain) Qty: 25 3RF Rx Instructions: until response; do not exceed 3 doses per episode primidone 50 mg tablet 50 mg PO ONCE Patient Comments: UNSURE IF TAKING finasteride 5 mg tablet 5 mg PO QHS (DME) Oxygen at night See Rx Instructions .ROUTE .MEDSUPPLY Rx Instructions: 2L at night fluticasone propion-salmeterol [Advair HFA] 115-21 mcg/actuation HFA aerosol inhaler 2 inh INHALATION BID Patient Comments: USES NEEDED pantoprazole 20 mg tablet,delayed release (DR/EC) 20 mg PO DAILY acetaminophen [Arthritis Pain Relief (acetam)] 650 mg tablet extended release 650 mg PO Q8H PRN (Reason: fever or pain) Otezla 30 mg tablet 30 mg PO BID Nexlizet 180-10 mg tablet 1 tablet PO DAILY multivitamin Tablet 1 tablet PO DAILY cholecalciferol (vitamin D3) 50 mcg (2,000 unit) tablet 2,000 unit PO DAILY ascorbic acid (vitamin C) 1,000 mg tablet 1 gm PO DAILY omega [id number]-fish oil 1,600-500-800 mg/5 mL liquid 5 ml PO DAILY hydralazine 25 mg tablet 25 mg PO BID Qty: 60 11RF Patient Comments: UNSURE IF TAKING amlodipine 10 mg tablet 10 mg PO DAILY Qty: 90 3RF clopidogrel 75 mg tablet 75 mg PO DAILY Qty: 90 3RF losartan-hydrochlorothiazide 100-12.5 mg tablet 1 tab PO DAILY Qty: 90 3RF metoprolol succinate 25 mg tablet extended release 24 hr 12.5 mg PO QDAY Qty: 45 3RF Rx Instructions: Patient is to take a half a pill once daily Discontinued furosemide [Lasix] 40 mg tablet 40 mg PO QDAY Qty: 3 0RF Rx Instructions: Take 1 tablet by mouth daily for 3 days Referrals / Follow Up: Reza Velez MD [Med Staff - Active Staff] - See Referral Note (In 3 weeks-call for an appointment) Srinivas Hopson MD [Primary Care Provider] - Disposition Disposition (needs filled in before D/C Order can be placed): Home, Self Care
[2024-09-07 12:00] VITALS: BP 131/58; PULSE 58; RESP 17; TEMP 37; O2SAT 98
--- NOTE | 2024-09-07 12:04 | PCM.DC.SUM ---
Providers Date of Admission: 09/05/24 Date of Discharge: 09/07/24 Primary Care Physician: Dr. Srinivas Hopson MD Consultations 09/05/24 16:43 Consult: Cardiology Routine Consulting Provider: Reza Velez Reason for Consult: Chest Pain EMERGENT Consult: No MD Notified: Yes Date Notified: 09/05/24 Time Notified: 16:26 Method of Notification: Verbal Reason For Visit: CHEST PAIN Diagnosis Discharge Diagnosis (1) Chest pain: Status: Acute Code(s): R07.9 - Chest pain, unspecified (2) Stented coronary artery: Status: Acute Code(s): Z95.5 - Presence of coronary angioplasty implant and graft (3) Essential (primary) hypertension: Status: Chronic Code(s): I10 - Essential (primary) hypertension (4) HLD (hyperlipidemia): Status: Chronic Code(s): E78.5 - Hyperlipidemia, unspecified Qualifiers: Hyperlipidemia type: pure hypercholesterolemia Qualified Code(s): E78.00 - Pure hypercholesterolemia, unspecified (5) Carotid artery stenosis: Status: Chronic Code(s): I65.29 - Occlusion and stenosis of unspecified carotid artery Qualifiers: Laterality: right Qualified Code(s): I65.21 - Occlusion and stenosis of right carotid artery Plan 1. [id number] patient is status post JAZMIN insertion, echocardiogram shows a normal ejection fraction and mild pulmonary hypertension #2 hyperlipidemia-patient is on Nexlizet, patient's last lipid profile was drawn 2 years ago, I will repeat the lipid profile tomorrow morning #3 essential hypertension-patient will remain on his current medications #4 hypothyroidism-patient is on Synthroid Total clinical time spent by myself addressing the patient's medical issues, reviewing all of his data, and collaborating with patient's care team: 35 minutes Medications at Discharge Home Medications aspirin 81 mg tablet,delayed release 81 mg PO BID [facility] 04/15/17 epinephrine 0.15 mg/0.3 mL injection,auto-injector (EpiPen Jr) See Rx Instructions IM .COMPLEX ANAPHALAXIS 04/15/17 levocetirizine 5 mg tablet 5 mg PO QHS ALLERGIES 04/15/17 montelukast 10 mg tablet 10 mg PO DAILY ASTHMA 90 days #90 tabs 04/15/17 tamsulosin 0.4 mg capsule 0.4 mg PO QHS BPH 90 days #90 caps 04/15/17 apremilast 30 mg tablet (Otezla) 30 mg PO BID PSORIASIS 06/20/20 ascorbic acid (vitamin C) 1,000 mg tablet 1 gm PO DAILY SUPPLEMENT 06/20/20 bempedoic acid 180 mg-ezetimibe 10 mg tablet (Nexlizet) 1 tablet PO DAILY HLD 06/20/20 cholecalciferol (vitamin D3) 50 mcg (2,000 unit) tablet 2,000 unit PO DAILY SUPPLEMENT 06/20/20 multivitamin 1 tablet PO DAILY SUPPLEMENT 06/20/20 omega 2-whq-efs-fish oil 1,600 mg-500 mg-800 mg/5 mL oral liquid 5 ml PO DAILY SUPPLEMENT 06/20/20 levothyroxine 112 mcg tablet 112 mcg PO DAILY HYPOTHROID 10/30/20 escitalopram oxalate 10 mg tablet 10 mg PO DAILY ANXIETY 05/01/22 nitroglycerin 0.4 mg sublingual tablet 0.4 mg sublingual Q5-15M PRN chest pain #25 tabs 02/19/23 albuterol sulfate 90 mcg/actuation aerosol inhaler 2 puff inhalation Q6H PRN shortness of breath or wheezing 07/02/23 hydralazine 25 mg tablet 25 mg PO BID HTN #60 tabs 01/20/24 amlodipine 10 mg tablet 10 mg PO DAILY HTN #90 tabs 02/01/24 clopidogrel 75 mg tablet 75 mg PO DAILY BLOOD THINNER #90 tabs 02/15/24 losartan 100 mg-hydrochlorothiazide 12.5 mg tablet 1 tab PO DAILY HTN #90 tabs 05/12/24 Oxygen at night 06/22/24 finasteride 5 mg tablet 5 mg PO QHS prostate 06/22/24 primidone 50 mg tablet 50 mg PO ONCE inflammation 06/22/24 acetaminophen 650 mg tablet,extended release (Arthritis Pain Relief (acetaminophen) ER) 650 mg PO Q8H PRN fever or pain 07/27/24 fluticasone propionate 115 mcg-salmeterol 21 mcg/actuation HFA inhaler (Advair HFA) 2 inh inhalation BID breathing 07/27/24 pantoprazole 20 mg tablet,delayed release 20 mg PO DAILY 07/27/24 metoprolol succinate 25 mg tablet,extended release 24 hr 12.5 mg (1/2 x 25 mg) PO QDAY blood pressure #45 tabs 08/02/24 Hospital Course Operations None Procedures 2-D Echocardiogram and Cardiac catheterization Summary of Care Provided Minutes Spent on Discharge: 31 Hospital Course: This 78-year-old white male was seen in the emergency room at [facility] with complaints of chest pain worsening on exertion and shortness of breath. Patient stated the chest pain got worse with exertion and got better with rest. Labs in the emergency room showed a white blood cell count of 13.4, hemoglobin of 11.9, chest x-ray showed no acute abnormalities, beta nitric peptide was 667 and troponin was 98 with a repeat troponin at 101. Patient's EKG showed no acute ischemic changes, sinus bradycardia was noted with a first-degree AV block and incomplete left bundle branch block. There was ST and T wave abnormality in the lateral wall leads.. Cardiology was contacted and recommended admitting the patient for further cardiac workup. Patient was placed in observation status on PCU and was seen in consultation by cardiology. A cardiac catheterization was recommended, the patient underwent a catheterization which showed occlusive coronary disease in the proximal saphenous venous graft to the OM, a JAZMIN was placed in this area successfully. There were no complications of the procedure. On 09/07/2024, patient was seen and examined: On examination he appeared in good health and spirits. Vital signs as documented. Skin warm and dry and without overt rashes. Neck without JVD, neck was supple, trachea midline, thyroid was normal. Lungs clear bilaterally, normal air movement was noted. Heart exam notable for regular rhythm, normal sounds and absence of murmurs, rubs or gallops. Abdomen unremarkable and without evidence of organomegaly, masses, or abdominal aortic enlargement. Bowel sounds are present, abdomen is not distended. Extremities nonedematous, no cyanosis was noted, no clubbing was noted. Neuro: Cranial nerves II through XII are grossly intact, no focal motor deficits were noted, sensation to light touch and pinprick intact, motor exam 5/5 throughout. Psych: Patient is alert and oriented x3, he does not appear anxious or depressed, he does not appear agitated. Patient was discharged home in stable condition on 09/07/2024. Weight / BMI Weight Weight: 87.9 kg Body Mass Index (BMI) 29.5 ABG / Lab / Microbiology Data 09/07/24 04:35 09/07/24 04:35 Laboratory: Laboratory Results - last 24 hr 09/06/24 11:45: Activated Clotting Time 233 H 09/07/24 04:35: WBC 12.2 H, RBC 3.31 L, Hgb 10.2 L, Hct 31.4 L, MCV 94.9 H, MCH 30.8, MCHC 32.5, RDW Std Deviation 54.0 H, RDW Coeff of Kadeem 15.5 H, Plt Count 305, MPV 9.1, Sodium 139, Potassium 3.4, Chloride 104, Carbon Dioxide 22.5, Anion Gap 12, BUN 23 H, Creatinine 0.90, Estim Creat Clear Calc 72.91, Est GFR (MDRD) Non-Af 87, BUN/Creatinine Ratio 25.9 H, Glucose 127 H, Calcium 8.4, Total Bilirubin 0.24, AST 17, ALT 14, Alkaline Phosphatase 51, Total Protein 5.8 L, Albumin 3.5, Globulin 2.3, Albumin/Globulin Ratio 1.5, Triglycerides 152, Cholesterol 124, LDL Cholesterol, Calc 58, VLDL Cholesterol 30, HDL Cholesterol 36 L, Cholesterol/HDL Ratio 3.48 D/C Instructions Discharge Diet: No restrictions Weight Bearing Status: Full weight bearing DC O2, CPAP, BIPAP Needs Home O2 Discharge instructions: No Meaningful Use Info Meaningful Use Meaningful Use Diagnoses (Choose all that apply): AMI AMI/Post PCI/Angioplasty Aspirin given w/in 24hrs of arrival?: Yes ASA at discharge?: Yes Antiplatelet Therapy at Discharge:: Yes Statins at discharge?: Yes Steven/ARB at discharge?: Yes Beta [place] at discharge?: Yes Done w/ Acute [place] measure.: Yes Documented LVEF (%): 65 Ischemic Stroke Statin Dosing Therapy Reference: STATIN DOSE THERAPY REFERENCE: * Patients > 75 years receive moderate or high dose statin therapy. * Patients 75 years or YOUNGER should receive HIGH intensity statin dose unless contraindicated. You will be required to document reason for non-treatment if statin daily dose does not meet guidelines. HIGH DOSE STATIN THERAPY DAILY Atorvastatin > than or = to 40 mg Rosuvastatin > than or = to 20 mg Amlodipine + Atorvastatin > than or = to 2.5/40 mg Ezetimibe + Simvastatin 10/80 mg Simvastatin 80mg Discharge Plan Admission Admit Date/Time: 09/05/24 15:59 Primary Reason for Your Visit: Type II [place] Attending Provider: Gino Gleason Primary Care Provider: Srinivas Hopson Consulting Providers: Reza Velez; Nicole Troncoso Discharge Orders/Prescriptions Prescriptions: Continued tamsulosin 0.4 mg capsule,extended release 24hr 0.4 mg PO QHS 90 Days Qty: 90 Patient Comments: levocetirizine 5 mg tablet 5 mg PO QHS montelukast 10 mg tablet 10 mg PO DAILY 90 Days Qty: 90 Patient Comments: epinephrine [EpiPen Jr] 0.15 mg/0.3 mL auto-injector See Rx Instructions IM .COMPLEX Patient Comments: Take as directed, IM Rx Instructions: Take as directed, IM aspirin 81 mg tablet,delayed release (DR/EC) 81 mg PO BID levothyroxine 112 mcg tablet 112 mcg PO DAILY escitalopram oxalate 10 mg tablet 10 mg PO DAILY Patient Comments: UNSURE IF TAKING albuterol sulfate 90 mcg/actuation HFA aerosol inhaler 2 puff inhalation Q6H PRN (Reason: shortness of breath or wheezing) nitroglycerin 0.4 mg tablet, sublingual 0.4 mg SUBLINGUAL Q5-15M PRN (Reason: chest pain) Qty: 25 3RF Rx Instructions: until response; do not exceed 3 doses per episode primidone 50 mg tablet 50 mg PO ONCE Patient Comments: UNSURE IF TAKING finasteride 5 mg tablet 5 mg PO QHS (DME) Oxygen at night See Rx Instructions .ROUTE .MEDSUPPLY Rx Instructions: 2L at night fluticasone propion-salmeterol [Advair HFA] 115-21 mcg/actuation HFA aerosol inhaler 2 inh INHALATION BID Patient Comments: USES NEEDED pantoprazole 20 mg tablet,delayed release (DR/EC) 20 mg PO DAILY acetaminophen [Arthritis Pain Relief (acetam)] 650 mg tablet extended release 650 mg PO Q8H PRN (Reason: fever or pain) Otezla 30 mg tablet 30 mg PO BID Nexlizet 180-10 mg tablet 1 tablet PO DAILY multivitamin Tablet 1 tablet PO DAILY cholecalciferol (vitamin D3) 50 mcg (2,000 unit) tablet 2,000 unit PO DAILY ascorbic acid (vitamin C) 1,000 mg tablet 1 gm PO DAILY omega 1-ayj-qvu-fish oil 1,600-500-800 mg/5 mL liquid 5 ml PO DAILY hydralazine 25 mg tablet 25 mg PO BID Qty: 60 11RF Patient Comments: UNSURE IF TAKING amlodipine 10 mg tablet 10 mg PO DAILY Qty: 90 3RF clopidogrel 75 mg tablet 75 mg PO DAILY Qty: 90 3RF losartan-hydrochlorothiazide 100-12.5 mg tablet 1 tab PO DAILY Qty: 90 3RF metoprolol succinate 25 mg tablet extended release 24 hr 12.5 mg PO QDAY Qty: 45 3RF Rx Instructions: Patient is to take a half a pill once daily Discontinued furosemide [Lasix] 40 mg tablet 40 mg PO QDAY Qty: 3 0RF Rx Instructions: Take 1 tablet by mouth daily for 3 days Referrals / Follow Up: Reza Velez MD [Med Staff - Active Staff] - 09/21/24 9:30 am (In 3 weeks-call for an appointment appointment with Carmencita Sarabia N.P. ) Srinivas Hopson MD [Primary Care Provider] - (Left message with office to call and set up appointment. If you do not hear from the office within 2-3 business days, please call the office to schedule an appointment. ) Disposition Disposition (needs filled in before D/C Order can be placed): Home, Self Care Charges/Coding Visit Charges Inpatient E&M: 05888 Disch Hosp >30min
--- NOTE | 2024-09-07 15:19 | CASEMGMT ---
Patient has order for discharge. RN CM in to discuss needs at discharge. Patient denies needs or help at discharge. Patient had no further questions or concerns
--- NOTE | 2024-09-07 16:19 | PHA.DC.MR.R ---
Pharmacy [place] Med Reconciliation Pharmacy Service has performed discharge medication reconciliation for this patient. The patient's discharge medication list was reviewed for discrepancies and discrepancies were resolved. Medications at Discharge Home Medications aspirin 81 mg tablet,delayed release 81 mg PO BID [facility] 04/15/17 epinephrine 0.15 mg/0.3 mL injection,auto-injector (EpiPen Jr) See Rx Instructions IM .COMPLEX ANAPHALAXIS 04/15/17 levocetirizine 5 mg tablet 5 mg PO QHS ALLERGIES 04/15/17 montelukast 10 mg tablet 10 mg PO DAILY ASTHMA 90 days #90 tabs 04/15/17 tamsulosin 0.4 mg capsule 0.4 mg PO QHS BPH 90 days #90 caps 04/15/17 apremilast 30 mg tablet (Otezla) 30 mg PO BID PSORIASIS 06/20/20 ascorbic acid (vitamin C) 1,000 mg tablet 1 gm PO DAILY SUPPLEMENT 06/20/20 bempedoic acid 180 mg-ezetimibe 10 mg tablet (Nexlizet) 1 tablet PO DAILY HLD 06/20/20 cholecalciferol (vitamin D3) 50 mcg (2,000 unit) tablet 2,000 unit PO DAILY SUPPLEMENT 06/20/20 multivitamin 1 tablet PO DAILY SUPPLEMENT 06/20/20 omega 7-gbv-jes-fish oil 1,600 mg-500 mg-800 mg/5 mL oral liquid 5 ml PO DAILY SUPPLEMENT 06/20/20 levothyroxine 112 mcg tablet 112 mcg PO DAILY HYPOTHROID 10/30/20 escitalopram oxalate 10 mg tablet 10 mg PO DAILY ANXIETY 05/01/22 nitroglycerin 0.4 mg sublingual tablet 0.4 mg sublingual Q5-15M PRN chest pain #25 tabs 02/19/23 albuterol sulfate 90 mcg/actuation aerosol inhaler 2 puff inhalation Q6H PRN shortness of breath or wheezing 07/02/23 hydralazine 25 mg tablet 25 mg PO BID HTN #60 tabs 01/20/24 amlodipine 10 mg tablet 10 mg PO DAILY HTN #90 tabs 02/01/24 clopidogrel 75 mg tablet 75 mg PO DAILY BLOOD THINNER #90 tabs 02/15/24 losartan 100 mg-hydrochlorothiazide 12.5 mg tablet 1 tab PO DAILY HTN #90 tabs 05/12/24 Oxygen at night 06/22/24 finasteride 5 mg tablet 5 mg PO QHS prostate 06/22/24 primidone 50 mg tablet 50 mg PO ONCE inflammation 06/22/24 acetaminophen 650 mg tablet,extended release (Arthritis Pain Relief (acetaminophen) ER) 650 mg PO Q8H PRN fever or pain 07/27/24 fluticasone propionate 115 mcg-salmeterol 21 mcg/actuation HFA inhaler (Advair HFA) 2 inh inhalation BID breathing 07/27/24 pantoprazole 20 mg tablet,delayed release 20 mg PO DAILY 07/27/24 metoprolol succinate 25 mg tablet,extended release 24 hr 12.5 mg (1/2 x 25 mg) PO QDAY blood pressure #45 tabs 08/02/24
--- NOTE | 2024-10-24 09:45 | CL.D_ITS ---
Patient Name: DAVID MIXON Study Date: 09/06/2024 Performing: Reza Velez MD Ht: 68 inches 172.72 cm : 1945 Wt: 197.53 lbs 89.6 kg Age: 78 Gender: male BSA: 2.03 PROCEDURE(S) PERFORMED DC04-(26194)LHC/COR/CABG IC14-(17014/[id number])GRAFT-JAZMIN AND/OR PTCA, SINGLE GRAFT CLINICAL PROFILE AND INDICATIONS Indications: New Onset Angina <= 2 months Heart Failure: None Stress/Imaging Stress/Image Study Performed: No CAD Presentations: Non-STEMI. Symptom onset Date/Time: 09/06/24 Time Not Available CONCLUSIONS The VARGAS was noted to be patent at the previous cardiac catheterization but this suspected culprit lesion is the saphenous vein graft obtuse marginal branch with a high-grade proximal stenosis. The saphenous vein graft to the right coronary artery is patent. RECOMMENDATIONS Referred for immediate PCI DESCRIPTION OF PROCEDURE The patient arrived to the procedure lab. The risks and benefits of the procedure as well as a full description of our services here and current unavailability of surgical backup were fully explained to the patient and/or their significant other prior to the catheterization. The Timeout was completed, verifying the correct patient and procedure. The patient's procedural site was prepped and draped in the usual fashion. Local anesthetic was given subcutaneously to right radial region with Lidocaine 2%. Using a modified Seldinger technique, arterial access was obtained via the right radial artery, a 6Fr sheath was inserted. Saphenous Vein graft to the RCA selective angiography was performed in multiple views using a 5 Fr. AR MOD catheter. Saphenous Vein graft to the Circumflex selective angiography was performed in multiple views using a 5 Fr. AR MOD catheter. CORONARY ANGIOGRAPHY DOMINANCE: Right Dominant LEFT HEART ASSESSMENT Left Ventricular Ejection Fraction: by Echo 60 % Normal LV wall motion Normal Left Ventricular systolic function GRAFTS: Saphenous Vein graft to the RPDA is patent Saphenous Vein graft to the 1st OM This vessel is noted to be patent but the previously stented vessel is patent but there is a high-grade stenosis just prior to the stented vessel. The distal anastomotic site and distal vessels appear to be free of significant disease. COMPLICATIONS PROCEDURE MEDICATIONS Versed 1 mg IV Fentanyl 50 mcg IV Oxygen: 2 L/min via nasal cannula Heparin given IA 09/06/2024 12:03:25 Heparin 7000 unit(s) IV 09/06/2024 12:31:18 Verapamil 2.5mg, Ntg 100mcgs, 3000 units of Heparin given IA 09/06/2024 12:03:25 SUMMARY OF HEMODYNAMIC DATA Time AIR REST ECG 11:48:35 AO 145/65 (98) SA 12:16:28 AO 161/69 (107) 12:33:25 AO 149/48 (93) 12:34:02 Signed By Reza Velez MD On 09/06/2024 12:40:24 Reza Velez MD
--- NOTE | 2024-10-24 09:45 | CL.I_ITS ---
Patient Name: DAVID MIXON Study Date: 09/06/2024 Performing: Earline Mckeon MD Ht: 68 inches 172.72 cm : 1945 Wt: 197.53 lbs 89.6 kg Age: 78 Gender: male BSA: 2.03 PROCEDURE(S) PERFORMED IC14-([id number]/[id number])GRAFT-JAZMIN AND/OR PTCA, SINGLE GRAFT CLINICAL PROFILE AND CO-MORBIDITIES Indications: New Onset Angina <= 2 months Heart Failure: None Stress/Imaging Stress/Image Study Performed: No CAD Presentations: Non-STEMI. Symptom onset Date/Time: 09/06/24 Time Not Available CONCLUSIONS Successful JAZMIN Prox SVG to OM using Arjun [place] 3.5x22 mm RECOMMENDATIONS ASA Indefinitley P2Y12 inhibitors for atleast 6 months DESCRIPTION OF PROCEDURE The patient arrived to the procedure lab. The risks and benefits of the procedure as well as a full description of our services here and current unavailability of surgical backup were fully explained to the patient and/or their significant other prior to the catheterization. The Timeout was completed, verifying the correct patient and procedure. The patient's procedural site was prepped and draped in the usual fashion. Local anesthetic was given subcutaneously to right radial region with Lidocaine 2% Using a modified Seldinger technique,arterial access was obtained via the right radial artery, a 6Fr sheath was inserted. Saphenous Vein graft to the RCA selective angiography was performed in multiple views using a 5 Fr. AR MOD catheter. Saphenous Vein graft to the Circumflex selective angiography was performed in multiple views using a 5 Fr. AR MOD catheter.The images were reviewed and options discussed. A decision was then made to proceed with an Intervention, IVUS or other adjunct procedure. AL1 Guide catheter was inserted and engaged into the SVG to the Circumflex. Runthrough Guide wire was advanced to the Circumflex. [place] Arjun 3.5x22 Drug Eluting stent was inserted. Angiogram performed post stent deployment. The arterial sheath was pulled and a TR Band was applied for hemostasis w/ 16ml air INTERVENTION INFORMATION LESION SITE: Vein > to Circumflex (Proximal) Segment Number: 18-Proximal circumflex artery segment - pCIRC , Lesion Location: Body Lesion Complexity: High/C, thrombus present: Yes, lesion length: 20 mm Pre Stenosis: 99 % Pre intervention SANDRA flow: 3 PROCEDURE: Drug Eluting Stent Post Stenosis: 0 % Post intervention SANDRA flow: 3 Lesion Devices: Terumo .014 180cm Runthrough Extra Floppy straight Cordis 6 Fr AL1.0 100cm Guide Catheter Medtronic 3.5 x 22 ARJUN FRONTIER JAZMIN COMPLICATIONS No Complications PROCEDURE MEDICATIONS Versed 1 mg IV Fentanyl 50 mcg IV Oxygen: 2 L/min via nasal cannula Heparin given IA 09/06/2024 12:03:25 Heparin 7000 unit(s) IV 09/06/2024 12:31:18 Heparin 2000 unit(s) IV 09/06/2024 12:49:10 Verapamil 2.5mg, Ntg 100mcgs, 3000 units of Heparin given IA 09/06/2024 12:03:25 SUMMARY OF HEMODYNAMIC DATA Time AIR REST AO 145/65 (98) SA 12:16:28 AO 161/69 (107) 12:33:25 AO 149/48 (93) 12:34:02 ECG 12:54:26 AIR REST 12:54:26 Signed By Earline Mckeon MD On 09/06/2024 12:59:37 Signed By Earline Mckeon MD On 09/06/2024 12:54:11 Earline Mckeon MD
== END 2024-09-07 16:16 | disposition home health service (06) ==
LOC: ED 15:27 → PCU 09-06 06:13
PROVIDERS: Internal Medicine Cardiovascular Disease; Admitting Provider Internal Medicine; Emergency Provider Emergency Medicine; PCP Family Medicine; Visit Provider Internal Medicine
DX: I21.4 Non-ST elevation (NSTEMI) myocardial infarction (principal); I27.20 Pulmonary hypertension, unspecified; I25.10 Atherosclerotic heart disease of native coronary artery without angina pectoris; I10 Essential (primary) hypertension; E78.00 Pure hypercholesterolemia, unspecified; I65.21 Occlusion and stenosis of right carotid artery; I44.0 Atrioventricular block, first degree; Z79.02 Long term (current) use of antithrombotics/antiplatelets; I44.7 Left bundle-branch block, unspecified; Z87.891 Personal history of nicotine dependence; Z79.51 Long term (current) use of inhaled steroids; Z79.890 Hormone replacement therapy; Z95.5 Presence of coronary angioplasty implant and graft; K21.9 Gastro-esophageal reflux disease without esophagitis; Z86.711 Personal history of pulmonary embolism; I73.9 Peripheral vascular disease, unspecified; Z95.1 Presence of aortocoronary bypass graft; E03.2 Hypothyroidism due to medicaments and other exogenous substances; I25.2 Old myocardial infarction; N40.1 Benign prostatic hyperplasia with lower urinary tract symptoms; N13.8 Other obstructive and reflux uropathy; J45.909 Unspecified asthma, uncomplicated; F41.9 Anxiety disorder, unspecified; F32.A Depression, unspecified; R06.02 Shortness of breath
CPT/HCPCS: 36415; 71046; 80048; 80053; 80061; 83735; 83880; 84443; 84484; 85025; 85027; 85347; 85610; 92937; 93005; 93306; 93455; 94640; 96360; 96361; 99152; 99153; 99221; 99285; Q9967; A4216; C1769; C1874; C1887; C1894; C9604; G0378

== ENCOUNTER 2024-09-12 07:53 | Outpatient (RCR) | payer MEDICARE, BC, SELFPAY ==
--- NOTE | 2024-09-12 08:02 | PCM.CR.HP2 ---
CR - History & Physical General Arrival date:: 09/12/24 Arrival time:: 08:02 Date of Referral:: 09/07/24 Date of CR Evaluation:: 09/12/24 Referring Physician: Dr. Velez Primary Diagnosis: PCI w/stenting History of Present Cardiac Event Onset Date PTCA or coronary stenting:: Yes (onset 09/05/24) Medications Ambulatory Orders Medication Instructions Recorded aspirin 81 mg tablet,delayed 81 mg PO BID [facility] 04/15/17 release epinephrine 0.15 mg/0.3 mL See Rx Instructions IM .COMPLEX 04/15/17 injection,auto-injector (EpiPen Jr) ANAPHALAXIS levocetirizine 5 mg tablet 5 mg PO QHS ALLERGIES 04/15/17 montelukast 10 mg tablet 10 mg PO DAILY ASTHMA 90 days #90 04/15/17 tabs tamsulosin 0.4 mg capsule 0.4 mg PO QHS BPH 90 days #90 caps 04/15/17 apremilast 30 mg tablet (Otezla) 30 mg PO BID PSORIASIS 06/20/20 ascorbic acid (vitamin C) 1,000 mg 1 gm PO DAILY SUPPLEMENT 06/20/20 tablet bempedoic acid 180 mg-ezetimibe 10 1 tablet PO DAILY HLD 06/20/20 mg tablet (Nexlizet) cholecalciferol (vitamin D3) 50 2,000 unit PO DAILY SUPPLEMENT 06/20/20 mcg (2,000 unit) tablet multivitamin 1 tablet PO DAILY SUPPLEMENT 06/20/20 omega 7-jln-wzr-fish oil 1,600 5 ml PO DAILY SUPPLEMENT 06/20/20 mg-500 mg-800 mg/5 mL oral liquid levothyroxine 112 mcg tablet 112 mcg PO DAILY HYPOTHROID 10/30/20 escitalopram oxalate 10 mg tablet 10 mg PO DAILY ANXIETY 05/01/22 nitroglycerin 0.4 mg sublingual 0.4 mg sublingual Q5-15M PRN chest 02/19/23 tablet pain #25 tabs albuterol sulfate 90 mcg/actuation 2 puff inhalation Q6H PRN 07/02/23 aerosol inhaler shortness of breath or wheezing hydralazine 25 mg tablet 25 mg PO BID HTN #60 tabs 01/20/24 amlodipine 10 mg tablet 10 mg PO DAILY HTN #90 tabs 02/01/24 clopidogrel 75 mg tablet 75 mg PO DAILY BLOOD THINNER #90 12/02/24 tabs losartan 100 1 tab PO DAILY HTN #90 tabs 05/12/24 mg-hydrochlorothiazide 12.5 mg tablet Oxygen at night 06/22/24 finasteride 5 mg tablet 5 mg PO QHS prostate 06/22/24 primidone 50 mg tablet 50 mg PO ONCE inflammation 06/22/24 acetaminophen 650 mg 650 mg PO Q8H PRN fever or pain 07/27/24 tablet,extended release (Arthritis Pain Relief (acetaminophen) ER) fluticasone propionate 115 2 inh inhalation BID breathing 07/27/24 mcg-salmeterol 21 mcg/actuation HFA inhaler (Advair HFA) pantoprazole 20 mg tablet,delayed 20 mg PO DAILY 07/27/24 release metoprolol succinate 25 mg 12.5 mg (1/2 x 25 mg) PO QDAY 08/02/24 tablet,extended release 24 hr blood pressure #45 tabs Allergies Allergies insect venom (yellow jacket) Allergy (Severe, Verified 09/05/24 10:27) Anaphylaxis [id number] Reductase Inhibitor Allergy (Mild, Verified 09/05/24 10:27) Swelling atorvastatin (From Lipitor) Allergy (Verified 09/05/24 10:27) intolerance, weakness colesevelam (From WelChol) Allergy (Verified 09/05/24 10:27) myalgias Penicillins Allergy (Verified 09/05/24 10:27) Fever and skin rash pravastatin (From Pravachol) Allergy (Verified 09/05/24 10:27) myalgias rosuvastatin (From Crestor) Allergy (Verified 09/05/24 10:27) intolerance, weakness ibuprofen Adverse Reaction (Mild, Verified 09/05/24 10:27) Asthma Attack Sleep Disorder Evaluation Hx of Sleep Apnea: Yes Do you snore loudly (louder than talking or can be heard through closed doors)?: No Do you often feel tired/ fatigued/ sleepy during daytime?: No Has anyone observed you stop breathing during sleep?: No History of Hypertension (for STOP score): Yes (Pt is now longer on CPAP but is using 2L of O2 while sleeping.) STOP Results: Negative Advanced Directives Advanced Directives Do you have a Healthcare Power of Results Technician?: Yes Living Will: Yes Advance Directives Information Provided: Yes Advance Directives on File: No DNR Order?:: No Past Medical History Covid-19 Screening Physicial Symptoms Other Clinical Concerns Exposure Risk Pertinent Comorbidities 65 years or older:: Yes Has a serious heart condition:: Yes Past Medical Illness Past Medical History (Updated 09/06/24 @ 18:[address] Gino Gleason, DO) Cardiology follow-up encounter Z09 01/2024 History of Holter monitoring Z98.890 01/2024 History of echocardiogram Z92.89 01/2023 History of stress test Z92.89 03/2024 Wears hearing aid Z97.4 BILATERALLY Loss of hearing H91.90 Wears glasses Z97.3 Cancer C80.1 HX OF THROAT CA Hypothyroidism E03.9 History of pulmonary embolus (PE) Z86.711 01/2024 History of hiatal hernia Z87.19 History of diverticulitis Z87.19 surgery 2005 Stenosis of right carotid artery I65.21 Essential (primary) hypertension I10 Fatigue R53.83 Dizziness and giddiness R42 Sinoatrial node dysfunction I49.5 Esophageal disorder K22.9 GERD (gastroesophageal reflux disease) K21.9 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 HLD (hyperlipidemia) E78.5 Hypothyroidism, iatrogenic E03.2 Past Surgical History Past Surgical History (Updated 09/07/24 @ 08:11 by Belem Pitts) History of cardiac catheterization Z98.890 01/2023 History of coronary artery stent placement Z95.5 Hx of lithotripsy (~01/2024) Z98.890 History of cholecystectomy (~2017) Z90.49 History of hernia surgery (~2005) Z98.890, Z87.19 Stented coronary artery (09/05/24) Z95.5 3.5 X 12 mm Arjun Wilkinson JAZMIN to SVG to OM1 02/09/2023; 3.5 X 22 mm Arjun Wilkinson JAZMIN to Proximal SVG to OM1 09/05/2024 History of back surgery Z98.890 H/O coronary artery bypass surgery (07/29/05) Z95.1 CABG x 3: VARGAS-LAD, SVG-LCx, SVG-RCA 07/29/2005 History of left heart catheterization (LHC) (09/23/10) Z98.890 [facility]: 07/2005; 09/23/2010 Family History Summary Family History Father , age 87 CAD (coronary artery disease) Mother , age 90 CAD (coronary artery disease) Brother FH: brain aneurysm Sister emphysema Social History Smoking History Smoking Status: Former smoker Years Smokin Packs Smoked per Day: 3 (Stopped in 1997) Occupation Occupation (List type of work in comments):: Retired Social Environment Status Marital Status: Current Living Arrangements Living Environment:: Spouse Children How many children do you have?: 5 Do any of your children live nearby?: Yes Safety Do you feel safe in your surroundings?: Yes Review of Systems Review of Systems Hints Review of Present Symptoms: Reports Shortness of Breath with Exertion, Fatigue, Heart Arrhythmia/Irregularities, Appetite - Normal, Appetite - Special Diet and Sleep - Normal; Denies Shortness of Breath at Rest, PVD, Operative Discomfort, Angina, Wound Healing, Dizziness/Lightheadedness or Sexual Changes Pain Is Patient Pain Free?: Yes Risk Factor Assessment Chief Complaint Chief Complaint: PCI w/stenting Vital Signs Pulse Ox: 98 Blood Pressure: 128/60 Pulse Pulse Rate: 60 Pulse Rhythm: Regular Hypertension How long have you been treated?: 30 Blood Pressure Sitting - Right Arm: 128/60 Obesity Height: 5 ft 8 in Weight:: 192 lb Weight in Pounds: 192.0 lbs Body Mass Index (BMI): 29.2 Nutritional Referral for Obesity: No (declines) Physical Inactivity Physical Inactivity: Reg Exercise 30 min/day Risk Stratification Risk Guidelines: Moderate Risk: Risk Factor for Smoking, Risk Factor for Diabetes, Risk Factor for Obesity, Risk Factor for Sedentary Lifestyle and Risk Factor for Depression and Highest Risk: Risk Factor for Dyslipidemia and Risk Factor for Hypertension For Smoking Smoking Risk Guidelines For Dyslipidemia Dyslipidemia Risk Guidelines For Diabetes Mellitus Diabetes Risk Guidelines For Obesity/Overweight Obesity/Overweight Risk Guidelines For Hypertension Hypertension Risk Guidelines For Sedentary Lifestyle Sedentary Lifestyle Risk Guidelines For Depression Depression Risk Guidelines Family History Family History Father CAD (coronary artery disease) Mother CAD (coronary artery disease) Brother FH: brain aneurysm Sister emphysema Motivation Motivation to Participate On a scale of 1 to 10, how prepared are you to commit to attending program?: 9 What do you see as barriers to successfully being able to complete the program?: nothing What do you see as the benefits of succesfully completing the program? In other words, what do you hope to get out of participating in the program?: more energy Are there issues you are dealing with that will interfere with completing the program?: no Do you have a spouse or signficant other, family or friends who will help support you to complete the program?: yes
--- NOTE | 2024-09-12 08:05 | PCM.CR.ITP ---
Diagnosis General Information Admitting Diagnosis: PCIi w/stenting Personal Learning Style:: Audio/Visual Barriers to Learning: No Barriers Stage of change r/t lifestyle modifications:: Contemplation Gave educational material for:: Treating Heart Disease, How The Heart Works, What it means to have Heart Disease, How Coronary Artery Disease is Diagnosed, Heart Procedures, What Heart Medications Do, Risk Factors & Modifications, Living an Active Life, Nutrition, Emotions & Heart Disease, Stress Management & Relaxation and Sleep Disorders & Heart Disease Education/Goals Cardiac Rehabilitation Goals Personal Goals: Initial Assessment: Improve management of stress and emotions, Improve energy level, Improve knowledge of cardiac disease, Improve muscle strength and endurance and Control risk factors (learn risk factor modification) Scale for measuring improvement of personal goals Diagnosis & Disease Process Outcomes/Goals: Pt IDs own risk factors & lifestyle modifications by Session 10, Verbalizes symptoms of angina & response by session 3., Pt independently manages and Other Additional Outcomes/Goals: Plan/Interventions: Assist Pt to ID & engage in lifestyle modification to reduce CVD risk, Instruct on individual risk factors, Review symptoms of angina & emergency actions, Review secondary diagnosis & identify educational needs. and Other see comment 30 day Reassessments:: Not Met 30 day Reassessments:: Not Met 30 day Reassessments:: Not Met 30 day Reassessments:: Not Met Final Reassessments:: Not Met Safety Referral to Physical Therapy: No Referral to [facility] Case Management: No Fall Risk Assessed:: Yes Assistive Devices:: None Exercise - Initial Assessment Visit Date of Eval: 09/12/24 (initial eval ) Mets: Pre-: >3 METS for 30 minutes by discharge, >5 METS for 30 minutes by discharge, >7 METS for 30 minutes by discharge and Unable to meet goal due to: (see comment below) Physician Prescribed Exercise Modalities: Treadmill, Rower, Schwinn Airdyne AD-7, SciFit Stepper, SciFit Pro-II Ergometer and SciFit Lateral Composition Floor Setter Frequency: 3x/week for 12 weeks [36 sessions] Intensity: 60-80% of age predicted maximum heart rate reserve Duration: 30 - 45 minutes Current METSs:: 3 Target Heart Rate:: 85-107 Resting Blood Pressure: 128/60 EKG Type: SB w/ 1st degree A-V block, nonspecific ST and T wave abnormality Outcomes & Goals Goals:: Verbalizes understanding of THR, RPE & goal METS by session 6, Documents in home exercise log/reports 30 min aerobic 5 day/wk by DC, Demonstrates accurate pulse taking by DC and Other additional outcome/goals: see below Intervention & Plan Exercise Program Goals: Instruct on personal THR & RPE, Instruct on MET level & personal MET goal, Show patient to take own pulse /validate performance until accurate, Instruct on home exercise and Other additional plan/int Physical Activity Home Exercise Physical Activity - Home Exercise: Safe Exercise, Warm-up, Self-monitoring, Cool-Down, Home Exercise > 30 min Daily and Sitting Time <3 hours/daily Outcomes & Goals Outcomes/Goals: Demonstrates correct Warm-up/exercise Cool-Down (S3) if = 2.5 METs, Verbalizes symptoms of exercise intolerance by Session 3 (S3), Demonstrate safe equipment use (S3) & follows exercise prescrition (6) and Other: See below Intervention & Plan Plan/Intervention: Instruct warm-up & cool-down if exercising at > 2 METs, Instruct on symptoms of exercise intolerance & actions to take, Instruct & monitor on saf, Assess intial functional capacity & safety risk and Other See below Nutrition - Initial Assessment Program Goals Nutrition Program Goals Patient has diagnosis of Hyperlipidemia (ICD E78)?: Yes Visit Date of Eval: 09/12/24 (initial eval ) Cholesterol/Lipids (Other Core Measures) Determine presence & major risk factors that modify LDL goal: Cigarette smoking, Hypertension or hypertensive medication, Low HDL cholesterol <40 mg/dL*, Family history of premature CHD in Male < 55 years: female <65 yearsFa and Age men > 45 years; women >/= 55 years Outcomes/Goals: Pt IDs own risk factors & lifestyle modifications by Session 10, Verbalizes symptoms of angina & response by session 3., Pt independently manages and Other Additional Outcomes/Goals: Intervention/Plan: Advocate for lipid panel cholesterol medication if applicable, Instruct on personal lipid levels & lipid goals/NCEP guidelines, Instruct on cholesterol and Other additional plan/int Referral to dietitian:: No Diabetes (Other Core Measures) Diabetes Type: Not Applicable Weight Mgt (Other Care) Height: 5 ft 8 in Weight:: 192 lb BMI: 29.2 Diagnosis Overweight/Obesity BMI> 30% ICD-10 E66: No Diagnosis High BMI/Morbid Obesity BMI> 35% ICD-10 Z68: No Outcomes/Goals: Pt sets, maintains & shows weight loss goal & trend during rehab and Other additional outcomes/goals Intervention/Plan: Instruct on ideal BMI & set weight loss goal w/patient, Assist pt to ID & incorporate diet changes for weight loss by S9, Refer to Structured Weight Loss program as appropriate, Encourage goal of using 250-300dcal per session for weight loss and Other additional plan/interventions Healthy Eating Habits Will attend diet classes:: Yes Outcomes/Goals:: Consume diet rich in vegs,fruits,whole grain/high fiber,fish,lean meat, Limit sat/trans fats,cholesterol & added salts & sugars and Other additional outcome/goals: Intervention/Plan:: Assess current eating habits and Other Additional plan/interventions Education Gave educational materials for:: Signs & symptoms of hypoglycemia, Signs & symptoms of hyperglycemia, Relate diabetes to coronary artery disease and Healthy eating Core - Initial Assessment Visit Date of Eval: 09/12/24 (initial eval ) Medication Compliance Preventative Medication(s):: Aspirin, Clopidogrel/P2Y12 inhibit, Beta junior and ARB (Angiotensi Rcap) H/O mental health issues: depression, anxiety, or addiction?: Yes Doesn’t believe in the benefits of treatment?: No Believes medications are unnecessary or harmful?: No Has a concern about medication side effects?: No Expresses concern over the cost of medications?: No Outcomes/Goals: Verbalizes medications,desired effect & common side effects @ DC, Pt self-reports following medication regimen, Keeps card in wallet w/medications listed by DC and Other additional outcome/goals: Interventions/plans: Instruct on medication effects & side effects, Review medication list w/patient every two weeks, Instruct importance of taking meds as ordered & assist problem solving and Other additional Tobacco Use Tobacco Use: Cigarettes How long ago did you quit using tobacco products?: Greater than or equal to 6 months ago Years Smokin (Stopped in 1997) Do you use smokeless tobacco?: No Outcomes/Goals: Smoking cessation achieved or maintained by discharge, Identify aids/strategies for achieving smoking cessation by session 6 and Other additional outcome/goals Hypertension Hypertension Diagnosis:: Hypertension ICD-10 I10 Resting Blood Pressure:: 128/60 [place] [employer] Hypertension Guidelines Outcomes/Goals: Able to verbalize/achieve optimal blood pressure <130/80, Incorporates diet changes & exercise for blood pressure control by DC and Other additional outcomes/goals Interventions/plan: Instruct on optimal blood pressure, hypertension & medications, Instruct on effects of sodium, alcohol, stress, exercise &hypertension and Other additional plan/interventions Tobacco Cessation Referral Smoking Cessation Referral:: No Individual Education/Counseling:: No Education Schedule Given:: Yes Psychosocial - Initial Assess VIsit Date of Eval: 09/12/24 (initial eval ) History of previous Mental disease:: Yes History of Emotional Disorders: Anxious (Pt is medicated for anxiety) Target Goals Target Goals Psychosocial Test Tool Used:: PHQ-9 Questionnaire phq-9 Severity See PHQ-9 Score: 3 Referral to Behavioral Health PS - Interventions: Yes: Attend Stress Management Classes Outcomes/Goals: See list Psychosocial Outcomes/Goals:: ID's personal stressors & 2 strategies to manage stress by discharge and Other Additional outcome/goals: Intervention/Plan: See List Interventions/Plan:: Assess stressors,coping strategies & signs of derpression on admission, Instruct/assist pt to develop coping & personal stress Mgt strategies, Refer to Behavioral Health if appropriate, Refer to Physician if appropriate, Instruct patient to recognize signs & symptoms of depression, Instruct patient to recog and Other additional plan/intervention Comments:: Pt is on meds for anxiety. Patient Health Questionnaire PHQ-9 Screening Initial Assessment: 1. Little interest or pleasure in doing things: Not at all 2. Feeling down, depressed, or hopeless: Not at all 3. Trouble falling or staying asleep, or sleeping too much: Not at all 4. Feeling tired or having little energy: Several days 5. Poor appetite or overeating: Not at all 6. Feeling bad about yourself -- or that you are a failure or have let yourself or your family down: Not at all 7. Trouble concentrating on things, such as reading the newspaper or watching television: Several days 8. Moving or speaking so slowly that other people could have noticed. Or the opposite - being so fidgety or restless that you have been moving around a lot more than usual: Several days 9. Thoughts that you would be better off , or of hurting yourself in some way: Not at all How difficult have these problems made it for you to do your work, take care of things at home, or get along with other people?: Somewhat difficult Total Score: 3 NIC-Q SV Test Statements CAD is a disease of the arteries in the heart: False Examples of risk factors for heart disease: True Angina is chest pain or discomfort: True The benefits of resistance training include: True Eating more meat and dairy products: False Anti-platelet medications such as aspirin are important: True The only effective way to manage stress: False An exercise warm-up slowly increases heart rate: True Prepared, processed foods usually have high sodium: True Depression is common after a heart attack: True The statin medications lower cholesterol: True To control blood pressure, lower the amount of sodium: True If someone gets chest discomfort during walking: False Transfats are partially hydrogenated vegetable oils: True Sleep apnea that is not treated increases the risk: True To control cholesterol, one should become a vegetarian: False Someone knows if he/she is exercising at the right level: True Diabetes cannot be prevented with exercise & health eating: False Stress is a large risk for heart attack: True A diet that can help lower blood pressure is rich in: True Total Score Total Correct Responses: 19 Self-Efficacy 6-Item Scale Initial Assessment: We would like to know how confident you are in doing certain activities. Please select your confidence level for: Fatigue Select Number: 7 Physical Discomfort or Pain Select Number: 7 Emotional Distress Select Number: 7 Other Symptoms or Health Problems Select Number: 6 Different Tasks and Activities Select Number: 7 Medication Select Number: 8 Total Score:: 7 Nutrition Survey Nutrition Survey Instructions Scoring Instructions Nutrition Survey Initial: Have you lost >10 lbs over the past 2 months without trying?: No Are you following a special diet at home for diabetes, low fat, or low salt?: No Are you interested in meeting with a dietitian for help understanding your diet?: Yes (Pt verbally declined) Do you eat less than 3 meals a day?: No Do you eat fatty meats (sanches, sausage, ribs, etc), fried foods, desserts, large amounts of salad dressings, margarine, butter, or cheese most days?: No Do you have food allergies? [Enter types in comment field]: No Do you eat in restaurants more than 3 times a week?: No Do you season food with salt, seasoning salt, or garlic salt?: No Do you used canned, boxed, frozen meals, or soups, seasoning packets?: No Total Score:: 1 Exercise - 30-day Assessment Physician Prescribed Exercise Modalities: Treadmill, Rower, [place] AD-7, SciFit Stepper, SciFit Pro-II Ergometer and SciFit Lateral Composition Floor Setter Exercise - 60-day Assessment Physician Prescribed Exercise Modalities: Treadmill, Rower, Schwinn Airdyne AD-7, SciFit Stepper, SciFit Pro-II Ergometer and SciFit Lateral [place] Exercise - 90-day Assessment Physician Prescribed Exercise Modalities: Treadmill, Rower, Schwinn Airdyne AD-7, SciFit Stepper, SciFit Pro-II Ergometer and SciFit Lateral [place] Exercise - Final/Discharge Physician Prescribed Exercise Modalities: Treadmill, Rower, Schwinn Airdyne AD-7, SciFit Stepper, SciFit Pro-II Ergometer and SciFit Lateral [place] Frequency: 3x/week for 12 weeks [36 sessions] Intensity: 60-80% of age predicted maximum heart rate reserve Current METSs:: 3 Target Heart Rate:: 85-107 Nutrition - 30-Day Assessment Weight Mgt (Other Care) Height: 5 ft 8 in Weight:: 192 lb BMI: 29.2 Nutrition - 60-Day Assessment Weight Mgt (Other Care) Height: 5 ft 8 in Weight:: 192 lb BMI: 29.2 Core - 30-Day Assessment Tobacco Use Years Smokin (Stopped in 1997) Core - Final Assessment Hypertension Resting Blood Pressure:: 128/60 [place] [employer] Hypertension Guidelines Core - 60-Day Assessment Hypertension Resting Blood Pressure:: 128/60 [place] [employer] Hypertension Guidelines Psychosocial - 30-Day Assess Target Goals Target Goals Referral to Behavioral Health PS - Interventions: Yes: Attend Stress Management Classes Psychosocial - 60-Day Assess Target Goals Target Goals Referral to Behavioral Health PS - Interventions: Yes: Attend Stress Management Classes Psychosocial - 90-Day Assess Target Goals Target Goals Referral to Behavioral Health PS - Interventions: Yes: Attend Stress Management Classes Psychosocial - Final Assessmen Target Goals Target Goals Psychosocial Test phq-9 Severity See PHQ-9 Score: 3 Referral to Behavioral Health PS - Interventions: Yes: Attend Stress Management Classes Nutrition - 90-Day Assessment Weight Mgt (Other Care) Height: 5 ft 8 in Weight:: 192 lb BMI: 29.2 Nutrition - Final Assessment Program Goals Patient has diagnosis of Hyperlipidemia (ICD E78)?: Yes Weight Mgt (Other Care) Height: 5 ft 8 in Weight:: 192 lb BMI: 29.2
[2024-09-12 08:25] VITALS: BP 128/60; PULSE 60; O2SAT 98
[2024-09-12 08:52] VITALS: BP 128/60; BMI 29.2
== END 2024-09-12 23:59 ==
LOC: CR 07:53
PROVIDERS: PCP Family Medicine; Referring Provider Internal Medicine Cardiovascular Disease; Visit Provider Internal Medicine Cardiovascular Disease
DX: I21.4 Non-ST elevation (NSTEMI) myocardial infarction (principal); Z95.5 Presence of coronary angioplasty implant and graft; I25.10 Atherosclerotic heart disease of native coronary artery without angina pectoris; I10 Essential (primary) hypertension; E78.00 Pure hypercholesterolemia, unspecified
CPT/HCPCS: 93798

== ENCOUNTER 2024-10-07 13:00 | Outpatient (RCR) | payer MEDICARE, BC, SELFPAY ==
[2024-09-12 08:52] VITALS: BMI 29.2
--- NOTE | 2024-10-10 08:26 | PCM.CR.ITP ---
Exercise - Initial Assessment Visit Session #:: 10 Physician Prescribed Exercise Modalities: Treadmill, Schwinn Airdyne AD-7 and SciFit Stepper Nutrition - Initial Assessment Weight Mgt (Other Care) Height: 5 ft 8 in Weight:: 199 lb BMI: 30.2 Core - Initial Assessment Tobacco Use Years Smokin Psychosocial - Initial Assess Target Goals Target Goals Referral to Behavioral Health PS - Interventions: Yes: Attend Stress Management Classes Patient Health Questionnaire PHQ-9 Screening 30-Day Re-eval Assessment: 1. Little interest or pleasure in doing things: Not at all 2. Feeling down, depressed, or hopeless: Not at all 3. Trouble falling or staying asleep, or sleeping too much: Not at all 4. Feeling tired or having little energy: Several days 5. Poor appetite or overeating: Not at all 6. Feeling bad about yourself -- or that you are a failure or have let yourself or your family down: Not at all 7. Trouble concentrating on things, such as reading the newspaper or watching television: Several days 8. Moving or speaking so slowly that other people could have noticed. Or the opposite - being so fidgety or restless that you have been moving around a lot more than usual: Several days 9. Thoughts that you would be better off , or of hurting yourself in some way: Not at all How difficult have these problems made it for you to do your work, take care of things at home, or get along with other people?: Somewhat difficult Total Score: 3 Self-Efficacy 6-Item Scale 30-Day Re-eval Assessment: We would like to know how confident you are in doing certain activities. Please select your confidence level for: Fatigue Select Number: 7 Physical Discomfort or Pain Select Number: 7 Emotional Distress Select Number: 7 Other Symptoms or Health Problems Select Number: 6 Different Tasks and Activities Select Number: 7 Medication Select Number: 8 Total Score:: 7 Nutrition Survey Nutrition Survey Instructions Scoring Instructions Exercise - 30-day Assessment Visit Date of Eval: 10/10/24 Session #:: 10 Physician Prescribed Exercise Modalities: Treadmill, Schwinn Airdyne AD-7 and SciFit Stepper Frequency: 3x/week for 12 weeks [36 sessions] Intensity: 60-80% of age predicted maximum heart rate reserve Duration: 30 - 45 minutes METs - Progression 0.5-1.0 weekly:: 1 Current METSs:: 4.1 Target Heart Rate:: 85-107 Target RPE 12-16:: 12-16 Current RPE:: 12 Maximum Excercise HR:: 120 Resting Blood Pressure: 124/62 Maximum Exercise Blood Pressure: 144/70 EKG Type: NSR with 1DAVB. occasional PVC, PAC, rare couplet. Current Physical Activity or Exercising minutes: 30 mins Outcomes & Goals Goals:: Verbalizes understanding of THR, RPE & goal METS by session 6, Documents in home exercise log/reports 30 min aerobic 5 day/wk by DC and Demonstrates accurate pulse taking by DC Intervention & Plan Exercise Program Goals: Instruct on personal THR & RPE, Instruct on MET level & personal MET goal, Show patient to take own pulse /validate performance until accurate and Instruct on home exercise 30-day Reassessments 30 day Reassessments:: Progressing Reassessment Notes & Comments:: increasing exercise workloads as tolerated. Physical Activity Home Exercise Physical Activity - Home Exercise: Safe Exercise, Warm-up, Self-monitoring, Cool-Down, Home Exercise > 30 min Daily and Sitting Time <3 hours/daily Outcomes & Goals Outcomes/Goals: Demonstrates correct Warm-up/exercise Cool-Down (S3) if = 2.5 METs, Verbalizes symptoms of exercise intolerance by Session 3 (S3) and Demonstrate safe equipment use (S3) & follows exercise prescrition (6) Intervention & Plan Plan/Intervention: Instruct warm-up & cool-down if exercising at > 2 METs, Instruct on symptoms of exercise intolerance & actions to take, Instruct & monitor on saf and Assess intial functional capacity & safety risk 30-day Reassessments 30 day Reassessments:: Progressing Reassessment Notes & Comments:: educated on importance of warm up and cool down before and after exercise. Exercise - 60-day Assessment Physician Prescribed Exercise Modalities: Treadmill, Schwinn Airdyne AD-7 and SciFit Stepper Exercise - 90-day Assessment Physician Prescribed Exercise Modalities: Treadmill, Schwinn Airdyne AD-7 and SciFit Stepper Exercise - Final/Discharge Physician Prescribed Exercise Modalities: Treadmill, Schwinn Airdyne AD-7 and SciFit Stepper Nutrition - 30-Day Assessment Program Goals Nutrition Program Goals Patient has diagnosis of Hyperlipidemia (ICD E78)?: Yes Visit Date of Eval: 10/10/24 Session #:: 10 Cholesterol/Lipids (Other Core Measures) Determine presence & major risk factors that modify LDL goal: Cigarette smoking, Hypertension or hypertensive medication, Low HDL cholesterol <40 mg/dL*, Family history of premature CHD in Male < 55 years: female <65 yearsFa and Age men > 45 years; women >/= 55 years Outcomes/Goals: Pt IDs own risk factors & lifestyle modifications by Session 10, Verbalizes symptoms of angina & response by session 3. and Pt independently manages Intervention/Plan: Advocate for lipid panel cholesterol medication if applicable, Instruct on personal lipid levels & lipid goals/NCEP guidelines and Instruct on cholesterol Referral to dietitian:: No 30-day Reassessments:: Progressing Reassessment Notes & Comments:: Eddie to attend dietary teaching classes next month. Diabetes (Other Core Measures) Diabetes Type: Not Applicable Weight Mgt (Other Care) Height: 5 ft 8 in Weight:: 199 lb BMI: 30.2 Diagnosis Overweight/Obesity BMI> 30% ICD-10 E66: Yes Outcomes/Goals: Pt sets, maintains & shows weight loss goal & trend during rehab Intervention/Plan: Instruct on ideal BMI & set weight loss goal w/patient, Assist pt to ID & incorporate diet changes for weight loss by S9, Refer to Structured Weight Loss program as appropriate and Encourage goal of using 250-300dcal per session for weight loss 30 day Reassessments:: Progressing Reassessment Notes & Comments:: Eddie will continue to weigh in weekly. heart healthy diet encouraged. Healthy Eating Habits Will attend diet classes:: Yes Outcomes/Goals:: Consume diet rich in vegs,fruits,whole grain/high fiber,fish,lean meat, Limit sat/trans fats,cholesterol & added salts & sugars and Other additional outcome/goals: Intervention/Plan:: Assess current eating habits and Other Additional plan/interventions 30-day Reassessments:: Progressing Education Gave educational materials for:: Signs & symptoms of hypoglycemia, Signs & symptoms of hyperglycemia, Relate diabetes to coronary artery disease and Healthy eating Nutrition - 60-Day Assessment Weight Mgt (Other Care) Height: 5 ft 8 in Weight:: 199 lb BMI: 30.2 Core - 30-Day Assessment Visit Date of Eval: 10/10/24 Session #:: 10 Medication Compliance Preventative Medication(s):: Aspirin, Clopidogrel/P2Y12 inhibit, Beta junior and ARB (Angiotensi Rcap) H/O mental health issues: depression, anxiety, or addiction?: Yes Doesn’t believe in the benefits of treatment?: No Believes medications are unnecessary or harmful?: No Has a concern about medication side effects?: No Expresses concern over the cost of medications?: No Outcomes/Goals: Verbalizes medications,desired effect & common side effects @ DC, Pt self-reports following medication regimen and Keeps card in wallet w/medications listed by DC Interventions/plans: Instruct on medication effects & side effects, Review medication list w/patient every two weeks and Instruct importance of taking meds as ordered & assist problem solving 30-day Reassessments:: Progressing Reassessment Notes & Comments:: Eddie is taking medications as prescribed, does not voice concerns at this time. Tobacco Use Tobacco Use: - (former smoker, quit in 1997.) How long ago did you quit using tobacco products?: Greater than or equal to 6 months ago Years Smokin Do you use smokeless tobacco?: No Outcomes/Goals: Smoking cessation achieved or maintained by discharge, Identify aids/strategies for achieving smoking cessation by session 6 and Other additional outcome/goals Interventions/plan: Instruct on effects of smoking & provide smoking cessation resource, Assist pt to set quit date & provide encouragement, Assist pt to develop strategies to achieve/maintain quit date, Assist pt w/nicotine replacement & medication for cessation success and Other additional plan/interventions 30-day Reassessments:: Met Reassessment Notes & Comments:: Former smoker. quit in 1997. Hypertension Hypertension Diagnosis:: Hypertension ICD-10 I10 Resting Blood Pressure:: 124/62 [place] [employer] Hypertension Guidelines Peak Exercise Blood Pressure:: 144/70 Outcomes/Goals: Able to verbalize/achieve optimal blood pressure <130/80 and Incorporates diet changes & exercise for blood pressure control by DC Interventions/plan: Instruct on optimal blood pressure, hypertension & medications and Instruct on effects of sodium, alcohol, stress, exercise &hypertension 30 day Reassessments:: Progressing Reassessment Notes & Comments:: BP's WNL. Tobacco Cessation Referral Education Schedule Given:: Yes Core - Final Assessment Hypertension [place] [employer] Hypertension Guidelines Reassessment Notes & Comments:: BP's WNL. Core - 90 Day Assessment Hypertension [place] [employer] Hypertension Guidelines Reassessment Notes & Comments:: BP's WNL. Psychosocial - 30-Day Assess VIsit Date of Eval: 10/10/24 Session #:: 10 History of previous Mental disease:: Yes History of Emotional Disorders: Anxious (prescribed medication for anxiety) Target Goals Target Goals Psychosocial Test Tool Used:: PHQ-9 Questionnaire phq-9 Severity See PHQ-9 Score: 3 Referral to Behavioral Health PS - Interventions: Yes: Attend Stress Management Classes Outcomes/Goals: See list Psychosocial Outcomes/Goals:: ID's personal stressors & 2 strategies to manage stress by discharge Intervention/Plan: See List Interventions/Plan:: Assess stressors,coping strategies & signs of derpression on admission, Instruct/assist pt to develop coping & personal stress Mgt strategies, Refer to Behavioral Health if appropriate, Refer to Physician if appropriate, Instruct patient to recognize signs & symptoms of depression and Instruct patient to recog 30-day Reassessments: 30 day Reassessments:: Progressing Reassessment Notes & Comments:: takes his medication as prescribed. voices no concerns at this time. Psychosocial - 60-Day Assess Target Goals Target Goals Referral to Behavioral Health PS - Interventions: Yes: Attend Stress Management Classes Outcomes/Goals: See list Psychosocial Outcomes/Goals:: ID's personal stressors & 2 strategies to manage stress by discharge Psychosocial - 90-Day Assess Target Goals Target Goals Referral to Behavioral Health PS - Interventions: Yes: Attend Stress Management Classes Psychosocial - Final Assessmen Target Goals Target Goals Referral to Behavioral Health PS - Interventions: Yes: Attend Stress Management Classes Nutrition - 90-Day Assessment Weight Mgt (Other Care) Height: 5 ft 8 in Weight:: 199 lb BMI: 30.2 Nutrition - Final Assessment Weight Mgt (Other Care) Height: 5 ft 8 in Weight:: 199 lb BMI: 30.2
[2024-10-10 08:47] VITALS: BP 124/62; BMI 30.2
== END 2024-10-13 23:59 ==
LOC: CR 13:00
PROVIDERS: PCP Family Medicine; Referring Provider Internal Medicine Cardiovascular Disease; Visit Provider Internal Medicine Cardiovascular Disease
DX: I21.4 Non-ST elevation (NSTEMI) myocardial infarction (principal); Z95.5 Presence of coronary angioplasty implant and graft; I25.10 Atherosclerotic heart disease of native coronary artery without angina pectoris; I10 Essential (primary) hypertension; E78.00 Pure hypercholesterolemia, unspecified
CPT/HCPCS: 93798

== ENCOUNTER 2024-11-11 13:00 | Outpatient (RCR) | payer MEDICARE, BC, SELFPAY ==
--- NOTE | 2024-11-08 10:14 | PCM.CR.ITP ---
Exercise - Initial Assessment Physician Prescribed Exercise Modalities: Treadmill, Schwinn Airdyne AD-7 and SciFit Stepper Nutrition - Initial Assessment Weight Mgt (Other Care) Height: 5 ft 8 in Weight:: 200 lb 8 oz BMI: 30.4 BMI (Report if calculated above): 30 Core - Initial Assessment Hypertension Resting Blood Pressure:: 148/78 [place] [employer] Hypertension Guidelines Psychosocial - Initial Assess Target Goals Target Goals Referral to Behavioral Health PS - Interventions: Yes: Attend Stress Management Classes Patient Health Questionnaire PHQ-9 Screening 60-Day Re-eval Assessment: 1. Little interest or pleasure in doing things: Not at all 2. Feeling down, depressed, or hopeless: Not at all 3. Trouble falling or staying asleep, or sleeping too much: Not at all 4. Feeling tired or having little energy: Several days 5. Poor appetite or overeating: Not at all 6. Feeling bad about yourself -- or that you are a failure or have let yourself or your family down: Not at all 7. Trouble concentrating on things, such as reading the newspaper or watching television: Several days 8. Moving or speaking so slowly that other people could have noticed. Or the opposite - being so fidgety or restless that you have been moving around a lot more than usual: Several days 9. Thoughts that you would be better off , or of hurting yourself in some way: Not at all How difficult have these problems made it for you to do your work, take care of things at home, or get along with other people?: Somewhat difficult Total Score: 3 Self-Efficacy 6-Item Scale 60-Day Re-eval Assessment: We would like to know how confident you are in doing certain activities. Please select your confidence level for: Fatigue Select Number: 7 Physical Discomfort or Pain Select Number: 7 Emotional Distress Select Number: 7 Other Symptoms or Health Problems Select Number: 6 Different Tasks and Activities Select Number: 7 Medication Select Number: 8 Total Score:: 7 Nutrition Survey Nutrition Survey Instructions Scoring Instructions Nutrition Survey Discharge: Have you lost >10 lbs over the past 2 months without trying?: No Are you following a special diet at home for diabetes, low fat, or low salt?: No Are you interested in meeting with a dietitian for help understanding your diet?: Yes Do you eat less than 3 meals a day?: No Do you eat fatty meats (sanches, sausage, ribs, etc), fried foods, desserts, large amounts of salad dressings, margarine, butter, or cheese most days?: No Do you have food allergies? [Enter types in comment field]: No Do you eat in restaurants more than 3 times a week?: No Do you season food with salt, seasoning salt, or garlic salt?: No Do you used canned, boxed, frozen meals, or soups, seasoning packets?: No Total Score:: 1 Exercise - 30-day Assessment Physician Prescribed Exercise Modalities: Treadmill, Schwinn Airdyne AD-7 and SciFit Stepper Exercise - 60-day Assessment Visit Date of Eval: 11/08/24 Session #:: 20 Physician Prescribed Exercise Modalities: Treadmill, Schwinn Airdyne AD-7 and SciFit Stepper Frequency: 3x/week for 12 weeks [36 sessions] Intensity: 60-80% of age predicted maximum heart rate reserve Duration: 30 - 45 minutes METs - Progression 0.5-1.0 weekly:: 0.5-1.0 Current METSs:: 3.6 Target Heart Rate:: 85-120 Target RPE 11-14 Current RPE:: 11-14 Current RPE:: 13 Maximum Excercise HR:: 116 Resting Blood Pressure: 152/68 Maximum Exercise Blood Pressure: 190/80 EKG Type: SB-ST 1DAVB occ multifocal pvcs, couplets and occ pacs Current Physical Activity or Exercising minutes: 30-45 Outcomes & Goals Goals:: Verbalizes understanding of THR, RPE & goal METS by session 6, Documents in home exercise log/reports 30 min aerobic 5 day/wk by DC and Demonstrates accurate pulse taking by DC Intervention & Plan Exercise Program Goals: Instruct on personal THR & RPE, Instruct on MET level & personal MET goal, Show patient to take own pulse /validate performance until accurate and Instruct on home exercise 30-day Reassessments 30 day Reassessments:: Progressing Reassessment Notes & Comments:: Pt utilizes RPE scale correctly, pt warms up and cools down with minimal guidance. Physical Activity Home Exercise Physical Activity - Home Exercise: Safe Exercise, Warm-up, Self-monitoring, Cool-Down, Home Exercise > 30 min Daily and Sitting Time <3 hours/daily Outcomes & Goals Outcomes/Goals: Demonstrates correct Warm-up/exercise Cool-Down (S3) if = 2.5 METs, Verbalizes symptoms of exercise intolerance by Session 3 (S3) and Demonstrate safe equipment use (S3) & follows exercise prescrition (6) Intervention & Plan Plan/Intervention: Instruct warm-up & cool-down if exercising at > 2 METs, Instruct on symptoms of exercise intolerance & actions to take, Instruct & monitor on saf and Assess intial functional capacity & safety risk 30-day Reassessments 30 day Reassessments:: Progressing Reassessment Notes & Comments:: Pt warms up and cools down with minimal guidance, pt demonstrates safe use of equipment, pt follows exercise prescription. Exercise - 90-day Assessment Physician Prescribed Exercise Modalities: Treadmill, Schwinn Airdyne AD-7 and SciFit Stepper Exercise - Final/Discharge Physician Prescribed Exercise Modalities: Treadmill, Schwinn Airdyne AD-7 and SciFit Stepper Nutrition - 30-Day Assessment Weight Mgt (Other Care) Height: 5 ft 8 in Weight:: 200 lb 8 oz BMI: 30.4 BMI (Report if calculated above): 30 Nutrition - 60-Day Assessment Program Goals Nutrition Program Goals Patient has diagnosis of Hyperlipidemia (ICD E78)?: Yes Visit Date of Eval: 11/08/24 Session #:: 20 Cholesterol/Lipids (Other Core Measures) Total Triglycerides (mg/dL): 152 Total Cholesterol: 124 LDL Cholesterol (mg/dL): 58 HDL Cholesterol (mg/dL): 36 Lipid Medication: Nexlizet daily Determine presence & major risk factors that modify LDL goal: Cigarette smoking, Hypertension or hypertensive medication, Low HDL cholesterol <40 mg/dL*, Family history of premature CHD in Male < 55 years: female <65 yearsFa and Age men > 45 years; women >/= 55 years Outcomes/Goals: Pt IDs own risk factors & lifestyle modifications by Session 10, Verbalizes symptoms of angina & response by session 3. and Pt independently manages Intervention/Plan: Advocate for lipid panel cholesterol medication if applicable, Instruct on personal lipid levels & lipid goals/NCEP guidelines and Instruct on cholesterol 30-day Reassessments:: Progressing Reassessment Notes & Comments:: Pt with recent lipid panel, pt taking medications as prescribed. Diabetes (Other Core Measures) Diabetes Type: Not Applicable Weight Mgt (Other Care) Height: 5 ft 8 in Weight:: 200 lb 8 oz BMI: 30.4 BMI (Report if calculated above): 30 Diagnosis Overweight/Obesity BMI> 30% ICD-10 E66: No Diagnosis High BMI/Morbid Obesity BMI> 35% ICD-10 Z68: No Outcomes/Goals: Pt sets, maintains & shows weight loss goal & trend during rehab Intervention/Plan: Instruct on ideal BMI & set weight loss goal w/patient, Assist pt to ID & incorporate diet changes for weight loss by S9, Refer to Structured Weight Loss program as appropriate and Encourage goal of using 250-300dcal per session for weight loss 30 day Reassessments:: Progressing Reassessment Notes & Comments:: Pt weighs self weekly in rehab, pt demonstrating modifications for healthier lifestyle to promote weight loss. Healthy Eating Habits Will attend diet classes:: Yes Outcomes/Goals:: Consume diet rich in vegs,fruits,whole grain/high fiber,fish,lean meat and Limit sat/trans fats,cholesterol & added salts & sugars Intervention/Plan:: Assess current eating habits 30-day Reassessments:: Progressing Reassessment Notes & Comments:: Pt encouraged to attend healthy eating habits and dietary classes while in rehab. Education Gave educational materials for:: Signs & symptoms of hypoglycemia, Signs & symptoms of hyperglycemia, Relate diabetes to coronary artery disease and Healthy eating Core - Final Assessment Hypertension Resting Blood Pressure:: 148/78 [place] [employer] Hypertension Guidelines Core - 60-Day Assessment Visit Date of Eval: 11/08/24 Session #:: 20 Medication Compliance Preventative Medication(s):: Aspirin, Clopidogrel/P2Y12 inhibit, Statin/lipid, Beta junior and ARB (Angiotensi Rcap) H/O mental health issues: depression, anxiety, or addiction?: Yes Doesn’t believe in the benefits of treatment?: No Believes medications are unnecessary or harmful?: No Has a concern about medication side effects?: No Expresses concern over the cost of medications?: No Outcomes/Goals: Verbalizes medications,desired effect & common side effects @ DC, Pt self-reports following medication regimen and Keeps card in wallet w/medications listed by DC Interventions/plans: Instruct on medication effects & side effects, Review medication list w/patient every two weeks and Instruct importance of taking meds as ordered & assist problem solving 30-day Reassessments:: Met Reassessment Notes & Comments:: Pt taking medications as prescribed, pt does not voice any concerns at this time. Tobacco Use Tobacco Use: Non-smoker (former smoker quit in 1997) Outcomes/Goals: Smoking cessation achieved or maintained by discharge and Identify aids/strategies for achieving smoking cessation by session 6 Interventions/plan: Instruct on effects of smoking & provide smoking cessation resource, Assist pt to set quit date & provide encouragement, Assist pt to develop strategies to achieve/maintain quit date and Assist pt w/nicotine replacement & medication for cessation success 30-day Reassessments:: Met Hypertension Hypertension Diagnosis:: Hypertension ICD-10 I10 Resting Blood Pressure:: 152/68 Resting Blood Pressure:: 148/78 [place] [employer] Hypertension Guidelines Peak Exercise Blood Pressure:: 190/80 Outcomes/Goals: Able to verbalize/achieve optimal blood pressure <130/80 and Incorporates diet changes & exercise for blood pressure control by DC Interventions/plan: Instruct on optimal blood pressure, hypertension & medications and Instruct on effects of sodium, alcohol, stress, exercise &hypertension 30 day Reassessments:: Progressing Reassessment Notes & Comments:: Pt encouraged to utilize low sodium diet, pt verbalizes optimal BP is <130/80, pt taking antihypertensive medications as prescribed. BP is typically WNL most rehab sessions. Psychosocial - 30-Day Assess Target Goals Target Goals Referral to Behavioral Health PS - Interventions: Yes: Attend Stress Management Classes Outcomes/Goals: See list Psychosocial Outcomes/Goals:: ID's personal stressors & 2 strategies to manage stress by discharge Psychosocial - 60-Day Assess VIsit Date of Eval: 11/08/24 Session #:: 20 History of previous Mental disease:: Yes History of Emotional Disorders: Anxious (prescribed medication for anxiety) Target Goals Target Goals Psychosocial Test phq-9 Severity See PHQ-9 Score: 3 Total Score:: 3 Referral to Behavioral Health PS - Interventions: Yes: Attend Stress Management Classes Outcomes/Goals: See list Psychosocial Outcomes/Goals:: ID's personal stressors & 2 strategies to manage stress by discharge Intervention/Plan: See List Interventions/Plan:: Assess stressors,coping strategies & signs of derpression on admission, Instruct/assist pt to develop coping & personal stress Mgt strategies, Refer to Behavioral Health if appropriate, Refer to Physician if appropriate and Instruct patient to recognize signs & symptoms of depression 30-day Reassessments: 30 day Reassessments:: Progressing Reassessment Notes & Comments:: Pt taking antianxiety medications as prescribed by physician, pt voices no concerns at this time. Psychosocial - 90-Day Assess Target Goals Target Goals Referral to Behavioral Health PS - Interventions: Yes: Attend Stress Management Classes Psychosocial - Final Assessmen Target Goals Target Goals Referral to Behavioral Health PS - Interventions: Yes: Attend Stress Management Classes Nutrition - 90-Day Assessment Weight Mgt (Other Care) Height: 5 ft 8 in Weight:: 200 lb 8 oz BMI: 30.4 BMI (Report if calculated above): 30 Nutrition - Final Assessment Weight Mgt (Other Care) Height: 5 ft 8 in Weight:: 200 lb 8 oz BMI: 30.4 BMI (Report if calculated above): 30
[2024-11-08 10:26] VITALS: BP 152/68
[2024-11-08 10:39] VITALS: BP 148/78; BP 152/68; BMI 30.4
== END 2024-11-13 23:59 ==
LOC: CR 13:00
PROVIDERS: PCP Family Medicine; Referring Provider Internal Medicine Cardiovascular Disease; Visit Provider Internal Medicine Cardiovascular Disease
DX: I21.4 Non-ST elevation (NSTEMI) myocardial infarction (principal); Z95.5 Presence of coronary angioplasty implant and graft; I25.10 Atherosclerotic heart disease of native coronary artery without angina pectoris; I10 Essential (primary) hypertension; E78.00 Pure hypercholesterolemia, unspecified
CPT/HCPCS: 93798

== ENCOUNTER → 2024-11-29 | Outpatient (CLI) | payer MEDICARE, BC, SELFPAY ==
[2024-11-08 10:39] VITALS: BMI 30.4
--- NOTE | 2024-11-29 07:53 | CDU_ITS ---
Reason For Study Reason For Study: S/p Rt TCAR Rt. Velocities/BP Lt. Velocities/BP Prox CCA 91.6/19.0 cm/sec. Prox CCA 122.1/17.6 cm/sec. Mid CCA 62.2/10.6 cm/sec. Mid CCA 108.9/13.9 cm/sec. Dist CCA 49.7/13.8 cm/sec. Dist CCA 83.0/17.9 cm/sec. Bulb, Prox Stent, 44.0/11.0 cm/sec. Prox ICA 93.8/28.5 cm/sec. Prox ICA, Mid Stent, 108.9/35.8 Mid ICA 60.6/21.0 cm/sec. Mid ICA, Distal Stent, 93.8/29.2. Dist ICA 53.4/16.0 cm/sec. Dist ICA 57.8/18.2 cm/sec. Lt. ICA/CCA = 0.86. Rt. ICA/CCA = 1.75. Prox ECA 116.2/15.7 cm/sec. Prox ECA 284.8/29.8 cm/sec. Lt. Vert. 58.4/15.5 cm/sec. Rt. Vert. 44.0/12.8 cm/sec. Right Extracranial There is homogeneous, smooth atherosclerotic plaque noted in the right common carotid artery. There is heterogeneous, irregular atherosclerotic plaque noted in the right internal carotid artery. Stent noted bulb to ICA mid. There is intimal thickening but no significant atherosclerotic plaque noted in the right external carotid artery. Antegrade flow is noted in the right vertebral artery. Left Extracranial There is homogeneous, smooth atherosclerotic plaque noted in the left common carotid artery. There is heterogeneous, irregular atherosclerotic plaque noted in the left internal carotid artery. There is intimal thickening but no significant atherosclerotic plaque noted in the left external carotid artery. Antegrade flow is noted in the left vertebral artery. Procedure Carotid Duplex [id number]. This is a Carotid Duplex examination using B-mode, color flow and specral Doppler. Exam performed in department. VL/Carotid Duplex Ultrasound Interpretation Summary Mild (<50%) stenosis right extracranial internal carotid. Mild (<50%) stenosis left extracranial internal carotid. Patent and antegrade vertebrals bilaterally. Ordering Physician: Brittany Aldana Referring Physician: Srinivas Hopson Performed By: Carissa Staley RVT and Student
== END | disposition home or self-care (01) ==
LOC: CVS 07:53
PROVIDERS: PCP Family Medicine; Referring Provider Physician Assistant; Visit Provider Physician Assistant
DX: Z48.812 Encounter for surgical aftercare following surgery on the circulatory system (principal)
CPT/HCPCS: 93880

== ENCOUNTER 2024-12-12 13:00 | Outpatient (RCR) | payer MEDICARE, BC, SELFPAY ==
[2024-11-08 10:39] VITALS: BMI 30.4
--- NOTE | 2024-12-07 08:03 | PCM.CR.ITP ---
Exercise - Initial Assessment Physician Prescribed Exercise Modalities: Treadmill, Schwinn Airdyne AD-7 and SciFit Stepper Nutrition - Initial Assessment Weight Mgt (Other Care) Height: 5 ft 8 in Weight:: 205 lb 8 oz BMI: 31.2 Psychosocial - Initial Assess Referral to Behavioral Health PS - Interventions: Yes: Attend Stress Management Classes Exercise - 30-day Assessment Physician Prescribed Exercise Modalities: Treadmill, Schwinn Airdyne AD-7 and SciFit Stepper Exercise - 60-day Assessment Physician Prescribed Exercise Modalities: Treadmill, Schwinn Airdyne AD-7 and SciFit Stepper Exercise - 90-day Assessment Visit Date of Eval: 12/07/24 Session #:: 31 Physician Prescribed Exercise Modalities: Treadmill, Schwinn Airdyne AD-7 and SciFit Stepper Frequency: 3x/week for 12 weeks [36 sessions] Intensity: 60-80% of age predicted maximum heart rate reserve Duration: 30 - 45 minutes Current METSs:: 4.3 Target Heart Rate:: 85-120 Current RPE:: 12-13 Maximum Excercise HR:: 126 Resting Blood Pressure: 134/70 Maximum Exercise Blood Pressure: 192/90 EKG Type: SB to ST w/1st degree block w/ occas multifocal PVC's Outcomes & Goals Goals:: Verbalizes understanding of THR, RPE & goal METS by session 6, Documents in home exercise log/reports 30 min aerobic 5 day/wk by DC, Demonstrates accurate pulse taking by DC and Other additional outcome/goals: see below Intervention & Plan Exercise Program Goals: Instruct on personal THR & RPE, Instruct on MET level & personal MET goal, Show patient to take own pulse /validate performance until accurate, Instruct on home exercise and Other additional plan/int Physical Activity Home Exercise Physical Activity - Home Exercise: Safe Exercise, Warm-up, Self-monitoring, Cool-Down, Home Exercise > 30 min Daily and Sitting Time <3 hours/daily Outcomes & Goals Outcomes/Goals: Demonstrates correct Warm-up/exercise Cool-Down (S3) if = 2.5 METs, Verbalizes symptoms of exercise intolerance by Session 3 (S3), Demonstrate safe equipment use (S3) & follows exercise prescrition (6) and Other: See below Intervention & Plan Plan/Intervention: Instruct warm-up & cool-down if exercising at > 2 METs, Instruct on symptoms of exercise intolerance & actions to take, Instruct & monitor on saf, Assess intial functional capacity & safety risk and Other See below 30-day Reassessments 30 day Reassessments:: Progressing Reassessment Notes & Comments:: Pt has 5 sessions remaining. We have been able to increase his METS to 4.3. Pt HR's have improved compared to when he first started rehab. Upon graduation pt will be his exercise prescription as well as community resources to continue his exercise. Exercise - Final/Discharge Physician Prescribed Exercise Modalities: Treadmill, Schwinn Airdyne AD-7 and SciFit Stepper Nutrition - 30-Day Assessment Weight Mgt (Other Care) Height: 5 ft 8 in Weight:: 205 lb 8 oz BMI: 31.2 Nutrition - 60-Day Assessment Weight Mgt (Other Care) Height: 5 ft 8 in Weight:: 205 lb 8 oz BMI: 31.2 Core - 30-Day Assessment Hypertension [place] [employer] Hypertension Guidelines Reassessment Notes & Comments:: BP's are within AHA normal limits on some days. Low sodium diet and weight loss encouraged. Pt taking meds as prescribed. Core - Final Assessment Hypertension [place] [employer] Hypertension Guidelines Reassessment Notes & Comments:: BP's are within AHA normal limits on some days. Low sodium diet and weight loss encouraged. Pt taking meds as prescribed. Core - 90 Day Assessment Visit Date of Eval: 12/07/24 Session #:: 31 Medication Compliance Preventative Medication(s):: Aspirin, Clopidogrel/P2Y12 inhibit, Statin/lipid, Beta junior and ARB (Angiotensi Rcap) H/O mental health issues: depression, anxiety, or addiction?: Yes Doesn’t believe in the benefits of treatment?: No Believes medications are unnecessary or harmful?: No Has a concern about medication side effects?: No Expresses concern over the cost of medications?: No Outcomes/Goals: Verbalizes medications,desired effect & common side effects @ DC, Pt self-reports following medication regimen, Keeps card in wallet w/medications listed by DC and Other additional outcome/goals: Interventions/plans: Instruct on medication effects & side effects, Review medication list w/patient every two weeks, Instruct importance of taking meds as ordered & assist problem solving and Other additional 30-day Reassessments:: Met Reassessment Notes & Comments:: Pt taking meds as prescribed and has attended cardiac meds class. Tobacco Use Tobacco Use: Non-smoker (Former smoker stopped in 1997) Hypertension Hypertension Diagnosis:: Hypertension ICD-10 I10 Resting Blood Pressure:: 134/70 [place] [employer] Hypertension Guidelines Peak Exercise Blood Pressure:: 192/90 Outcomes/Goals: Able to verbalize/achieve optimal blood pressure <130/80 and Incorporates diet changes & exercise for blood pressure control by DC Interventions/plan: Instruct on optimal blood pressure, hypertension & medications and Instruct on effects of sodium, alcohol, stress, exercise &hypertension 30 day Reassessments:: Progressing Reassessment Notes & Comments:: BP's are within AHA normal limits on some days. Low sodium diet and weight loss encouraged. Pt taking meds as prescribed. Tobacco Cessation Referral Smoking Cessation Referral:: No Individual Education/Counseling:: No Education Schedule Given:: Yes Psychosocial - 30-Day Assess Referral to Behavioral Health PS - Interventions: Yes: Attend Stress Management Classes Psychosocial - 60-Day Assess Referral to Behavioral Health PS - Interventions: Yes: Attend Stress Management Classes Psychosocial - -Day Assess VIsit Date of Eval: 12/07/24 Session #:: 31 History of previous Mental disease:: Yes History of Emotional Disorders: Anxious (Pt taking meds for anxiety) Psychosocial Test Tool Used:: PHQ-9 Questionnaire phq-9 Severity See PHQ-9 Score: 3 Referral to Behavioral Health PS - Interventions: Yes: Attend Stress Management Classes Outcomes/Goals: See list Psychosocial Outcomes/Goals:: ID's personal stressors & 2 strategies to manage stress by discharge and Other Additional outcome/goals: Intervention/Plan: See List Interventions/Plan:: Assess stressors,coping strategies & signs of derpression on admission, Instruct/assist pt to develop coping & personal stress Mgt strategies, Refer to Behavioral Health if appropriate, Refer to Physician if appropriate, Instruct patient to recognize signs & symptoms of depression, Instruct patient to recog and Other additional plan/intervention 30-day Reassessments: 30 day Reassessments:: Progressing Reassessment Notes & Comments:: Pt taking anxiety meds as prescribed. Psychosocial - Final Assessmen Referral to Behavioral Health PS - Interventions: Yes: Attend Stress Management Classes Nutrition - 90-Day Assessment Program Goals Nutrition Program Goals Patient has diagnosis of Hyperlipidemia (ICD E78)?: Yes Visit Date of Eval: 12/07/24 Session #:: 31 (Nutrition survey score of 1) Cholesterol/Lipids (Other Core Measures) Determine presence & major risk factors that modify LDL goal: Cigarette smoking, Hypertension or hypertensive medication, Low HDL cholesterol <40 mg/dL*, Family history of premature CHD in Male < 55 years: female <65 yearsFa and Age men > 45 years; women >/= 55 years Outcomes/Goals: Pt IDs own risk factors & lifestyle modifications by Session 10, Verbalizes symptoms of angina & response by session 3., Pt independently manages and Other Additional Outcomes/Goals: Intervention/Plan: Advocate for lipid panel cholesterol medication if applicable, Instruct on personal lipid levels & lipid goals/NCEP guidelines, Instruct on cholesterol and Other additional plan/int 30-day Reassessments:: Met Reassessment Notes & Comments:: Pt is taking meds as prescribed. Pt has attended cardiac meds class. PT understands the importance of taking his meds as prescribed. Diabetes (Other Core Measures) Diabetes Type: Not Applicable Weight Mgt (Other Care) Height: 5 ft 8 in Weight:: 205 lb 8 oz BMI: 31.2 Diagnosis Overweight/Obesity BMI> 30% ICD-10 E66: Yes Diagnosis High BMI/Morbid Obesity BMI> 35% ICD-10 Z68: No Outcomes/Goals: Pt sets, maintains & shows weight loss goal & trend during rehab and Other additional outcomes/goals Intervention/Plan: Instruct on ideal BMI & set weight loss goal w/patient, Assist pt to ID & incorporate diet changes for weight loss by S9, Refer to Structured Weight Loss program as appropriate, Encourage goal of using 250-300dcal per session for weight loss and Other additional plan/interventions 30 day Reassessments:: Progressing Reassessment Notes & Comments:: Pt has attended nutrition class. Pt understands the importance of a heart healthy low sodium diet. Healthy Eating Habits Outcomes/Goals:: Consume diet rich in vegs,fruits,whole grain/high fiber,fish,lean meat, Limit sat/trans fats,cholesterol & added salts & sugars and Other additional outcome/goals: Intervention/Plan:: Assess current eating habits and Other Additional plan/interventions 30-day Reassessments:: Met Reassessment Notes & Comments:: Pt has attended nutrition class. Pt understands the importance of a heart healthy low sodium diet. Education Gave educational materials for:: Signs & symptoms of hypoglycemia, Signs & symptoms of hyperglycemia, Relate diabetes to coronary artery disease and Healthy eating Nutrition - Final Assessment Weight Mgt (Other Care) Height: 5 ft 8 in Weight:: 205 lb 8 oz BMI: 31.2
[2024-12-07 08:22] VITALS: BP 134/70; BMI 31.2
== END 2024-12-13 23:59 ==
LOC: CR 13:00
PROVIDERS: PCP Family Medicine; Referring Provider Internal Medicine Cardiovascular Disease; Visit Provider Internal Medicine Cardiovascular Disease
DX: I21.4 Non-ST elevation (NSTEMI) myocardial infarction (principal); Z95.5 Presence of coronary angioplasty implant and graft; I25.10 Atherosclerotic heart disease of native coronary artery without angina pectoris; I10 Essential (primary) hypertension; E78.00 Pure hypercholesterolemia, unspecified
CPT/HCPCS: 93798

== ENCOUNTER 2024-12-16 14:15 | Outpatient (RCR) | payer MEDICARE, BC, SELFPAY ==
[2024-12-07 08:22] VITALS: BMI 31.2
--- NOTE | 2024-12-26 09:26 | CR.ITP_ITS ---
Exercise - Initial Assessment Physician Prescribed Exercise Modalities: Treadmill, Schwinn Airdyne AD-7 and SciFit Stepper Nutrition - Initial Assessment Program Goals Nutrition Program Goals Patient has diagnosis of Hyperlipidemia (ICD E78)?: Yes Weight Mgt (Other Care) Height: 5 ft 8 in Weight:: 203 lb 8 oz BMI: 30.9 Core - Initial Assessment Hypertension Resting Blood Pressure:: 140/70 [place] [employer] Hypertension Guidelines Psychosocial - Initial Assess Psychosocial Test phq-9 Severity See PHQ-9 Score: 3 Referral to Behavioral Health PS - Interventions: Yes: Attend Stress Management Classes Exercise - 30-day Assessment Physician Prescribed Exercise Modalities: Treadmill, Schwinn Airdyne AD-7 and SciFit Stepper Exercise - 60-day Assessment Physician Prescribed Exercise Modalities: Treadmill, Schwinn Airdyne AD-7 and SciFit Stepper Exercise - 90-day Assessment Physician Prescribed Exercise Modalities: Treadmill, Schwinn Airdyne AD-7 and SciFit Stepper Exercise - Final/Discharge Visit Date of Eval: 12/26/24 Session #:: 36 Physician Prescribed Exercise Modalities: Treadmill, Schwinn Airdyne AD-7 and SciFit Stepper Frequency: 3x/week for 12 weeks [36 sessions] Intensity: 60-80% of age predicted maximum heart rate reserve Duration: 30 - 45 minutes METs - Progression 0.5-1.0 weekly:: 0.5-1.0 Current METSs:: 6.9 Target Heart Rate:: 85-120 Target RPE 12-16:: 12-16 Current RPE:: 13 Maximum Heart Rate:: 103 Resting Blood Pressure: 140/70 Maximum Exercise Blood Pressure: 168/70 EKG Type: SB-NSR-ST with 1DAVB with occ multifocal PVCs Current Physical Activity or Exercising minutes: 30-45 Outcomes & Goals Goals:: Verbalizes understanding of THR, RPE & goal METS by session 6, Documents in home exercise log/reports 30 min aerobic 5 day/wk by DC and Demonstrates accurate pulse taking by DC Intervention & Plan Exercise Program Goals: Instruct on personal THR & RPE, Instruct on MET level & personal MET goal, Show patient to take own pulse /validate performance until accurate and Instruct on home exercise 30-day Reassessments 30 day Reassessments:: Met Physical Activity Home Exercise Physical Activity - Home Exercise: Safe Exercise, Warm-up, Self-monitoring, Cool-Down, Home Exercise > 30 min Daily and Sitting Time <3 hours/daily Outcomes & Goals Outcomes/Goals: Demonstrates correct Warm-up/exercise Cool-Down (S3) if = 2.5 METs, Verbalizes symptoms of exercise intolerance by Session 3 (S3) and Demonstrate safe equipment use (S3) & follows exercise prescrition (6) Intervention & Plan Plan/Intervention: Instruct warm-up & cool-down if exercising at > 2 METs, Instruct on symptoms of exercise intolerance & actions to take, Instruct & monitor on saf and Assess intial functional capacity & safety risk 30-day Reassessments 30 day Reassessments:: Met Reassessment Notes & Comments:: Pt currently working at 6.9 METS, pt provided exercise prescription and community resources to continue active lifestyle after graduation, pt also has equipment at home he plans to utilize for his exercise regimen. Nutrition - 30-Day Assessment Weight Mgt (Other Care) Height: 5 ft 8 in Weight:: 203 lb 8 oz BMI: 30.9 Nutrition - 60-Day Assessment Weight Mgt (Other Care) Height: 5 ft 8 in Weight:: 203 lb 8 oz BMI: 30.9 Core - Final Assessment Visit Date of Eval: 12/26/24 Session #:: 36 Medication Compliance Preventative Medication(s):: Aspirin, Clopidogrel/P2Y12 inhibit, Statin/lipid, Beta junior and ARB (Angiotensi Rcap) H/O mental health issues: depression, anxiety, or addiction?: Yes Doesn’t believe in the benefits of treatment?: No Believes medications are unnecessary or harmful?: No Has a concern about medication side effects?: No Expresses concern over the cost of medications?: No Outcomes/Goals: Verbalizes medications,desired effect & common side effects @ DC, Pt self-reports following medication regimen and Keeps card in wallet w/medications listed by DC Interventions/plans: Instruct on medication effects & side effects, Review medication list w/patient every two weeks and Instruct importance of taking meds as ordered & assist problem solving 30-day Reassessments:: Met Reassessment Notes & Comments:: Pt taking all medications as prescribed. Tobacco Use Tobacco Use: Non-smoker (Former smoker stopped in 1997) 30 day Reassessments:: Met Hypertension Hypertension Diagnosis:: Hypertension ICD-10 I10 Resting Blood Pressure:: 140/70 [place] [employer] Hypertension Guidelines Peak Exercise Blood Pressure:: 168/70 Outcomes/Goals: Able to verbalize/achieve optimal blood pressure <130/80 and Incorporates diet changes & exercise for blood pressure control by DC Interventions/plan: Instruct on optimal blood pressure, hypertension & medications and Instruct on effects of sodium, alcohol, stress, exercise &hypertension 30 day Reassessments:: Met Core - 60-Day Assessment Hypertension Resting Blood Pressure:: 140/70 [place] [employer] Hypertension Guidelines Psychosocial - 30-Day Assess Referral to Behavioral Health PS - Interventions: Yes: Attend Stress Management Classes Psychosocial - 60-Day Assess Referral to Behavioral Health PS - Interventions: Yes: Attend Stress Management Classes Psychosocial - 90-Day Assess Referral to Behavioral Health PS - Interventions: Yes: Attend Stress Management Classes Psychosocial - Final Assessmen VIsit Date of Eval: 12/26/24 Session #:: 36 History of previous Mental disease:: Yes History of Emotional Disorders: Anxious (Pt currently taking medications for anxiety) Psychosocial Test Tool Used:: PHQ-9 Questionnaire phq-9 Severity See PHQ-9 Score: 3 Referral to Behavioral Health PS - Interventions: Yes: Attend Stress Management Classes Outcomes/Goals: See list Psychosocial Outcomes/Goals:: ID's personal stressors & 2 strategies to manage stress by discharge Intervention/Plan: See List Interventions/Plan:: Assess stressors,coping strategies & signs of derpression on admission, Instruct/assist pt to develop coping & personal stress Mgt strategies, Refer to Behavioral Health if appropriate, Refer to Physician if appropriate and Instruct patient to recognize signs & symptoms of depression 30-day Reassessments: 30 day Reassessments:: Met Reassessment Notes & Comments:: Pt denies any psychosocial needs at this time pt working with PCP to manage anxiety. Pt attended stress management classes and provided community resources if needed. Nutrition - 90-Day Assessment Weight Mgt (Other Care) Height: 5 ft 8 in Weight:: 203 lb 8 oz BMI: 30.9 Nutrition - Final Assessment Program Goals Patient has diagnosis of Hyperlipidemia (ICD E78)?: Yes Visit Date of Assessment:: 12/26/24 (nutrition survey score 1) Session #:: 36 Cholesterol/Lipids (Other Core Measures) Triglycerides (mg/dL): 152 Total Cholesterol (mg/dL): 124 LDL Cholesterol (mg/dL): 58 HDL Cholesterol (mg/dL): 30 Lipid Medication: Nexlizet QD Determine presence & major risk factors that modify LDL goal: Cigarette smoking, Hypertension or hypertensive medication, Low HDL cholesterol <40 mg/dL*, Family history of premature CHD in Male < 55 years: female <65 yearsFa and Age men > 45 years; women >/= 55 years Outcomes/Goals: Pt IDs own risk factors & lifestyle modifications by Session 10, Verbalizes symptoms of angina & response by session 3., Pt independently manages and Other Additional Outcomes/Goals: Intervention/Plan: Advocate for lipid panel cholesterol medication if applicable, Instruct on personal lipid levels & lipid goals/NCEP guidelines and Instruct on cholesterol 30-day Reassessments:: Met Diabetes (Other Core Measures) Diabetes Type: Not Applicable Weight Mgt (Other Care) Height: 5 ft 8 in Weight:: 203 lb 8 oz BMI: 30.9 Diagnosis Overweight/Obesity BMI> 30% ICD-10 E66: Yes Diagnosis High BMI/Morbid Obesity BMI> 35% ICD-10 Z68: No Outcomes/Goals: Pt sets, maintains & shows weight loss goal & trend during rehab Intervention/Plan: Instruct on ideal BMI & set weight loss goal w/patient, Assist pt to ID & incorporate diet changes for weight loss by S9, Refer to Structured Weight Loss program as appropriate and Encourage goal of using 250- 300dcal per session for weight loss 30 day Reassessments:: Met Reassessment Notes & Comments:: Pt showed trends of weight loss while in rehab, pt attended dietary classes and healthy living classes to promote overall well being and to maintain healthy lifestyle. Healthy Eating Habits Will attend diet classes:: Yes Outcomes/Goals:: Consume diet rich in vegs,fruits,whole grain/high fiber,fish,lean meat and Limit sat/trans fats,cholesterol & added salts & sugars Intervention/Plan:: Assess current eating habits 30-day Reassessments:: Met Education Gave educational materials for:: Signs & symptoms of hypoglycemia, Signs & symptoms of hyperglycemia, Relate diabetes to coronary artery disease and Healthy eating
[2024-12-26 09:30] VITALS: BP 140/70
[2024-12-26 09:38] VITALS: BMI 30.9
[2024-12-26 09:52] VITALS: BP 140/70
== END 2025-01-13 23:59 ==
LOC: CR 14:15
PROVIDERS: PCP Family Medicine; Referring Provider Internal Medicine Cardiovascular Disease; Visit Provider Internal Medicine Cardiovascular Disease
DX: I21.4 Non-ST elevation (NSTEMI) myocardial infarction (principal); Z95.5 Presence of coronary angioplasty implant and graft; I25.10 Atherosclerotic heart disease of native coronary artery without angina pectoris; I10 Essential (primary) hypertension; E78.00 Pure hypercholesterolemia, unspecified
CPT/HCPCS: 93798